=== PATIENT | male | born 1940 | race American Indian/Alaskan Native ===

== ENCOUNTER 2018-09-05 15:56 | Inpatient (IN) | payer OTHER ==
--- NOTE | 2018-09-05 16:10 | PDOC ---
Attending Attestation - Resident Resident Name: Antonio Gomes - HPI HPI: 09/05/18 17:17 Pt presents to the ED after sent from [place] for altered mental status. Patient has a history of parkinson's with associated dementia, but apparently was less responsive than usual. Patient is drowsy, but arousable and is confused but can answer questions. He does not know where he is or why he is here. He denies complaints except for R flank pain. - Physicial Exam PE: 09/05/18 17:20 Agree with resident exam. PAtient is drowsy but arousable to loud voice. HEENT : dry muccous mebranes, no signs of trauma. CV: RRR no m/r/g Pulm: Decreased air entry b/l Abdomen: soft, non tender, non distended. Ext: no edema, tenderness or deformity. Neuro: oriented x 2, moving all extremities, answering questions and following commands. 09/05/18 17:25 - Medical Decision Making 09/05/18 17:24 pt presents to the ED after sent in for altered mental status. Febrile in the ED. Likely sepsis, but intracranial lesion, electrolyte imbalance, less likely ACS remain in the differential. Will check labs and CT head, give gentle hydration, start broad spectrum antibiotics and admit to medicine. 09/05/18 17:26
--- NOTE | 2018-09-05 16:11 | PDOC ---
History of Present Illness - General Stated Complaint: Altered Mental Status Time Seen by Provider: 09/05/18 16:08 History Source: Patient Exam Limitations: No Limitations - History of Present Illness Initial Comments: 09/05/18 16:57 77m with pmg of ESRD on dialysis (sun/sun/sunday) , parkinson's, HTN, dysphagia , breast cancer sent from [facility] for altered mental status and fever per rectum. According to NH patient was "unresponsive" around 11:30 and "lethargic" according to a note written by Respiratory therapist. No more information provided upon calling [place]. . Past History - Past Medical History Allergies/Adverse Reactions: Allergies Allergy/AdvReac Type Severity Reaction Status Date / Time No Known Allergies Allergy Verified 09/05/18 16:44 Home Medications: Ambulatory Orders Amlodipine Besylate [Norvasc -] 10 mg PO DAILY 09/05/18 Carbidopa/Levodopa [Carbidopa-Levo ER 50-200 Tab] 1 each PO QID 09/05/18 Losartan Potassium 100 mg PO DAILY 09/05/18 Meclizine HCl [Antivert -] 12.5 mg PO TID PRN 09/05/18 Menthol/Zinc Oxide [Calmoseptine Ointment] 71 gm TP DAILY 09/05/18 Review of Systems - Review of Systems Able to Perform ROS?: Yes (although altered mental s) Constitutional: Yes: Weakness HEENTM: No: Symptoms Reported Respiratory: No: Symptoms reported Cardiac (ROS): No: Symptoms Reported ABD/GI: Yes: Other (left flank pain) All Other Systems: Reviewed and Negative *Physical Exam - Physical Exam General Appearance: Yes: Thin, Other (Dry skin and mucous membranes) HEENT: positive: EOMI, LIVIA, Normal ENT Inspection Respiratory/Chest: positive: Lungs Clear, Decreased Breath Sounds (left). negative: Chest Tender, Respiratory Distress Cardiovascular: positive: Regular Rhythm, Regular Rate, S1, S2 Gastrointestinal/Abdominal: positive: Normal Bowel Sounds, Flat, Soft. negative : Tender Musculoskeletal: positive: CVA Tenderness (L) Extremity: positive: Normal Capillary Refill, Normal Inspection, Normal Range of Motion Integumentary: positive: Dry, Pale Neurologic: positive: Normal Mood/Affect, Disoriented. negative: Fully Oriented (alert and oriented to self and time but not place. doesnt know where he ), Facial Droop, Numbness, Depressed Affect ED Treatment Course - LABORATORY CBC & Chemistry Diagram: 09/05/18 17:14 09/05/18 17:14 Medical Decision Making - Medical Decision Making 09/05/18 17:19 77yo m with pmh of dementia and esrd sent to ed for evaluation of ams and lethargy. Source of fever and lethargy pneumonia vs UTI vs anemia vs metabolic derangement. Will get Septic workup, start 500cc NS and abx vanc/zosyn. , CT head and ab/pelvis 09/05/18 19:51 CT HEAD: No definite CT evidence of acute intracranial pathology. A small left frontal subcortical white matter infarct is noted which is probably chronic, less likely subacute. Correlate clinically. A small linear hypodense focus is seen within the left paramedian aspect of the basis pontis which is probably artifactual, less likely representing a chronic infarct. Ct abdomen/pelvis: No definite CT findings of acute pathology are identified. Bilateral renal atrophy. Moderate to marked diffuse pancreatic atrophy. Mild/mild to moderate concentric subcutaneous soft tissue stranding suggestive of edema along the abdomen and pelvis. Mild right posterior basilar opacity is seen probably representing atelectasis, less likely a small infiltrate. Correlate clinically. Prostate enlargement. UA pending. Will admit to hospitalist *DC/Admit/Observation/Transfer Diagnosis at time of Disposition: Altered mental status - Discharge Dispostion Decision to Admit order: Yes - Referrals Referrals: Kamila Tucker MD [Primary Care Provider] - - Patient Instructions - Post Discharge Activity
[2018-09-05] MEDS ORDERED: SODIUM CHLORIDE 500 ML IV STA (16:37)
[2018-09-05] MEDS ORDERED: PIPERACILLIN/TAZOB 2.25 GM 2.25 GM in DEXTROSE 5%-WATER - 50 ML IVPB ONE (17:25)
[2018-09-05] MEDS ORDERED: VANCOMYCIN 1 GM in D5W (PRE-DOCKED) 1,000 MG/250 ML IVPB ONE (17:26)
[2018-09-05 17:28] LABS: VENOUS PC02 41.1 mmHg (38-52); VENOUS PH 7.39 (7.32-7.42); VENOUS PO2 52.6 mmHg (28-48)
[2018-09-05 17:34] LABS: BASO % 0.8 % (0-2.0); EOS % 4.7 % (0-4.5); HEMATOCRIT 39.7 % (35.4-49); HEMOGLOBIN 13.7 GM/dL (11.7-16.9); LYMPH % 8.2 % (8-40); MCH 39.2 pg (25.7-33.7); MCHC 34.4 g/dl (32.0-35.9); MEAN CELL VOLUME 113.9 fl (80-96); MEAN PLT VOLUME 10.2 fl (7.5-11.1); MONO % 10.9 % (3.8-10.2); NEUT % 75.4 % (42.8-82.8); PLATELET COUNT 175 K/MM3 (134-434); RBC 3.48 M/mm3 (4.00-5.60); WHITE BLOOD COUNT 10.9 K/mm3 (4.0-10.0)
[2018-09-05 17:54] LABS: ALBUMIN 3.4 g/dl (3.4-5.0); ALK PHOS 204 U/L (45-117); ANION GAP 9 MMOL/L (8-16); BILIRUBIN,TOTAL 0.8 mg/dL (0.2-1); BLOOD UREA NITROGEN 46 mg/dL (7-18); CALCIUM 8.8 mg/dL (8.5-10.1); CHLORIDE 106 mmol/L (98-107); CO2 25 mmol/L (21-32); CREATININE 4.7 mg/dL (0.55-1.3); GLUCOSE,RANDOM 112 mg/dL (74-106); POTASSIUM 4.8 mmol/L (3.5-5.1); SGOT/AST 26 U/L (15-37); SGPT/ALT 22 U/L (13-61); SODIUM 139 mmol/L (136-145); TOT PROT 7.1 g/dl (6.4-8.2)
[2018-09-05 18:02] LABS: INR 1.03 (0.83-1.09); PROTHROMBIN TIME (PATIENT) 12.1 SEC (9.7-13.0)
[2018-09-05 18:05] LABS: ACTIVATED PTT 35.5 SECONDS (25.2-36.5)
[2018-09-05] MEDS ORDERED: ACETAMINOPHEN 1000 MG/100 ML VIAL (NON FORMULARY) IVPB ONE (18:21)
[2018-09-05 18:25] LABS: MACROCYTOSIS 2+
[2018-09-05] MEDS ORDERED: VANCOMYCIN 1 GRAM (PRE-DOCKED) 1,000 MG/250 ML BAG IVPB ONE (18:25)
[2018-09-05] MEDS ORDERED: PIPERACILLIN/TAZOB 2.25 GM 2.25 GM/50 ML BAG IVPB ONE ×2 (18:25→18:26)
[2018-09-05] MEDS ORDERED: ACETAMINOPHEN INJECTION 100 ML IVPB ONE (18:25)
[2018-09-05 22:07] LABS: URINE APPEARANCE CLEAR; URINE BILIRUBIN NEGATIVE (<2.0 mg/dL); URINE COLOR LTYELLOW; URINE GLUCOSE (UA) NEGATIVE (NEGATIVE); URINE KETONE NEGATIVE (NEGATIVE); URINE LEUK ESTERASE NEGATIVE (NEGATIVE); URINE NITRITE NEGATIVE (NEGATIVE); URINE PROTEIN 3+ (NEGATIVE); URINE UROBILINOGEN NEGATIVE mg/dL (0.2-1.0)
--- NOTE | 2018-09-05 22:10 | HP ---
CHIEF COMPLAINT: fever, altered mental status PCP: Louie MELVIN HISTORY OF PRESENT ILLNESS: This is a 77 year old male with a past medical history of ESRD on dialysis MWF, Parkinson's disease, dementia, HTN, dysphagia, Breast cancer who presented to the ED from his snf with fever and altered mental status. Pt only complains of pain to the side of his left knee on exam. Denies cough, chest pain , abdominal pain, N/V/D. ER course was notable for: (1) WBC 10.9, CXR unremarkable, U/A pending (2) given vanc / zosycn in ED (3) Recent Travel: none PAST MEDICAL HISTORY: ESRD, Parkinson's disease, dementia, dysphagia, HTN, Breast cancer PAST SURGICAL HISTORY: Right AVF Social History: Smoking: unk Alcohol: unk Drugs: unk Family History: unk Allergies No Known Allergies Allergy (Verified 09/05/18 16:44) HOME MEDICATIONS: 3 Medication Instructions Recorded Amlodipine Besylate [Norvasc -] 10 mg PO DAILY 09/05/18 Carbidopa/Levodopa [Carbidopa-Levo 1 each PO QID 09/05/18 ER 50-200 Tab] Losartan Potassium 100 mg PO DAILY 09/05/18 Meclizine HCl [Antivert -] 12.5 mg PO TID PRN 09/05/18 Menthol/Zinc Oxide [Calmoseptine 71 gm TP DAILY 09/05/18 Ointment] REVIEW OF SYSTEMS CONSTITUTIONAL: Present: fever Absent: chills, diaphoresis, generalized weakness, malaise, loss of appetite, weight change HEENT: Absent: rhinorrhea, nasal congestion, throat pain, throat swelling, difficulty swallowing, mouth swelling, ear pain, eye pain, visual changes CARDIOVASCULAR: Absent: chest pain, syncope, palpitations, irregular heart rate, lightheadedness , peripheral edema RESPIRATORY: Absent: cough, shortness of breath, dyspnea with exertion, orthopnea, wheezing, stridor, hemoptysis GASTROINTESTINAL: Absent: abdominal pain, abdominal distension, nausea, vomiting, diarrhea, constipation, melena, hematochezia GENITOURINARY: Absent: dysuria, frequency, urgency, hesitancy, hematuria, flank pain, genital pain MUSCULOSKELETAL: Present: left knee pain Absent: myalgia, arthralgia, joint swelling, back pain, neck pain SKIN: Absent: rash, itching, pallor HEMATOLOGIC/IMMUNOLOGIC: Absent: easy bleeding, easy bruising, lymphadenopathy, frequent infections ENDOCRINE: Absent: unexplained weight gain, unexplained weight loss, heat intolerance, cold intolerance NEUROLOGIC: Absent: headache, focal weakness or paresthesias, dizziness, unsteady gait, seizure, mental status changes, bladder or bowel incontinence PSYCHIATRIC: Absent: anxiety, depression, suicidal or homicidal ideation, hallucinations. PHYSICAL EXAMINATION Vital Signs - 24 hr 3 09/05/18 16:00 Temperature 101.0 F H Pulse Rate 85 Respiratory 16 Rate Blood Pressure 167/78 O2 Sat by Pulse 100 Oximetry (%) GENERAL: lethargic, easily arousable, and oriented to person and place, in no acute distress. HEAD: Normal with no signs of trauma. EYES: Pupils equal, round and reactive to light, extraocular movements intact, sclera anicteric, conjunctiva clear. No lid lag. EARS, NOSE, THROAT: Ears normal, nares patent, oropharynx clear without exudates. Dry mucous membranes. NECK: Normal range of motion, supple without lymphadenopathy, JVD, or masses. LUNGS: Breath sounds diminished, poor inspiratory effort. No wheezes, and no crackles. No accessory muscle use. HEART: Regular rate and rhythm, normal S1 and S2 without murmur, rub or gallop. ABDOMEN: Soft, nontender, not distended, normoactive bowel sounds, no guarding, no rebound, no masses. No hepatomegaly or splenomegaly. MUSCULOSKELETAL: Normal range of motion at all joints. No bony deformities or tenderness. No CVA tenderness. UPPER EXTREMITIES: 2+ pulses, warm, well-perfused. No cyanosis. No clubbing. No peripheral edema. LOWER EXTREMITIES: 2+ pulses, warm, well-perfused. No calf tenderness. No peripheral edema. NEUROLOGICAL: Cranial nerves II-XII grossly intact. Normal speech. PSYCHIATRIC: Cooperative. Good eye contact. Appropriate mood and affect. SKIN: Warm, dry, poor turgor, no rashes or lesions noted, normal capillary refill. Laboratory Results - last 24 hr 3 09/05/18 09/05/18 09/05/18 17:03 17:14 17:14 WBC 10.9 H RBC 3.48 L Hgb 13.7 Hct 39.7 MCV 113.9 H MCH 39.2 H MCHC 34.4 RDW 16.0 H Plt Count 175 MPV 10.2 Absolute Neuts (auto) 8.2 H Neutrophils % 75.4 Lymphocytes % 8.2 Monocytes % 10.9 H Eosinophils % 4.7 H Basophils % 0.8 Nucleated RBC % 0 Macrocytosis 2+ PT with INR 12.10 INR 1.03 PTT (Actin FS) 35.5 VBG pH POC VBG pCO2 POC VBG pO2 Mixed VBG HCO3 Sodium Potassium Chloride Carbon Dioxide Anion Gap BUN Creatinine Creat Clearance w eGFR POC Glucometer 102 Random Glucose Lactic Acid Calcium Total Bilirubin AST ALT Alkaline Phosphatase Troponin I Total Protein Albumin 3 09/05/18 09/05/18 09/05/18 17:14 17:14 17:14 WBC RBC Hgb Hct MCV MCH MCHC RDW Plt Count MPV Absolute Neuts (auto) Neutrophils % Lymphocytes % Monocytes % Eosinophils % Basophils % Nucleated RBC % Macrocytosis PT with INR INR PTT (Actin FS) VBG pH 7.39 POC VBG pCO2 41.1 POC VBG pO2 52.6 H Mixed VBG HCO3 24.6 Sodium 139 Potassium 4.8 Chloride 106 Carbon Dioxide 25 Anion Gap 9 BUN 46 H Creatinine 4.7 H Creat Clearance w eGFR 12.21 POC Glucometer Random Glucose 112 H Lactic Acid 0.8 Calcium 8.8 Total Bilirubin 0.8 AST 26 ALT 22 Alkaline Phosphatase 204 H Troponin I 0.04 Total Protein 7.1 Albumin 3.4 Radiology Reports: CXR portable no obvious effusions, infiltrates, final read pending CT head, noncontrast Impression: No definite CT evidence of acute intracranial pathology. A small left frontal subcortical white matter infarct is noted which is probably chronic, less likely subacute. Correlate clinically. A small linear hypodense focus is seen within the left paramedian aspect of the basis pontis which is probably artifactual, less likely representing a chronic infarct. Reported By: Brendan Rivera MD 09/05/[address] abdomen, pelvis non contrast Impression: No definite CT findings of acute pathology are identified. Bilateral renal atrophy. Moderate to marked diffuse pancreatic atrophy. Mild/mild to moderate concentric subcutaneous soft tissue stranding suggestive of edema along the abdomen and pelvis. Mild right posterior basilar opacity is seen probably representing atelectasis, less likely a small infiltrate. Correlate clinically. Prostate enlargement. Reported By: Brendan Rivera MD 09/05/181937 ASSESSMENT/PLAN: 77yM with PMH ESRD, parkinson's disease with dysphagia, HTN, breast cancer who presented to the ED with fever. Fever, r/o bacteremia vs PNA - cont vanc/zosyn - CXR without obvious infiltrate/effusion, CT abd/pel with right basilar opacity, ? atelectasis vs less likely small infiltrate, await final CXR read, consider CT chest if no other source of fever - follow blood cultures, could be bacteremia r/t dialysis - ID consult Parkinson's disease - cont home meds - speech/swallow, r/o silent aspiration, RN reports tolerated water without issue ESRD - HTN - cont home meds or pharmacy formulary equivalent. DVT PPX - heparin 5000u BID FEN - defer further IVF in setting of ESRD and normal lactate, po fluids - BMP in am - renal diet Dispo: Pt currently requires further inpatient management of his emergent condition. Visit type - Emergency Visit Emergency Visit: Yes ED Registration Date: 09/05/18 Care time: The patient presented to the Emergency Department on the above date and was hospitalized for further evaluation of their emergent condition. - New Patient This patient is new to me today: Yes Date on this admission: 09/05/18 - Critical Care Critical Care patient: No
[2018-09-05 22:21] LABS: EPI CELLS RARE /HPF (FEW); URINE MUCUS RARE
[2018-09-06 04:45] VITALS: BMI 20.8
[2018-09-06 06:55] LABS: EOS % 8.4 % (0-4.5); HEMATOCRIT 38.5 % (35.4-49); HEMOGLOBIN 12.8 GM/dL (11.7-16.9); LYMPH % 7.2 % (8-40); MCH 38.3 pg (25.7-33.7); MCHC 33.3 g/dl (32.0-35.9); MEAN CELL VOLUME 115.2 fl (80-96); MEAN PLT VOLUME 10.4 fl (7.5-11.1); MONO % 10.5 % (3.8-10.2); NEUT % 72.9 % (42.8-82.8); PLATELET COUNT 166 K/MM3 (134-434); RBC 3.34 M/mm3 (4.00-5.60); WHITE BLOOD COUNT 9.8 K/mm3 (4.0-10.0)
[2018-09-06 07:27] LABS: ANION GAP 7 MMOL/L (8-16); BLOOD UREA NITROGEN 51 mg/dL (7-18); CALCIUM 8.3 mg/dL (8.5-10.1); CHLORIDE 105 mmol/L (98-107); CO2 25 mmol/L (21-32); CREATININE 4.9 mg/dL (0.55-1.3); GLUCOSE,RANDOM 77 mg/dL (74-106); MAGNESIUM 2.4 mg/dL (1.8-2.4); PHOSPHOROUS 4.6 mg/dL (2.5-4.9); POTASSIUM 4.8 mmol/L (3.5-5.1); SODIUM 137 mmol/L (136-145)
[2018-09-06] MEDS ORDERED: PIPERACILLIN/TAZOB 2.25 GM 2.25 GM in DEXTROSE 5%-WATER - 50 ML IVPB ONE (08:00)
[2018-09-06] MEDS ORDERED: PIPERACILLIN/TAZOBACTAM 2.25 GM VIAL IVPB ONE ×2 (08:44→18:24)
[2018-09-06] MEDS ORDERED: DEXTROSE 5%-WATER - 50 ML IVPB ONE ×2 (08:45→18:24)
[2018-09-06] MEDS ORDERED: PT OWN MED DRAWER 7, Y5N ONE ×3 (10:54→21:43)
[2018-09-06] MEDS: HEPARIN NA (PORCINE) 5,000 UNITS/ML 1ML VIAL SQ SCH ×2 (10:59→21:45)
[2018-09-06] MEDS: amLODIPine BESYLATE 10 MG TABLET (FP) PO SCH (10:59)
[2018-09-06] MEDS: LOSARTAN POTASSIUM 50 MG TABLET (FP) PO SCH (10:59)
--- NOTE | 2018-09-06 11:19 | PN ---
Progress Note (short form) - Note Progress Note: ID consult dictated imp/reccd 77 yo man admitted from [place] with lethargy left hip pain for one week PMH esrd/hd breast cancer parkinsons disease HTN DM found to have fever 101 currently awake and alert currently afebrile he had a head ct and ct scan of his abdomen and pelvis with question of RLL small infiltrate/atelectasis received vanco/zosyn in ed influenza screen negative fever ?secondary to bacteremia from HD- unlikely with AVF- received vanco/zosyn after cultures ?pneumonia- continue zosyn for now, ?aspiration f/u cultures xray left hip elevated mcv-b12,folate tsh clinically improved Problem List - Problems (1) Fever Code(s): R50.9 - FEVER, UNSPECIFIED (2) Pneumonia Code(s): J18.9 - PNEUMONIA, UNSPECIFIED ORGANISM (3) ESRD (end stage renal disease) on dialysis Code(s): N18.6 - END STAGE RENAL DISEASE; Z99.2 - DEPENDENCE ON RENAL DIALYSIS
--- NOTE | 2018-09-06 12:42 | CONS ---
DATE OF CONSULTATION: DATE OF DICTATION: 09/06/2018 REQUESTED BY: Zen Alexander MD HISTORY OF PRESENT ILLNESS: This is a 77-year-old man admitted from the halfway. He has been there for a week. Prior to that he was at [facility]. It is unclear why who presents with lethargy from the halfway. Found to have fever of 101. He was given vancomycin and Zosyn in the emergency room. He had a chest x-ray that was read as unremarkable. A CAT scan of his abdomen and pelvis showed a question of a right lower lobe infiltrate. He had blood cultures drawn and was started on vancomycin and Zosyn. He has had no fever since that time. PAST MEDICAL HISTORY: Notable for endstage renal disease, on dialysis he reports for about a year and a half now. He has a history of Parkinson disease, dysphagia, hypertension and breast cancer. SURGICAL HISTORY: Notable for AVF. He has also had sounds like lumbar back surgery in the past. SOCIAL HISTORY: He denies cigarette, alcohol or substance use. He was living in [place]. 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 He is originally from [place]. FAMILY HISTORY: Unremarkable. ALLERGIES: He has no known drug allergies. MEDICATIONS: Include amlodipine, carbidopa, levodopa, losartan, meclizine. REVIEW OF SYSTEMS: He denies fever. He complains he has had 1 week of left hip pain. Otherwise he feels well. He has had no vomiting. He denies any cough or shortness of breath. PHYSICAL EXAMINATION:Vital Signs: His T-max was 101, currently 97.5, pulse is 71, blood pressure 153/74, respiratory rate is 18, he is 62 kg. HEENT: He is normocephalic. His eyes are anicteric. He has good dentition. Neck: Supple. He has no thrush. He has no nuchal rigidity. Lungs: Have diminished breath sounds at the bases. Heart: Regular rate and rhythm. Abdomen: Soft. He has a well-healed scar on his lower abdomen that he attributes to his prior lumbar back surgery. Extremities: He has an AV fistula in his right arm without any erythema or induration. Extremities are without edema. LABORATORY DATA: White count on admission was 10.9, this morning is 9.8, hemoglobin 12.8, platelets 166. His BUN is 51 and creatinine is 4.9. His LFTs are normal. Urinalysis is negative. Influenza screen is negative. Of note his MCV on his differential is noted to be 115. His blood and urine cultures are pending. Imaging is as previously stated. ASSESSMENT: In summary, this is a 77-year-old man with: 1. Fever possibly secondary to bacteremia from dialysis which is definitely more unlikely given he has an arteriovenous fistula that looks okay. He received vancomycin and Zosyn after cultures. 2. Possible pneumonia. More likely with his history of Parkinson he could have had an episode of aspiration. Would continue Zosyn for now and follow up cultures. Would also obtain an x-ray of his left hip. He has an elevated mean corpuscular volume so would obtain B12, folate and a thyroid stimulating hormone as well. Clinically overall he appears improved as he is alert, he is able to give a full history and he has no fever this morning. Further recommendations to follow. GERMÁN HORTON M.D. [id number]
--- NOTE | 2018-09-06 12:56 | EKG ---
Test Reason : Blood Pressure : / mmHG Vent. Rate : 079 BPM Atrial Rate : 079 BPM P-R Int : 142 ms QRS Dur : 084 ms QT Int : 348 ms P-R-T Axes : 054 -36 040 degrees QTc Int : 399 ms NORMAL SINUS RHYTHM LEFT AXIS DEVIATION SEPTAL INFARCT , AGE UNDETERMINED ABNORMAL ECG NO PREVIOUS ECGS AVAILABLE Confirmed by KE KC MD ([id number]) on 09/06/2018 12:56:28 PM Referred By: Confirmed By:KE KC MD
--- NOTE | 2018-09-06 13:09 | CONSULT ---
Admitting History and Physical - Primary Care Physician PCP: Zen Alexander - Admission History of Present Illness: 77 year old male with a past medical history of ESRD on dialysis MWF, Parkinson 's disease, dementia, HTN, dysphagia, Breast cancer who presented to the ED from his assisted with fever and altered mental status. RLL small infiltrate/atelectasis Selected Entries 09/05/18 09/06/18 09/06/18 16:00 02:23 04:05 Breakfast Temperature 101.0 F H 98.9 F 97.5 F L 09/06/18 09/06/18 07:53 12:50 Breakfast 100% Temperature 97.5 F L Laboratory Tests 09/05/18 09/06/18 17:14 05:45 WBC 10.9 H 9.8 Reg diet/thin liquids ordered. This is my first consult with this pt. Pt was on reg diet/thin liquid at [facility]. Dx of "Oral phase Dysphagia" noted on transfer summary. History Source: Patient, Medical Record Limitations to Obtaining History: Clinical Condition - Advance Directives Advance Directives: Yes: DNR - Smoking History Smoking history: Never smoked Have you smoked in the past 12 months: No - Alcohol/Substance Use Hx Alcohol Use: No History - Admission Reason For Visit: Altered Mental Status - Diagnostics X-ray: Report Reviewed - General Mental Status: Alert and Oriented, Awake and Alert, Able to Follow Commands Attention: Distractible, Mild Impairment Ability to Follow Directions: Good Head/Neck Control: WFL - Hearing Hearing: Normal Speech Evaluation - Communication Primary Language: UPPER SORBI[place] Oral Expression Ability: Yes: Mild Impairment - Speech Production Dysarthria: Yes: Hypokinetic Able to Make Needs Known: Yes: Mildly Impaired Intelligibility: Yes: Mildly Impaired - Speech Characteristics Voice Loudness: Mildly Soft/Quiet Voice Pitch: Yes: Normal Voice Phonatory-based Quality: Yes: Hoarse Speech Clarity: < 75% Nasal Resonance: Normal Articulation: Yes: Precise Rate of Speech: Intact - Language/Auditory Comprehension Follows: Yes: 2 Stage Simple Commands - Language/Verbal Expression Able to Respond to Simple Queries: Yes: WNL Able to Communicate Wants and Needs: Yes: WNL Functional Communication Status: Yes: WNL - Swallow Evaluation/Bedside Assessment Current Nutritional Intake: Regular, Thin Liquids Oral Secretions: Yes: WFL Dentition: Yes: Adequate Facial Symmetry at Rest: Symmetrical Facial Symmetry on Retraction: Symmetrical Sensation: Normal Against Resistance Opening: Normal Against Resistance Closing: Normal Pucker Lips: Normal Smile: Normal Lingual Movement: Normal, Symmetric Lingual Speed of Movement: Normal Lingual Movement Strgth Against Opposition: Normal Lingual Movement Characteristics: Normal Velopharyngeal Movement: Normal Laryngeal Elevation: WFL Laryngeal Movement: Able to Palpate Rate of Intake: WFL Bolus Size: WFL Labial Seal: WFL Chewing: WFL Oral Prep Time: WFL A-P Transit: WFL Pocketing: None Timing of Swallow: Delayed Coughing/Throat Clear: No Change in Voice: No Recommendations - Speech Evaluation, Impression/Plan Impression: Mild Hypokinetic Dysarthria sec Parkinsons Disease. Overtly seems to be tolerating Chicken, and drinking thin water via straw without difficulty. 3 oz water test (-). - Disposition Discharge to: Long Term Facility - Dysphagia Impressions/Plan Dysphagia Impressions: Risk of Aspiration, Ongoing Evaluation *Silent aspiration: cannot be R/O at bedside Dysphagia Treatment Plan: Small Bites, Chin Tuck/Down, Facilitative Feeding, Safe Rate, 1/2 tsp. at a time, Elevate HOB during feed, OOB for meals, OOB for 1 h. after meals, Other (Food set up. Please cut pt's food.) Recommendations: Modified Barium Swallow (If aspiration or oral stage dysphagia is suspected, suggest MBS to visualize Swallowing function.) - Recommendations Diet Consistency: Regular Medication Administration: Whole with water Liquids: Thin Liquids
[2018-09-06] MEDS ORDERED: SODIUM CHLORIDE 250 ML IV PRN (13:50)
--- NOTE | 2018-09-06 13:52 | CONSULT ---
Consult Consult Specialty:: Nephrology Reason for Consultation:: ESRD - History of Present Illness Chief Complaint: sent for altered mental status and fever History of Present Illness: Pt is a 77 year old male with pmhx of ESRD, HTN, Parkinsons, and dysphagia who was sent in from the [place] for fever and altered mental status. He has ESRD and I was called to evaluate him. He is on a MWF schedule. He goes to [facility] for HD. He was able to tell me the location of his HD unit, his quality assurance consultant and his HD schedule. He denies shortness of breath. He is sitting up in bed and appears comfortable. He is able to eat on his own. - History Source History Provided By: Patient, Medical Record - Past Medical History Cardio/Vascular: Yes: HTN Renal/: Yes: Renal Failure, Hemodialysis - Alcohol/Substance Use Hx Alcohol Use: No - Smoking History Smoking history: Never smoked Have you smoked in the past 12 months: No Home Medications - Allergies Allergies/Adverse Reactions: Allergies Allergy/AdvReac Type Severity Reaction Status Date / Time No Known Allergies Allergy Verified 09/05/18 16:44 - Home Medications Home Medications: Ambulatory Orders Amlodipine Besylate [Norvasc -] 10 mg PO DAILY 09/05/18 Carbidopa/Levodopa [Carbidopa-Levo ER 50-200 Tab] 1 each PO QID 09/05/18 Losartan Potassium 100 mg PO DAILY 09/05/18 Meclizine HCl [Antivert -] 12.5 mg PO TID PRN 09/05/18 Menthol/Zinc Oxide [Calmoseptine Ointment] 71 gm TP DAILY 09/05/18 Family Disease History - Family Disease History Family History: Denies Review of Systems - Review of Systems Constitutional: reports: No Symptoms Eyes: reports: No Symptoms HENT: reports: No Symptoms Neck: reports: No Symptoms Cardiovascular: reports: No Symptoms Respiratory: reports: No Symptoms Gastrointestinal: reports: No Symptoms Genitourinary: reports: No Symptoms Musculoskeletal: reports: No Symptoms Integumentary: reports: No Symptoms Neurological: reports: No Symptoms Endocrine: reports: No Symptoms Hematology/Lymphatic: reports: No Symptoms Physical Exam Vital Signs: Vital Signs Temperature 97.5 F L 09/06/18 07:53 Pulse Rate 71 09/06/18 07:53 Respiratory Rate 18 09/06/18 07:53 Blood Pressure 153/74 02/15/19 07:53 O2 Sat by Pulse Oximetry (%) 97 09/06/18 09:00 Constitutional: Yes: Calm Eyes: Yes: Conjunctiva Clear HENT: Yes: Atraumatic Cardiovascular: Yes: S1, S2 Respiratory: Yes: CTA Bilaterally Gastrointestinal: Yes: Soft Renal/: Yes: Incontinence Musculoskeletal: Yes: Muscle Weakness Edema: Yes Edema: LLE: Trace, RLE: Trace Neurological: Yes: Oriented Psychiatric: Yes: Oriented Labs: CBC, BMP 09/06/18 05:45 09/06/18 05:45 Laboratory Tests 09/06/18 09/06/18 05:45 05:45 WBC 9.8 Hgb 12.8 BUN 51 H Creatinine 4.9 H Imaging - Results Cat Scan: Report Reviewed Problem List - Problems (1) Altered mental status Code(s): R41.82 - ALTERED MENTAL STATUS, UNSPECIFIED (2) ESRD (end stage renal disease) on dialysis Code(s): N18.6 - END STAGE RENAL DISEASE; Z99.2 - DEPENDENCE ON RENAL DIALYSIS Assessment/Plan Current Medications Generic Name Dose Route Start Last Admin Trade Name Freq PRN Reason Stop Dose Admin Amlodipine Besylate 10 mg 09/06/18 10:00 09/06/18 10:59 Norvasc - PO 10 mg DAILY JOSE J Administration Carbidopa/Levodopa 1 combo 09/06/18 10:00 09/06/18 11:00 Sinemet *Cr* 50/200 - PO 1 combo QID JOSE J Administration Heparin Sodium (Porcine) 5,000 unit 09/06/18 10:00 09/06/18 10:59 Heparin - SQ 5,000 unit BID JOSE J Administration Piperacillin Sod/Tazobactam 50 mls @ 100 mls/hr 09/06/18 18:00 Sod 2.25 gm/ Dextrose IVPB Q8H-IV JOSE J Protocol Sodium Chloride 250 mls @ 3,000 mls/hr 09/06/18 13:50 Normal Saline - IV 09/07/18 13:50 PRN PRN Hypotension during Dialysis Losartan Potassium 100 mg 09/06/18 10:00 09/06/18 10:59 Cozaar - PO 100 mg DAILY JOSE J Administration Microbiology Impression 1. ESRD 2. HTN 3. change in mental status 4. PNA 5. parkinsons Plan - will arrange for HD today - called HD unit, 3 hrs 2 k bath, 16 gaug needles 350 abg - follow cultures - monitor bp - abx per ID Dr Kilpatrick
[2018-09-06] MEDS: PIPERACILLIN/TAZOB 2.25 GM 2.25 GM in DEXTROSE 5%-WATER - 50 ML IVPB SCH (18:25)
[2018-09-07] MEDS ORDERED: PT OWN MED DRAWER 7, Y5N ONE ×4 (01:42→21:27)
[2018-09-07] MEDS: PIPERACILLIN/TAZOB 2.25 GM 2.25 GM in DEXTROSE 5%-WATER - 50 ML IVPB SCH ×3 (02:10→19:10)
--- NOTE | 2018-09-07 08:28 | PN ---
Progress Note, Physician Chief Complaint: AMS Fever History of Present Illness: Previous notes and events reviewed awake and alert NAD denies complaints of pain, chest pain, SOB complain of constipation - Current Medication List Current Medications: Active Medications Amlodipine Besylate (Norvasc -) 10 mg PO DAILY [facility] Last Admin: 09/06/18 10:59 Dose: 10 mg Carbidopa/Levodopa (Sinemet *Cr* 50/200 -) 1 combo PO QID [facility] Last Admin: 09/06/18 21:45 Dose: 1 combo Heparin Sodium (Porcine) (Heparin -) 5,000 unit SQ BID [facility] Last Admin: 09/06/18 21:45 Dose: 5,000 unit Piperacillin Sod/Tazobactam (Sod 2.25 gm/ Dextrose) 50 mls @ 100 mls/hr IVPB Q8H-IV [facility]; Protocol Last Admin: 09/07/18 02:10 Dose: 100 mls/hr Sodium Chloride (Normal Saline -) 250 mls @ 3,000 mls/hr IV PRN PRN PRN Reason: Hypotension during Dialysis Stop: 09/07/18 13:50 Losartan Potassium (Cozaar -) 100 mg PO DAILY [facility] Last Admin: 09/06/18 10:59 Dose: 100 mg - Objective Vital Signs: Vital Signs Temperature 98.7 F 09/07/18 06:55 Pulse Rate 75 09/07/18 06:55 Respiratory Rate 20 09/07/18 06:55 Blood Pressure 128/72 09/07/18 06:55 O2 Sat by Pulse Oximetry (%) 97 09/06/18 12:00 Constitutional: Yes: No Distress, Calm Eyes: Yes: Conjunctiva Clear HENT: Yes: Normocephalic Cardiovascular: Yes: Regular Rate and Rhythm Respiratory: Yes: Regular, CTA Bilaterally Gastrointestinal: Yes: Normal Bowel Sounds, Soft Musculoskeletal: Yes: Muscle Weakness Extremities: Yes: WNL, Other (L AV fistula (+) thrill) Edema: No Neurological: Yes: Alert, Pre-Existing Deficit Psychiatric: Yes: Alert Labs: CBC, BMP 09/06/18 05:45 09/06/18 05:45 INR, PTT INR 1.03 (0.83-1.09) 09/05/18 17:14 Microbiology 09/05/18 17:17 Blood - Peripheral Venous Blood Culture - Preliminary NO GROWTH OBTAINED AFTER 24 HOURS, INCUBATION TO CONTINUE FOR 4 DAYS. 09/05/18 17:17 Blood - Peripheral Venous Blood Culture - Preliminary NO GROWTH OBTAINED AFTER 24 HOURS, INCUBATION TO CONTINUE FOR 4 DAYS. Problem List - Problems (1) Altered mental status Assessment/Plan: -improved -BC neg, UC pending Code(s): R41.82 - ALTERED MENTAL STATUS, UNSPECIFIED (2) ESRD (end stage renal disease) on dialysis Assessment/Plan: -renal on board -continue with HD MWF -renal diet -1L fluid restriction Code(s): N18.6 - END STAGE RENAL DISEASE; Z99.2 - DEPENDENCE ON RENAL DIALYSIS (3) Fever Assessment/Plan: -ID on board -BC neg, UC pending -initial CXR unremarkable -continue zosyn -current WBC 9.8 and afebrile Code(s): R50.9 - FEVER, UNSPECIFIED (4) Hip pain Assessment/Plan: -pending Hip xray result Code(s): M25.559 - PAIN IN UNSPECIFIED HIP (5) Constipation Assessment/Plan: -miralax daily Code(s): K59.00 - CONSTIPATION, UNSPECIFIED (6) Pneumonia Assessment/Plan: -ID on board -continue zosyn -TRAFFIC OPERATIONS MANAGER on board, aspiration? -Abd/Pelvic CT scan show mild R posterior basilar opacity is seen probably representing atelectasis -O2 via [place] PRN for SOB -pulm consult Code(s): J18.9 - PNEUMONIA, UNSPECIFIED ORGANISM
[2018-09-07] MEDS ORDERED: PIPERACILLIN/TAZOBACTAM 2.25 GM VIAL IVPB ONE ×2 (09:32→19:07)
[2018-09-07] MEDS ORDERED: DEXTROSE 5%-WATER - 50 ML IVPB ONE ×2 (09:33→19:07)
[2018-09-07] MEDS: LOSARTAN POTASSIUM 50 MG TABLET (FP) PO SCH (09:40)
[2018-09-07] MEDS: HEPARIN NA (PORCINE) 5,000 UNITS/ML 1ML VIAL SQ SCH ×2 (09:40→21:28)
[2018-09-07] MEDS: amLODIPine BESYLATE 10 MG TABLET (FP) PO SCH (09:40)
[2018-09-07] MEDS: POLYETHYLENE GLYCOL 3350 119 GM BTL PO SCH (09:51)
--- NOTE | 2018-09-07 12:08 | CON.PULM ---
Consult Consult Specialty:: PULMONARY Referred by:: Dr. Alexander Reason for Consultation:: atelectasis - History of Present Illness Chief Complaint: fever History of Present Illness: 77yo male with h/o HTN, breast ca, Parkinsons, ESRD on HD who was transferred from the skilled nursing for fevers and altered mental status. Started on empiric antibiotics with improvement. Denies shortness of breath or chest pain. No cough or wheezing. CXR was clear, atelectasis seen on lung windows of CT A/P. He denies history of asthma or COPD. He is a never smoker. - History Source History Provided By: Patient, Medical Record Limitations to Obtaining History: No Limitations - Past Medical History Cardio/Vascular: Yes: HTN Renal/: Yes: Renal Failure, Hemodialysis - Alcohol/Substance Use Hx Alcohol Use: No - Smoking History Smoking history: Never smoked Have you smoked in the past 12 months: No Home Medications - Allergies Allergies/Adverse Reactions: Allergies Allergy/AdvReac Type Severity Reaction Status Date / Time No Known Allergies Allergy Verified 09/05/18 16:44 - Home Medications Home Medications: Ambulatory Orders Amlodipine Besylate [Norvasc -] 10 mg PO DAILY 09/05/18 Carbidopa/Levodopa [Carbidopa-Levo ER 50-200 Tab] 1 each PO QID 09/05/18 Losartan Potassium 100 mg PO DAILY 09/05/18 Meclizine HCl [Antivert -] 12.5 mg PO TID PRN 09/05/18 Menthol/Zinc Oxide [Calmoseptine Ointment] 71 gm TP DAILY 09/05/18 Review of Systems - Review of Systems Constitutional: reports: Fever. denies: Weakness Eyes: denies: Recent Change in Vision HENT: denies: Nasal Congestion, Throat Pain Neck: denies: Stiffness, Tenderness Cardiovascular: denies: Chest Pain, Shortness of Breath Respiratory: denies: Cough, Hemoptysis, Wheezing Gastrointestinal: denies: Abdominal Pain, Nausea, Vomiting Genitourinary: denies: Dysuria, Hematuria Neurological: denies: Dizziness, Headache Endocrine: denies: Unexplained Weight Loss Physical Exam Vital Sings: Vital Signs Temperature 98.5 F 09/07/18 11:00 Pulse Rate 78 09/07/18 11:00 Respiratory Rate 18 09/07/18 11:00 Blood Pressure 144/53 L 09/07/18 11:00 O2 Sat by Pulse Oximetry (%) 97 09/07/18 09:00 Constitutional: Yes: Calm Eyes: Yes: Conjunctiva Clear, EOM Intact HENT: Yes: Atraumatic, Normocephalic Neck: Yes: Supple, Trachea Midline Cardiovascular: Yes: Regular Rate and Rhythm Respiratory: Yes: Diminished (decreased breath sounds at the bases) ...Clubbing: No Gastrointestinal: Yes: Normal Bowel Sounds, Soft. No: Tenderness Edema: No Labs: CBC, BMP 09/06/18 05:45 09/06/18 05:45 Imaging - Results Chest X-ray: Report Reviewed, Image Reviewed (no acute infiltrates) Cat Scan: Report Reviewed, Image Reviewed Problem List - Problems (1) Altered mental status Code(s): R41.82 - ALTERED MENTAL STATUS, UNSPECIFIED (2) ESRD (end stage renal disease) on dialysis Code(s): N18.6 - END STAGE RENAL DISEASE; Z99.2 - DEPENDENCE ON RENAL DIALYSIS (3) Fever Code(s): R50.9 - FEVER, UNSPECIFIED Assessment/Plan Fever from unclear source r/o Pneumonia vs Atelectasis ESRD on HD Parkinsons Disease HTN - empiric antibiotics - f/u cultures - less likely pneumonia given clear CXR and CT imaging and lack of respiratory symptoms - HD per renal - aspiration precautions - DVT prophylaxis Thank you for this consult Anthony Ramirez MD
--- NOTE | 2018-09-07 12:30 | PN ---
Progress Note (short form) - Note Progress Note: \alert, no complaints currently afebrile he had a head ct and ct scan of his abdomen and pelvis with question of RLL small infiltrate/atelectasis Vital Signs Period Temp Pulse Resp BP Sys/Bentley Pulse Ox Last 24 Hr 97.7 F-98.7 F 52-95 18-20 128-152/53-78 97 cor-rrr lungs decreased bs at bases abd soft,nt ext no edema CBC, BMP 09/06/18 05:45 09/06/18 05:45 Microbiology 09/05/18 21:10 Urine - Urine Clean Catch Urine Culture - Final NO GROWTH OBTAINED 09/05/18 17:17 Blood - Peripheral Venous Blood Culture - Preliminary NO GROWTH OBTAINED AFTER 24 HOURS, INCUBATION TO CONTINUE FOR 4 DAYS. 09/05/18 17:17 Blood - Peripheral Venous Blood Culture - Preliminary NO GROWTH OBTAINED AFTER 24 HOURS, INCUBATION TO CONTINUE FOR 4 DAYS. a/p fever-resolved ?pneumonia- continue zosyn for now, ?aspiration f/u cultures xray left hip done, reading pending, no hip pain today Problem List - Problems (1) Fever Code(s): R50.9 - FEVER, UNSPECIFIED (2) Pneumonia Code(s): J18.9 - PNEUMONIA, UNSPECIFIED ORGANISM (3) ESRD (end stage renal disease) on dialysis Code(s): N18.6 - END STAGE RENAL DISEASE; Z99.2 - DEPENDENCE ON RENAL DIALYSIS
--- NOTE | 2018-09-07 16:28 | PN ---
Progress Note, Physician History of Present Illness: Pt seen and examined at bedside. He is confused. He denies shortness of breath. - Current Medication List Current Medications: Active Medications Amlodipine Besylate (Norvasc -) 10 mg PO DAILY [facility] Last Admin: 09/07/18 09:40 Dose: 10 mg Carbidopa/Levodopa (Sinemet *Cr* 50/200 -) 1 combo PO QID [facility] Last Admin: 09/07/18 13:41 Dose: 1 combo Heparin Sodium (Porcine) (Heparin -) 5,000 unit SQ BID [facility] Last Admin: 09/07/18 09:40 Dose: 5,000 unit Piperacillin Sod/Tazobactam (Sod 2.25 gm/ Dextrose) 50 mls @ 100 mls/hr IVPB Q8H-IV JOSE J; Protocol Last Admin: 09/07/18 09:40 Dose: 100 mls/hr Losartan Potassium (Cozaar -) 100 mg PO DAILY [facility] Last Admin: 09/07/18 09:40 Dose: 100 mg Polyethylene Glycol (Miralax (For Daily Use) -) 17 gm PO DAILY [facility] Last Admin: 09/07/18 09:51 Dose: 17 gm - Objective Vital Signs: Vital Signs Temperature 97.9 F 09/07/18 15:00 Pulse Rate 77 09/07/18 15:00 Respiratory Rate 18 09/07/18 15:00 Blood Pressure 133/72 09/07/18 15:00 O2 Sat by Pulse Oximetry (%) 97 09/07/18 09:00 Constitutional: Yes: Calm Eyes: Yes: Conjunctiva Clear HENT: Yes: Atraumatic Cardiovascular: Yes: S1, S2 Respiratory: Yes: CTA Bilaterally Gastrointestinal: Yes: Soft Genitourinary: Yes: Incontinence Musculoskeletal: Yes: Muscle Weakness Edema: No Neurological: Yes: Confusion Labs: CBC, BMP 09/06/18 05:45 09/06/18 05:45 INR, PTT INR 1.03 (0.83-1.09) 09/05/18 17:14 Problem List - Problems (1) Altered mental status Code(s): R41.82 - ALTERED MENTAL STATUS, UNSPECIFIED (2) ESRD (end stage renal disease) on dialysis Code(s): N18.6 - END STAGE RENAL DISEASE; Z99.2 - DEPENDENCE ON RENAL DIALYSIS Assessment/Plan Current Medications Generic Name Dose Route Start Last Admin Trade Name Freq PRN Reason Stop Dose Admin Amlodipine Besylate 10 mg 09/06/18 10:00 09/07/18 09:40 Norvasc - PO 10 mg DAILY JOSE J Administration Carbidopa/Levodopa 1 combo 09/06/18 10:00 09/07/18 13:41 Sinemet *Cr* 50/200 - PO 1 combo QID JOSE J Administration Heparin Sodium (Porcine) 5,000 unit 09/06/18 10:00 09/07/18 09:40 Heparin - SQ 5,000 unit BID JOSE J Administration Piperacillin Sod/Tazobactam 50 mls @ 100 mls/hr 09/06/18 18:00 09/07/18 09:40 Sod 2.25 gm/ Dextrose IVPB 100 mls/hr Q8H-IV JOSE J Administration Protocol Losartan Potassium 100 mg 09/06/18 10:00 09/07/18 09:40 Cozaar - PO 100 mg DAILY JOSE J Administration Polyethylene Glycol 17 gm 09/07/18 10:00 09/07/18 09:51 Miralax (For Daily Use) - PO 17 gm DAILY JOSE J Administration Impression 1. ESRD 2. HTN 3. change in mental status 4. PNA 5. parkinsons Plan - pt tolerated HD yesterday - next HD on Sunday - follow cultures - called HD unit, 3 hrs 2 k bath, 16 gaug needles 350 abg - monitor bp - abx per ID Dr Kilpatrick
[2018-09-08] MEDS ORDERED: PIPERACILLIN/TAZOBACTAM 2.25 GM VIAL IVPB ONE ×2 (01:54→08:31)
[2018-09-08] MEDS ORDERED: DEXTROSE 5%-WATER - 50 ML IVPB ONE ×2 (01:55→08:31)
[2018-09-08] MEDS: PIPERACILLIN/TAZOB 2.25 GM 2.25 GM in DEXTROSE 5%-WATER - 50 ML IVPB SCH ×2 (02:57→09:30)
[2018-09-08 07:47] LABS: HEMOGLOBIN 13.4 GM/dL (11.7-16.9); MCH 39.2 pg (25.7-33.7); MCHC 34.4 g/dl (32.0-35.9); MEAN CELL VOLUME 113.8 fl (80-96); MEAN PLT VOLUME 10.9 fl (7.5-11.1); PLATELET COUNT 175 K/MM3 (134-434); RBC 3.42 M/mm3 (4.00-5.60); RDW 16.3 % (11.9-15.9); WHITE BLOOD COUNT 8.6 K/mm3 (4.0-10.0)
--- NOTE | 2018-09-08 08:21 | PN ---
Progress Note, Physician Chief Complaint: AMS Fever History of Present Illness: Previous notes and events reviewed awake and alert, confused NAD denies complaints of pain, chest pain, SOB - Current Medication List Current Medications: Active Medications Amlodipine Besylate (Norvasc -) 10 mg PO DAILY [facility] Last Admin: 09/07/18 09:40 Dose: 10 mg Carbidopa/Levodopa (Sinemet *Cr* 50/200 -) 1 combo PO QID [facility] Last Admin: 09/07/18 21:28 Dose: 1 combo Heparin Sodium (Porcine) (Heparin -) 5,000 unit SQ BID [facility] Last Admin: 09/07/18 21:28 Dose: 5,000 unit Piperacillin Sod/Tazobactam (Sod 2.25 gm/ Dextrose) 50 mls @ 100 mls/hr IVPB Q8H-IV [facility]; Protocol Last Admin: 09/08/18 02:57 Dose: 100 mls/hr Losartan Potassium (Cozaar -) 100 mg PO DAILY [facility] Last Admin: 09/07/18 09:40 Dose: 100 mg Polyethylene Glycol (Miralax (For Daily Use) -) 17 gm PO DAILY [facility] Last Admin: 09/07/18 09:51 Dose: 17 gm - Objective Vital Signs: Vital Signs Temperature 97.8 F 09/08/18 06:48 Pulse Rate 73 09/08/18 06:48 Respiratory Rate 20 09/08/18 06:48 Blood Pressure 141/66 09/08/18 06:48 O2 Sat by Pulse Oximetry (%) 97 09/07/18 09:00 Constitutional: Yes: No Distress, Calm Eyes: Yes: Conjunctiva Clear HENT: Yes: Normocephalic Cardiovascular: Yes: Regular Rate and Rhythm Respiratory: Yes: Regular, Diminished Gastrointestinal: Yes: Normal Bowel Sounds, Soft Genitourinary: Yes: Incontinence Musculoskeletal: Yes: Muscle Weakness Extremities: Yes: WNL, Other (R AV fistula) Edema: No Neurological: Yes: Alert, Pre-Existing Deficit Psychiatric: Yes: Alert Labs: CBC, BMP 09/08/18 06:30 INR, PTT INR 1.03 (0.83-1.09) 09/05/18 17:14 Microbiology 09/05/18 17:17 Blood - Peripheral Venous Blood Culture - Preliminary NO GROWTH OBTAINED AFTER 48 HOURS, INCUBATION TO CONTINUE FOR 3 DAYS. 09/05/18 17:17 Blood - Peripheral Venous Blood Culture - Preliminary NO GROWTH OBTAINED AFTER 48 HOURS, INCUBATION TO CONTINUE FOR 3 DAYS. 09/05/18 21:10 Urine - Urine Clean Catch Urine Culture - Final NO GROWTH OBTAINED <Argentina Dutta - Last Filed: 09/08/18 08:16> - Current Medication List Current Medications: Active Medications Amlodipine Besylate (Norvasc -) 10 mg PO DAILY [facility] Last Admin: 09/08/18 09:31 Dose: 10 mg Amoxicillin/Clavulanate Potassium (Augmentin - 500mg Tablet) 1 tab PO Q24H [facility] Last Admin: 09/08/18 12:54 Dose: 1 tab Carbidopa/Levodopa (Sinemet *Cr* 50/200 -) 1 combo PO QID [facility] Last Admin: 09/08/18 21:05 Dose: 1 combo Heparin Sodium (Porcine) (Heparin -) 5,000 unit SQ BID [facility] Last Admin: 09/08/18 21:05 Dose: 5,000 unit Sodium Chloride (Normal Saline -) 250 mls @ 3,000 mls/hr IV PRN PRN PRN Reason: Hypotension during Dialysis Stop: 09/09/18 15:45 Losartan Potassium (Cozaar -) 100 mg PO DAILY [facility] Last Admin: 09/08/18 09:31 Dose: 100 mg Polyethylene Glycol (Miralax (For Daily Use) -) 17 gm PO DAILY [facility] Last Admin: 09/08/18 09:33 Dose: 17 gm - Objective Vital Signs: Vital Signs Temperature 98.2 F 09/09/18 05:00 Pulse Rate 64 09/09/18 05:00 Respiratory Rate 18 09/09/18 05:00 Blood Pressure 130/68 09/09/18 05:00 O2 Sat by Pulse Oximetry (%) 95 09/08/18 21:20 Labs: CBC, BMP 09/08/18 06:30 09/08/18 06:30 INR, PTT INR 1.03 (0.83-1.09) 09/05/18 17:14 <Zen Alexander - Last Filed: 09/09/18 07:49> Problem List - Problems (1) Altered mental status Assessment/Plan: BC neg, UC neg -neurology consult Code(s): R41.82 - ALTERED MENTAL STATUS, UNSPECIFIED (2) ESRD (end stage renal disease) on dialysis Assessment/Plan: -renal on board -continue with HD MWF -renal diet -1L fluid restriction -will monitor renal function Code(s): N18.6 - END STAGE RENAL DISEASE; Z99.2 - DEPENDENCE ON RENAL DIALYSIS (3) Fever Assessment/Plan: -ID on board -BC neg, UC neg -initial CXR unremarkable -continue zosyn -current WBC 8.6 and afebrile Code(s): R50.9 - FEVER, UNSPECIFIED (4) Hip pain Assessment/Plan: -Hip xray result show no acute skeletal pathology but show abdominal distention , will order abdominal xray Code(s): M25.559 - PAIN IN UNSPECIFIED HIP (5) Constipation Assessment/Plan: -miralax daily Code(s): K59.00 - CONSTIPATION, UNSPECIFIED (6) Pneumonia Assessment/Plan: -ID on board -continue zosyn -BACK TENDER INSULATION BOARD on board, aspiration? -Abd/Pelvic CT scan show mild R posterior basilar opacity is seen probably representing atelectasis -O2 via [place] PRN for SOB -pulm consult was placed, recommendations appreciated Code(s): J18.9 - PNEUMONIA, UNSPECIFIED ORGANISM <Argentina Dutta - Last Filed: 09/08/18 08:16> Assessment/Plan see problem list dvt ppx <Argentina Dutta - Last Filed: 09/08/18 08:16> PATIENT SEEN AND EXAMINED AND I AGREE WITH ABOVE NOTE <Zen Alexander - Last Filed: 09/09/18 07:49>
[2018-09-08 08:27] LABS: ALBUMIN 2.8 g/dl (3.4-5.0); ALK PHOS 196 U/L (45-117); ANION GAP 12 MMOL/L (8-16); BILIRUBIN,TOTAL 0.8 mg/dL (0.2-1); BLOOD UREA NITROGEN 52 mg/dL (7-18); CALCIUM 8.1 mg/dL (8.5-10.1); CHLORIDE 100 mmol/L (98-107); CO2 26 mmol/L (21-32); CREATININE 4.7 mg/dL (0.55-1.3); GLUCOSE,RANDOM 75 mg/dL (74-106); POTASSIUM 4.3 mmol/L (3.5-5.1); SGOT/AST 15 U/L (15-37); SGPT/ALT 13 U/L (13-61); SODIUM 137 mmol/L (136-145); TOT PROT 6.4 g/dl (6.4-8.2)
[2018-09-08] MEDS ORDERED: PT OWN MED DRAWER 7, Y5N ONE (09:17)
[2018-09-08] MEDS: HEPARIN NA (PORCINE) 5,000 UNITS/ML 1ML VIAL SQ SCH ×2 (09:31→21:05)
[2018-09-08] MEDS: amLODIPine BESYLATE 10 MG TABLET (FP) PO SCH (09:31)
[2018-09-08] MEDS: LOSARTAN POTASSIUM 50 MG TABLET (FP) PO SCH (09:31)
[2018-09-08] MEDS: POLYETHYLENE GLYCOL 3350 119 GM BTL PO SCH (09:33)
--- NOTE | 2018-09-08 10:31 | PN ---
Progress Note (short form) - Note Progress Note: c/o constipation day #3 zosyn currently afebrile he had a head ct and ct scan of his abdomen and pelvis with question of RLL small infiltrate/atelectasis Vital Signs Period Temp Pulse Resp BP Sys/Bentley Pulse Ox Last 24 Hr 97.6 F-98.5 F 65-78 18-20 133-144/53-72 cor-rrr lungs scattered rhonchi abd soft,nt ext no edema CBC, BMP 09/08/18 06:30 09/08/18 06:30 Microbiology 09/05/18 17:17 Blood - Peripheral Venous Blood Culture - Preliminary NO GROWTH OBTAINED AFTER 48 HOURS, INCUBATION TO CONTINUE FOR 3 DAYS. 09/05/18 17:17 Blood - Peripheral Venous Blood Culture - Preliminary NO GROWTH OBTAINED AFTER 48 HOURS, INCUBATION TO CONTINUE FOR 3 DAYS. 09/05/18 21:10 Urine - Urine Clean Catch Urine Culture - Final NO GROWTH OBTAINED a/p fever-resolved ?pneumonia- day #3 zosyn can switch to po augmentin 500 mg daily to complete 7 days esrd/hd parkinsons disease dementia history breast cancer please call back if needed Problem List - Problems (1) Fever Code(s): R50.9 - FEVER, UNSPECIFIED (2) Pneumonia Code(s): J18.9 - PNEUMONIA, UNSPECIFIED ORGANISM (3) ESRD (end stage renal disease) on dialysis Code(s): N18.6 - END STAGE RENAL DISEASE; Z99.2 - DEPENDENCE ON RENAL DIALYSIS
--- NOTE | 2018-09-08 11:30 | PN ---
Progress Note (short form) - Note Progress Note: PULMONARY Denies shortness of breath or cough. No fevers recorded. Vital Signs Period Temp Pulse Resp BP Sys/Bentley Pulse Ox Last 24 Hr 97.6 F-98.3 F 65-77 18-20 133-141/65-72 Gen: NAD at rest Heart: RRR Lung: decreased breath sounds at the bases Abd: soft, nontender Ext: no edema CBC, BMP 09/08/18 06:30 09/08/18 06:30 Active Medications Amlodipine Besylate (Norvasc -) 10 mg PO DAILY [facility] Last Admin: 09/08/18 09:31 Dose: 10 mg Amoxicillin/Clavulanate Potassium (Augmentin - 500mg Tablet) 1 tab PO Q24H [facility] Carbidopa/Levodopa (Sinemet *Cr* 50/200 -) 1 combo PO QID [facility] Last Admin: 09/08/18 09:34 Dose: 1 combo Heparin Sodium (Porcine) (Heparin -) 5,000 unit SQ BID [facility] Last Admin: 09/08/18 09:31 Dose: 5,000 unit Losartan Potassium (Cozaar -) 100 mg PO DAILY [facility] Last Admin: 09/08/18 09:31 Dose: 100 mg Polyethylene Glycol (Miralax (For Daily Use) -) 17 gm PO DAILY [facility] Last Admin: 09/08/18 09:33 Dose: 17 gm A/P Fever from unclear source Atelectasis > Pneumonia ESRD on HD Parkinsons Disease HTN - empiric antibiotics - HD per renal - aspiration precautions - DVT prophylaxis Problem List - Problems (1) Altered mental status Code(s): R41.82 - ALTERED MENTAL STATUS, UNSPECIFIED (2) ESRD (end stage renal disease) on dialysis Code(s): N18.6 - END STAGE RENAL DISEASE; Z99.2 - DEPENDENCE ON RENAL DIALYSIS (3) Fever Code(s): R50.9 - FEVER, UNSPECIFIED
--- NOTE | 2018-09-08 12:09 | CONSULT ---
Consult - text type - Consultation Consultation Note: Neurology CHIEF COMPLAINT: fever, altered mental status PCP: Louie MELVIN HISTORY OF PRESENT ILLNESS: Covering for Dr. Bill This is a 77 year old male with a past medical history of ESRD on dialysis MWF, Parkinson's disease, dementia, HTN, dysphagia, Breast cancer who presented to the ED from his [place] [facility] with fever and altered mental status on day of admission. Pt only complained of pain to the side of his left knee on exam. Denied cough, chest pain, abdominal pain, N/V/D. Consulted for confusion, Parkinson's Disease, on Sinemet 50/[address] completed and indicated chronic infarct. Abdomen/pelvis CT completed and indicated soft tissue edema. Patient with advanced PD with extensive bradykinesia, minimal tremor noted. Recent Travel: none PAST MEDICAL HISTORY: ESRD, Parkinson's disease, dementia, dysphagia, HTN, Breast cancer PAST SURGICAL HISTORY: Right AVF Social History: Smoking: unk Alcohol: unk Drugs: unk Allergies No Known Allergies Allergy (Verified 09/05/18 16:44) Active Medications Amlodipine Besylate (Norvasc -) 10 mg PO DAILY [facility] Last Admin: 09/08/18 09:31 Dose: 10 mg Amoxicillin/Clavulanate Potassium (Augmentin - 500mg Tablet) 1 tab PO Q24H [facility] Carbidopa/Levodopa (Sinemet *Cr* 50/200 -) 1 combo PO QID [facility] Last Admin: 09/08/18 09:34 Dose: 1 combo Heparin Sodium (Porcine) (Heparin -) 5,000 unit SQ BID [facility] Last Admin: 09/08/18 09:31 Dose: 5,000 unit Losartan Potassium (Cozaar -) 100 mg PO DAILY [facility] Last Admin: 09/08/18 09:31 Dose: 100 mg Polyethylene Glycol (Miralax (For Daily Use) -) 17 gm PO DAILY [facility] Last Admin: 09/08/18 09:33 Dose: 17 gm REVIEW OF SYSTEMS CONSTITUTIONAL: Present: fever Absent: chills, diaphoresis, generalized weakness, malaise, loss of appetite, weight change HEENT: Absent: rhinorrhea, nasal congestion, throat pain, throat swelling, difficulty swallowing, mouth swelling, ear pain, eye pain, visual changes CARDIOVASCULAR: Absent: chest pain, syncope, palpitations, irregular heart rate, lightheadedness , peripheral edema RESPIRATORY: Absent: cough, shortness of breath, dyspnea with exertion, orthopnea, wheezing, stridor, hemoptysis GASTROINTESTINAL: Absent: abdominal pain, abdominal distension, nausea, vomiting, diarrhea, constipation, melena, hematochezia GENITOURINARY: Absent: dysuria, frequency, urgency, hesitancy, hematuria, flank pain, genital pain MUSCULOSKELETAL: Present: left knee pain Absent: myalgia, arthralgia, joint swelling, back pain, neck pain SKIN: Absent: rash, itching, pallor HEMATOLOGIC/IMMUNOLOGIC: Absent: easy bleeding, easy bruising, lymphadenopathy, frequent infections ENDOCRINE: Absent: unexplained weight gain, unexplained weight loss, heat intolerance, cold intolerance NEUROLOGIC: Absent: headache, focal weakness or paresthesias, dizziness, unsteady gait, seizure, mental status changes, bladder or bowel incontinence PSYCHIATRIC: Absent: anxiety, depression, suicidal or homicidal ideation, hallucinations. PHYSICAL EXAMINATION Vital Signs Temperature 97.8 F 09/08/18 06:48 Pulse Rate 73 09/08/18 06:48 Respiratory Rate 20 09/08/18 06:48 Blood Pressure 141/66 09/08/18 06:48 O2 Sat by Pulse Oximetry (%) 97 09/07/18 09:00 GENERAL: lethargic, easily arousable, and oriented to person and place, in no acute distress. HEAD: Normal with no signs of trauma. EYES: Pupils equal, round and reactive to light, extraocular movements intact, sclera anicteric, conjunctiva clear. No lid lag. EARS, NOSE, THROAT: Ears normal, nares patent, oropharynx clear without exudates. Dry mucous membranes. NECK: Normal range of motion, supple without lymphadenopathy, JVD, or masses. LUNGS: Breath sounds diminished, poor inspiratory effort. No wheezes, and no crackles. No accessory muscle use. HEART: Regular rate and rhythm, normal S1 and S2 without murmur, rub or gallop. ABDOMEN: Soft, nontender, not distended, normoactive bowel sounds, no guarding, no rebound, no masses. No hepatomegaly or splenomegaly. MUSCULOSKELETAL: Normal range of motion at all joints. No bony deformities or tenderness. No CVA tenderness. UPPER EXTREMITIES: 2+ pulses, warm, well-perfused. No cyanosis. No clubbing. No peripheral edema. LOWER EXTREMITIES: 2+ pulses, warm, well-perfused. No calf tenderness. No peripheral edema. NEUROLOGICAL: Cranial nerves II-XII grossly intact. Bradykinesia, minimal tremor noted, masked facies, PSYCHIATRIC: Cooperative. Good eye contact. Appropriate mood and affect. SKIN: Warm, dry, poor turgor, no rashes or lesions noted, normal capillary refill. CBCD WBC 8.6 K/mm3 (4.0-10.0) 09/08/18 06:30 RBC 3.42 M/mm3 (4.00-5.60) L 09/08/18 06:30 Hgb 13.4 GM/dL (11.7-16.9) 09/08/18 06:30 Hct 39.0 % (35.4-49) 09/08/18 06:30 MCV 113.8 fl (80-96) H 09/08/18 06:30 MCHC 34.4 g/dl (32.0-35.9) 09/08/18 06:30 RDW 16.3 % (11.9-15.9) H 09/08/18 06:30 Plt Count 175 K/MM3 (134-434) 09/08/18 06:30 MPV 10.9 fl (7.5-11.1) 09/08/18 06:30 CMP Sodium 137 mmol/L (136-145) 09/08/18 06:30 Potassium 4.3 mmol/L (3.5-5.1) 09/08/18 06:30 Chloride 100 mmol/L (98-107) 09/08/18 06:30 Carbon Dioxide 26 mmol/L (21-32) 09/08/18 06:30 Anion Gap 12 MMOL/L (8-16) 09/08/18 06:30 BUN 52 mg/dL (7-18) H 09/08/18 06:30 Creatinine 4.7 mg/dL (0.55-1.3) H 09/08/18 06:30 Creat Clearance w eGFR 12.21 (>60) 09/08/18 06:30 Random Glucose 75 mg/dL (74-106) 09/08/18 06:30 Calcium 8.1 mg/dL (8.5-10.1) L 09/08/18 06:30 Total Bilirubin 0.8 mg/dL (0.2-1) 09/08/18 06:30 AST 15 U/L (15-37) 09/08/18 06:30 ALT 13 U/L (13-61) 09/08/18 06:30 Alkaline Phosphatase 196 U/L (45-117) H 09/08/18 06:30 Total Protein 6.4 g/dl (6.4-8.2) 09/08/18 06:30 Albumin 2.8 g/dl (3.4-5.0) L 09/08/18 06:30 CARDIAC ENZYMES Troponin I Cancelled 09/05/18 17:20 Radiology Reports: CXR portable - completed CT head - completed CT abdomen/pelvis - completed ASSESSMENT/PLAN: 77 year old male with a past medical history of ESRD on dialysis MWF, Parkinson' s disease, dementia, HTN, dysphagia, Breast cancer who presented to the ED from his [place] [facility] with fever and altered mental status on day of admission. Pt only complained of pain to the side of his left knee on exam. Denied cough, chest pain, abdominal pain, N/V/D. Consulted for confusion, Parkinson's Disease , on Sinemet 50/[address] completed and indicated chronic infarct. Abdomen/pelvis CT completed and indicated soft tissue edema. Patient with advanced PD with extensive bradykinesia, minimal tremor noted. Would continue current regiment, advanced PD at this time. Continue medical optimization, mental status seemed appropriate during my encounter, answering questions appropriately. Maintain adequate hydration. Monitor BP, maintain normotensive range.
[2018-09-08] MEDS: AMOX TR/POT CLAV 500MG/125MG TABLETS (FP) PO SCH (12:54)
[2018-09-08] MEDS ORDERED: SODIUM CHLORIDE 250 ML IV PRN (15:45)
--- NOTE | 2018-09-08 15:45 | PN ---
Progress Note, Physician History of Present Illness: Pt seen and examined at bedside. He is awake but confused. He denies shortness of breath. - Current Medication List Current Medications: Active Medications Amlodipine Besylate (Norvasc -) 10 mg PO DAILY [facility] Last Admin: 09/08/18 09:31 Dose: 10 mg Amoxicillin/Clavulanate Potassium (Augmentin - 500mg Tablet) 1 tab PO Q24H [facility] Last Admin: 09/08/18 12:54 Dose: 1 tab Carbidopa/Levodopa (Sinemet *Cr* 50/200 -) 1 combo PO QID [facility] Last Admin: 09/08/18 14:31 Dose: 1 combo Heparin Sodium (Porcine) (Heparin -) 5,000 unit SQ BID [facility] Last Admin: 09/08/18 09:31 Dose: 5,000 unit Losartan Potassium (Cozaar -) 100 mg PO DAILY [facility] Last Admin: 09/08/18 09:31 Dose: 100 mg Polyethylene Glycol (Miralax (For Daily Use) -) 17 gm PO DAILY [facility] Last Admin: 09/08/18 09:33 Dose: 17 gm - Objective Vital Signs: Vital Signs Temperature 98.2 F 09/08/18 15:33 Pulse Rate 78 09/08/18 15:33 Respiratory Rate 18 09/08/18 15:33 Blood Pressure 131/60 09/08/18 15:33 O2 Sat by Pulse Oximetry (%) 97 09/07/18 09:00 Constitutional: Yes: Calm Eyes: Yes: Conjunctiva Clear HENT: Yes: Atraumatic Cardiovascular: Yes: S1, S2 Respiratory: Yes: CTA Bilaterally, On Nasal O2 Gastrointestinal: Yes: Soft Genitourinary: Yes: Incontinence Musculoskeletal: Yes: Muscle Weakness Edema: No Neurological: Yes: Confusion Labs: CBC, BMP 09/08/18 06:30 09/08/18 06:30 INR, PTT INR 1.03 (0.83-1.09) 09/05/18 17:14 Problem List - Problems (1) Altered mental status Code(s): R41.82 - ALTERED MENTAL STATUS, UNSPECIFIED (2) ESRD (end stage renal disease) on dialysis Code(s): N18.6 - END STAGE RENAL DISEASE; Z99.2 - DEPENDENCE ON RENAL DIALYSIS Assessment/Plan Current Medications Generic Name Dose Route Start Last Admin Trade Name Freq PRN Reason Stop Dose Admin Amlodipine Besylate 10 mg 09/06/18 10:00 09/08/18 09:31 Norvasc - PO 10 mg DAILY [facility] Administration Amoxicillin/Clavulanate Potassium 1 tab 09/08/18 10:45 09/08/18 12:54 Augmentin - 500mg Tablet PO 1 tab Q24H JOSE J Administration Carbidopa/Levodopa 1 combo 09/06/18 10:00 09/08/18 14:31 Sinemet *Cr* 50/200 - PO 1 combo QID JOSE J Administration Heparin Sodium (Porcine) 5,000 unit 09/06/18 10:00 09/08/18 09:31 Heparin - SQ 5,000 unit BID JOSE J Administration Losartan Potassium 100 mg 09/06/18 10:00 09/08/18 09:31 Cozaar - PO 100 mg DAILY [facility] J Administration Polyethylene Glycol 17 gm 09/07/18 10:00 09/08/18 09:33 Miralax (For Daily Use) - PO 17 gm DAILY JO[facility] J Administration Microbiology 09/05/18 21:10 Urine - Urine Clean Catch Urine Culture - Final NO GROWTH OBTAINED 09/05/18 17:17 Blood - Peripheral Venous Blood Culture - Preliminary NO GROWTH OBTAINED AFTER 48 HOURS, INCUBATION TO CONTINUE FOR 3 DAYS. 09/05/18 17:17 Blood - Peripheral Venous Blood Culture - Preliminary NO GROWTH OBTAINED AFTER 48 HOURS, INCUBATION TO CONTINUE FOR 3 DAYS. Impression 1. ESRD 2. HTN 3. change in mental status 4. PNA 5. parkinsons Plan - will arrange for HD tomorrow - pt appears comfortable - cultures negative so far - called HD unit, 3 hrs 2 k bath, 16 gauge needles 350 abg - monitor bp - abx per ID Dr Kilpatrick
[2018-09-09] MEDS ORDERED: PT OWN MED DRAWER 7, Y5N ONE ×3 (06:31→20:39)
--- NOTE | 2018-09-09 07:56 | DS ---
Physical Examination Vital Signs: Vital Signs Temperature 98.2 F 09/09/18 05:00 Pulse Rate 64 09/09/18 05:00 Respiratory Rate 18 09/09/18 05:00 Blood Pressure 130/68 09/09/18 05:00 O2 Sat by Pulse Oximetry (%) 95 09/08/18 21:20 Findings/Remarks: EVENTS REVIEWED COMPLETEDIV JESESYN NOW ON AUGMENT PO FOR 3 DAYS Constitutional: Yes: No Distress Eyes: Yes: WNL HENT: Yes: WNL Neck: Yes: WNL Cardiovascular: Yes: Regular Rate and Rhythm Respiratory: Yes: WNL Gastrointestinal: Yes: WNL Renal/: Yes: Other Musculoskeletal: Yes: Muscle Weakness Edema: No Peripheral Pulses WNL: Yes Integumentary: Yes: WNL Wound/Incision: Yes: Clean/Dry Neurological: Yes: Confusion, Pre-Existing Deficit, Unsteady Gait, Weakness ...Motor Strength: LLE, RLE Psychiatric: Yes: Other Labs: CBC, BMP 09/08/18 06:30 09/08/18 06:30 Discharge Summary Reason For Visit: Altered Mental Status Current Active Problems Altered mental status (Acute) Constipation (Acute) ESRD (end stage renal disease) on dialysis (Acute) Fever (Acute) Hip pain (Acute) Pneumonia (Acute) Procedures: Principal: CT SCAN Hospital Course: TREATED WITH IV ABX FOR FEVER AND H/O NEOPLASTIC DISEASE NOW ON PO ABX CAN F/U OUTPATIENT FOR REPEAT CT SCAN IN 4-6 WEEKS Condition: Fair - Instructions Diet, Activity, Other Instructions: REG/SOFT CT SCAN CHEST/ABD AND PELVIS IN 4-6 WEEKS ONCOLOGY FOLLOW UP REPEAT LABS IN 2-3DAYS Referrals: Kamila Tucker MD [Primary Care Provider] - Disposition: [facility] - Home Medications Comprehensive Discharge Medication List: Ambulatory Orders Amlodipine Besylate [Norvasc -] 10 mg PO DAILY 09/05/18 Carbidopa/Levodopa [Carbidopa-Levo ER 50-200 Tab] 1 each PO QID 09/05/18 Losartan Potassium 100 mg PO DAILY 09/05/18 Meclizine HCl [Antivert -] 12.5 mg PO TID PRN 09/05/18 Menthol/Zinc Oxide [Calmoseptine Ointment] 71 gm TP DAILY 09/05/18
[2018-09-09 09:57] LABS: HEMATOCRIT 35.8 % (35.4-49); HEMOGLOBIN 12.4 GM/dL (11.7-16.9); MCH 39.2 pg (25.7-33.7); MCHC 34.6 g/dl (32.0-35.9); MEAN CELL VOLUME 113.1 fl (80-96); MEAN PLT VOLUME 10.9 fl (7.5-11.1); PLATELET COUNT 178 K/MM3 (134-434); RBC 3.16 M/mm3 (4.00-5.60); WHITE BLOOD COUNT 8.3 K/mm3 (4.0-10.0)
[2018-09-09] MEDS: POLYETHYLENE GLYCOL 3350 119 GM BTL PO SCH (10:19)
[2018-09-09] MEDS: HEPARIN NA (PORCINE) 5,000 UNITS/ML 1ML VIAL SQ SCH ×2 (10:19→21:04)
[2018-09-09] MEDS: amLODIPine BESYLATE 10 MG TABLET (FP) PO SCH ×2 (10:19→14:01)
[2018-09-09] MEDS: LOSARTAN POTASSIUM 50 MG TABLET (FP) PO SCH ×2 (10:19→14:01)
[2018-09-09 10:24] LABS: ALBUMIN 2.7 g/dl (3.4-5.0); ALK PHOS 184 U/L (45-117); ANION GAP 10 MMOL/L (8-16); BILIRUBIN,TOTAL 0.6 mg/dL (0.2-1); BLOOD UREA NITROGEN 60 mg/dL (7-18); CALCIUM 7.8 mg/dL (8.5-10.1); CHLORIDE 104 mmol/L (98-107); CO2 26 mmol/L (21-32); CREATININE 5.6 mg/dL (0.55-1.3); GLUCOSE,RANDOM 98 mg/dL (74-106); POTASSIUM 4.6 mmol/L (3.5-5.1); SGOT/AST 14 U/L (15-37); SGPT/ALT 10 U/L (13-61); SODIUM 140 mmol/L (136-145); TOT PROT 6.1 g/dl (6.4-8.2)
--- NOTE | 2018-09-09 13:20 | PN ---
Progress Note, PATROL MOTHER - Note Progress Note: Selected Entries 09/08/18 09/08/18 09/08/18 02:10 06:48 09:56 Breakfast 75% Lunch Supper Temperature 97.6 F 97.8 F 09/08/18 09/08/18 09/08/18 10:00 15:33 17:28 Breakfast Lunch 100% Supper Temperature 98.8 F 98.2 F 98.3 F 09/08/18 09/08/18 09/09/18 19:30 21:05 01:00 Breakfast Lunch Supper 100% Temperature 97.6 F 97.9 F 09/09/18 09/09/18 09/09/18 05:00 09:00 09:10 Breakfast Lunch Supper Temperature 98.2 F 98.8 F 97.7 F Laboratory Tests 09/09/18 09:20 WBC 8.3 Tolerating reg diet. Benefits being set up, food cut.
[2018-09-09] MEDS: AMOX TR/POT CLAV 500MG/125MG TABLETS (FP) PO SCH (14:00)
--- NOTE | 2018-09-09 16:40 | PN ---
Progress Note, Physician History of Present Illness: Pt seen and examined at bedside. He is awake and alert. He tolerated HD. He denies shortness of breath. - Current Medication List Current Medications: Active Medications Amlodipine Besylate (Norvasc -) 10 mg PO DAILY [facility] Last Admin: 09/09/18 14:01 Dose: 10 mg Amoxicillin/Clavulanate Potassium (Augmentin - 500mg Tablet) 1 tab PO Q24H [facility] Last Admin: 09/09/18 14:00 Dose: 1 tab Carbidopa/Levodopa (Sinemet *Cr* 50/200 -) 1 combo PO QID [facility] Last Admin: 09/09/18 14:00 Dose: 1 combo Heparin Sodium (Porcine) (Heparin -) 5,000 unit SQ BID [facility] Last Admin: 09/09/18 10:19 Dose: Not Given Sodium Chloride (Normal Saline -) 250 mls @ 3,000 mls/hr IV PRN PRN PRN Reason: Hypotension during Dialysis Stop: 09/09/18 15:45 Losartan Potassium (Cozaar -) 100 mg PO DAILY [facility] Last Admin: 09/09/18 14:01 Dose: 100 mg Polyethylene Glycol (Miralax (For Daily Use) -) 17 gm PO DAILY [facility] Last Admin: 09/09/18 10:19 Dose: Not Given - Objective Vital Signs: Vital Signs Temperature 97.9 F 09/09/18 15:06 Pulse Rate 86 09/09/18 15:06 Respiratory Rate 18 09/09/18 15:06 Blood Pressure 138/68 09/09/18 15:06 O2 Sat by Pulse Oximetry (%) 95 09/08/18 21:20 Constitutional: Yes: Calm Eyes: Yes: Conjunctiva Clear HENT: Yes: Atraumatic Neck: Yes: Supple Cardiovascular: Yes: S1, S2 Respiratory: Yes: CTA Bilaterally Gastrointestinal: Yes: Soft Genitourinary: Yes: Incontinence Musculoskeletal: Yes: Muscle Weakness Edema: No Neurological: Yes: Oriented Psychiatric: Yes: Oriented Labs: CBC, BMP 09/09/18 09:20 09/09/18 09:20 INR, PTT INR 1.03 (0.83-1.09) 09/05/18 17:14 Problem List - Problems (1) Altered mental status Code(s): R41.82 - ALTERED MENTAL STATUS, UNSPECIFIED (2) ESRD (end stage renal disease) on dialysis Code(s): N18.6 - END STAGE RENAL DISEASE; Z99.2 - DEPENDENCE ON RENAL DIALYSIS Assessment/Plan Current Medications Generic Name Dose Route Start Last Admin Trade Name Freq PRN Reason Stop Dose Admin Amlodipine Besylate 10 mg 09/06/18 10:00 09/09/18 14:01 Norvasc - PO 10 mg DAILY JOSE J Administration Amoxicillin/Clavulanate Potassium 1 tab 09/08/18 10:45 09/09/18 14:00 Augmentin - 500mg Tablet PO 1 tab Q24H JOSE J Administration Carbidopa/Levodopa 1 combo 09/06/18 10:00 09/09/18 14:00 Sinemet *Cr* 50/200 - PO 1 combo QID JOSE J Administration Heparin Sodium (Porcine) 5,000 unit 09/06/18 10:00 09/09/18 10:19 Heparin - SQ Not Given BID JOSE J Sodium Chloride 250 mls @ 3,000 mls/hr 09/08/18 15:45 Normal Saline - IV 09/09/18 15:45 PRN PRN Hypotension during Dialysis Losartan Potassium 100 mg 09/06/18 10:00 09/09/18 14:01 Cozaar - PO 100 mg DAILY JO[facility] J Administration Polyethylene Glycol 17 gm 09/07/18 10:00 09/09/18 10:19 Miralax (For Daily Use) - PO Not Given DAILY [facility] Impression 1. ESRD 2. HTN 3. change in mental status 4. PNA 5. parkinsons Plan - HD today - pt has HD set up as outpt - pt appears comfortable - cultures negative to date - called HD unit, 3 hrs 2 k bath, 16 gauge needles 350 abg - abx per ID Dr Kilpatrick
--- NOTE | 2018-09-10 09:15 | PN ---
Progress Note (short form) - Note Progress Note: Neurology HISTORY OF PRESENT ILLNESS: Covering for Dr. Bill This is a 77 year old male with a past medical history of ESRD on dialysis MWF, Parkinson's disease, dementia, HTN, dysphagia, Breast cancer who presented [facility] the ED from his [facility] with fever and altered mental status on day of admission. Pt only complained of pain to the side of his left knee on exam. Denied cough, chest pain, abdominal pain, N/V/D. Consulted for confusion, Parkinson's Disease, on Sinemet 50/[address] completed and indicated chronic infarct. Abdomen/pelvis CT completed and indicated soft tissue edema. Patient with advanced PD with extensive bradykinesia, minimal tremor noted. Being planned for discharge and remains stable. Spoke with nurse, confirmed no new neurologic events. Allergies No Known Allergies Allergy (Verified 09/05/18 16:44) Active Medications Amlodipine Besylate (Norvasc -) 10 mg PO DAILY [facility] Last Admin: 09/09/18 14:01 Dose: 10 mg Amoxicillin/Clavulanate Potassium (Augmentin - 500mg Tablet) 1 tab PO Q24H [facility] Last Admin: 09/09/18 14:00 Dose: 1 tab Carbidopa/Levodopa (Sinemet *Cr* 50/200 -) 1 combo PO QID [facility] Last Admin: 09/09/18 21:04 Dose: 1 combo Heparin Sodium (Porcine) (Heparin -) 5,000 unit SQ BID [facility] Last Admin: 09/09/18 21:04 Dose: 5,000 unit Sodium Chloride (Normal Saline -) 250 mls @ 3,000 mls/hr IV PRN PRN PRN Reason: Hypotension during Dialysis Stop: 09/09/18 15:45 Losartan Potassium (Cozaar -) 100 mg PO DAILY [facility] Last Admin: 09/09/18 14:01 Dose: 100 mg Polyethylene Glycol (Miralax (For Daily Use) -) 17 gm PO DAILY [facility] Last Admin: 09/09/18 10:19 Dose: Not Given PHYSICAL EXAMINATION Vital Signs Period Temp Pulse Resp BP Sys/Bentley Pulse Ox Last 24 Hr 97.9 F-98.2 F 62-86 18-20 98-144/51-94 GENERAL: lethargic, easily arousable, and oriented to person and place, in no acute distress. HEAD: Normal with no signs of trauma. EYES: Pupils equal, round and reactive to light, extraocular movements intact, sclera anicteric, conjunctiva clear. No lid lag. EARS, NOSE, THROAT: Ears normal, nares patent, oropharynx clear without exudates. Dry mucous membranes. NECK: Normal range of motion, supple without lymphadenopathy, JVD, or masses. LUNGS: Breath sounds diminished, poor inspiratory effort. No wheezes, and no crackles. No accessory muscle use. HEART: Regular rate and rhythm, normal S1 and S2 without murmur, rub or gallop. ABDOMEN: Soft, nontender, not distended, normoactive bowel sounds, no guarding, no rebound, no masses. No hepatomegaly or splenomegaly. MUSCULOSKELETAL: Normal range of motion at all joints. No bony deformities or tenderness. No CVA tenderness. UPPER EXTREMITIES: 2+ pulses, warm, well-perfused. No cyanosis. No clubbing. No peripheral edema. LOWER EXTREMITIES: 2+ pulses, warm, well-perfused. No calf tenderness. No peripheral edema. NEUROLOGICAL: Cranial nerves II-XII grossly intact. Bradykinesia, minimal tremor noted, masked facies, PSYCHIATRIC: Cooperative. Good eye contact. Appropriate mood and affect. SKIN: Warm, dry, poor turgor, no rashes or lesions noted, normal capillary refill. CBCD WBC 8.3 K/mm3 (4.0-10.0) 09/09/18 09:20 RBC 3.16 M/mm3 (4.00-5.60) L 09/09/18 09:20 Hgb 12.4 GM/dL (11.7-16.9) 09/09/18 09:20 Hct 35.8 % (35.4-49) 09/09/18 09:20 MCV 113.1 fl (80-96) H 09/09/18 09:20 MCHC 34.6 g/dl (32.0-35.9) 09/09/18 09:20 RDW 16.0 % (11.9-15.9) H 09/09/18 09:20 Plt Count 178 K/MM3 (134-434) 09/09/18 09:20 MPV 10.9 fl (7.5-11.1) 09/09/18 09:20 CMP Sodium 140 mmol/L (136-145) 02/18/19 09:20 Potassium 4.6 mmol/L (3.5-5.1) 09/09/18 09:20 Chloride 104 mmol/L (98-107) 09/09/18 09:20 Carbon Dioxide 26 mmol/L (21-32) 09/09/18 09:20 Anion Gap 10 MMOL/L (8-16) 09/09/18 09:20 BUN 60 mg/dL (7-18) H 09/09/18 09:20 Creatinine 5.6 mg/dL (0.55-1.3) H 09/09/18 09:20 Creat Clearance w eGFR 9.98 (>60) 09/09/18 09:20 Random Glucose 98 mg/dL (74-106) 09/09/18 09:20 Calcium 7.8 mg/dL (8.5-10.1) L 09/09/18 09:20 Total Bilirubin 0.6 mg/dL (0.2-1) 09/09/18 09:20 AST 14 U/L (15-37) L 09/09/18 09:20 ALT 10 U/L (13-61) L 09/09/18 09:20 Alkaline Phosphatase 184 U/L (45-117) H 09/09/18 09:20 Total Protein 6.1 g/dl (6.4-8.2) L 09/09/18 09:20 Albumin 2.7 g/dl (3.4-5.0) L 09/09/18 09:20 CARDIAC ENZYMES Troponin I Cancelled 09/05/18 17:20 Radiology Reports: CXR portable - completed CT head - completed CT abdomen/pelvis - completed ASSESSMENT/PLAN: 77 year old male with a past medical history of ESRD on dialysis MWF, Parkinson' s disease, dementia, HTN, dysphagia, Breast cancer who presented [facility] the ED from his [facility] with fever and altered mental status on day of admission. Pt only complained of pain to the side of his left knee on exam. Denied cough, chest pain, abdominal pain, N/V/D. Consulted for confusion, Parkinson's Disease , on Sinemet 50/[address] completed and indicated chronic infarct. Abdomen/pelvis CT completed and indicated soft tissue edema. Patient with advanced PD with extensive bradykinesia, minimal tremor noted. Would continue current regiment, advanced PD at this time. Continue medical optimization, mental status seemed appropriate during my encounter, answering questions appropriately. Being planned for discharge and remains stable. Spoke with nurse , confirmed no new neurologic events. Maintain adequate hydration. Monitor BP, maintain normotensive range.
[2018-09-10] MEDS: LOSARTAN POTASSIUM 50 MG TABLET (FP) PO SCH (10:21)
[2018-09-10] MEDS: amLODIPine BESYLATE 10 MG TABLET (FP) PO SCH (10:22)
[2018-09-10] MEDS: HEPARIN NA (PORCINE) 5,000 UNITS/ML 1ML VIAL SQ SCH ×2 (10:22→21:12)
[2018-09-10] MEDS: POLYETHYLENE GLYCOL 3350 119 GM BTL PO SCH (10:23)
[2018-09-10] MEDS: AMOX TR/POT CLAV 500MG/125MG TABLETS (FP) PO SCH (10:40)
--- NOTE | 2018-09-10 12:31 | PN ---
Progress Note, Physician History of Present Illness: PULMONARY ALERT,NO DISTRESS,-SOB,AFEBRILE,ON AUGMENTIN - Current Medication List Current Medications: Active Medications Amlodipine Besylate (Norvasc -) 10 mg PO DAILY [facility] Last Admin: 09/10/18 10:22 Dose: 10 mg Amoxicillin/Clavulanate Potassium (Augmentin - 500mg Tablet) 1 tab PO Q24H [facility] Last Admin: 09/10/18 10:40 Dose: 1 tab Carbidopa/Levodopa (Sinemet *Cr* 50/200 -) 1 combo PO QID [facility] Last Admin: 09/10/18 10:40 Dose: 1 combo Heparin Sodium (Porcine) (Heparin -) 5,000 unit SQ BID [facility] Last Admin: 09/10/18 10:22 Dose: 5,000 unit Sodium Chloride (Normal Saline -) 250 mls @ 3,000 mls/hr IV PRN PRN PRN Reason: Hypotension during Dialysis Stop: 09/09/18 15:45 Losartan Potassium (Cozaar -) 100 mg PO DAILY [facility] Last Admin: 09/10/18 10:21 Dose: 100 mg Polyethylene Glycol (Miralax (For Daily Use) -) 17 gm PO DAILY [facility] Last Admin: 09/10/18 10:23 Dose: 17 gm - Objective Vital Signs: Vital Signs Temperature 98.2 F 09/10/18 06:00 Pulse Rate 74 09/10/18 06:00 Respiratory Rate 18 09/10/18 06:00 Blood Pressure 139/64 09/10/18 06:00 O2 Sat by Pulse Oximetry (%) 95 09/08/18 21:20 Constitutional: Yes: Well Nourished, Calm Eyes: Yes: WNL HENT: Yes: WNL Neck: Yes: WNL Cardiovascular: Yes: Regular Rate and Rhythm, S1, S2 Respiratory: Yes: CTA Bilaterally Gastrointestinal: Yes: Normal Bowel Sounds, Soft Extremities: Yes: WNL Edema: No Labs: CBC, BMP Assessment/Plan A/P Fever resolved Atelectasis > Pneumonia ESRD on HD Parkinsons Disease HTN - po abx - HD per renal - aspiration precautions - DVT prophylaxis Problem List - Problems (1) Altered mental status Code(s): R41.82 - ALTERED MENTAL STATUS, UNSPECIFIED (2) ESRD (end stage renal disease) on dialysis Code(s): N18.6 - END STAGE RENAL DISEASE; Z99.2 - DEPENDENCE ON RENAL DIALYSIS (3) Fever Code(s): R50.9 - FEVER, UNSPECIFIED DR MORRIS
[2018-09-10] MEDS ORDERED: SODIUM CHLORIDE 250 ML IV PRN (16:07)
--- NOTE | 2018-09-10 16:07 | PN ---
Progress Note, Physician History of Present Illness: Pt seen and examined at bedside. He is awake and appears comfortable. He denies shortness of breath. - Current Medication List Current Medications: Active Medications Amlodipine Besylate (Norvasc -) 10 mg PO DAILY [facility] Last Admin: 09/10/18 10:22 Dose: 10 mg Amoxicillin/Clavulanate Potassium (Augmentin - 500mg Tablet) 1 tab PO Q24H [facility] Last Admin: 09/10/18 10:40 Dose: 1 tab Carbidopa/Levodopa (Sinemet *Cr* 50/200 -) 1 combo PO QID [facility] Last Admin: 09/10/18 14:16 Dose: 1 combo Heparin Sodium (Porcine) (Heparin -) 5,000 unit SQ BID [facility] Last Admin: 09/10/18 10:22 Dose: 5,000 unit Sodium Chloride (Normal Saline -) 250 mls @ 3,000 mls/hr IV PRN PRN PRN Reason: Hypotension during Dialysis Stop: 09/09/18 15:45 Losartan Potassium (Cozaar -) 100 mg PO DAILY [facility] Last Admin: 09/10/18 10:21 Dose: 100 mg Polyethylene Glycol (Miralax (For Daily Use) -) 17 gm PO DAILY [facility] Last Admin: 09/10/18 10:23 Dose: 17 gm - Objective Vital Signs: Vital Signs Temperature 98.2 F 09/10/18 06:00 Pulse Rate 74 09/10/18 06:00 Respiratory Rate 18 09/10/18 06:00 Blood Pressure 139/64 09/10/18 06:00 O2 Sat by Pulse Oximetry (%) 95 09/08/18 21:20 Constitutional: Yes: Calm Eyes: Yes: Conjunctiva Clear HENT: Yes: Atraumatic Neck: Yes: Supple Cardiovascular: Yes: S1, S2 Respiratory: Yes: CTA Bilaterally Gastrointestinal: Yes: Soft Genitourinary: Yes: Incontinence Musculoskeletal: Yes: Muscle Weakness Edema: No Neurological: Yes: Oriented Psychiatric: Yes: Oriented Labs: CBC, BMP 09/09/18 09:20 09/09/18 09:20 INR, PTT INR 1.03 (0.83-1.09) 09/05/18 17:14 Problem List - Problems (1) Altered mental status Code(s): R41.82 - ALTERED MENTAL STATUS, UNSPECIFIED (2) ESRD (end stage renal disease) on dialysis Code(s): N18.6 - END STAGE RENAL DISEASE; Z99.2 - DEPENDENCE ON RENAL DIALYSIS Assessment/Plan Current Medications Generic Name Dose Route Start Last Admin Trade Name Freq PRN Reason Stop Dose Admin Amlodipine Besylate 10 mg 09/06/18 10:00 09/10/18 10:22 Norvasc - PO 10 mg DAILY JOSE J Administration Amoxicillin/Clavulanate Potassium 1 tab 09/08/18 10:45 09/10/18 10:40 Augmentin - 500mg Tablet PO 1 tab Q24H JOSE J Administration Carbidopa/Levodopa 1 combo 09/06/18 10:00 09/10/18 14:16 Sinemet *Cr* 50/200 - PO 1 combo QID JOSE J Administration Heparin Sodium (Porcine) 5,000 unit 09/06/18 10:00 09/10/18 10:22 Heparin - SQ 5,000 unit BID JOSE J Administration Sodium Chloride 250 mls @ 3,000 mls/hr 09/08/18 15:45 Normal Saline - IV 09/09/18 15:45 PRN PRN Hypotension during Dialysis Losartan Potassium 100 mg 09/06/18 10:00 09/10/18 10:21 Cozaar - PO 100 mg DAILY JOSE J Administration Polyethylene Glycol 17 gm 09/07/18 10:00 09/10/18 10:23 Miralax (For Daily Use) - PO 17 gm DAILY JOSE J Administration Impression 1. ESRD 2. HTN 3. change in mental status 4. PNA 5. parkinsons Plan - HD tomorrow - pt pending placements - pt appears comfortable - called HD unit, 3 hrs 2 k bath, 16 gauge needles 350 abg - abx per ID Dr Kilpatrick
[2018-09-11] MEDS ORDERED: PT OWN MED DRAWER 7, Y5N ONE ×3 (06:26→20:02)
--- NOTE | 2018-09-11 08:37 | DS ---
Physical Examination Vital Signs: Vital Signs Temperature 98.4 F 09/11/18 06:00 Pulse Rate 69 09/11/18 06:00 Respiratory Rate 18 09/11/18 06:00 Blood Pressure 140/63 09/11/18 06:00 O2 Sat by Pulse Oximetry (%) 95 09/10/18 20:55 Cardiovascular: Yes: S1, S2 Respiratory: Yes: Regular, CTA Bilaterally Gastrointestinal: Yes: Normal Bowel Sounds, Soft Labs: CBC, BMP 09/09/18 09:20 09/09/18 09:20 Discharge Summary Reason For Visit: Altered Mental Status Current Active Problems Altered mental status (Acute) Constipation (Acute) ESRD (end stage renal disease) on dialysis (Acute) Fever (Acute) Hip pain (Acute) Pneumonia (Acute) Hospital Course: Problems (1) Altered mental status Assessment/Plan: BC neg, UC neg -neurology consult Code(s): R41.82 - ALTERED MENTAL STATUS, UNSPECIFIED (2) ESRD (end stage renal disease) on dialysis Assessment/Plan: -renal on board -continue with HD MWF -renal diet -1L fluid restriction -will monitor renal function Code(s): N18.6 - END STAGE RENAL DISEASE; Z99.2 - DEPENDENCE ON RENAL DIALYSIS (3) Fever Assessment/Plan: -ID on board -BC neg, UC neg -initial CXR unremarkable -continue zosyn -current WBC 8.6 and afebrile Code(s): R50.9 - FEVER, UNSPECIFIED (4) Hip pain Assessment/Plan: -Hip xray result show no acute skeletal pathology but show abdominal distention , will order abdominal xray Code(s): M25.559 - PAIN IN UNSPECIFIED HIP (5) Constipation Assessment/Plan: -miralax daily Code(s): K59.00 - CONSTIPATION, UNSPECIFIED (6) Pneumonia Assessment/Plan: -ID on board -continue zosyn -[employer] on board, aspiration? -Abd/Pelvic CT scan show mild R posterior basilar opacity is seen probably representing atelectasis -O2 via NC PRN for SOB -pulm consult was placed, recommendations appreciated Code(s): J18.9 - PNEUMONIA, UNSPECIFIED ORGANISM <Argentina Dutta - Last Filed: 09/08/18 08:16> Condition: Fair - Instructions Diet, Activity, Other Instructions: REG/SOFT CT SCAN CHEST/ABD AND PELVIS IN 4-6 WEEKS ONCOLOGY FOLLOW UP REPEAT LABS IN 2-3DAYS Referrals: Kamila Tucker MD [Primary Care Provider] - Disposition: [facility] - Home Medications Comprehensive Discharge Medication List: Ambulatory Orders Amlodipine Besylate [Norvasc -] 10 mg PO DAILY 09/05/18 Carbidopa/Levodopa [Carbidopa-Levo ER 50-200 Tab] 1 each PO QID 09/05/18 Losartan Potassium 100 mg PO DAILY 09/05/18 Meclizine HCl [Antivert -] 12.5 mg PO TID PRN 09/05/18 Menthol/Zinc Oxide [Calmoseptine Ointment] 71 gm TP DAILY 09/05/18 Amox-Tr/K Cl [Augmentin 500-125mg Tablet -] 1 tab PO Q24H #3 tablet 09/09/18 Polyethylene Glycol 3350 [Miralax 119 gm Btl -] 17 gm PO DAILY bottle 09/09/18
--- NOTE | 2018-09-11 09:26 | PN ---
Progress Note (short form) - Note Progress Note: Neurology HISTORY OF PRESENT ILLNESS: This is a 77 year old male with a past medical history of ESRD on dialysis MWF, Parkinson's disease, dementia, HTN, dysphagia, Breast cancer who presented to the ED from his detention with fever and altered mental status on day of admission. Pt only complained of pain to the side of his left knee on exam. Denied cough, chest pain, abdominal pain, N/V/D. Consulted for confusion, Parkinson's Disease, on Sinemet 50/[address] completed and indicated chronic infarct. Abdomen/pelvis CT completed and indicated soft tissue edema. Patient with advanced PD with extensive bradykinesia, minimal tremor noted. Being planned for discharge and remains stable. No new neurologic events. Allergies No Known Allergies Allergy (Verified 09/05/18 16:44) Active Medications Amlodipine Besylate (Norvasc -) 10 mg PO DAILY [facility] Last Admin: 09/10/18 10:22 Dose: 10 mg Amoxicillin/Clavulanate Potassium (Augmentin - 500mg Tablet) 1 tab PO Q24H [facility] Last Admin: 09/10/18 10:40 Dose: 1 tab Carbidopa/Levodopa (Sinemet *Cr* 50/200 -) 1 combo PO QID [facility] Last Admin: 09/10/18 21:12 Dose: 1 combo Heparin Sodium (Porcine) (Heparin -) 5,000 unit SQ BID [facility] Last Admin: 09/10/18 21:12 Dose: 5,000 unit Sodium Chloride (Normal Saline -) 250 mls @ 3,000 mls/hr IV PRN PRN PRN Reason: Hypotension during Dialysis Stop: 09/09/18 15:45 Sodium Chloride (Normal Saline -) 250 mls @ 3,000 mls/hr IV PRN PRN PRN Reason: Hypotension during Dialysis Stop: 09/11/18 16:07 Losartan Potassium (Cozaar -) 100 mg PO DAILY [facility] Last Admin: 09/10/18 10:21 Dose: 100 mg Polyethylene Glycol (Miralax (For Daily Use) -) 17 gm PO DAILY [facility] Last Admin: 09/10/18 10:23 Dose: 17 gm PHYSICAL EXAMINATION Vital Signs Period Temp Pulse Resp BP Sys/Bentley Pulse Ox Last 24 Hr 97.8 F-98.4 F 63-75 16-18 128-142/50-63 95 GENERAL: lethargic, easily arousable, and oriented to person and place, in no acute distress. HEAD: Normal with no signs of trauma. EYES: Pupils equal, round and reactive to light, extraocular movements intact, sclera anicteric, conjunctiva clear. No lid lag. EARS, NOSE, THROAT: Ears normal, nares patent, oropharynx clear without exudates. Dry mucous membranes. NECK: Normal range of motion, supple without lymphadenopathy, JVD, or masses. LUNGS: Breath sounds diminished, poor inspiratory effort. No wheezes, and no crackles. No accessory muscle use. HEART: Regular rate and rhythm, normal S1 and S2 without murmur, rub or gallop. ABDOMEN: Soft, nontender, not distended, normoactive bowel sounds, no guarding, no rebound, no masses. No hepatomegaly or splenomegaly. MUSCULOSKELETAL: Normal range of motion at all joints. No bony deformities or tenderness. No CVA tenderness. UPPER EXTREMITIES: 2+ pulses, warm, well-perfused. No cyanosis. No clubbing. No peripheral edema. LOWER EXTREMITIES: 2+ pulses, warm, well-perfused. No calf tenderness. No peripheral edema. NEUROLOGICAL: Cranial nerves II-XII grossly intact. Bradykinesia, minimal tremor noted, masked facies, PSYCHIATRIC: Cooperative. Good eye contact. Appropriate mood and affect. SKIN: Warm, dry, poor turgor, no rashes or lesions noted, normal capillary refill. CBCD WBC 8.3 K/mm3 (4.0-10.0) 09/09/18 09:20 RBC 3.16 M/mm3 (4.00-5.60) L 09/09/18 09:20 Hgb 12.4 GM/dL (11.7-16.9) 09/09/18 09:20 Hct 35.8 % (35.4-49) 09/09/18 09:20 MCV 113.1 fl (80-96) H 09/09/18 09:20 MCHC 34.6 g/dl (32.0-35.9) 09/09/18 09:20 RDW 16.0 % (11.9-15.9) H 09/09/18 09:20 Plt Count 178 K/MM3 (134-434) 09/09/18 09:20 MPV 10.9 fl (7.5-11.1) 09/09/18 09:20 CMP Sodium 140 mmol/L (136-145) 09/09/18 09:20 Potassium 4.6 mmol/L (3.5-5.1) 09/09/18 09:20 Chloride 104 mmol/L (98-107) 09/09/18 09:20 Carbon Dioxide 26 mmol/L (21-32) 09/09/18 09:20 Anion Gap 10 MMOL/L (8-16) 09/09/18 09:20 BUN 60 mg/dL (7-18) H 09/09/18 09:20 Creatinine 5.6 mg/dL (0.55-1.3) H 09/09/18 09:20 Creat Clearance w eGFR 9.98 (>60) 09/09/18 09:20 Random Glucose 98 mg/dL (74-106) 09/09/18 09:20 Calcium 7.8 mg/dL (8.5-10.1) L 09/09/18 09:20 Total Bilirubin 0.6 mg/dL (0.2-1) 09/09/18 09:20 AST 14 U/L (15-37) L 09/09/18 09:20 ALT 10 U/L (13-61) L 09/09/18 09:20 Alkaline Phosphatase 184 U/L (45-117) H 09/09/18 09:20 Total Protein 6.1 g/dl (6.4-8.2) L 09/09/18 09:20 Albumin 2.7 g/dl (3.4-5.0) L 09/09/18 09:20 CARDIAC ENZYMES Troponin I Cancelled 09/05/18 17:20 Radiology Reports: CXR portable - completed CT head - completed CT abdomen/pelvis - completed ASSESSMENT/PLAN: 77 year old male with a past medical history of ESRD on dialysis MWF, Parkinson' s disease, dementia, HTN, dysphagia, Breast cancer who presented to the ED from his detention with fever and altered mental status on day of admission. Pt only complained of pain to the side of his left knee on exam. Denied cough, chest pain, abdominal pain, N/V/D. Consulted for confusion, Parkinson's Disease , on Sinemet 50/[address] completed and indicated chronic infarct. Abdomen/pelvis CT completed and indicated soft tissue edema. Patient with advanced PD with extensive bradykinesia, minimal tremor noted. Would continue current regiment, advanced PD at this time. Continue medical optimization, mental status seemed appropriate during my encounter, answering questions appropriately. Being planned for discharge and remains stable. Maintain adequate hydration. Monitor BP, maintain normotensive range. Neurlogicaly stable for d/c.
[2018-09-11 10:08] LABS: HEMATOCRIT 36.8 % (35.4-49); HEMOGLOBIN 12.8 GM/dL (11.7-16.9); MCH 39.3 pg (25.7-33.7); MCHC 34.9 g/dl (32.0-35.9); MEAN CELL VOLUME 112.6 fl (80-96); PLATELET COUNT 165 K/MM3 (134-434); RBC 3.27 M/mm3 (4.00-5.60); RDW 16.3 % (11.9-15.9); WHITE BLOOD COUNT 8.7 K/mm3 (4.0-10.0)
[2018-09-11 10:41] LABS: ANION GAP 10 MMOL/L (8-16); BLOOD UREA NITROGEN 50 mg/dL (7-18); CALCIUM 8.8 mg/dL (8.5-10.1); CHLORIDE 101 mmol/L (98-107); CO2 26 mmol/L (21-32); CREATININE 4.9 mg/dL (0.55-1.3); GLUCOSE,RANDOM 144 mg/dL (74-106); POTASSIUM 4.1 mmol/L (3.5-5.1); SODIUM 138 mmol/L (136-145)
--- NOTE | 2018-09-11 12:09 | PN ---
Progress Note (short form) - Note Progress Note: Resting in NAD. No acute events overnight. Intake & Output 09/08/18 09/09/18 09/10/18 09/11/18 23:59 23:59 23:59 23:59 Intake Total 850 320 890 620 Balance 850 320 890 620 Weight 132 lb 11.2 oz 133 lb 8 oz Last Vital Signs Temp Pulse Resp BP Pulse Ox 97.4 F L 65 18 102/46 L 95 09/11/18 09:25 09/11/18 10:00 09/11/18 10:00 09/11/18 10:00 09/10/18 20:55 Active Medications Amlodipine Besylate (Norvasc -) 10 mg PO DAILY [facility] Last Admin: 09/10/18 10:22 Dose: 10 mg Amoxicillin/Clavulanate Potassium (Augmentin - 500mg Tablet) 1 tab PO Q24H [facility] Last Admin: 09/10/18 10:40 Dose: 1 tab Carbidopa/Levodopa (Sinemet *Cr* 50/200 -) 1 combo PO QID [facility] Last Admin: 09/10/18 21:12 Dose: 1 combo Heparin Sodium (Porcine) (Heparin -) 5,000 unit SQ BID [facility] Last Admin: 09/10/18 21:12 Dose: 5,000 unit Sodium Chloride (Normal Saline -) 250 mls @ 3,000 mls/hr IV PRN PRN PRN Reason: Hypotension during Dialysis Stop: 09/09/18 15:45 Sodium Chloride (Normal Saline -) 250 mls @ 3,000 mls/hr IV PRN PRN PRN Reason: Hypotension during Dialysis Stop: 09/11/18 16:07 Losartan Potassium (Cozaar -) 100 mg PO DAILY [facility] Last Admin: 09/10/18 10:21 Dose: 100 mg Polyethylene Glycol (Miralax (For Daily Use) -) 17 gm PO DAILY [facility] Last Admin: 09/10/18 10:23 Dose: 17 gm Constitutional: Yes: NAD, Thin Eyes: Yes: WNL HENT: Yes: WNL Neck: Yes: WNL Cardiovascular: Yes: Regular Rate and Rhythm, S1, S2 Respiratory: Yes: few scattered rhonchi Gastrointestinal: Yes: Normal Bowel Sounds, Soft Extremities: Yes: WNL Edema: No Labs: Laboratory Results - last 24 hr 09/06/18 09/11/1809/11/19 14:45 09:35 09:35 WBC 8.7 RBC 3.27 L Hgb 12.8 Hct 36.8 MCV 112.6 H MCH 39.3 H MCHC 34.9 RDW 16.3 H Plt Count 165 MPV 11.0 Sodium 138 Potassium 4.1 Chloride 101 Carbon Dioxide 26 Anion Gap 10 BUN 50 H Creatinine 4.9 H Creat Clearance w eGFR 11.64 Random Glucose 144 H Calcium 8.8 Hepatitis Be Antibody Negative Problem List - Problems (1) Altered mental status Code(s): R41.82 - ALTERED MENTAL STATUS, UNSPECIFIED (2) ESRD (end stage renal disease) on dialysis Code(s): N18.6 - END STAGE RENAL DISEASE; Z99.2 - DEPENDENCE ON RENAL DIALYSIS (3) Fever Code(s): R50.9 - FEVER, UNSPECIFIED Assessment/Plan Fever resolved Atelectasis > Pneumonia ESRD on HD Parkinsons Disease HTN - PO ABX - HD per renal - Aspiration precautions - DVT prophylaxis - D/C planning Dr Nye
--- NOTE | 2018-09-11 12:12 | PN ---
Progress Note, Physician History of Present Illness: Pt seen and examined at bedside. He is tolerating HD. He denies shortness of breath. - Current Medication List Current Medications: Active Medications Amlodipine Besylate (Norvasc -) 10 mg PO DAILY [facility] Last Admin: 09/10/18 10:22 Dose: 10 mg Amoxicillin/Clavulanate Potassium (Augmentin - 500mg Tablet) 1 tab PO Q24H [facility] Last Admin: 09/10/18 10:40 Dose: 1 tab Carbidopa/Levodopa (Sinemet *Cr* 50/200 -) 1 combo PO QID [facility] Last Admin: 09/10/18 21:12 Dose: 1 combo Heparin Sodium (Porcine) (Heparin -) 5,000 unit SQ BID [facility] Last Admin: 09/10/18 21:12 Dose: 5,000 unit Sodium Chloride (Normal Saline -) 250 mls @ 3,000 mls/hr IV PRN PRN PRN Reason: Hypotension during Dialysis Stop: 09/09/18 15:45 Sodium Chloride (Normal Saline -) 250 mls @ 3,000 mls/hr IV PRN PRN PRN Reason: Hypotension during Dialysis Stop: 09/11/18 16:07 Losartan Potassium (Cozaar -) 100 mg PO DAILY [facility] Last Admin: 09/10/18 10:21 Dose: 100 mg Polyethylene Glycol (Miralax (For Daily Use) -) 17 gm PO DAILY [facility] Last Admin: 09/10/18 10:23 Dose: 17 gm - Objective Vital Signs: Vital Signs Temperature 97.4 F L 09/11/18 09:25 Pulse Rate 68 09/11/18 11:30 Respiratory Rate 18 09/11/18 11:30 Blood Pressure 110/49 L 09/11/18 11:30 O2 Sat by Pulse Oximetry (%) 95 09/10/18 20:55 Constitutional: Yes: Calm Eyes: Yes: Conjunctiva Clear HENT: Yes: Atraumatic Neck: Yes: Supple Cardiovascular: Yes: S1, S2 Respiratory: Yes: CTA Bilaterally Gastrointestinal: Yes: Normal Bowel Sounds, Soft Genitourinary: Yes: Incontinence Musculoskeletal: Yes: WNL Edema: No Neurological: Yes: Oriented Psychiatric: Yes: Oriented Labs: CBC, BMP 09/11/18 09:35 09/11/18 09:35 INR, PTT INR 1.03 (0.83-1.09) 09/05/18 17:14 Problem List - Problems (1) Altered mental status Code(s): R41.82 - ALTERED MENTAL STATUS, UNSPECIFIED (2) ESRD (end stage renal disease) on dialysis Code(s): N18.6 - END STAGE RENAL DISEASE; Z99.2 - DEPENDENCE ON RENAL DIALYSIS Assessment/Plan Current Medications Generic Name Dose Route Start Last Admin Trade Name Freq PRN Reason Stop Dose Admin Amlodipine Besylate 10 mg 09/06/18 10:00 09/10/18 10:22 Norvasc - PO 10 mg DAILY JOSE J Administration Amoxicillin/Clavulanate Potassium 1 tab 09/08/18 10:45 09/10/18 10:40 Augmentin - 500mg Tablet PO 1 tab Q24H JOSE J Administration Carbidopa/Levodopa 1 combo 09/06/18 10:00 09/10/18 21:12 Sinemet *Cr* 50/200 - PO 1 combo QID JOSE J Administration Heparin Sodium (Porcine) 5,000 unit 09/06/18 10:00 09/10/18 21:12 Heparin - SQ 5,000 unit BID JOSE J Administration Sodium Chloride 250 mls @ 3,000 mls/hr 09/08/18 15:45 Normal Saline - IV 09/09/18 15:45 PRN PRN Hypotension during Dialysis Sodium Chloride 250 mls @ 3,000 mls/hr 09/10/18 16:07 Normal Saline - IV 09/11/18 16:07 PRN PRN Hypotension during Dialysis Losartan Potassium 100 mg 09/06/18 10:00 09/10/18 10:21 Cozaar - PO 100 mg DAILY JOSE J Administration Polyethylene Glycol 17 gm 09/07/18 10:00 09/10/18 10:23 Miralax (For Daily Use) - PO 17 gm DAILY JOSE J Administration Impression 1. ESRD 2. HTN 3. change in mental status 4. PNA 5. parkinsons Plan - HD today - pt is pending placement - monitor bp - called HD unit, 3 hrs 2 k bath, 16 gauge needles 350 abg - abx per ID Dr Kilpatrick
[2018-09-11] MEDS: HEPARIN NA (PORCINE) 5,000 UNITS/ML 1ML VIAL SQ SCH ×2 (13:27→21:25)
[2018-09-11] MEDS: AMOX TR/POT CLAV 500MG/125MG TABLETS (FP) PO SCH (13:28)
[2018-09-11] MEDS: amLODIPine BESYLATE 10 MG TABLET (FP) PO SCH (13:29)
[2018-09-11] MEDS: LOSARTAN POTASSIUM 50 MG TABLET (FP) PO SCH (13:29)
[2018-09-11] MEDS: POLYETHYLENE GLYCOL 3350 119 GM BTL PO SCH (13:29)
--- NOTE | 2018-09-12 09:05 | PN ---
Progress Note (short form) - Note Progress Note: Neurology HISTORY OF PRESENT ILLNESS: This is a 77 year old male with a past medical history of ESRD on dialysis MWF, Parkinson's disease, dementia, HTN, dysphagia, Breast cancer who presented to the ED from his [place] [facility] with fever and altered mental status on day of admission. Pt only complained of pain to the side of his left knee on exam. Denied cough, chest pain, abdominal pain, N/V/D. Consulted for confusion, Parkinson's Disease, on Sinemet 50/[address] completed and indicated chronic infarct. Abdomen/pelvis CT completed and indicated soft tissue edema. Patient with advanced PD with extensive bradykinesia, minimal tremor noted. Being planned for discharge and remains stable. PD remains stable though advanced. No new neurologic complaints. Allergies No Known Allergies Allergy (Verified 09/05/18 16:44) Active Medications Amlodipine Besylate (Norvasc -) 10 mg PO DAILY [facility] Last Admin: 09/11/18 13:29 Dose: 10 mg Amoxicillin/Clavulanate Potassium (Augmentin - 500mg Tablet) 1 tab PO Q24H [facility] Last Admin: 09/11/18 13:28 Dose: 1 tab Carbidopa/Levodopa (Sinemet *Cr* 50/200 -) 1 combo PO QID [facility] Last Admin: 09/11/18 21:25 Dose: 1 combo Heparin Sodium (Porcine) (Heparin -) 5,000 unit SQ BID [facility] Last Admin: 09/11/18 21:25 Dose: 5,000 unit Sodium Chloride (Normal Saline -) 250 mls @ 3,000 mls/hr IV PRN PRN PRN Reason: Hypotension during Dialysis Stop: 09/09/18 15:45 Sodium Chloride (Normal Saline -) 250 mls @ 3,000 mls/hr IV PRN PRN PRN Reason: Hypotension during Dialysis Stop: 09/11/18 16:07 Losartan Potassium (Cozaar -) 100 mg PO DAILY [facility] Last Admin: 09/11/18 13:29 Dose: 100 mg Polyethylene Glycol (Miralax (For Daily Use) -) 17 gm PO DAILY [facility] Last Admin: 09/11/18 13:29 Dose: 17 gm PHYSICAL EXAMINATION Vital Signs Period Temp Pulse Resp BP Sys/[place] Pulse Ox Last 24 Hr 97.4 F-98.2 F 62-102 18-20 102-151/44-64 99 GENERAL: lethargic, easily arousable, and oriented to person and place, in no acute distress. HEAD: Normal with no signs of trauma. EYES: Pupils equal, round and reactive to light, extraocular movements intact, sclera anicteric, conjunctiva clear. No lid lag. EARS, NOSE, THROAT: Ears normal, nares patent, oropharynx clear without exudates. Dry mucous membranes. NECK: Normal range of motion, supple without lymphadenopathy, JVD, or masses. LUNGS: Breath sounds diminished, poor inspiratory effort. No wheezes, and no crackles. No accessory muscle use. HEART: Regular rate and rhythm, normal S1 and S2 without murmur, rub or gallop. ABDOMEN: Soft, nontender, not distended, normoactive bowel sounds, no guarding, no rebound, no masses. No hepatomegaly or splenomegaly. MUSCULOSKELETAL: Normal range of motion at all joints. No bony deformities or tenderness. No CVA tenderness. UPPER EXTREMITIES: 2+ pulses, warm, well-perfused. No cyanosis. No clubbing. No peripheral edema. LOWER EXTREMITIES: 2+ pulses, warm, well-perfused. No calf tenderness. No peripheral edema. NEUROLOGICAL: Cranial nerves II-XII grossly intact. Bradykinesia, minimal tremor noted, masked facies, PSYCHIATRIC: Cooperative. Good eye contact. Appropriate mood and affect. SKIN: Warm, dry, poor turgor, no rashes or lesions noted, normal capillary refill. CBCD WBC 8.7 K/mm3 (4.0-10.0) 09/11/18 09:35 RBC 3.27 M/mm3 (4.00-5.60) L 09/11/18 09:35 Hgb 12.8 GM/dL (11.7-16.9) 09/11/18 09:35 Hct 36.8 % (35.4-49) 09/11/18 09:35 MCV 112.6 fl (80-96) H 09/11/18 09:35 MCHC 34.9 g/dl (32.0-35.9) 09/11/18 09:35 RDW 16.3 % (11.9-15.9) H 09/11/18 09:35 Plt Count 165 K/MM3 (134-434) 09/11/18 09:35 MPV 11.0 fl (7.5-11.1) 09/11/18 09:35 CMP Sodium 138 mmol/L (136-145) 09/11/18 09:35 Potassium 4.1 mmol/L (3.5-5.1) 09/11/18 09:35 Chloride 101 mmol/L (98-107) 09/11/18 09:35 Carbon Dioxide 26 mmol/L (21-32) 09/11/18 09:35 Anion Gap 10 MMOL/L (8-16) 09/11/18 09:35 BUN 50 mg/dL (7-18) H 09/11/18 09:35 Creatinine 4.9 mg/dL (0.55-1.3) H 09/11/18 09:35 Creat Clearance w eGFR 11.64 (>60) 09/11/18 09:35 Random Glucose 144 mg/dL (74-106) H 09/11/18 09:35 Calcium 8.8 mg/dL (8.5-10.1) 09/11/18 09:35 Total Bilirubin 0.6 mg/dL (0.2-1) 09/09/18 09:20 AST 14 U/L (15-37) L 09/09/18 09:20 ALT 10 U/L (13-61) L 09/09/18 09:20 Alkaline Phosphatase 184 U/L (45-117) H 09/09/18 09:20 Total Protein 6.1 g/dl (6.4-8.2) L 09/09/18 09:20 Albumin 2.7 g/dl (3.4-5.0) L 09/09/18 09:20 CARDIAC ENZYMES Troponin I Cancelled 09/05/18 17:20 Radiology Reports: CXR portable - completed CT head - completed CT abdomen/pelvis - completed ASSESSMENT/PLAN: 77 year old male with a past medical history of ESRD on dialysis MWF, Parkinson' s disease, dementia, HTN, dysphagia, Breast cancer who presented to the ED from his [place] [facility] with fever and altered mental status on day of admission. Pt only complained of pain to the side of his left knee on exam. Denied cough, chest pain, abdominal pain, N/V/D. Consulted for confusion, Parkinson's Disease , on Sinemet 50/[address] completed and indicated chronic infarct. Abdomen/pelvis CT completed and indicated soft tissue edema. Patient with advanced PD with extensive bradykinesia, minimal tremor noted. Would continue current regiment, advanced PD at this time. Continue medical optimization, mental status seemed appropriate during my encounter, answering questions appropriately. Being planned for discharge and remains stable. Maintain adequate hydration. Monitor BP, maintain normotensive range. Neurlogicaly stable for d/c.
[2018-09-12] MEDS ORDERED: PT OWN MED DRAWER 7, Y5N ONE ×2 (09:06→17:58)
--- NOTE | 2018-09-12 09:41 | PN ---
Progress Note, Physician Chief Complaint: AMS Fever History of Present Illness: Previous notes and events reviewed awake and alert, confused NAD denies complaints of pain, chest pain, SOB patient to be discharged today to [facility] - Current Medication List Current Medications: Active Medications Amlodipine Besylate (Norvasc -) 10 mg PO DAILY [facility] Last Admin: 09/11/18 13:29 Dose: 10 mg Amoxicillin/Clavulanate Potassium (Augmentin - 500mg Tablet) 1 tab PO Q24H [facility] Last Admin: 09/11/18 13:28 Dose: 1 tab Carbidopa/Levodopa (Sinemet *Cr* 50/200 -) 1 combo PO QID [facility] Last Admin: 09/11/18 21:25 Dose: 1 combo Heparin Sodium (Porcine) (Heparin -) 5,000 unit SQ BID [facility] Last Admin: 09/11/18 21:25 Dose: 5,000 unit Sodium Chloride (Normal Saline -) 250 mls @ 3,000 mls/hr IV PRN PRN PRN Reason: Hypotension during Dialysis Stop: 09/09/18 15:45 Sodium Chloride (Normal Saline -) 250 mls @ 3,000 mls/hr IV PRN PRN PRN Reason: Hypotension during Dialysis Stop: 09/11/18 16:07 Losartan Potassium (Cozaar -) 100 mg PO DAILY [facility] Last Admin: 09/11/18 13:29 Dose: 100 mg Polyethylene Glycol (Miralax (For Daily Use) -) 17 gm PO DAILY [facility] Last Admin: 09/11/18 13:29 Dose: 17 gm - Objective Vital Signs: Vital Signs Temperature 98.2 F 09/12/18 06:00 Pulse Rate 71 09/12/18 06:00 Respiratory Rate 18 09/12/18 06:00 Blood Pressure 141/61 09/12/18 06:00 O2 Sat by Pulse Oximetry (%) 99 09/11/18 21:00 Constitutional: Yes: No Distress, Calm Eyes: Yes: Conjunctiva Clear HENT: Yes: Normocephalic Neck: Yes: Supple Cardiovascular: Yes: Regular Rate and Rhythm Respiratory: Yes: Regular, CTA Bilaterally Gastrointestinal: Yes: Normal Bowel Sounds, Soft, Other (non-tender, non- distended) Genitourinary: Yes: Incontinence Musculoskeletal: Yes: Muscle Weakness Extremities: Yes: WNL Edema: No Neurological: Yes: Alert, Pre-Existing Deficit Psychiatric: Yes: Alert Labs: CBC, BMP 09/11/18 09:35 09/11/18 09:35 INR, PTT INR 1.03 (0.83-1.09) 09/05/18 17:14 Problem List - Problems (1) Altered mental status Assessment/Plan: BC neg, UC neg -neurology on board -patient to be discharged to SNF today Code(s): R41.82 - ALTERED MENTAL STATUS, UNSPECIFIED (2) ESRD (end stage renal disease) on dialysis Assessment/Plan: -renal on board -continue with HD MWF -renal diet -1L fluid restriction -will monitor renal function Code(s): N18.6 - END STAGE RENAL DISEASE; Z99.2 - DEPENDENCE ON RENAL DIALYSIS (3) Fever Assessment/Plan: -ID on board -BC neg, UC neg -initial CXR unremarkable -current WBC 8.7 and afebrile Code(s): R50.9 - FEVER, UNSPECIFIED (4) Constipation Assessment/Plan: -miralax daily Code(s): K59.00 - CONSTIPATION, UNSPECIFIED (5) Pneumonia Assessment/Plan: -ID on board -continue zosyn -[employer] on board, aspiration? -Abd/Pelvic CT scan show mild R posterior basilar opacity is seen probably representing atelectasis -O2 via NC PRN for SOB -pulm consult was placed, recommendations appreciated Code(s): J18.9 - PNEUMONIA, UNSPECIFIED ORGANISM
[2018-09-12] MEDS: LOSARTAN POTASSIUM 50 MG TABLET (FP) PO SCH (09:46)
[2018-09-12] MEDS: amLODIPine BESYLATE 10 MG TABLET (FP) PO SCH (09:47)
[2018-09-12] MEDS: HEPARIN NA (PORCINE) 5,000 UNITS/ML 1ML VIAL SQ SCH (09:47)
[2018-09-12] MEDS: POLYETHYLENE GLYCOL 3350 119 GM BTL PO SCH (09:48)
[2018-09-12] MEDS: AMOX TR/POT CLAV 500MG/125MG TABLETS (FP) PO SCH (09:50)
--- NOTE | 2018-09-12 11:20 | PN ---
Progress Note (short form) - Note Progress Note: Resting in NAD. No acute events overnight. Intake & Output 09/09/18 09/10/18 09/11/18 09/12/18 23:59 23:59 23:59 23:59 Intake Total 320 890 770 Output Total 200 Balance 320 890 570 Weight 132 lb 11.2 oz 133 lb 8 oz 133 lb 3.2 oz Last Vital Signs Temp Pulse Resp BP Pulse Ox 98.2 F 78 20 141/85 99 09/12/18 10:00 09/12/18 10:00 09/12/18 10:00 09/12/18 10:00 09/11/18 21:00 Active Medications Amlodipine Besylate (Norvasc -) 10 mg PO DAILY [facility] Last Admin: 09/12/18 09:47 Dose: 10 mg Amoxicillin/Clavulanate Potassium (Augmentin - 500mg Tablet) 1 tab PO Q24H [facility] Last Admin: 09/12/18 09:50 Dose: 1 tab Carbidopa/Levodopa (Sinemet *Cr* 50/200 -) 1 combo PO QID [facility] Last Admin: 09/12/18 09:47 Dose: 1 combo Heparin Sodium (Porcine) (Heparin -) 5,000 unit SQ BID [facility] Last Admin: 09/12/18 09:47 Dose: 5,000 unit Sodium Chloride (Normal Saline -) 250 mls @ 3,000 mls/hr IV PRN PRN PRN Reason: Hypotension during Dialysis Stop: 09/09/18 15:45 Sodium Chloride (Normal Saline -) 250 mls @ 3,000 mls/hr IV PRN PRN PRN Reason: Hypotension during Dialysis Stop: 09/11/18 16:07 Losartan Potassium (Cozaar -) 100 mg PO DAILY [facility] Last Admin: 09/12/18 09:46 Dose: 100 mg Polyethylene Glycol (Miralax (For Daily Use) -) 17 gm PO DAILY [facility] Last Admin: 09/12/18 09:48 Dose: 17 gm Constitutional: Yes: NAD, Thin Eyes: Yes: WNL HENT: Yes: WNL Neck: Yes: WNL Cardiovascular: Yes: Regular Rate and Rhythm, S1, S2 Respiratory: Yes: few scattered rhonchi Gastrointestinal: Yes: Normal Bowel Sounds, Soft Extremities: Yes: WNL Edema: No Labs: Problem List - Problems (1) Altered mental status Code(s): R41.82 - ALTERED MENTAL STATUS, UNSPECIFIED (2) ESRD (end stage renal disease) on dialysis Code(s): N18.6 - END STAGE RENAL DISEASE; Z99.2 - DEPENDENCE ON RENAL DIALYSIS (3) Fever Code(s): R50.9 - FEVER, UNSPECIFIED Assessment/Plan Fever resolved Atelectasis > Pneumonia ESRD on HD Parkinsons Disease HTN - PO ABX - HD per renal - Aspiration precautions - DVT prophylaxis - D/C planning Dr Nye
--- NOTE | 2018-09-12 15:03 | PN ---
Progress Note, [employer] - Note Progress Note: Selected Entries 09/08/18 09/08/18 09/08/18 02:10 06:48 09:56 Breakfast 75% Lunch Supper Temperature 97.6 F 97.8 F 09/08/18 09/08/18 09/08/18 10:00 15:33 17:28 Breakfast Lunch 100% Supper Temperature 98.8 F 98.2 F 98.3 F 09/08/18 09/08/18 09/09/18 19:30 21:05 01:00 Breakfast Lunch Supper 100% Temperature 97.6 F 97.9 F 09/09/18 09/09/18 09/09/18 05:00 09:00 09:10 Breakfast Lunch Supper Temperature 98.2 F 98.8 F 97.7 F Laboratory Tests Selected Entries 09/11/18 09/11/18 09/11/18 00:00 06:00 09:00 Breakfast Supper Temperature 97.8 F 98.4 F 97.9 F 09/11/18 09/11/18 09/11/18 09:25 10:30 13:30 Breakfast 75% Supper Temperature 97.4 F L 97.7 F 09/11/18 09/11/18 09/11/18 16:30 18:30 20:26 Breakfast Supper 75% Temperature 97.7 F 97.7 F 09/12/18 09/12/18 09/12/18 06:00 10:00 12:08 Breakfast 75% Supper Temperature 98.2 F 98.2 F Laboratory Tests 09/11/18 09:35 WBC 8.7 09/09/18 09:20 WBC 8.3 Tolerating reg diet. Benefits being set up, food cut. Without overt signs of aspiration. Silent aspiration can not be r/o at bedside. If suspected, MBS needed to r/o aspiration.
[2018-09-12 15:12] VITALS: BP 129/57; PULSE 65; TEMP 97.9
[2018-09-12] MEDS ORDERED: SODIUM CHLORIDE 250 ML IV PRN (15:57)
--- NOTE | 2018-09-12 15:57 | PN ---
Progress Note, Physician History of Present Illness: Pt seen and examined at bedside. He is awake and alert. He denies shortness of breath. - Current Medication List Current Medications: Active Medications Amlodipine Besylate (Norvasc -) 10 mg PO DAILY [facility] Last Admin: 09/12/18 09:47 Dose: 10 mg Amoxicillin/Clavulanate Potassium (Augmentin - 500mg Tablet) 1 tab PO Q24H [facility] Last Admin: 09/12/18 09:50 Dose: 1 tab Carbidopa/Levodopa (Sinemet *Cr* 50/200 -) 1 combo PO QID [facility] Last Admin: 09/12/18 13:08 Dose: 1 combo Heparin Sodium (Porcine) (Heparin -) 5,000 unit SQ BID [facility] Last Admin: 09/12/18 09:47 Dose: 5,000 unit Losartan Potassium (Cozaar -) 100 mg PO DAILY [facility] Last Admin: 09/12/18 09:46 Dose: 100 mg Polyethylene Glycol (Miralax (For Daily Use) -) 17 gm PO DAILY [facility] Last Admin: 09/12/18 09:48 Dose: 17 gm - Objective Vital Signs: Vital Signs Temperature 97.9 F 09/12/18 15:10 Pulse Rate 65 09/12/18 15:10 Respiratory Rate 18 09/12/18 15:10 Blood Pressure 129/57 L 09/12/18 15:10 O2 Sat by Pulse Oximetry (%) 98 09/12/18 09:00 Constitutional: Yes: Calm Eyes: Yes: Conjunctiva Clear HENT: Yes: Atraumatic Neck: Yes: Supple Cardiovascular: Yes: S1, S2 Respiratory: Yes: CTA Bilaterally Gastrointestinal: Yes: Soft Genitourinary: Yes: Incontinence Musculoskeletal: Yes: Muscle Weakness Edema: No Neurological: Yes: Oriented Psychiatric: Yes: Oriented Labs: CBC, BMP 09/11/18 09:35 09/11/18 09:35 INR, PTT INR 1.03 (0.83-1.09) 09/05/18 17:14 Problem List - Problems (1) Altered mental status Code(s): R41.82 - ALTERED MENTAL STATUS, UNSPECIFIED (2) ESRD (end stage renal disease) on dialysis Code(s): N18.6 - END STAGE RENAL DISEASE; Z99.2 - DEPENDENCE ON RENAL DIALYSIS Assessment/Plan Current Medications Generic Name Dose Route Start Last Admin Trade Name Freq PRN Reason Stop Dose Admin Amlodipine Besylate 10 mg 09/06/18 10:00 09/12/18 09:47 Norvasc - PO 10 mg DAILY JOSE J Administration Amoxicillin/Clavulanate Potassium 1 tab 09/08/18 10:45 09/12/18 09:50 Augmentin - 500mg Tablet PO 1 tab Q24H JOSE J Administration Carbidopa/Levodopa 1 combo 09/06/18 10:00 09/12/18 13:08 Sinemet *Cr* 50/200 - PO 1 combo QID JOSE J Administration Heparin Sodium (Porcine) 5,000 unit 09/06/18 10:00 09/12/18 09:47 Heparin - SQ 5,000 unit BID JOSE J Administration Losartan Potassium 100 mg 09/06/18 10:00 09/12/18 09:46 Cozaar - PO 100 mg DAILY JOSE J Administration Polyethylene Glycol 17 gm 09/07/18 10:00 09/12/18 09:48 Miralax (For Daily Use) - PO 17 gm DAILY JOSE J Administration Impression 1. ESRD 2. HTN 3. change in mental status 4. PNA 5. parkinsons Plan - HD tomorrow - follow hep status - pt is pending placement - monitor bp - called HD unit, 3 hrs 2 k bath, 16 gauge needles 350 abg - abx per ID Dr Kilpatrick
[2018-09-14 06:06] LABS: HBsAG SCREEN Negative (Negative); HEP B CORE AB, TOT Negative (Negative); HEPATITIS B CORE ANTIBODY,IGM Negative (Negative)
== END 2018-09-12 19:15 | DRG 193 ==
LOC: JER 15:56 → JERBED 20:46 → J8W 09-06 03:40
PROVIDERS: ADMIT Internal Medicine; ATTEND Family Medicine
PROC: 5A1D70Z Performance of Urinary Filtration, Intermittent, Less than 6 Hours Per Day (ICD-10-PCS; principal; 2018-09-06)
PROC: 5A1D70Z Performance of Urinary Filtration, Intermittent, Less than 6 Hours Per Day (ICD-10-PCS; 2018-09-09)
PROC: 5A1D70Z Performance of Urinary Filtration, Intermittent, Less than 6 Hours Per Day (ICD-10-PCS; 2018-09-11)
DX: J18.9 Pneumonia, unspecified organism (principal); N18.6 End stage renal disease; J98.11 Atelectasis; I12.0 Hypertensive chronic kidney disease with stage 5 chronic kidney disease or end stage renal disease; G20 Parkinson's disease; Z99.2 Dependence on renal dialysis; Z85.3 Personal history of malignant neoplasm of breast; R13.10 Dysphagia, unspecified; R50.9 Fever, unspecified; K59.00 Constipation, unspecified; F03.90 Unspecified dementia, unspecified severity, without behavioral disturbance, psychotic disturbance, mood disturbance, and anxiety
CPT/HCPCS: 36415; 70450-TC; 71045-TC-FY; 73502-TC-LT-FY; 74019-TC-FY; 74176-TC; 80048; 80053; 81003; 81015; 82607; 82746; 82803; 82962; 83605; 83735; 84100; 84443; 84484; 85025; 85027; 85610; 85730; 86704; 86705; 86706; 86707; 86803; 87040; 87086; 87340; 87350; 87804; 93005; 93010; 97116-GP; 97162-GP; 99282-25; 99283-25; J0131; J1644

== ENCOUNTER 2018-10-01 12:29 | Inpatient (IN) | payer OTHER ==
--- NOTE | 2018-10-01 12:38 | PDOC ---
History of Present Illness - General Chief Complaint: Dialysis Shunt Problem Stated Complaint: FEVER Time Seen by Provider: 10/01/18 12:36 History Source: Patient - History of Present Illness Initial Comments: 10/01/18 13:03 History obtained from patient, NH paperwork and patient's security professional, Dr. Kilpatrick. The patient is a 77 year old male with a PMH of ESRD (on HD MWF - missed HD yesterday 2/2 to AV fistula malfunction), HTN, Dysphagia, Breast CA and Parkinson's Disease who was BIBEMS from [facility] for hyperkalemia and malfunctioning AV fistula. K+ was noted to be 6.8 today, patient was given Kayexelate (30 gm) and patient was transferred to our facility. Patient is DNR/DNI Family: Hetal Ramirez (Daughter) NKDA Surgical: AV Fistula PMD: Dr. Geo Schneider Vascular: Dr. Mejia As per EMR, patient was last evaluated in our ED in 08/2018 for fever and AMS. CT showed atelectasis vs R posterior infiltrate. S/p Zosyn. Past History - Past Medical History Allergies/Adverse Reactions: Allergies Allergy/AdvReac Type Severity Reaction Status Date / Time No Known Allergies Allergy Verified 09/05/18 16:44 Home Medications: Ambulatory Orders Amlodipine Besylate [Norvasc -] 10 mg PO ASDIR 09/05/18 Losartan Potassium 100 mg PO DAILY 09/05/18 Polyethylene Glycol 3350 [Miralax 119 gm Btl -] 17 gm PO DAILY bottle 09/09/18 B Complex W-C No.20/Folic Acid [Nephrocaps Softgel] 1 mg PO DAILY 10/01/18 Carbidopa/Levodopa/Entacapone [Tndzmljki-Pbrpejtq-Kyix 200 mg] 1 each PO QID 07/10 Heparin - 5,000 unit SQ BID 10/01/18 Cancer: Yes (breast male) COPD: No Dementia: Yes GI Disorders: Yes (dysphagia) Disorders: Yes (esrd on dyalisis) Psychiatric Problems: (parkinson's disease) - Suicide/Smoking/Psychosocial Hx Smoking History: Unknown if ever smoked Have you smoked in the past 12 months: No Hx Alcohol Use: No Drug/Substance Use Hx: No Review of Systems - Review of Systems Constitutional: Yes: Fever. No: Chills HEENTM: No: Recent change in vision Respiratory: No: Cough, Shortness of Breath Cardiac (ROS): No: Chest Pain, Lightheadedness, Palpitations, Syncope ABD/GI: Yes: Nausea. No: Constipated, Diarrhea, Vomiting *Physical Exam - Vital Signs Last Vital Signs Temp Pulse Resp BP Pulse Ox 101.6 F H 82 16 139/57 L 100 10/01/18 12:34 10/01/18 12:34 10/01/18 12:34 10/01/18 12:34 10/01/18 12:34 - Physical Exam Comments: 10/01/18 15:43 Awake, alert, drowsy but arousable, diaphoretic RUE - AV fistula palpated w/o audible bruit, no signs of cellulitis/overlying infection CV:S1/S2, no M/R/G Abdomen: soft, non-tender, (+) bowel sounds Extremity: 2+ DP pulses B/L Moderate Sedation - Procedure Monitoring Vital Signs: Procedure Monitoring Vital Signs Temperature 101.6 F H 10/01/18 12:34 Pulse Rate 82 10/01/18 12:34 Respiratory Rate 16 10/01/18 12:34 Blood Pressure 139/57 L 10/01/18 12:34 O2 Sat by Pulse Oximetry (%) 100 10/01/18 12:34 Heart Score/ECG Review - ECG Impressions Comment:: 10/01/18 13:12 NSR HR 80, no EDIE/STD/TWI, non-ischemic ED Treatment Course - LABORATORY CBC & Chemistry Diagram: 10/01/18 13:07 10/01/18 13:07 Medical Decision Making - Medical Decision Making 10/01/18 13:10 77 year old male with outside K+ 6.8. Febrile 101 @ presentation, other VS unremarkable. Patient awake, drowsy but arousable. RUE AV fistula w/o bruit. EKG to r/o hyperkalemic changes as well as fever w/u including including blood cultures, CXR, basic labs. Call placed to patient's vascular surgeon, Dr. Mejia pending EKG shows no tented T waves/flat P waves/MD prolongation/QRS widening concerning for hyperkalemia 10/01/18 13:20 Case d/w Dr. Mejia (vascular) - states patient was seen in office on patient had brachial cephalic, subclavian junction dilated; states revision can be done as outpatient in office. Roberto 10/01/18 14:37 Troponin 0.09 - possibly 2/2 to ischemic demand Leukocytosis 14 Will start empiric Abx coverage w/ Vancomycin/Zosyn Hospitalist paged for admission 10/01/18 14:39 As patient remains drowsy, ? lethargic, as per previously treating MD patient less alert than baseline, will obtain Head CT to r/o bleed (propensity to bleed 2/2 to dialysis) vs. r/o brain mets from malignancy Patient admitted to inpatient hospitalist service. ID @ bedside. Head CT negative Clinical Impression: Sepsis - possibly 2/2 to PNA vs. Bacteremia *DC/Admit/Observation/Transfer Diagnosis at time of Disposition: Fever - Discharge Dispostion Condition at time of disposition: Fair Decision to Admit order: Yes - Referrals - Patient Instructions - Post Discharge Activity
[2018-10-01] MEDS ORDERED: ACETAMINOPHEN 1000 MG/100 ML VIAL (NON FORMULARY) IVPB ONE ×2 (12:40→23:01)
[2018-10-01] MEDS ORDERED: ACETAMINOPHEN INJECTION 100 ML IVPB ONE (12:47)
[2018-10-01 13:28] LABS: BASO % 0.3 % (0-2.0); EOS % 0.8 % (0-4.5); HEMATOCRIT 28.5 % (35.4-49); HEMOGLOBIN 9.7 GM/dL (11.7-16.9); MCH 35.9 pg (25.7-33.7); MCHC 34.1 g/dl (32.0-35.9); MEAN CELL VOLUME 105.3 fl (80-96); MEAN PLT VOLUME 11.9 fl (7.5-11.1); NEUT % 82.9 % (42.8-82.8); PLATELET COUNT 62 K/MM3 (134-434); RDW 16.8 % (11.9-15.9); WHITE BLOOD COUNT 14.1 K/mm3 (4.0-10.0)
[2018-10-01 13:59] LABS: ALBUMIN 2.4 g/dl (3.4-5.0); ALK PHOS 180 U/L (45-117); ANION GAP 12 MMOL/L (8-16); BILIRUBIN,TOTAL 0.7 mg/dL (0.2-1); BLOOD UREA NITROGEN 96 mg/dL (7-18); CALCIUM 8.1 mg/dL (8.5-10.1); CHLORIDE 94 mmol/L (98-107); CO2 24 mmol/L (21-32); CREATININE 6.6 mg/dL (0.55-1.3); GLUCOSE,RANDOM 232 mg/dL (74-106); MAGNESIUM 2.3 mg/dL (1.8-2.4); POTASSIUM 4.1 mmol/L (3.5-5.1); SGOT/AST 22 U/L (15-37); SGPT/ALT 8 U/L (13-61); SODIUM 129 mmol/L (136-145); TOT PROT 5.8 g/dl (6.4-8.2)
[2018-10-01 14:18] LABS: ANISOCYTOSIS 1+; MACROCYTOSIS 1+; OVALOCYTE 1+; PLATELET ESTIMATE DECREASED; TARGET CELLS 1+
--- NOTE | 2018-10-01 14:30 | CONSULT ---
Consult Consult Specialty:: Nephrology Reason for Consultation:: ESRD - History of Present Illness Chief Complaint: sent in for hyperkalemia History of Present Illness: Pti s a 77 year old male with pmhx of ESRD on HD. I initially sent him to the hospital as he was found to have a potassium of greater than 6. It turns out the specimen was likely hemolyzed as it sat in the bin for 2 days before being picked up. His repeat potassium in the ER was normal. HE however was found to have fever and elevated WBC. His mental status is also worse today than yesterday. We were not able to dialyze him last night as his graft was cotted. - History Source History Provided By: Medical Record - Past Medical History Cardio/Vascular: Yes: HTN Renal/: Yes: Renal Failure, Hemodialysis - Alcohol/Substance Use Hx Alcohol Use: No - Smoking History Smoking history: Unknown if ever smoked Have you smoked in the past 12 months: No Home Medications - Allergies Allergies/Adverse Reactions: Allergies Allergy/AdvReac Type Severity Reaction Status Date / Time No Known Allergies Allergy Verified 09/05/18 16:44 - Home Medications Home Medications: Ambulatory Orders Amlodipine Besylate [Norvasc -] 10 mg PO ASDIR 09/05/18 Losartan Potassium 100 mg PO DAILY 09/05/18 Polyethylene Glycol 3350 [Miralax 119 gm Btl -] 17 gm PO DAILY bottle 09/09/18 B Complex W-C No.20/Folic Acid [Nephrocaps Softgel] 1 mg PO DAILY 10/01/18 Carbidopa/Levodopa/Entacapone [Raccnmqmi-Frjnpngq-Omoe 200 mg] 1 each PO QID 07/10 Heparin - 5,000 unit SQ BID 10/01/18 Family Disease History - Family Disease History Family History: Denies Review of Systems Unable to obtain ROS, reason: pt lethargic Physical Exam Vital Signs: Vital Signs Temperature 101.6 F H 10/01/18 12:34 Pulse Rate 82 10/01/18 12:34 Respiratory Rate 16 10/01/18 12:34 Blood Pressure 139/57 L 10/01/18 12:34 O2 Sat by Pulse Oximetry (%) 100 10/01/18 12:34 Constitutional: Yes: No Distress, Calm Eyes: Yes: Conjunctiva Clear HENT: Yes: Atraumatic Neck: Yes: Supple Cardiovascular: Yes: S1, S2 Respiratory: Yes: CTA Bilaterally Gastrointestinal: Yes: Soft Renal/: Yes: Incontinence Musculoskeletal: Yes: Muscle Weakness Edema: No Neurological: Yes: Lethargy Labs: CBC, BMP 10/01/18 13:07 10/01/18 13:07 Laboratory Tests 09/12/18 10/01/18 10/01/18 14:38 13:07 13:07 WBC 14.1 H Hgb 9.7 L Plt Count 62 L D Sodium 129 L Potassium 4.1 BUN 96 H Creatinine 6.6 H Random Glucose 232 H Troponin I Hep B Core Total Ab Pending 10/01/18 13:40 WBC Hgb Plt Count Sodium Potassium BUN Creatinine Random Glucose Troponin I 0.09 H Hep B Core Total Ab Assessment/Plan Current Medications Generic Name Dose Route Start Last Admin Trade Name Freq PRN Reason Stop Dose Admin Heparin Sodium (Porcine) 5,000 unit 10/01/18 22:00 Heparin - SQ TID JOSE J Piperacillin Sod/Tazobactam 50 mls @ 100 mls/hr 10/01/18 18:00 Sod 2.25 gm/ Dextrose IVPB Q8H-IV JOSE J Protocol Impression 1. ESRD 2. HTN 3. change in mental status 4. PNA 5. parkinsons 6. sepsis 7. clotted graft 8. fever 9. metastatic breast cancer Plan - will seen sepsis workup - repeat potassium is stable - send blood cultures - discussed with ER - called vascular surgery for access - will hold off HD today until pt is more stable - will likely need a shiley tomorrow - repeat labs in am
--- NOTE | 2018-10-01 14:36 | PDOC ---
Attending Attestation - HPI HPI: 10/01/18 14:39 The patient is a 77-year-old male with a past medical history significant for ESRD (on HD MWF), HTN, Breast CA, Parkinsons disease, and dysphagia presents to the emergency department via EMS from [facility] for malfunctioning AV fistula and elevated potassium levels. The patients potassium was noted to be 6.8 today and was given 30 of kayexelate. Secondary to the AV fistula malfunctioning, the patient didnt receive dialysis yesterday. Allergies: NKDA PMD: Dr. Geo Schneider. Vascular: Dr. Mejia. - Physicial Exam PE: 10/01/18 16:06 Vitals: Triage Vital signs reviewed General Appearance: no acute distress. +the patient appears lethargic and tired. , Neck: Supple;No Nuchal rigidity Chest Wall: Nontender Cardiac: Regular rate and rhythm, no murmurs, no rubs, no gallops, Lungs: Clear to auscultation bilateral, good air movement bilaterally, Abdomen: Soft, nondistended,nontender to palpation Extremities: Full range of motion to all extremities, moving all extremties, no cyanosis, clubbing, or edema Skin: Warm and dry, no rashes or lesions, no petechiae. - Medical Decision Making 10/01/18 14:39 Documentation prepared by Sammie Jensen, acting as medical records auditor for Jatin Gan MD. <Sammie Jensen - Last Filed: 10/01/18 16:06> - Resident Resident Name: Bárbara Zhou - ED Attending Attestation I have performed the following: I have examined & evaluated the patient, The case was reviewed & discussed with the resident, I agree w/resident's findings & plan, Exceptions are as noted - Medical Decision Making Fever and sepsis of unknown etiology sepsis workup initiated may be secondary to clotted fistula CAT scan negative for acute pathology vancomycin and Zosyn ordered infectious diseases been consult did no acute hyperkalemic EKG changes Nephrology has been consult in We'll admit to medicine for further management. <Jatin Gan - Last Filed: 10/01/18 17:39>
[2018-10-01] MEDS ORDERED: PIPERACILLIN/TAZOB 4.5 GM 4.5 GM in DEXTROSE 5%-WATER 100 ML IVPB ONE (14:53)
[2018-10-01] MEDS ORDERED: VANCOMYCIN 1,000 MG in DEXTROSE 5%-WATER - 250 ML IVPB ONE (14:53)
[2018-10-01] MEDS ORDERED: PIPERACILLIN/TAZOB 4.5 GM 4.5 GM/100 ML BAG IVPB ONE (15:20)
[2018-10-01] MEDS ORDERED: VANCOMYCIN 1 GRAM (PRE-DOCKED) 1,000 MG/250 ML BAG IVPB ONE (15:20)
--- NOTE | 2018-10-01 16:20 | CON.ID ---
Consult Consult Specialty:: infectious diseases Referred by:: Reason for Consultation:: sepsis,fever,leukocytosis,ams - History of Present Illness Chief Complaint: ams History of Present Illness: unable to obtain hisotry from the patient as he has altered mental status 77-year-old male with a past medical history significant for ESRD (on HD MWF), HTN, Breast CA, Parkinsons disease, and dysphagia presents to the emergency department via EMS from [facility] for malfunctioning AV fistula and elevated potassium levels. The patients potassium was noted to be 6.8 today and was given 30 of kayexelate. Secondary to the AV fistula malfunctioning, the patient didnt receive dialysis yesterday. according to his nephrology attending patient was doing well yesterday and this change in mental status was very sudden. patient then went on to spike fever and his wbc has increased currently patient has altered mental status and non responsive and non verbal patient has been worked up - History Source History Provided By: Medical Record Limitations to Obtaining History: Clinical Condition - Past Medical History Cardio/Vascular: Yes: HTN Renal/: Yes: Renal Failure, Hemodialysis - Alcohol/Substance Use Hx Alcohol Use: No - Smoking History Smoking history: Unknown if ever smoked Have you smoked in the past 12 months: No Home Medications - Allergies Allergies/Adverse Reactions: Allergies Allergy/AdvReac Type Severity Reaction Status Date / Time No Known Allergies Allergy Verified 09/05/18 16:44 - Home Medications Home Medications: Ambulatory Orders Amlodipine Besylate [Norvasc -] 10 mg PO ASDIR 09/05/18 Losartan Potassium 100 mg PO DAILY 09/05/18 Polyethylene Glycol 3350 [Miralax 119 gm Btl -] 17 gm PO DAILY bottle 09/09/18 B Complex W-C No.20/Folic Acid [Nephrocaps Softgel] 1 mg PO DAILY 10/01/18 Carbidopa/Levodopa/Entacapone [Qmvcpjqjn-Nvmbjrfa-Ehoy 200 mg] 1 each PO QID 07/10 Heparin - 5,000 unit SQ BID 10/01/18 Review of Systems Unable to obtain ROS, reason: unable to obtain Physical Exam Vital Signs: Vital Signs Temperature 101.6 F H 10/01/18 12:34 Pulse Rate 82 10/01/18 12:34 Respiratory Rate 16 10/01/18 12:34 Blood Pressure 139/57 L 10/01/18 12:34 O2 Sat by Pulse Oximetry (%) 100 10/01/18 12:34 Constitutional: Yes: Other Eyes: Yes: Conjunctiva Clear HENT: Yes: Atraumatic, Normocephalic Cardiovascular: Yes: Regular Rate and Rhythm Respiratory: Yes: Regular, Poor Air Entry (bases) Gastrointestinal: Yes: Normal Bowel Sounds, Soft Musculoskeletal: Yes: WNL Extremities: Yes: Other (rt arm non functioning av fistula) Integumentary: Yes: Other (no thrill in the fistula,skin looks good,no cellulitis noted) Neurological: Yes: Other (altered mental status,non verbal,) Psychiatric: Yes: Other Labs: CBC, BMP 10/01/18 13:07 10/01/18 13:07 Imaging - Results Chest X-ray: Image Reviewed Assessment/Plan patient with multiple medical problems coming in with sudden onset of altered mental status and known history of multiple medical problems,non verbal and now in sepsis with fever,leukocytosis ams sepsis leukocytosis fever blocked av graft metabolic encephalopathy patient has received vanco and zosyn plan will continue zosyn on the patient declotting of the graft will need to be dialysed await for the blood cx reports nutrition rest as per the team
--- NOTE | 2018-10-01 17:11 | HP ---
CHIEF COMPLAINT: av malformation PCP: Dr.OSsama Tucker HISTORY OF PRESENT ILLNESS: This is a 9 year old male with a histor of ESRD on HD (MWF), breast ca?, who was sent over due to a non functioning AV fistula and hyperkalemia. Upon arrival patient was febrile and lethargic, not following commands or questioning. Labs evident for leukocytosis, and anemia and thrombocytopenia. ER course was notable for: blood cultures, empiric antibiotics IV vanco/zosyn Recent Travel: unknown PAST MEDICAL HISTORY: ERSD, HTN, breast Ca? PAST SURGICAL HISTORY: rt av fistula Social History:unknown Family History: Allergies No Known Allergies Allergy (Verified 09/05/18 16:44) HOME MEDICATIONS: Home Medications Medication Instructions Recorded Amlodipine Besylate [Norvasc -] 10 mg PO ASDIR 09/05/18 Losartan Potassium 100 mg PO DAILY 09/05/18 Polyethylene Glycol 3350 [Miralax 17 gm PO DAILY bottle 09/09/18 119 gm Btl -] B Complex W-C No.20/Folic Acid 1 mg PO DAILY 10/01/18 [Nephrocaps Softgel] Carbidopa/Levodopa/Entacapone 1 each PO QID 10/01/18 [Txwkxonfb-Fyyljpoc-Zdgq 200 mg] Heparin - 5,000 unit SQ BID 10/01/18 REVIEW OF SYSTEMS; unable to obtain PHYSICAL EXAMINATION Vital Signs - 24 hr 10/01/18 12:34 Temperature 101.6 F H Pulse Rate 82 Respiratory 16 Rate Blood Pressure 139/57 L O2 Sat by Pulse 100 Oximetry (%) GENERAL: lethargic; eye opening; whispered name; not responding to question or commands. HEAD: Normal with no signs of trauma. EYES: Pupils equal, round and reactive to light, NECK: Normal range of motion, supple without lymphadenopathy, JVD, or masses; no rigidity LUNGS: decreased breath sounds; Breast/axilla: no masses/lumps; HEART: Regular rate and rhythm, normal S1 and S2 without murmur, rub or gallop. ABDOMEN: Soft, nontender, not distended, normoactive bowel sounds, no guarding, no rebound, no masses. No hepatomegaly or splenomegaly. UPPER EXTREMITIES: 2+ pulses, warm, well-perfused. No cyanosis. No clubbing. No peripheral edema. rigtht arm av fistula; mild erythema; no thrill; LOWER EXTREMITIES: 2+ pulses, warm, well-perfused. No calf tenderness. No peripheral edema. NEUROLOGICAL: lethargic SKIN: scattered healed raised; scabs of bilateral LE Laboratory Results - last 24 hr 10/01/18 10/01/18 10/01/18 13:07 13:07 13:40 WBC 14.1 H RBC 2.70 L Hgb 9.7 L Hct 28.5 L D MCV 105.3 H D MCH 35.9 H MCHC 34.1 RDW 16.8 H Plt Count 62 L D MPV 11.9 H Absolute Neuts (auto) 11.7 H Neutrophils % 82.9 H Neutrophils % (Manual) 85.7 H Band Neutrophils % 0.0 Lymphocytes % 6.0 L Lymphocytes % (Manual) 6.1 L Monocytes % 10.0 Monocytes % (Manual) 8 Eosinophils % 0.8 D Eosinophils % (Manual) 0.0 Basophils % 0.3 Basophils % (Manual) 0.0 Myelocytes % (Man) 0 Promyelocytes % (Man) 0 Blast Cells % (Manual) 0 Nucleated RBC % 0 Metamyelocytes 0 Hypochromia 0 Platelet Estimate Decreased Platelet Comment No clumping noted Polychromasia 0 Poikilocytosis 0 Anisocytosis 1+ Microcytosis 0 Macrocytosis 1+ Target Cells 1+ Ovalocytes 1+ Sodium 129 L Potassium 4.1 Chloride 94 L Carbon Dioxide 24 Anion Gap 12 BUN 96 H Creatinine 6.6 H Creat Clearance w eGFR 8.25 Random Glucose 232 H Calcium 8.1 L Magnesium 2.3 Total Bilirubin 0.7 AST 22 ALT 8 L Alkaline Phosphatase 180 H Creatine Kinase 54 Troponin I 0.09 H Total Protein 5.8 L Albumin 2.4 L ASSESSMENT/PLAN: This is a 77 year old male with a history of breast CA? 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 Lethargic on arrival. #AMS; sepsis; source currently unknown -empiric antibiotics IV vanco/zosyn; renal dose -blood cultures; urine if can get urine sample -influenza swab -CXR, head CT -abg -previous hospitalization with atelectasis/infiltrate; treated with zosyn -if no improvement will order chest/abd ct -ID following #AV fistula malformation -no audible thrill -consult vascular; aware of pt #ESRD on HD -HD tomorrow -renal following #macrocytic anemia: -r/o GI bleed; vs vit def; iron def; chronic anemia -stool for occult blood; iron studies, tsh, vit b12, folate, pending studies consider MDS work up -monitor cbc; transfuse threshold <7 #thrombocytopenia: -plts 62 -was on heparin at [facility] -r/o HIT; previous plts 165 -abdominal US #elevated alk phos: -will order ggt; r/o liver v bone; -may need further w/u regarding breast ca history ; now with anemia #hyponatremia: -asses volume status; -currently just monitor na; electrolytes #HTN hx: hold antihypertensives due to sepsis #breast CA hx? -will need to follow up with records regarding treatment #Fluids; ESRD: restrict; currently normotensive; monitor BP #Diet: npo currently ; due to lethargy DVT ppl: scds; low platelets GI ppl; n/a Disposition: inpatient med/srg Visit type - Emergency Visit Emergency Visit: Yes Care time: The patient presented to the Emergency Department on the above date and was hospitalized for further evaluation of their emergent condition. - New Patient This patient is new to me today: Yes Date on this admission: 10/01/18 - Critical Care Critical Care patient: No
--- NOTE | 2018-10-01 17:29 | PN ---
Teaching Attending Note Name of Resident: Eduarda Ellison ATTENDING PHYSICIAN STATEMENT I saw and evaluated the patient. I reviewed the resident's note and discussed the case with the resident. I agree with the resident's findings and plan as documented. CC: unable to obtain HPI: Mr Ramirez is a 77 year old male who was sent over from HD for malfunctioning fistula. Patient is obtunded on exam and unable to obtain any history. Per Dr Kilpatrick patient has normal mental status. PMHx: ESRD on HD, ? breast cancer, HTN PSHx: R fistula placement Allergies: NKDA Meds: Home Medications Medication Instructions Recorded Amlodipine Besylate [Norvasc -] 10 mg PO ASDIR 09/05/18 Losartan Potassium 100 mg PO DAILY 09/05/18 Polyethylene Glycol 3350 [Miralax 17 gm PO DAILY bottle 09/09/18 119 gm Btl -] B Complex W-C No.20/Folic Acid 1 mg PO DAILY 10/01/18 [Nephrocaps Softgel] Carbidopa/Levodopa/Entacapone 1 each PO QID 10/01/18 [Hrazyoofi-Qomwavxs-Ocll 200 mg] Heparin - 5,000 unit SQ BID 10/01/18 SHx: unable to obtain FHx: unable to obtain ROS: unable to obtain secondary to AMS OBJECTIVE: Last Vital Signs Temp Pulse Resp BP Pulse Ox 36.6 C 65 16 125/54 L 97 10/01/18 18:19 10/01/18 18:19 10/01/18 18:19 10/01/18 18:19 10/01/18 18:19 Gen: obtunded but protecting airway HEENT: perrl, no scleral icterus or injection Neck: no jvd noted Pulm: ctab anteriorly w/o w/r/r CV: rrr w/o m/r/g Abd: +bs, s/nt/nd Ext: slight erythema at fistula site Skin: no ulcerations noted, unable to evaluate back CBC, BMP 10/01/18 13:07 10/01/18 13:07 ASSESSMENT AND PLAN: Problem List - Problems (1) Acute metabolic encephalopathy Assessment/Plan: -secondary to sepsis -admit to hospital -broad spectrum antibiotics -no IVF secondary to ESRD -head CT negative -check ABG for acidemia and hypercarbia -suspect uremia contributing -check ammonia level in am Code(s): G93.41 - METABOLIC ENCEPHALOPATHY (2) Sepsis Assessment/Plan: -unclear source -possible fistula -did not see ulceration or cellulitis -clear lung exam, chest xray reviewed and no overt infiltrate per my evaluation but awaiting official read -abdominal exam benign -will check lactic acid -case d/w ID -empiric vancomycin and zosyn Code(s): A41.9 - SEPSIS, UNSPECIFIED ORGANISM (3) ESRD (end stage renal disease) on dialysis Assessment/Plan: -case d/w nephrology -no HD today secondary to sepsis -re-evaluate tomorrow for HD Code(s): N18.6 - END STAGE RENAL DISEASE; Z99.2 - DEPENDENCE ON RENAL DIALYSIS (4) Thrombocytopenia Assessment/Plan: -check HIT antibody -possibly secondary to sepsis -monitor -if continues to decrease, consult hematology Code(s): D69.6 - THROMBOCYTOPENIA, UNSPECIFIED (5) Hyponatremia Assessment/Plan: -monitor -HD per nephrology Code(s): E87.1 - HYPO-OSMOLALITY AND HYPONATREMIA (6) HTN (hypertension) Assessment/Plan: -hold antihypertensives at this time -normotensive currently Code(s): I10 - ESSENTIAL (PRIMARY) HYPERTENSION Qualifiers: Hypertension type: essential hypertension Qualified Code(s): I10 - Essential (primary) hypertension (7) Parkinson disease Assessment/Plan: -holding carbidopa/levodopa/entacapone while altered and npo Code(s): G20 - PARKINSON'S DISEASE (8) Dialysis AV fistula malfunction Assessment/Plan: -to be evaluated by vascular surgery for repair Code(s): T82.590A - [facility] COMPL OF SURGICALLY CREATED ARTERIOVENOUS FISTULA, INIT Qualifiers: Encounter type: initial encounter Qualified Code(s): T82.590A - Other mechanical complication of surgically created arteriovenous fistula, initial encounter
[2018-10-01] MEDS ORDERED: DEXTROSE 5%-WATER - 50 ML IVPB ONE (21:13)
[2018-10-01] MEDS ORDERED: PIPERACILLIN/TAZOBACTAM 2.25 GM VIAL IVPB ONE (21:13)
[2018-10-01] MEDS ORDERED: HEPARIN NA (PORCINE) 5,000 UNITS/ML 1ML VIAL SQ SCH (22:00)
[2018-10-01] MEDS: PIPERACILLIN/TAZOB 2.25 GM 2.25 GM in DEXTROSE 5%-WATER - 50 ML IVPB SCH (22:27)
[2018-10-02] MEDS ORDERED: PIPERACILLIN/TAZOBACTAM 2.25 GM VIAL IVPB ONE ×3 (02:53→17:35)
[2018-10-02] MEDS ORDERED: DEXTROSE 5%-WATER - 50 ML IVPB ONE ×3 (02:53→17:35)
[2018-10-02] MEDS: PIPERACILLIN/TAZOB 2.25 GM 2.25 GM in DEXTROSE 5%-WATER - 50 ML IVPB SCH ×3 (02:56→17:36)
[2018-10-02 08:16] LABS: BASO % 0.3 % (0-2.0); EOS % 0.9 % (0-4.5); HEMOGLOBIN 10.4 GM/dL (11.7-16.9); LYMPH % 7.1 % (8-40); MCH 36.3 pg (25.7-33.7); MCHC 34.7 g/dl (32.0-35.9); MEAN CELL VOLUME 104.6 fl (80-96); MEAN PLT VOLUME 11.8 fl (7.5-11.1); MONO % 8.3 % (3.8-10.2); NEUT % 83.4 % (42.8-82.8); PLATELET COUNT 72 K/MM3 (134-434); RBC 2.87 M/mm3 (4.00-5.60); RDW 16.6 % (11.9-15.9); WHITE BLOOD COUNT 12.2 K/mm3 (4.0-10.0)
[2018-10-02 08:27] LABS: INR 1.04 (0.83-1.09); PROTHROMBIN TIME (PATIENT) 12.3 SEC (9.7-13.0)
[2018-10-02 08:54] LABS: ALBUMIN 2.3 g/dl (3.4-5.0); ALK PHOS 152 U/L (45-117); ANION GAP 11 MMOL/L (8-16); BILIRUBIN,TOTAL 0.9 mg/dL (0.2-1); BLOOD UREA NITROGEN 103 mg/dL (7-18); CALCIUM 8.2 mg/dL (8.5-10.1); CHLORIDE 94 mmol/L (98-107); CO2 25 mmol/L (21-32); CREATININE 6.7 mg/dL (0.55-1.3); GLUCOSE,RANDOM 113 mg/dL (74-106); MAGNESIUM 2.3 mg/dL (1.8-2.4); PHOSPHOROUS 4.6 mg/dL (2.5-4.9); POTASSIUM 3.8 mmol/L (3.5-5.1); SGOT/AST 19 U/L (15-37); SGPT/ALT 8 U/L (13-61); SODIUM 130 mmol/L (136-145); TOT PROT 5.7 g/dl (6.4-8.2)
--- NOTE | 2018-10-02 10:30 | PN ---
Progress Note, Physician History of Present Illness: patient more awake and alert c/o weakness remaining afebrile blood cx positive - Current Medication List Current Medications: Active Medications Piperacillin Sod/Tazobactam (Sod 2.25 gm/ Dextrose) 50 mls @ 100 mls/hr IVPB Q8H-IV JOSE J; Protocol Last Admin: 10/02/18 09:36 Dose: 100 mls/hr - Objective Vital Signs: Vital Signs Temperature 97.6 F 10/02/18 06:18 Pulse Rate 70 10/02/18 06:18 Respiratory Rate 20 10/02/18 06:18 Blood Pressure 133/71 10/02/18 06:18 O2 Sat by Pulse Oximetry (%) 97 10/01/18 19:58 Constitutional: Yes: No Distress, Calm Neck: Yes: Supple Cardiovascular: Yes: Regular Rate and Rhythm Respiratory: Yes: Regular, CTA Bilaterally, Other Gastrointestinal: Yes: Normal Bowel Sounds, Soft Musculoskeletal: Yes: WNL Extremities: Yes: Other (rt hand non functioning fistula) Neurological: Yes: Alert Psychiatric: Yes: Alert Labs: CBC, BMP 10/02/18 07:45 10/02/18 07:00 INR, PTT INR 1.04 (0.83-1.09) 10/02/18 07:45 Assessment/Plan patient coming win with sepsis now has blood cx positive with gm positive the source could very well be from the graft site ESRD HTN change in mental status PNA parkinsons sepsis clotted graft fever metastatic breast cancer gm positive bacteremia leukocytosis plan get a tte continue abx await for identification of bacteria will repeat blood cx check vanco trough if vanco trough low give a vanco dose declotting of the graft to be done send the clot for cx monitor fevers wbc
[2018-10-02 10:34] LABS: ANISOCYTOSIS 1+; MACROCYTOSIS 1+; OVALOCYTE 1+; PLATELET ESTIMATE DECREASED; TARGET CELLS 1+
--- NOTE | 2018-10-02 11:09 | EKG ---
Test Reason : Blood Pressure : / mmHG Vent. Rate : 080 BPM Atrial Rate : 080 BPM P-R Int : 142 ms QRS Dur : 088 ms QT Int : 386 ms P-R-T Axes : 056 -27 015 degrees QTc Int : 445 ms NORMAL SINUS RHYTHM NORMAL ECG WHEN COMPARED WITH ECG OF 05-SEP-2018 16:32, CRITERIA FOR SEPTAL INFARCT ARE NO LONGER PRESENT NONSPECIFIC T WAVE ABNORMALITY NO LONGER EVIDENT IN LATERAL LEADS Confirmed by KE KC MD ([id number]) on 10/02/2018 11:09:34 AM Referred By: Confirmed By:KE KC MD
--- NOTE | 2018-10-02 11:57 | PN ---
Progress Note (short form) - Note Progress Note: RUE duplex ordered to eval clot and to r/o mara-graft fluid collection. Will await results. Vascular Surgery following. Plan on Shiley cath placement 10/03/18 Cont medical management at this time
--- NOTE | 2018-10-02 12:58 | PN ---
Progress Note, Physician History of Present Illness: Pt seen and examined at bedside. His mental status is markedly improved today. He denies shortness of breath. - Current Medication List Current Medications: Active Medications Piperacillin Sod/Tazobactam (Sod 2.25 gm/ Dextrose) 50 mls @ 100 mls/hr IVPB Q8H-IV JOSE J; Protocol Last Admin: 10/02/18 09:36 Dose: 100 mls/hr Vancomycin HCl 750 mg/ (Dextrose) 250 mls @ 250 mls/hr IVPB ONCE ONE; Protocol Stop: 10/02/18 13:59 - Objective Vital Signs: Vital Signs Temperature 98.0 F 10/02/18 10:00 Pulse Rate 77 10/02/18 10:00 Respiratory Rate 20 10/02/18 10:00 Blood Pressure 157/69 10/02/18 10:00 O2 Sat by Pulse Oximetry (%) 94 L 10/02/18 09:00 Constitutional: Yes: Calm Eyes: Yes: Conjunctiva Clear HENT: Yes: Atraumatic Cardiovascular: Yes: S1, S2 Respiratory: Yes: CTA Bilaterally Gastrointestinal: Yes: Soft Genitourinary: Yes: Incontinence Musculoskeletal: Yes: Muscle Weakness Edema: No Neurological: Yes: Oriented Psychiatric: Yes: Oriented Labs: CBC, BMP 10/02/18 07:45 10/02/18 07:00 INR, PTT INR 1.04 (0.83-1.09) 10/02/18 07:45 Assessment/Plan Current Medications Generic Name Dose Route Start Last Admin Trade Name Freq PRN Reason Stop Dose Admin Piperacillin Sod/Tazobactam 50 mls @ 100 mls/hr 10/01/18 18:00 10/02/18 09:36 Sod 2.25 gm/ Dextrose IVPB 100 mls/hr Q8H-IV JOSE J Administration Protocol Vancomycin HCl 750 mg/ 250 mls @ 250 mls/hr 10/02/18 13:00 Dextrose IVPB 10/02/18 13:59 ONCE ONE Protocol Microbiology 10/01/18 13:07 Blood - Peripheral Venous Blood Culture - Preliminary Staphylococcus Latex Coag Pos 10/01/18 13:06 Blood - Peripheral Venous Blood Culture - Preliminary Presumptive Mssa (Pbp2a Neg) Impression 1. ESRD 2. HTN 3. change in mental status 4. PNA 5. parkinsons 6. sepsis 7. clotted graft 8. fever 9. metastatic breast cancer 10. bacteremia Plan - vascular evaluation for clotted graft - pt has positive blood cultures, unclear source - discussed with ID, they would prefer to keep pt catheter free for another 24 hours. Pts lytes are stable and his volume status is stable. Will hold off HD today. Pt will need a shiley tomorrow for dialysis. - called and spoke to vascular, they will evaluate pt - repeat blood cultures - repeat labs in am
[2018-10-02] MEDS ORDERED: VANCOMYCIN 750 MG in DEXTROSE 5%-WATER - 250 ML IVPB ONE (13:00)
[2018-10-02] MEDS ORDERED: ACETAMINOPHEN 1000 MG/100 ML VIAL (NON FORMULARY) IVPB ONE (15:24)
--- NOTE | 2018-10-02 15:24 | PN ---
Physical Exam: SUBJECTIVE: Patient seen and examined' more aler; awake; although still lethargic; c/o bilateral hip pain OBJECTIVE: Vital Signs Period Temp Pulse Resp BP Sys/Bentley Pulse Ox Last 24 Hr 97.6 F-98.3 F 65-77 16-20 125-157/54-71 94-97 GENERAL: The patient is awake, alert, and fully oriented, in no acute distress. HEAD: Normal with no signs of trauma. EYES: PERRL, extraocular movements intact, sclera anicteric, conjunctiva clear. No ptosis. ENT: Ears normal, nares patent, oropharynx clear without exudates, moist mucous membranes. NECK: Trachea midline, full range of motion, supple. LUNGS: Breath sounds equal, clear to auscultation bilaterally, no wheezes, no crackles, no accessory muscle use. HEART: Regular rate and rhythm, S1, S2 without murmur, rub or gallop. ABDOMEN: Soft, nontender, nondistended, normoactive bowel sounds, no guarding, no rebound, no hepatosplenomegaly, no masses. EXTREMITIES: 2+ pulses, warm, well-perfused, no edema. NEUROLOGICAL: Cranial nerves II through XII grossly intact. Normal speech, gait not observed. PSYCH: Normal mood, normal affect. SKIN: Warm, dry, normal turgor, no rashes or lesions noted Laboratory Results - last 24 hr 10/01/18 10/01/18 10/02/18 17:34 20:00 07:00 WBC RBC Hgb Hct MCV MCH MCHC RDW Plt Count MPV Absolute Neuts (auto) Neutrophils % Neutrophils % (Manual) Band Neutrophils % Lymphocytes % Lymphocytes % (Manual) Monocytes % Monocytes % (Manual) Eosinophils % Eosinophils % (Manual) Basophils % Basophils % (Manual) Myelocytes % (Man) Promyelocytes % (Man) Blast Cells % (Manual) Nucleated RBC % Metamyelocytes Hypochromia Platelet Estimate Polychromasia Poikilocytosis Anisocytosis Microcytosis Macrocytosis Target Cells Ovalocytes Retic Count PT with INR INR Sodium 130 L Potassium 3.8 Chloride 94 L Carbon Dioxide 25 Anion Gap 11 BUN 103 H Creatinine 6.7 H Creat Clearance w eGFR 8.11 Random Glucose 113 H Lactic Acid 1.6 Calcium 8.2 L Phosphorus 4.6 Magnesium 2.3 Ferritin Total Bilirubin 0.9 GGT AST 19 ALT 8 L Alkaline Phosphatase 152 H Ammonia LD Total Total Protein 5.7 L Albumin 2.3 L Vitamin B12 Serum Folate TSH Free T4 1.31 H Random Vancomycin Influenza A (Rapid) Negative Influenza B (Rapid) Negative Group A Strep Rapid Blood Type Antibody Screen 10/02/18 10/02/18 10/02/18 07:45 07:45 07:45 WBC 12.2 H RBC 2.87 L Hgb 10.4 L Hct 30.0 L MCV 104.6 H MCH 36.3 H MCHC 34.7 RDW 16.6 H Plt Count 72 L MPV 11.8 H Absolute Neuts (auto) 10.2 H Neutrophils % 83.4 H Neutrophils % (Manual) 85.0 H Band Neutrophils % 2.0 Lymphocytes % 7.1 L Lymphocytes % (Manual) 7.0 L Monocytes % 8.3 Monocytes % (Manual) 6 Eosinophils % 0.9 Eosinophils % (Manual) 0.0 Basophils % 0.3 Basophils % (Manual) 0.0 Myelocytes % (Man) 0 Promyelocytes % (Man) 0 Blast Cells % (Manual) 0 Nucleated RBC % 0 Metamyelocytes 0 Hypochromia 0 Platelet Estimate Decreased Polychromasia 0 Poikilocytosis 0 Anisocytosis 1+ Microcytosis 0 Macrocytosis 1+ Target Cells 1+ Ovalocytes 1+ Retic Count 0.50 PT with INR 12.30 INR 1.04 Sodium Potassium Chloride Carbon Dioxide Anion Gap BUN Creatinine Creat Clearance w eGFR Random Glucose Lactic Acid Calcium Phosphorus Magnesium Ferritin Total Bilirubin GGT AST ALT Alkaline Phosphatase Ammonia LD Total Total Protein Albumin Vitamin B12 Serum Folate TSH Free T4 Random Vancomycin Influenza A (Rapid) Influenza B (Rapid) Group A Strep Rapid Blood Type Antibody Screen 10/02/18 10/02/18 10/02/18 07:45 07:45 09:56 WBC RBC Hgb Hct MCV MCH MCHC RDW Plt Count MPV Absolute Neuts (auto) Neutrophils % Neutrophils % (Manual) Band Neutrophils % Lymphocytes % Lymphocytes % (Manual) Monocytes % Monocytes % (Manual) Eosinophils % Eosinophils % (Manual) Basophils % Basophils % (Manual) Myelocytes % (Man) Promyelocytes % (Man) Blast Cells % (Manual) Nucleated RBC % Metamyelocytes Hypochromia Platelet Estimate Polychromasia Poikilocytosis Anisocytosis Microcytosis Macrocytosis Target Cells Ovalocytes Retic Count PT with INR INR Sodium Potassium Chloride Carbon Dioxide Anion Gap BUN Creatinine Creat Clearance w eGFR Random Glucose Lactic Acid Calcium Phosphorus Magnesium Ferritin 3127.0 H Total Bilirubin GGT 258 H AST ALT Alkaline Phosphatase Ammonia < 11 L LD Total 236 Total Protein Albumin Vitamin B12 618 Serum Folate 20 H TSH 0.31 L D Free T4 Random Vancomycin Influenza A (Rapid) Influenza B (Rapid) Group A Strep Rapid Blood Type A POSITIVE Antibody Screen Negative 10/02/18 10/02/18 10/02/18 10:00 10:40 12:35 WBC RBC Hgb Hct MCV MCH MCHC RDW Plt Count MPV Absolute Neuts (auto) Neutrophils % Neutrophils % (Manual) Band Neutrophils % Lymphocytes % Lymphocytes % (Manual) Monocytes % Monocytes % (Manual) Eosinophils % Eosinophils % (Manual) Basophils % Basophils % (Manual) Myelocytes % (Man) Promyelocytes % (Man) Blast Cells % (Manual) Nucleated RBC % Metamyelocytes Hypochromia Platelet Estimate Polychromasia Poikilocytosis Anisocytosis Microcytosis Macrocytosis Target Cells Ovalocytes Retic Count PT with INR INR Sodium Potassium Chloride Carbon Dioxide Anion Gap BUN Creatinine Creat Clearance w eGFR Random Glucose Lactic Acid Calcium Phosphorus Magnesium Ferritin Total Bilirubin GGT AST ALT Alkaline Phosphatase Ammonia LD Total Total Protein Albumin Vitamin B12 Serum Folate TSH Free T4 Random Vancomycin 13.2 L Influenza A (Rapid) Influenza B (Rapid) Group A Strep Rapid Negative Blood Type A POSITIVE Antibody Screen Active Medications Generic Name Dose Route Start Last Admin Trade Name Freq PRN Reason Stop Dose Admin Piperacillin Sod/Tazobactam 50 mls @ 100 mls/hr 10/01/18 18:00 10/02/18 09:36 Sod 2.25 gm/ Dextrose IVPB 100 mls/hr Q8H-IV JOSE J Administration Protocol ASSESSMENT/PLAN: This is a 77 year old male with a history of breast CA? 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 Lethargic on arrival. #AMS; sepsis bacteremia -staph; antibiotics IV vanco -previous hospitalization with atelectasis/infiltrate; treated with zosyn -chest/abd ct -ID following #AV fistula malformation -duplex ordered to check for perigraft fluid. -temporary line by PA tomorrow. -no audible thrill - vascular; #ESRD on HD -HD tomorrow -renal following #macrocytic anemia: -r/o GI bleed; vs vit def; iron def; chronic anemia -stool for occult blood; iron studies, tsh, vit b12, folate, pending studies consider MDS work up -monitor cbc; transfuse threshold <7 #thrombocytopenia: -plts 62 -was on heparin at [facility] -r/o HIT; previous plts 165 #elevated alk phos: -will order ggt; r/o liver v bone; -may need further w/u regarding breast ca history ; now with anemia #hyponatremia: -asses volume status; -currently just monitor na; electrolytes #HTN hx: hold antihypertensives due to sepsis #breast CA hx? -will need to follow up with records regarding treatment #Fluids; ESRD: restrict; currently normotensive; monitor BP #Diet: npo currently ; due to lethargy DVT ppl: scds; low platelets GI ppl; n/a Disposition: inpatient med/srg Visit type - Emergency Visit Emergency Visit: Yes ED Registration Date: 10/01/18 Care time: The patient presented to the Emergency Department on the above date and was hospitalized for further evaluation of their emergent condition. - New Patient This patient is new to me today: No - Critical Care Critical Care patient: No
--- NOTE | 2018-10-02 16:05 | PN ---
Teaching Attending Note Name of Resident: Eduarda Ellison ATTENDING PHYSICIAN STATEMENT I saw and evaluated the patient. I reviewed the resident's note and discussed the case with the resident. I agree with the resident's findings and plan as documented with exceptions below. SUBJECTIVE: Patient seen and examined. lethargic but responds to questions and follows commands. reports pain pointing to right thigh but unable to localize. OBJECTIVE: Vital Signs Period Temp Pulse Resp BP Sys/Bentley Pulse Ox Last 24 Hr 97.6 F-98.3 F 65-77 16-20 125-157/54-78 94-97 Intake & Output 09/29/18 09/30/18 10/01/18 10/02/18 23:59 23:59 23:59 23:59 Intake Total 800 Output Total 2 1 Balance -2 799 Weight 137 lb 9.6 oz General: sitting in bed, lethargic but responds to questions chest: poor effort, no rales or wheezing appreciated Abdomen:soft, NT, positive bowel sounds, no voluntary or involuntary guarding or rigidity Extremities: no edema, right thigh with no erythema/flucutation/tenderness or discharge noted Neuro: lethargic but responds to name, able to state is in the hospital, facial symmetry, generalized weakness with limited evaluation due to lack of full co- operation, no gross focal deficit noted on exam Home Medications Medication Instructions Recorded Amlodipine Besylate [Norvasc -] 10 mg PO ASDIR 09/05/18 Losartan Potassium 100 mg PO DAILY 09/05/18 Polyethylene Glycol 3350 [Miralax 17 gm PO DAILY bottle 09/09/18 119 gm Btl -] B Complex W-C No.20/Folic Acid 1 mg PO DAILY 10/01/18 [Nephrocaps Softgel] Carbidopa/Levodopa/Entacapone 1 each PO QID 10/01/18 [Ehkcuoktr-Tkonibvz-Zebt 200 mg] Heparin - 5,000 unit SQ BID 10/01/18 Active Medications Acetaminophen (Ofirmev Injection -) 1,000 mg IVPB Q6H PRN PRN Reason: PAIN LEVEL 4 - 6 Piperacillin Sod/Tazobactam (Sod 2.25 gm/ Dextrose) 50 mls @ 100 mls/hr IVPB Q8H-IV JOSE J; Protocol Last Admin: 10/02/18 09:36 Dose: 100 mls/hr Laboratory Results - last 24 hr 10/01/18 10/01/18 10/02/18 17:34 20:00 07:00 WBC RBC Hgb Hct MCV MCH MCHC RDW Plt Count MPV Absolute Neuts (auto) Neutrophils % Neutrophils % (Manual) Band Neutrophils % Lymphocytes % Lymphocytes % (Manual) Monocytes % Monocytes % (Manual) Eosinophils % Eosinophils % (Manual) Basophils % Basophils % (Manual) Myelocytes % (Man) Promyelocytes % (Man) Blast Cells % (Manual) Nucleated RBC % Metamyelocytes Hypochromia Platelet Estimate Polychromasia Poikilocytosis Anisocytosis Microcytosis Macrocytosis Target Cells Ovalocytes Retic Count PT with INR INR Sodium 130 L Potassium 3.8 Chloride 94 L Carbon Dioxide 25 Anion Gap 11 BUN 103 H Creatinine 6.7 H Creat Clearance w eGFR 8.11 Random Glucose 113 H Lactic Acid 1.6 Calcium 8.2 L Phosphorus 4.6 Magnesium 2.3 Ferritin Total Bilirubin 0.9 GGT AST 19 ALT 8 L Alkaline Phosphatase 152 H Ammonia LD Total Total Protein 5.7 L Albumin 2.3 L Vitamin B12 Serum Folate TSH Free T4 1.31 H Random Vancomycin Influenza A (Rapid) Negative Influenza B (Rapid) Negative Group A Strep Rapid Blood Type Antibody Screen 10/02/18 10/02/18 10/02/18 07:45 07:45 07:45 WBC 12.2 H RBC 2.87 L Hgb 10.4 L Hct 30.0 L MCV 104.6 H MCH 36.3 H MCHC 34.7 RDW 16.6 H Plt Count 72 L MPV 11.8 H Absolute Neuts (auto) 10.2 H Neutrophils % 83.4 H Neutrophils % (Manual) 85.0 H Band Neutrophils % 2.0 Lymphocytes % 7.1 L Lymphocytes % (Manual) 7.0 L Monocytes % 8.3 Monocytes % (Manual) 6 Eosinophils % 0.9 Eosinophils % (Manual) 0.0 Basophils % 0.3 Basophils % (Manual) 0.0 Myelocytes % (Man) 0 Promyelocytes % (Man) 0 Blast Cells % (Manual) 0 Nucleated RBC % 0 Metamyelocytes 0 Hypochromia 0 Platelet Estimate Decreased Polychromasia 0 Poikilocytosis 0 Anisocytosis 1+ Microcytosis 0 Macrocytosis 1+ Target Cells 1+ Ovalocytes 1+ Retic Count 0.50 PT with INR 12.30 INR 1.04 Sodium Potassium Chloride Carbon Dioxide Anion Gap BUN Creatinine Creat Clearance w eGFR Random Glucose Lactic Acid Calcium Phosphorus Magnesium Ferritin Total Bilirubin GGT AST ALT Alkaline Phosphatase Ammonia LD Total Total Protein Albumin Vitamin B12 Serum Folate TSH Free T4 Random Vancomycin Influenza A (Rapid) Influenza B (Rapid) Group A Strep Rapid Blood Type Antibody Screen 10/02/18 10/02/18 10/02/18 07:45 07:45 09:56 WBC RBC Hgb Hct MCV MCH MCHC RDW Plt Count MPV Absolute Neuts (auto) Neutrophils % Neutrophils % (Manual) Band Neutrophils % Lymphocytes % Lymphocytes % (Manual) Monocytes % Monocytes % (Manual) Eosinophils % Eosinophils % (Manual) Basophils % Basophils % (Manual) Myelocytes % (Man) Promyelocytes % (Man) Blast Cells % (Manual) Nucleated RBC % Metamyelocytes Hypochromia Platelet Estimate Polychromasia Poikilocytosis Anisocytosis Microcytosis Macrocytosis Target Cells Ovalocytes Retic Count PT with INR INR Sodium Potassium Chloride Carbon Dioxide Anion Gap BUN Creatinine Creat Clearance w eGFR Random Glucose Lactic Acid Calcium Phosphorus Magnesium Ferritin 3127.0 H Total Bilirubin GGT 258 H AST ALT Alkaline Phosphatase Ammonia < 11 L LD Total 236 Total Protein Albumin Vitamin B12 618 Serum Folate 20 H TSH 0.31 L D Free T4 Random Vancomycin Influenza A (Rapid) Influenza B (Rapid) Group A Strep Rapid Blood Type A POSITIVE Antibody Screen Negative 10/02/18 10/02/18 10/02/18 10:00 10:40 12:35 WBC RBC Hgb Hct MCV MCH MCHC RDW Plt Count MPV Absolute Neuts (auto) Neutrophils % Neutrophils % (Manual) Band Neutrophils % Lymphocytes % Lymphocytes % (Manual) Monocytes % Monocytes % (Manual) Eosinophils % Eosinophils % (Manual) Basophils % Basophils % (Manual) Myelocytes % (Man) Promyelocytes % (Man) Blast Cells % (Manual) Nucleated RBC % Metamyelocytes Hypochromia Platelet Estimate Polychromasia Poikilocytosis Anisocytosis Microcytosis Macrocytosis Target Cells Ovalocytes Retic Count PT with INR INR Sodium Potassium Chloride Carbon Dioxide Anion Gap BUN Creatinine Creat Clearance w eGFR Random Glucose Lactic Acid Calcium Phosphorus Magnesium Ferritin Total Bilirubin GGT AST ALT Alkaline Phosphatase Ammonia LD Total Total Protein Albumin Vitamin B12 Serum Folate TSH Free T4 Random Vancomycin 13.2 L Influenza A (Rapid) Influenza B (Rapid) Group A Strep Rapid Negative Blood Type A POSITIVE Antibody Screen Microbiology 10/01/18 13:07 Blood - Peripheral Venous Blood Culture - Preliminary Staphylococcus Latex Coag Pos 10/01/18 13:06 Blood - Peripheral Venous Blood Culture - Preliminary Presumptive Mssa (Pbp2a Neg) ASSESSMENT AND PLAN: 77 yom with PMHx of ESRD on HD, parkinson's disease, dysphagia admitted with non functioning AV fistula, hyperkalemia. -ESRD with non functioning AV fistula -Hyperkalemia, from above -AMS, suspect toxic metabolic encephalopathy from above/infection -GPC bacteremia, r/o graft infection -HTN -Parkinson's disease -Dysphagia Plan: Blood cx noted, ID input noted, additional vancomycin 750 mg IV x 1 now as discussed with Dr. Torres. Plan for Shiley and HD tomorrow. Arterial duplex to assess graft. CT chest/A/P to screen for infection 2D echo. failed bedside swallow eval, NPO with aspiration precautions, speech/swallow eval. BGM q6h for now. Attempt sinemet with apple sauce with full aspiration precautions for now. DVTPPX SCDs given severe thrombocytopenia Dispo pending clinical improvement. Plan co-ordinated with nursing/Nephrology and ID.
--- NOTE | 2018-10-02 16:34 | PN ---
Progress Note (short form) - Note Progress Note: 77 yo man stage IV breast ca, multiple medical problems. hospitalized for clotted AVG RUE, found to have MSSA in blood cultures. graft looks clean, no erythema or fluctuance. doubt graft is source of infection. duplex ordered to check for perigraft fluid. temporary line by PA tomorrow. will discuss with primary tableau report developer re: declot vs permacath for long-term access, given multiple medical problems and hypotensive episodes permacath may be more appropriate
[2018-10-02] MEDS: CARBIDOPA/LEVODOPA 25/100 TABLET (FP) PO SCH ×2 (17:36→21:39)
[2018-10-02] MEDS: ACETAMINOPHEN 1000 MG/100 ML VIAL (NON FORMULARY) IVPB PRN (20:25)
[2018-10-03] MEDS ORDERED: DEXTROSE 5%-WATER - 50 ML IVPB ONE ×2 (02:42→10:59)
[2018-10-03] MEDS ORDERED: PIPERACILLIN/TAZOBACTAM 2.25 GM VIAL IVPB ONE ×2 (02:42→10:59)
[2018-10-03] MEDS: PIPERACILLIN/TAZOB 2.25 GM 2.25 GM in DEXTROSE 5%-WATER - 50 ML IVPB SCH ×2 (02:53→11:54)
[2018-10-03 04:13] LABS: SERUM IRON SATURATION 48 % (15-55); TOTAL IRON BINDING CAPACITY 120 ug/dL (250-450); UIBC 63 ug/dL (111-343)
[2018-10-03 07:23] LABS: BASO % 0.9 % (0-2.0); EOS % 0.2 % (0-4.5); HEMATOCRIT 30.9 % (35.4-49); HEMOGLOBIN 10.5 GM/dL (11.7-16.9); LYMPH % 10.3 % (8-40); MCH 35.7 pg (25.7-33.7); MCHC 33.9 g/dl (32.0-35.9); MEAN CELL VOLUME 105.3 fl (80-96); MEAN PLT VOLUME 12.2 fl (7.5-11.1); MONO % 8.7 % (3.8-10.2); NEUT % 79.9 % (42.8-82.8); PLATELET COUNT 100 K/MM3 (134-434); RBC 2.94 M/mm3 (4.00-5.60); RDW 16.8 % (11.9-15.9); WHITE BLOOD COUNT 13.7 K/mm3 (4.0-10.0)
[2018-10-03 08:05] LABS: ALK PHOS 126 U/L (45-117); ANION GAP 13 MMOL/L (8-16); BILIRUBIN,TOTAL 0.9 mg/dL (0.2-1); CALCIUM 7.9 mg/dL (8.5-10.1); CHLORIDE 94 mmol/L (98-107); CO2 26 mmol/L (21-32); CREATININE 7.2 mg/dL (0.55-1.3); GLUCOSE,RANDOM 101 mg/dL (74-106); MAGNESIUM 2.4 mg/dL (1.8-2.4); PHOSPHOROUS 6.7 mg/dL (2.5-4.9); POTASSIUM 3.5 mmol/L (3.5-5.1); SGOT/AST 22 U/L (15-37); SODIUM 132 mmol/L (136-145); TOT PROT 5.6 g/dl (6.4-8.2)
[2018-10-03 08:37] LABS: SGPT/ALT < 6 U/L (13-61)
[2018-10-03 08:42] LABS: BLOOD UREA NITROGEN 122 mg/dL (7-18)
[2018-10-03] MEDS ORDERED: SODIUM CHLORIDE 250 ML IV PRN (09:31)
[2018-10-03 11:04] LABS: ANISOCYTOSIS 1+; MACROCYTOSIS 1+; OVALOCYTE 1+; PLATELET ESTIMATE DECREASED; TARGET CELLS 1+
[2018-10-03] MEDS: CARBIDOPA/LEVODOPA 25/100 TABLET (FP) PO SCH ×4 (11:55→21:36)
[2018-10-03] MEDS: ACETAMINOPHEN 1000 MG/100 ML VIAL (NON FORMULARY) IVPB PRN (12:04)
--- NOTE | 2018-10-03 12:38 | CONSULT ---
Admitting History and Physical - Primary Care Physician PCP: Delmy Collins - Admission History of Present Illness: This is a 77 year old male with a history of breast CA? 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 Lethargic on arrival. NPO due to lethargy. Down for several tests, now HD. Lethargic. NPO. to follow - Past Medical History Cardiovascular: Yes: HTN Renal/: Yes: Renal Failure, Hemodialysis - Advance Directives Advance Directives: Yes: DNR - Smoking History Smoking history: Unknown if ever smoked Have you smoked in the past 12 months: No - Alcohol/Substance Use Hx Alcohol Use: No History - Admission Reason For Visit: FEVER - Hearing Hearing: Normal Hearing Aide: No With Patient: No Speech Evaluation - Communication Primary Language: SWEDISH - Speech Characteristics Articulation: Yes: Precise - Swallow Evaluation/Bedside Assessment A-P Transit: WFL
--- NOTE | 2018-10-03 13:10 | PN ---
Progress Note, Physician History of Present Illness: Pt seen and examined at bedside. He is awake but appears fatigued. - Current Medication List Current Medications: Active Medications Acetaminophen (Ofirmev Injection -) 1,000 mg IVPB Q6H PRN PRN Reason: PAIN LEVEL 4 - 6 Last Admin: 10/03/18 12:04 Dose: 1,000 mg Carbidopa/Levodopa (Sinemet 25/100 -) 2 each PO QID JOSE J Last Admin: 10/03/18 11:55 Dose: 2 each Piperacillin Sod/Tazobactam (Sod 2.25 gm/ Dextrose) 50 mls @ 100 mls/hr IVPB Q8H-IV JOSE J; Protocol Last Admin: 10/03/18 11:54 Dose: 100 mls/hr Sodium Chloride (Normal Saline -) 250 mls @ 3,000 mls/hr IV PRN PRN PRN Reason: Hypotension during Dialysis Stop: 10/04/18 09:31 - Objective Vital Signs: Vital Signs Temperature 97.9 F 10/03/18 12:12 Pulse Rate 64 10/03/18 12:12 Respiratory Rate 20 10/03/18 12:12 Blood Pressure 136/60 10/03/18 12:12 O2 Sat by Pulse Oximetry (%) 94 L 10/03/18 08:19 Constitutional: Yes: Calm Eyes: Yes: Conjunctiva Clear HENT: Yes: Atraumatic Cardiovascular: Yes: S1, S2 Respiratory: Yes: On Nasal O2 Gastrointestinal: Yes: Soft Genitourinary: Yes: Incontinence Musculoskeletal: Yes: Muscle Weakness Edema: LLE: Trace, RLE: Trace Neurological: Yes: Oriented Labs: CBC, BMP 10/03/18 06:30 10/03/18 06:30 INR, PTT INR 1.04 (0.83-1.09) 10/02/18 07:45 Assessment/Plan Current Medications Generic Name Dose Route Start Last Admin Trade Name Freq PRN Reason Stop Dose Admin Acetaminophen 1,000 mg 10/02/18 15:24 10/03/18 12:04 Ofirmev Injection - IVPB 1,000 mg Q6H PRN Administration PAIN LEVEL 4 - 6 Carbidopa/Levodopa 2 each 10/02/18 18:00 10/03/18 11:55 Sinemet 25/100 - PO 2 each QID JOSE J Administration Piperacillin Sod/Tazobactam 50 mls @ 100 mls/hr 10/01/18 18:00 10/03/18 11:54 Sod 2.25 gm/ Dextrose IVPB 100 mls/hr Q8H-IV JOSE J Administration Protocol Sodium Chloride 250 mls @ 3,000 mls/hr 10/03/18 09:31 Normal Saline - IV 10/04/18 09:31 PRN PRN Hypotension during Dialysis Microbiology 10/02/18 14:55 Blood - Peripheral Venous Blood Culture - Preliminary Pending Organism 10/02/18 14:45 Blood - Peripheral Venous Blood Culture - Preliminary Pending Organism 10/01/18 13:07 Blood - Peripheral Venous Blood Culture - Preliminary Staphylococcus Latex Coag Pos 10/01/18 13:06 Blood - Peripheral Venous Blood Culture - Preliminary Presumptive Mssa (Pbp2a Neg) Impression 1. ESRD 2. HTN 3. change in mental status 4. PNA 5. parkinsons 6. sepsis 7. clotted graft 8. fever 9. metastatic breast cancer 10. bacteremia Plan - pt getting shiley cath today - HD today - abx per ID - vascular follow up - cultures positive, ID follow up - pt is clinically doing poorly
--- NOTE | 2018-10-03 13:14 | PROC ---
Central Line Insertion Indication: Other (Renal failure) Risks and Benefits Explained: Yes Consent on Chart: Yes Central Line: Dialysis Cath, Dual Lumen Anesthesia: 1% Lidocaine Sterile Technique: Yes Ultrasound Guided Assistance: Yes Position: Right Femoral Post Insertion: Yes: Other (Femoral placement, no need to confirm) Sterile Dressing Applied: Yes
--- NOTE | 2018-10-03 13:27 | ECHO ---
Name: EMRE BENAVIDES Exam:Adult Echocardiogram Study Date: 10/03/2018 11:19 AM Age: 77 yrs Reason For Study: MSSA BACTEREMIA Height: 68 in Weight: 137 lb BSA: 1.7 m2 MMode/2D Measurements & Calculations IVSd: 0.82 cm Ao root diam: 2.7 cm LVIDd: 4.9 cm LA dimension: 3.5 cm LVIDs: 3.6 cm LVPWd: 0.77 cm EDV(Teich): 113.4 ml LVOT diam: 2.5 cm ESV(Teich): 55.3 ml TAPSE: 2.3 cm Doppler Measurements & Calculations MV E max anuel: 45.9 cm/sec Ao V2 max: 146.4 cm/sec MV A max anuel: 93.3 cm/sec Ao max P.6 mmHg MV E/A: 0.49 Ao V2 mean: 107.0 cm/sec MV dec time: 0.31 sec Ao mean P.2 mmHg Ao V2 VTI: 32.8 cm ANICETO(I,D): 1.9 cm2 ANICETO(V,D): 2.3 cm2 LV V1 max P.7 mmHg SV(LVOT): 62.2 ml LV V1 mean P.91 mmHg LV V1 max: 65.4 cm/sec LV V1 mean: 45.3 cm/sec LV V1 VTI: 12.3 cm TR max anuel: 234.6 cm/sec Med Peak E' Anuel: 6.3 cm/sec TR max P.1 mmHg Med E/e': 7.2 Lat Peak E' Anuel: 6.8 cm/sec Lat E/e': 6.7 Procedure A complete two-dimensional transthoracic echocardiogram was performed (2D, M-mode, Doppler and color flow Doppler). Left Ventricle The left ventricular size, thickness and function are normal. The left ventricular ejection fraction is normal. Ejection Fraction = 60-65%. The left ventricular wall motion is normal. Right Ventricle The right ventricle is normal in size and function. Atria Normal left and right atrial size and function. Mitral Valve There is no mitral regurgitation noted. Tricuspid Valve There is trace tricuspid regurgitation. Right ventricular systolic pressure is normal. Aortic Valve There is mild aortic valve thickening. The aortic valve is trileaflet. No hemodynamically significant valvular aortic stenosis. No aortic regurgitation is present. Pulmonic Valve There is no pulmonic valvular regurgitation. Great Vessels The aortic root is normal size. Pericardium/Pleura There is no pericardial effusion. Interpretation Summary The left ventricular size, thickness and function are normal The right ventricle is normal in size and function. There is trace tricuspid regurgitation. MD Jatin Villela 10/03/2018 01:26 PM
[2018-10-03] MEDS: ALBUMIN HUMAN 25% 12.5 GM/50 ML VIAL IVPB SCH ×4 (15:00→16:51)
[2018-10-03] MEDS ORDERED: DEXTROSE 5%-0.45% SALINE 1,000 ML IV SCH (15:00)
--- NOTE | 2018-10-03 15:26 | PN ---
Progress Note, Physician History of Present Illness: continues to do poorly lethargic plan for dialysis still bacteremic - Current Medication List Current Medications: Active Medications Acetaminophen (Ofirmev Injection -) 1,000 mg IVPB Q6H PRN PRN Reason: PAIN LEVEL 4 - 6 Last Admin: 10/03/18 12:04 Dose: 1,000 mg Carbidopa/Levodopa (Sinemet 25/100 -) 2 each PO QID JOSE J Last Admin: 10/03/18 14:21 Dose: Not Given Sodium Chloride (Normal Saline -) 250 mls @ 3,000 mls/hr IV PRN PRN PRN Reason: Hypotension during Dialysis Stop: 10/04/18 09:31 Dextrose/Sodium Chloride (D5-1/2ns -) 1,000 mls @ 30 mls/hr IV ASDIR JOSE J Stop: 10/04/18 14:59 Nafcillin Sodium 2 gm/ (Dextrose) 100 mls @ 100 mls/hr IVPB Q4H-IV JOSE J; Protocol - Objective Vital Signs: Vital Signs Temperature 97.7 F 10/03/18 14:20 Pulse Rate 55 L 10/03/18 14:50 Respiratory Rate 18 10/03/18 14:50 Blood Pressure 127/66 10/03/18 14:50 O2 Sat by Pulse Oximetry (%) 94 L 10/03/18 08:19 Constitutional: Yes: Other Cardiovascular: Yes: Regular Rate and Rhythm Respiratory: Yes: On Nasal O2, Poor Air Entry (bases) Gastrointestinal: Yes: Normal Bowel Sounds, Soft Musculoskeletal: Yes: WNL Extremities: Yes: Other Wound/Incision: Yes: Other Neurological: Yes: Lethargy Psychiatric: Yes: Other Labs: CBC, BMP 10/03/18 06:30 10/03/18 06:30 INR, PTT INR 1.04 (0.83-1.09) 10/02/18 07:45 Assessment/Plan ESRD HTN change in mental status PNA parkinsons sepsis clotted graft fever metastatic breast cancer gm positive bacteremia leukocytosis plan get a tte continue abx await for identification of bacteria will repeat blood cx check vanco trough if vanco trough low give a vanco dose monitor fevers wbc continues to do poorly
[2018-10-03] MEDS: NAFCILLIN - 2 GM in DEXTROSE 5%-WATER - 100 ML IVPB SCH ×3 (18:14→21:35)
--- NOTE | 2018-10-03 18:33 | PN ---
Physical Exam: SUBJECTIVE: Patient seen and examined; still lethargic; AAOx3; OBJECTIVE: Vital Signs Period Temp Pulse Resp BP Sys/Bentley Pulse Ox Last 24 Hr 97.7 F-98.7 F 55-104 18-20 114-167/59-88 94-94 GENERAL: The patient is awake, alert, and fully oriented, lethargic HEAD: Normal with no signs of trauma. Mucous membranes; dry LUNGS: decreased breath sounds HEART: Regular rate and rhythm, S1, S2 without murmur, rub or gallop. ABDOMEN: Soft, nontender, nondistended, normoactive bowel sounds, no guarding, no rebound, no hepatosplenomegaly, no masses. EXTREMITIES: 2+ pulses, warm, well-perfused, no edema. pain with palpation of hips NEUROLOGICAL: Cranial nerves II through XII grossly intact. Normal speech, gait not observed. Laboratory Results - last 24 hr 10/02/18 10/02/18 10/02/18 07:45 07:45 09:35 WBC RBC Hgb Hct MCV MCH MCHC RDW Plt Count MPV Absolute Neuts (auto) Neutrophils % Neutrophils % (Manual) Band Neutrophils % Lymphocytes % Lymphocytes % (Manual) Monocytes % Monocytes % (Manual) Eosinophils % Eosinophils % (Manual) Basophils % Basophils % (Manual) Myelocytes % (Man) Promyelocytes % (Man) Blast Cells % (Manual) Nucleated RBC % Metamyelocytes Hypochromia Platelet Estimate Platelet Comment Polychromasia Poikilocytosis Anisocytosis Microcytosis Macrocytosis Target Cells Ovalocytes Haptoglobin 180 Sodium Potassium Chloride Carbon Dioxide Anion Gap BUN Creatinine Creat Clearance w eGFR POC Glucometer Random Glucose Calcium Phosphorus Magnesium Iron 57 TIBC 120 L Iron Saturation 48 Total Bilirubin AST ALT Alkaline Phosphatase Troponin I Total Protein Albumin Total T3 54.00 L 10/02/18 10/03/18 10/03/18 21:47 05:57 06:30 WBC RBC Hgb Hct MCV MCH MCHC RDW Plt Count MPV Absolute Neuts (auto) Neutrophils % Neutrophils % (Manual) Band Neutrophils % Lymphocytes % Lymphocytes % (Manual) Monocytes % Monocytes % (Manual) Eosinophils % Eosinophils % (Manual) Basophils % Basophils % (Manual) Myelocytes % (Man) Promyelocytes % (Man) Blast Cells % (Manual) Nucleated RBC % Metamyelocytes Hypochromia Platelet Estimate Platelet Comment Polychromasia Poikilocytosis Anisocytosis Microcytosis Macrocytosis Target Cells Ovalocytes Haptoglobin Sodium 132 L Potassium 3.5 Chloride 94 L Carbon Dioxide 26 Anion Gap 13 BUN 122 H* Creatinine 7.2 H Creat Clearance w eGFR 7.47 POC Glucometer 114 115 Random Glucose 101 Calcium 7.9 L Phosphorus 6.7 H Magnesium 2.4 Iron TIBC Iron Saturation Total Bilirubin 0.9 AST 22 ALT < 6 L Alkaline Phosphatase 126 H Troponin I 0.02 Total Protein 5.6 L Albumin 2.0 L Total T3 10/03/18 10/03/18 10/03/18 06:30 06:30 18:18 WBC 13.7 H RBC 2.94 L Hgb 10.5 L Hct 30.9 L MCV 105.3 H MCH 35.7 H MCHC 33.9 RDW 16.8 H Plt Count 100 L D MPV 12.2 H Absolute Neuts (auto) 10.9 H Neutrophils % 79.9 Neutrophils % (Manual) 81.0 Band Neutrophils % 0.0 Lymphocytes % 10.3 D Lymphocytes % (Manual) 11.0 D Monocytes % 8.7 Monocytes % (Manual) 7 Eosinophils % 0.2 Eosinophils % (Manual) 1.0 D Basophils % 0.9 Basophils % (Manual) 0.0 Myelocytes % (Man) 0 Promyelocytes % (Man) 0 Blast Cells % (Manual) 0 Nucleated RBC % 0 Metamyelocytes 0 Hypochromia 0 Platelet Estimate Decreased Platelet Comment Present Polychromasia 0 Poikilocytosis 0 Anisocytosis 1+ Microcytosis 0 Macrocytosis 1+ Target Cells 1+ Ovalocytes 1+ Haptoglobin Sodium Potassium Chloride Carbon Dioxide Anion Gap BUN Creatinine Creat Clearance w eGFR POC Glucometer 134 Random Glucose Calcium Phosphorus Magnesium Iron TIBC Iron Saturation Total Bilirubin AST ALT Alkaline Phosphatase Troponin I Cancelled Total Protein Albumin Total T3 Active Medications Generic Name Dose Route Start Last Admin Trade Name Freq PRN Reason Stop Dose Admin Acetaminophen 1,000 mg 10/02/18 15:24 10/03/18 12:04 Ofirmev Injection - IVPB 1,000 mg Q6H PRN Administration PAIN LEVEL 4 - 6 Carbidopa/Levodopa 2 each 10/02/18 18:00 10/03/18 18:14 Sinemet 25/100 - PO 2 each QID JOSE J Administration Sodium Chloride 250 mls @ 3,000 mls/hr 10/03/18 09:31 Normal Saline - IV 10/04/18 09:31 PRN PRN Hypotension during Dialysis Dextrose/Sodium Chloride 1,000 mls @ 30 mls/hr 10/03/18 15:00 10/03/18 18:14 D5-1/2ns - IV 10/04/18 14:59 30 mls/hr ASDIR JOSE J Administration Nafcillin Sodium 2 gm/ 100 mls @ 100 mls/hr 10/03/18 15:30 10/03/18 18:19 Dextrose IVPB Not Given Q4H-IV JOSE J Protocol CT chest/abd/pelvis: LUNGS: Cavitary lesion is identified within the left upper lobe measuring 11 x 10 mm best seen on image 18. Groundglass opacity is present within the right upper lobe measuring 2.1 x 3.1 cm best seen on image 25. Another groundglass opacity is identified with nodularity measuring 11 x 15 mm within the right upper lobe best seen on image 52. A subpleural nodule is present laterally within the right lower lobe measuring 8.3 mm best seen on image 57. A tubular- like nodule is noted within the lingula measuring 9.7 x 4.3 mm which could represent mucous plugging. A subpleural nodule is identified within the left base measuring 12 x 14 mm best seen on image 51. Groundglass opacities identified subpleural within the left upper lobe measuring 16 x 11 mm best seen on image 40. No endobronchial lesions are seen. Atelectasis/infiltration present at both bases. Multiple lung nodules, metastatic disease not excluded. Atelectasis/ infiltration at both bases with trace effusions. Renal cyst and nephrolithiasis as discussed above. There is no evidence of hydronephrosis. The kidneys appear atrophic unchanged. Enlarged prostate gland. Thickening of the gastric wall, underlying gastritis not excluded. Correlate clinically and with endoscopy as clinically warranted. No bowel obstruction seen. LIVER: Indeterminate low-density lesion noted within the lateral segment of the right middle lobe measuring 7 mm. Findings not appreciated on the August study. 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 Lethargic on arrival. #AMS; sepsis bacteremia -staph; antibiotics IV vanco -previous hospitalization with atelectasis/infiltrate; treated with zosyn -chest/abd ct: evident for cavitary lesion as noted above and multiple ndules; pna? cannot r/o met -ID following #AV fistula malformation -duplex ordered to check for perigraft fluid. -no audible thrill - vascular; #Hx of breast ca; -liver and lungs lesions suspicious for mets; will need tissue diagnosis #ESRD on HD -HD today -renal following #macrocytic anemia: -r/o GI bleed; vs vit def; iron def; chronic anemia -stool for occult blood; -iron studies stores are low;replace; ferritin high; (most likely acute phase reactant ) -vit b 12 and folate normal -FISH; cytogenetics, flow cytometry; -monitor cbc; transfuse threshold <7 #bone pain; possible mets; vs r/o multiple myeloma; albumin to globulin ration < 1; with bone pain and ESRD; SPEP; immunofixation #thrombocytopenia: -plts 62 -was on heparin at [facility] -r/o HIT; previous plts 165 -heme studies as above hx of breast CA: -need tissue diagnosis of lung/liver nodule' -heme consult NPO; due to aspiration precaution; f/u speech ad swallow eval; Will gently hydrate with 30ml/hr x1 bag due to ESRD hx until can be evaluated by speech/swallow DVT ppl;scd GIppl; protonix Disposition: med surg Visit type - Emergency Visit Emergency Visit: Yes ED Registration Date: 10/01/18 Care time: The patient presented to the Emergency Department on the above date and was hospitalized for further evaluation of their emergent condition. - New Patient This patient is new to me today: No - Critical Care Critical Care patient: No - Discharge Referral Referred to [facility] Med [facility] No
--- NOTE | 2018-10-03 18:59 | PN ---
Teaching Attending Note Name of Resident: Eduarda Ellison ATTENDING PHYSICIAN STATEMENT I saw and evaluated the patient. I reviewed the resident's note and discussed the case with the resident. I agree with the resident's findings and plan as documented with exceptions below. SUBJECTIVE: Patient seen in HD, eyes closed, but responds to questions briefly, no pain or complaints. OBJECTIVE: Vital Signs Period Temp Pulse Resp BP Sys/Bentley Pulse Ox Last 24 Hr 97.7 F-98.7 F 55-104 18-20 114-167/59-88 94-94 Intake & Output 09/30/18 10/01/18 10/02/18 10/03/18 23:59 23:59 23:59 23:59 Intake Total 800 150 Output Total 2 1 Balance -2 799 150 Weight 137 lb 9.6 oz 137 lb General: lying in bed, lethargic, brief responses Chest: poor effort, unable to appreciate rales or wheezing Abdomen:soft, NT, ND, positive bowel sounds Extremities: no edema Home Medications Medication Instructions Recorded Amlodipine Besylate [Norvasc -] 10 mg PO ASDIR 09/05/18 Losartan Potassium 100 mg PO DAILY 09/05/18 Polyethylene Glycol 3350 [Miralax 17 gm PO DAILY bottle 09/09/18 119 gm Btl -] B Complex W-C No.20/Folic Acid 1 mg PO DAILY 10/01/18 [Nephrocaps Softgel] Carbidopa/Levodopa/Entacapone 1 each PO QID 10/01/18 [Khkvvmvwz-Ozdqhjkk-Sppi 200 mg] Heparin - 5,000 unit SQ BID 10/01/18 Active Medications Acetaminophen (Ofirmev Injection -) 1,000 mg IVPB Q6H PRN PRN Reason: PAIN LEVEL 4 - 6 Last Admin: 10/03/18 12:04 Dose: 1,000 mg Carbidopa/Levodopa (Sinemet 25/100 -) 2 each PO QID JOSE J Last Admin: 10/03/18 18:14 Dose: 2 each Sodium Chloride (Normal Saline -) 250 mls @ 3,000 mls/hr IV PRN PRN PRN Reason: Hypotension during Dialysis Stop: 10/04/18 09:31 Dextrose/Sodium Chloride (D5-1/2ns -) 1,000 mls @ 30 mls/hr IV ASDIR JOSE J Stop: 10/04/18 14:59 Last Admin: 10/03/18 18:14 Dose: 30 mls/hr Nafcillin Sodium 2 gm/ (Dextrose) 100 mls @ 100 mls/hr IVPB Q4H-IV JOSE J; Protocol Last Admin: 10/03/18 18:19 Dose: Not Given Pantoprazole Sodium (Protonix Iv) 40 mg IVPUSH DAILY JOSE J Laboratory Results - last 24 hr 10/02/18 10/02/18 10/02/18 07:45 07:45 09:35 WBC RBC Hgb Hct MCV MCH MCHC RDW Plt Count MPV Absolute Neuts (auto) Neutrophils % Neutrophils % (Manual) Band Neutrophils % Lymphocytes % Lymphocytes % (Manual) Monocytes % Monocytes % (Manual) Eosinophils % Eosinophils % (Manual) Basophils % Basophils % (Manual) Myelocytes % (Man) Promyelocytes % (Man) Blast Cells % (Manual) Nucleated RBC % Metamyelocytes Hypochromia Platelet Estimate Platelet Comment Polychromasia Poikilocytosis Anisocytosis Microcytosis Macrocytosis Target Cells Ovalocytes Haptoglobin 180 Sodium Potassium Chloride Carbon Dioxide Anion Gap BUN Creatinine Creat Clearance w eGFR POC Glucometer Random Glucose Calcium Phosphorus Magnesium Iron 57 TIBC 120 L Iron Saturation 48 Total Bilirubin AST ALT Alkaline Phosphatase Troponin I Total Protein Albumin Total T3 54.00 L 10/02/18 10/03/18 10/03/18 21:47 05:57 06:30 WBC RBC Hgb Hct MCV MCH MCHC RDW Plt Count MPV Absolute Neuts (auto) Neutrophils % Neutrophils % (Manual) Band Neutrophils % Lymphocytes % Lymphocytes % (Manual) Monocytes % Monocytes % (Manual) Eosinophils % Eosinophils % (Manual) Basophils % Basophils % (Manual) Myelocytes % (Man) Promyelocytes % (Man) Blast Cells % (Manual) Nucleated RBC % Metamyelocytes Hypochromia Platelet Estimate Platelet Comment Polychromasia Poikilocytosis Anisocytosis Microcytosis Macrocytosis Target Cells Ovalocytes Haptoglobin Sodium 132 L Potassium 3.5 Chloride 94 L Carbon Dioxide 26 Anion Gap 13 BUN 122 H* Creatinine 7.2 H Creat Clearance w eGFR 7.47 POC Glucometer 114 115 Random Glucose 101 Calcium 7.9 L Phosphorus 6.7 H Magnesium 2.4 Iron TIBC Iron Saturation Total Bilirubin 0.9 AST 22 ALT < 6 L Alkaline Phosphatase 126 H Troponin I 0.02 Total Protein 5.6 L Albumin 2.0 L Total T3 03/14/19 03/14/19 03/14/19 06:30 06:30 18:18 WBC 13.7 H RBC 2.94 L Hgb 10.5 L Hct 30.9 L MCV 105.3 H MCH 35.7 H MCHC 33.9 RDW 16.8 H Plt Count 100 L D MPV 12.2 H Absolute Neuts (auto) 10.9 H Neutrophils % 79.9 Neutrophils % (Manual) 81.0 Band Neutrophils % 0.0 Lymphocytes % 10.3 D Lymphocytes % (Manual) 11.0 D Monocytes % 8.7 Monocytes % (Manual) 7 Eosinophils % 0.2 Eosinophils % (Manual) 1.0 D Basophils % 0.9 Basophils % (Manual) 0.0 Myelocytes % (Man) 0 Promyelocytes % (Man) 0 Blast Cells % (Manual) 0 Nucleated RBC % 0 Metamyelocytes 0 Hypochromia 0 Platelet Estimate Decreased Platelet Comment Present Polychromasia 0 Poikilocytosis 0 Anisocytosis 1+ Microcytosis 0 Macrocytosis 1+ Target Cells 1+ Ovalocytes 1+ Haptoglobin Sodium Potassium Chloride Carbon Dioxide Anion Gap BUN Creatinine Creat Clearance w eGFR POC Glucometer 134 Random Glucose Calcium Phosphorus Magnesium Iron TIBC Iron Saturation Total Bilirubin AST ALT Alkaline Phosphatase Troponin I Cancelled Total Protein Albumin Total T3 Microbiology 10/01/18 13:06 Blood - Peripheral Venous Blood Culture - Preliminary Presumptive Mssa (Pbp2a Neg) 10/02/18 14:55 Blood - Peripheral Venous Blood Culture - Preliminary Pending Organism 10/02/18 12:04 Throat Throat Culture - Final NO BETA HEMOLYTIC STREPTOCOCCI ISOLATED 10/02/18 14:45 Blood - Peripheral Venous Blood Culture - Preliminary Pending Organism 10/01/18 13:07 Blood - Peripheral Venous Blood Culture - Preliminary Staphylococcus Latex Coag Pos CT chest/A/P results reviewed ASSESSMENT AND PLAN: 77 yom with PMHx of ESRD on HD, parkinson's disease, dysphagia admitted with non functioning AV fistula, hyperkalemia. -ESRD with non functioning AV fistula -Hyperkalemia, from above -AMS, suspect toxic metabolic encephalopathy from above/infection -GPC bacteremia, r/o graft infection -HTN -Parkinson's disease -Dysphagia Plan: ID input noted, abx changed to nafcilllin CT Chest/A/p, 2D echo results reviewed. Concerns for lung mets, heme/onc consult. Follow up arterial duplex. S/p shiley and HD today. Gentle hydration as discussed with renal. Await speech/swallow eval. BGM q6h for now. Tolerating sinemet with apple sauce with full aspiration precautions for now. DVTPPX SCDs given severe thrombocytopenia Dispo pending clinical improvement. Plan co-ordinated with nursing/Nephrology and ID.
[2018-10-03] MEDS: amLODIPine BESYLATE 10 MG TABLET (FP) PO SCH (20:00)
[2018-10-03] MEDS: LOSARTAN POTASSIUM 50 MG TABLET (FP) PO SCH (20:00)
--- NOTE | 2018-10-03 23:31 | CONSULT ---
Consult - text type - Consultation Consultation Note: Patient seen and examiend Patient is a 77 year old male with pmhx of ESRD on HD was sent in for hyperkalemia which turned out to be pseudohyperkalemia.HE however was found to have fever and elevated WBC. His mental status was also worse. - History Source History Provided By: Medical Record - Past Medical History Cardio/Vascular: Yes: HTN Renal/: Yes: Renal Failure, Hemodialysis - Smoking History Smoking history: Unknown if ever smoked - Allergies Allergies/Adverse Reactions: Allergies Allergy/AdvReac Type Severity Reaction Status Date / Time No Known Allergies Allergy Verified 09/05/18 16:44 - Home Medications Home Medications: Ambulatory Orders Amlodipine Besylate [Norvasc -] 10 mg PO ASDIR 09/05/18 Losartan Potassium 100 mg PO DAILY 09/05/18 Polyethylene Glycol 3350 [Miralax 119 gm Btl -] 17 gm PO DAILY bottle 09/09/18 B Complex W-C No.20/Folic Acid [Nephrocaps Softgel] 1 mg PO DAILY 10/01/18 Carbidopa/Levodopa/Entacapone [Czcqpiqfg-Sdsjwenp-Uupb 200 mg] 1 each PO QID 07/10 Heparin - 5,000 unit SQ BID 10/01/18 Family Disease History Last Vital Signs Temp Pulse Resp BP Pulse Ox 97.4 F L 76 18 126/66 96 10/05/18 08:05 10/05/18 11:30 10/05/18 11:30 10/05/18 11:30 10/04/18 20:47 - Family Disease History Family History: Denies Physical Exam Vital Signs: AFVVSS Confused, inimally verbal Cor: RSR, No murmurs, No gallops Lungs: decreased at bases Abd: Soft, Normal bowel sounds, No organomegaly Ext:No significant edema A/P This is a 77 year old male with a history of breast CA s/p lumpectomy and radiation years ago, ESRD on HD, parkinsons disease who presented due to hyperkalemia which turned out to be pseudohyperkalemia, 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 gastritis, prostate enlargeent-- suspicious for mets; will need tissue diagnosis Also AG ratio < 1. W/u ongoing for metastatic cancer
[2018-10-04] MEDS: NAFCILLIN - 2 GM in DEXTROSE 5%-WATER - 100 ML IVPB SCH ×6 (04:34→21:14)
[2018-10-04 07:51] LABS: BASO % 0.4 % (0-2.0); EOS % 0.3 % (0-4.5); HEMATOCRIT 28.7 % (35.4-49); HEMOGLOBIN 9.9 GM/dL (11.7-16.9); LYMPH % 6.8 % (8-40); MCH 36.5 pg (25.7-33.7); MCHC 34.7 g/dl (32.0-35.9); MEAN CELL VOLUME 105.3 fl (80-96); MEAN PLT VOLUME 11.7 fl (7.5-11.1); MONO % 7.7 % (3.8-10.2); NEUT % 84.8 % (42.8-82.8); PLATELET COUNT 139 K/MM3 (134-434); RBC 2.72 M/mm3 (4.00-5.60); RDW 16.4 % (11.9-15.9); WHITE BLOOD COUNT 14.3 K/mm3 (4.0-10.0)
[2018-10-04 08:26] LABS: ALBUMIN 2.4 g/dl (3.4-5.0); ALK PHOS 122 U/L (45-117); ANION GAP 9 MMOL/L (8-16); BILIRUBIN,TOTAL 1.4 mg/dL (0.2-1); BLOOD UREA NITROGEN 58 mg/dL (7-18); CALCIUM 8.1 mg/dL (8.5-10.1); CHLORIDE 98 mmol/L (98-107); CO2 28 mmol/L (21-32); GLUCOSE,RANDOM 157 mg/dL (74-106); MAGNESIUM 2.1 mg/dL (1.8-2.4); PHOSPHOROUS 3.3 mg/dL (2.5-4.9); POTASSIUM 3.5 mmol/L (3.5-5.1); SGOT/AST 22 U/L (15-37); SGPT/ALT < 6 U/L (13-61); SODIUM 135 mmol/L (136-145); TOT PROT 5.6 g/dl (6.4-8.2)
[2018-10-04] MEDS: PANTOPRAZOLE SODIUM 40 MG VIAL IVPUSH SCH (09:24)
[2018-10-04] MEDS: ACETAMINOPHEN 1000 MG/100 ML VIAL (NON FORMULARY) IVPB PRN (09:25)
[2018-10-04 09:28] LABS: ANISOCYTOSIS 1+; MACROCYTOSIS 0; PLATELET ESTIMATE DECREASED; TARGET CELLS 1+
[2018-10-04] MEDS: CARBIDOPA/LEVODOPA 25/100 TABLET (FP) PO SCH ×4 (09:32→21:15)
[2018-10-04] MEDS: LOSARTAN POTASSIUM 50 MG TABLET (FP) PO SCH (09:32)
[2018-10-04] MEDS: amLODIPine BESYLATE 10 MG TABLET (FP) PO SCH (09:32)
--- NOTE | 2018-10-04 10:28 | PN ---
Progress Note, TIMBER TRIMMER - Note Progress Note: Seen by me in August admission at which time pt was "tolerating reg diet. Benefits being set up, food cut. Without overt signs of aspiration. Silent aspiration can not be r/o at bedside. If suspected, MBS needed to r/o aspiration." Bacteremia/sepsis. w/u in progress Seen bedside. Slow to respond. Masked Facies, low volume speech sec to Parkinsons, although pt reports increased Hypophonia a week ago.Order in OR for Neuro consult -worsening of Parkinsons. Suspect likely sec to PNA,infection.[facility] Bedside assessment- Tongue coated with yellow and pill granules from this morning. Oral holding, delayed swallow, needing verbal reminders to swallow. Initially overtly tolerated thin water, but with delayed forceful cough. Suspect silent aspiration, triggered once aspirate enters lower trachea/lungs possibly. REC: Dys puree/nectar thick liquid 1/2 tsp at a time. alternate with sip of nectar. Avoid continuous drinking. Meds crushed,if possible, give in applesauce follow with nectar. Mouth care before and after meals. MBS Sunday, if stronger, medically stable
--- NOTE | 2018-10-04 13:52 | PN ---
Teaching Attending Note Name of Resident: Eduarda Ellison ATTENDING PHYSICIAN STATEMENT I saw and evaluated the patient. I reviewed the resident's note and discussed the case with the resident. I agree with the resident's findings and plan as documented with exceptions below. SUBJECTIVE: Patient seen and examined. minimal responds, lethargic, limited ROS. reports ' pain' but unable to localize. OBJECTIVE: Vital Signs Period Temp Pulse Resp BP Sys/Bentley Pulse Ox Last 24 Hr 97.7 F-99.0 F 55-82 17-20 114-167/59-88 94-94 Intake & Output 10/01/18 10/02/18 10/03/18 10/04/18 23:59 23:59 23:59 23:59 Intake Total 800 250 800 Output Total 2 1 0 Balance -2 799 250 800 Weight 137 lb 9.6 oz 137 lb General: lying in bed, lethargic, minimal but appropriate responses CVS;S1S2 regular Chest: decreased effort, no rales or wheezing Abdomen:Soft, no focal tenderness, ND, no voluntary or involuntary guarding or rigidity, positive bowel sounds Musculoskeletal: reports "pain" when turned, no point spinal tenderness elicited , moving legs in bed but unable to elevate, limited exam Home Medications Medication Instructions Recorded Amlodipine Besylate [Norvasc -] 10 mg PO ASDIR 09/05/18 Losartan Potassium 100 mg PO DAILY 09/05/18 Polyethylene Glycol 3350 [Miralax 17 gm PO DAILY bottle 09/09/18 119 gm Btl -] B Complex W-C No.20/Folic Acid 1 mg PO DAILY 10/01/18 [Nephrocaps Softgel] Carbidopa/Levodopa/Entacapone 1 each PO QID 10/01/18 [Gcbvtunam-Hihaktxg-Yfmk 200 mg] Heparin - 5,000 unit SQ BID 10/01/18 Active Medications Acetaminophen (Ofirmev Injection -) 1,000 mg IVPB Q6H PRN PRN Reason: PAIN LEVEL 4 - 6 Last Admin: 10/04/18 09:25 Dose: 1,000 mg Amlodipine Besylate (Norvasc -) 10 mg PO DAILY JOSE J Last Admin: 10/04/18 09:32 Dose: 10 mg Carbidopa/Levodopa (Sinemet 25/100 -) 2 each PO QID JOSE J Last Admin: 10/04/18 13:34 Dose: 2 each Dextrose/Sodium Chloride (D5-1/2ns -) 1,000 mls @ 30 mls/hr IV ASDIR JOSE J Stop: 10/04/18 14:59 Last Admin: 10/03/18 18:14 Dose: 30 mls/hr Nafcillin Sodium 2 gm/ (Dextrose) 100 mls @ 100 mls/hr IVPB Q4H-IV JOSE J; Protocol Last Admin: 10/04/18 13:35 Dose: 100 mls/hr Losartan Potassium (Cozaar -) 100 mg PO DAILY JOSE J Last Admin: 10/04/18 09:32 Dose: 100 mg Pantoprazole Sodium (Protonix Iv) 40 mg IVPUSH DAILY JOSE J Last Admin: 10/04/18 09:24 Dose: 40 mg Laboratory Results - last 24 hr 10/03/18 10/04/18 10/04/18 18:18 06:30 06:30 WBC 14.3 H RBC 2.72 L Hgb 9.9 L Hct 28.7 L MCV 105.3 H MCH 36.5 H MCHC 34.7 RDW 16.4 H Plt Count 139 D MPV 11.7 H Absolute Neuts (auto) 12.2 H Neutrophils % 84.8 H Neutrophils % (Manual) 81.4 Band Neutrophils % 2.1 Lymphocytes % 6.8 L D Lymphocytes % (Manual) 9.3 Monocytes % 7.7 Monocytes % (Manual) 6 Eosinophils % 0.3 Eosinophils % (Manual) 0.0 D Basophils % 0.4 Basophils % (Manual) 1.0 D Myelocytes % (Man) 0 Promyelocytes % (Man) 0 Blast Cells % (Manual) 0 Nucleated RBC % 0 Metamyelocytes 0 Hypochromia 0 Platelet Estimate Decreased Platelet Comment Present Polychromasia 1+ Poikilocytosis 2+ Basophilic Stippling 1+ Anisocytosis 1+ Microcytosis 1+ Macrocytosis 0 Spherocytes 2+ Target Cells 1+ Marissa Cells 1+ Sodium 135 L Potassium 3.5 Chloride 98 Carbon Dioxide 28 Anion Gap 9 BUN 58 H Creatinine 4.0 H Creat Clearance w eGFR 14.71 POC Glucometer 134 Random Glucose 157 H Calcium 8.1 L Phosphorus 3.3 Magnesium 2.1 Total Bilirubin 1.4 H AST 22 ALT < 6 L Alkaline Phosphatase 122 H Total Protein 5.6 L Albumin 2.4 L 10/04/18 10/04/18 06:46 11:49 WBC RBC Hgb Hct MCV MCH MCHC RDW Plt Count MPV Absolute Neuts (auto) Neutrophils % Neutrophils % (Manual) Band Neutrophils % Lymphocytes % Lymphocytes % (Manual) Monocytes % Monocytes % (Manual) Eosinophils % Eosinophils % (Manual) Basophils % Basophils % (Manual) Myelocytes % (Man) Promyelocytes % (Man) Blast Cells % (Manual) Nucleated RBC % Metamyelocytes Hypochromia Platelet Estimate Platelet Comment Polychromasia Poikilocytosis Basophilic Stippling Anisocytosis Microcytosis Macrocytosis Spherocytes Target Cells Marissa Cells Sodium Potassium Chloride Carbon Dioxide Anion Gap BUN Creatinine Creat Clearance w eGFR POC Glucometer 140 151 Random Glucose Calcium Phosphorus Magnesium Total Bilirubin AST ALT Alkaline Phosphatase Total Protein Albumin Microbiology 10/01/18 13:06 Blood - Peripheral Venous Blood Culture - Final Staphylococcus Aureus 10/02/18 14:55 Blood - Peripheral Venous Blood Culture - Preliminary Presumptive Mssa (Pbp2a Neg) 10/02/18 14:45 Blood - Peripheral Venous Blood Culture - Preliminary Presumptive Mssa (Pbp2a Neg) 10/02/18 12:04 Throat Throat Culture - Final NO BETA HEMOLYTIC STREPTOCOCCI ISOLATED 10/01/18 13:07 Blood - Peripheral Venous Blood Culture - Preliminary Staphylococcus Latex Coag Pos ASSESSMENT AND PLAN: 77 yom with PMHx of ESRD on HD, parkinson's disease, dysphagia admitted with non functioning AV fistula, hyperkalemia. -MSSA bacteremia, ?Source, AV graft, r/o spinal disease -ESRD with non functioning AV fistula -Hyperkalemia, from above -AMS, suspect toxic metabolic encephalopathy from above/infection -Breast ca s/p lumpectomy/radiation -Suspected lung/liver metastatic disease -HTN -Parkinson's disease -Dysphagia Plan: ID input noted, abx changed to nafcilllin Persistent bacteremia. Vague back symptoms, difficult to assess. MRI spine if patient able to tolerate. Arterial duplex noted, thrombosed AV graft. Discuss with vasular surgery. repeat blood cx sent berry today discussed with Dr. Amin (covering for Dr. Kilpatrick), Will follow up today's blood cx to address further plan for Shiley and HD. CT Chest/A/p, 2D echo results reviewed. Concerns for lung mets, heme/onc input noted. Speech/swallow input noted. Pureed nectar thick with dysphagia precautios. SInemet/anti=HTN with apple sauce as tolerated Overall guarded prognosis given persistent bacteremia, poor mental status, comorbidities and now with concerns for metastatic disease. Palliative care consult. DVTPPX SCDs given severe thrombocytopenia Dispo pending clinical improvement. Plan discussed with patient, renal, daughter Boom, all questions answered.
--- NOTE | 2018-10-04 14:16 | PN ---
Progress Note, Physician History of Present Illness: mental status slightly better than yesterday weak whispering still lethargiic - Current Medication List Current Medications: Active Medications Acetaminophen (Ofirmev Injection -) 1,000 mg IVPB Q6H PRN PRN Reason: PAIN LEVEL 4 - 6 Last Admin: 10/04/18 09:25 Dose: 1,000 mg Amlodipine Besylate (Norvasc -) 10 mg PO DAILY JOSE J Last Admin: 10/04/18 09:32 Dose: 10 mg Carbidopa/Levodopa (Sinemet 25/100 -) 2 each PO QID JOSE J Last Admin: 10/04/18 13:34 Dose: 2 each Dextrose/Sodium Chloride (D5-1/2ns -) 1,000 mls @ 30 mls/hr IV ASDIR JOSE J Stop: 10/04/18 14:59 Last Admin: 10/03/18 18:14 Dose: 30 mls/hr Nafcillin Sodium 2 gm/ (Dextrose) 100 mls @ 100 mls/hr IVPB Q4H-IV JOSE J; Protocol Last Admin: 10/04/18 13:35 Dose: 100 mls/hr Losartan Potassium (Cozaar -) 100 mg PO DAILY [facility] Last Admin: 10/04/18 09:32 Dose: 100 mg Pantoprazole Sodium (Protonix Iv) 40 mg IVPUSH DAILY [facility] Last Admin: 10/04/18 09:24 Dose: 40 mg - Objective Vital Signs: Vital Signs Temperature 98.8 F 10/04/18 14:08 Pulse Rate 79 10/04/18 14:08 Respiratory Rate 20 10/04/18 14:08 Blood Pressure 141/65 10/04/18 14:08 O2 Sat by Pulse Oximetry (%) 94 L 10/04/18 09:00 Constitutional: Yes: Other Cardiovascular: Yes: Regular Rate and Rhythm Respiratory: Yes: Regular, Poor Air Entry (bases) Gastrointestinal: Yes: Normal Bowel Sounds, Soft Musculoskeletal: Yes: Other Extremities: Yes: WNL Neurological: Yes: Lethargy Labs: CBC, BMP 10/04/18 06:30 10/04/18 06:30 INR, PTT INR 1.04 (0.83-1.09) 10/02/18 07:45 Assessment/Plan ESRD HTN change in mental status PNA parkinsons sepsis clotted graft fever metastatic breast cancer gm positive bacteremia leukocytosis plan continue abx continue cx every day untill he is negative continue monitoring vanc levels patient prognosis is not good monitor fevers nutrition rest as per the team
--- NOTE | 2018-10-04 18:34 | PN ---
Physical Exam: SUBJECTIVE: Patient seen and examined; awake; whispers what he wants ; vey wewak ; in pain ; hips OBJECTIVE: Vital Signs Period Temp Pulse Resp BP Sys/Bentley Pulse Ox Last 24 Hr 98.1 F-99.0 F 70-79 17-20 134-152/62-74 94-94 GENERAL: The patient is awake, lethargic dry mucous membranes LUNGS:decreased breath sounds HEART: Regular rate and rhythm, S1, S2 without murmur, rub or gallop. ABDOMEN: Soft, nontender, nondistended, normoactive bowel sounds, no guarding, no rebound, no hepatosplenomegaly, no masses. EXTREMITIES: 2+ pulses, warm, well-perfused, no edema. unable to lift legs b/l NEUROLOGICAL:awake ; responds to commands; weak; lethargic Laboratory Results - last 24 hr 10/04/18 10/04/18 10/04/18 06:30 06:30 06:46 WBC 14.3 H RBC 2.72 L Hgb 9.9 L Hct 28.7 L MCV 105.3 H MCH 36.5 H MCHC 34.7 RDW 16.4 H Plt Count 139 D MPV 11.7 H Absolute Neuts (auto) 12.2 H Neutrophils % 84.8 H Neutrophils % (Manual) 81.4 Band Neutrophils % 2.1 Lymphocytes % 6.8 L D Lymphocytes % (Manual) 9.3 Monocytes % 7.7 Monocytes % (Manual) 6 Eosinophils % 0.3 Eosinophils % (Manual) 0.0 D Basophils % 0.4 Basophils % (Manual) 1.0 D Myelocytes % (Man) 0 Promyelocytes % (Man) 0 Blast Cells % (Manual) 0 Nucleated RBC % 0 Metamyelocytes 0 Hypochromia 0 Platelet Estimate Decreased Platelet Comment Present Polychromasia 1+ Poikilocytosis 2+ Basophilic Stippling 1+ Anisocytosis 1+ Microcytosis 1+ Macrocytosis 0 Spherocytes 2+ Target Cells 1+ [place] Cells 1+ Sodium 135 L Potassium 3.5 Chloride 98 Carbon Dioxide 28 Anion Gap 9 BUN 58 H Creatinine 4.0 H Creat Clearance w eGFR 14.71 POC Glucometer 140 Random Glucose 157 H Calcium 8.1 L Phosphorus 3.3 Magnesium 2.1 Total Bilirubin 1.4 H AST 22 ALT < 6 L Alkaline Phosphatase 122 H Total Protein 5.6 L Albumin 2.4 L 10/04/18 10/04/18 11:49 16:48 WBC RBC Hgb Hct MCV MCH MCHC RDW Plt Count MPV Absolute Neuts (auto) Neutrophils % Neutrophils % (Manual) Band Neutrophils % Lymphocytes % Lymphocytes % (Manual) Monocytes % Monocytes % (Manual) Eosinophils % Eosinophils % (Manual) Basophils % Basophils % (Manual) Myelocytes % (Man) Promyelocytes % (Man) Blast Cells % (Manual) Nucleated RBC % Metamyelocytes Hypochromia Platelet Estimate Platelet Comment Polychromasia Poikilocytosis Basophilic Stippling Anisocytosis Microcytosis Macrocytosis Spherocytes Target Cells Marissa Cells Sodium Potassium Chloride Carbon Dioxide Anion Gap BUN Creatinine Creat Clearance w eGFR POC Glucometer 151 195 Random Glucose Calcium Phosphorus Magnesium Total Bilirubin AST ALT Alkaline Phosphatase Total Protein Albumin Active Medications Generic Name Dose Route Start Last Admin Trade Name Freq PRN Reason Stop Dose Admin Acetaminophen 650 mg 10/04/18 15:42 Tylenol - PO Q4H PRN PAIN SCALE 4-6 Amlodipine Besylate 10 mg 10/03/18 19:15 10/04/18 09:32 Norvasc - PO 10 mg DAILY JOSE J Administration Carbidopa/Levodopa 2 each 10/02/18 18:00 10/04/18 17:23 Sinemet 25/100 - PO 2 each QID JOSE J Administration Nafcillin Sodium 2 gm/ 100 mls @ 100 mls/hr 10/03/18 15:30 10/04/18 17:23 Dextrose IVPB 100 mls/hr Q4H-IV JOSE J Administration Protocol Losartan Potassium 100 mg 10/03/18 19:15 10/04/18 09:32 Cozaar - PO 100 mg DAILY JOSE J Administration Pantoprazole Sodium 40 mg 10/04/18 10:00 10/04/18 09:24 Protonix Iv IVPUSH 40 mg DAILY JOSE J Administration CT chest/abd/pelvis: LUNGS: Cavitary lesion is identified within the left upper lobe measuring 11 x 10 mm best seen on image 18. Groundglass opacity is present within the right upper lobe measuring 2.1 x 3.1 cm best seen on image 25. Another groundglass opacity is identified with nodularity measuring 11 x 15 mm within the right upper lobe best seen on image 52. A subpleural nodule is present laterally within the right lower lobe measuring 8.3 mm best seen on image 57. A tubular- like nodule is noted within the lingula measuring 9.7 x 4.3 mm which could represent mucous plugging. A subpleural nodule is identified within the left base measuring 12 x 14 mm best seen on image 51. Groundglass opacities identified subpleural within the left upper lobe measuring 16 x 11 mm best seen on image 40. No endobronchial lesions are seen. Atelectasis/infiltration present at both bases. Multiple lung nodules, metastatic disease not excluded. Atelectasis/ infiltration at both bases with trace effusions. Renal cyst and nephrolithiasis as discussed above. There is no evidence of hydronephrosis. The kidneys appear atrophic unchanged. Enlarged prostate gland. Thickening of the gastric wall, underlying gastritis not excluded. Correlate clinically and with endoscopy as clinically warranted. No bowel obstruction seen. LIVER: Indeterminate low-density lesion noted within the lateral segment of the right middle lobe measuring 7 mm. Findings not appreciated on the August study. 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 Lethargic on arrival. #AMS; sepsis bacteremia -staph; antibiotics IV vanco -repeat blood cultures ++ -previous hospitalization with atelectasis/infiltrate; treated with zosyn -chest/abd ct: evident for cavitary lesion as noted above and multiple nodules; pna? cannot r/o met -ID following #AV fistula malformation -duplex thrombus of AV fistula; complete obstruction -no audible thrill - vascular following #Hx of breast ca; -liver and lungs lesions suspicious for mets; will need tissue diagnosis #ESRD on HD -HD -permacath placement after bacteremia clears -renal following #macrocytic anemia: -r/o GI bleed; vs vit def; iron def; chronic anemia -stool for occult blood; -iron studies stores are low;replace; ferritin high; (most likely acute phase reactant ) -vit b 12 and folate normal -FISH; cytogenetics, flow cytometry; pending -monitor cbc; transfuse threshold <7 #bone pain; possible mets; vs r/o multiple myeloma; albumin to globulin ration < 1; with bone pain and ESRD; SPEP; immunofixation; kappa /jayashree free chains #thrombocytopenia: resolving -plts 62 -was on heparin at snf -r/o HIT; previous plts 165 -heme studies as above hx of breast CA: -need tissue diagnosis of lung/liver nodule' -heme consult #dysphagia diet; #gently hydrate with 30ml/hr x1 bag due to ESRD DVT ppl;heparin GIppl; protonix Disposition: med surg Visit type - Emergency Visit Emergency Visit: Yes ED Registration Date: 10/01/18 Care time: The patient presented to the Emergency Department on the above date and was hospitalized for further evaluation of their emergent condition. - New Patient This patient is new to me today: Yes Date on this admission: 10/04/18 - Critical Care Critical Care patient: No
[2018-10-04] MEDS ORDERED: PT OWN MED DRAWER 7, Y5N ONE (20:40)
[2018-10-04] MEDS ORDERED: SODIUM CHLORIDE 250 ML IV PRN (20:45)
--- NOTE | 2018-10-04 20:45 | PN ---
Progress Note (short form) - Note Progress Note: Current Medications Acetaminophen (Tylenol -) 650 mg PO Q4H PRN PRN Reason: PAIN SCALE 4-6 Amlodipine Besylate (Norvasc -) 10 mg PO DAILY [facility] Last Admin: 10/04/18 09:32 Dose: 10 mg Carbidopa/Levodopa (Sinemet 25/100 -) 2 each PO QID JOSE J Last Admin: 10/04/18 17:23 Dose: 2 each Heparin Sodium (Porcine) (Heparin -) 5,000 unit SQ TID [facility] Nafcillin Sodium 2 gm/ (Dextrose) 100 mls @ 100 mls/hr IVPB Q4H-IV JOSE J; Protocol Last Admin: 10/04/18 17:23 Dose: 100 mls/hr Losartan Potassium (Cozaar -) 100 mg PO DAILY [facility] Last Admin: 10/04/18 09:32 Dose: 100 mg Pantoprazole Sodium (Protonix Iv) 40 mg IVPUSH DAILY [facility] Last Admin: 10/04/18 09:24 Dose: 40 mg Last Vital Signs Temp Pulse Resp BP Pulse Ox 98.7 F 72 20 140/70 94 L 10/04/18 18:00 10/04/18 18:00 10/04/18 18:00 10/04/18 18:00 10/04/18 09:00 CBC, BMP 10/04/18 06:30 10/04/18 06:30 esrd bacteremia plan hd in am follow blood c/s
[2018-10-04] MEDS: HEPARIN NA (PORCINE) 5,000 UNITS/ML 1ML VIAL SQ SCH (21:15)
[2018-10-05] MEDS: NAFCILLIN - 2 GM in DEXTROSE 5%-WATER - 100 ML IVPB SCH ×6 (01:10→21:00)
[2018-10-05] MEDS: HEPARIN NA (PORCINE) 5,000 UNITS/ML 1ML VIAL SQ SCH ×3 (06:17→21:01)
[2018-10-05 08:25] LABS: BASO % 0.3 % (0-2.0); EOS % 0.6 % (0-4.5); HEMATOCRIT 28.2 % (35.4-49); HEMOGLOBIN 9.6 GM/dL (11.7-16.9); LYMPH % 6.8 % (8-40); MCH 35.4 pg (25.7-33.7); MCHC 33.9 g/dl (32.0-35.9); MEAN CELL VOLUME 104.4 fl (80-96); MEAN PLT VOLUME 10.4 fl (7.5-11.1); NEUT % 85.3 % (42.8-82.8); PLATELET COUNT 162 K/MM3 (134-434); RDW 16.9 % (11.9-15.9)
[2018-10-05 08:34] LABS: INR 1.22 (0.83-1.09); PROTHROMBIN TIME (PATIENT) 14.4 SEC (9.7-13.0)
[2018-10-05 08:36] LABS: ACTIVATED PTT 45.2 SECONDS (25.2-36.5); ALK PHOS 156 U/L (45-117); ANION GAP 11 MMOL/L (8-16); BILIRUBIN,TOTAL 5.3 mg/dL (0.2-1); BLOOD UREA NITROGEN 83 mg/dL (7-18); CALCIUM 7.2 mg/dL (8.5-10.1); CHLORIDE 96 mmol/L (98-107); CO2 27 mmol/L (21-32); CREATININE 5.8 mg/dL (0.55-1.3); GLUCOSE,RANDOM 150 mg/dL (74-106); PHOSPHOROUS 5.2 mg/dL (2.5-4.9); POTASSIUM 3.8 mmol/L (3.5-5.1); SGOT/AST 28 U/L (15-37); SGPT/ALT < 6 U/L (13-61); SODIUM 135 mmol/L (136-145); TOT PROT 5.3 g/dl (6.4-8.2)
[2018-10-05] MEDS: PANTOPRAZOLE SODIUM 40 MG VIAL IVPUSH SCH (12:21)
[2018-10-05] MEDS: CARBIDOPA/LEVODOPA 25/100 TABLET (FP) PO SCH ×4 (12:21→21:00)
[2018-10-05] MEDS: amLODIPine BESYLATE 10 MG TABLET (FP) PO SCH (12:22)
[2018-10-05] MEDS: LOSARTAN POTASSIUM 50 MG TABLET (FP) PO SCH (12:22)
--- NOTE | 2018-10-05 15:17 | PN ---
Physical Exam: SUBJECTIVE: Patient seen and examined, opens eyes, reports pain, unable to localize. ROS limited. OBJECTIVE: Vital Signs Period Temp Pulse Resp BP Sys/Bentley Pulse Ox Last 24 Hr 97.4 F-99.1 F 64-86 18-20 100-143/54-83 96-96 Intake & Output 10/02/18 10/03/18 10/04/18 10/05/18 23:59 23:59 23:59 23:59 Intake Total 800 250 800 400 Output Total 1 0 Balance 799 250 800 400 Weight 137 lb General: lying in bed, lethargic, minimal but appropriate responses CVS;S1S2 regular Chest: decreased effort, no rales or wheezing Abdomen:Soft, no focal tenderness, ND, no voluntary or involuntary guarding or rigidity, positive bowel sounds Musculoskeletal: reports "pain" when turned, no point spinal tenderness elicited , moving legs in bed but unable to elevate, limited exam HEAD: Normal with no signs of trauma. NECK: soft, supple, no JVD visualized EXTREMITIES: AV fistula noted, no active swelling/erythema or discharge, LE warm , no edema NEUROLOGICAL: lethargic, opens eyes, minimal responses, facial symmetry, moves LE in bed, able to lift hands, exam markedly limited given lack of co-operation , Gait not observed. PSYCH: lethargic SKIN: Warm, dry, normal turgor, no rashes or lesions noted Laboratory Results - last 24 hr 10/01/18 10/04/18 10/04/18 20:00 06:30 16:48 WBC RBC Hgb Hct MCV MCH MCHC RDW Plt Count MPV Absolute Neuts (auto) Neutrophils % Lymphocytes % Monocytes % Eosinophils % Basophils % Nucleated RBC % PT with INR INR PTT (Actin FS) Sodium Potassium Chloride Carbon Dioxide Anion Gap BUN Creatinine Creat Clearance w eGFR POC Glucometer 195 Random Glucose Calcium Phosphorus Magnesium Total Bilirubin AST ALT Alkaline Phosphatase Total Protein Albumin Tumor Marker AFP 1.7 Heparin-Ind Plt Ab Scrn 0.067 10/05/18 10/05/18 10/05/18 06:10 07:10 07:10 WBC 16.0 H RBC 2.70 L Hgb 9.6 L Hct 28.2 L MCV 104.4 H MCH 35.4 H MCHC 33.9 RDW 16.9 H Plt Count 162 MPV 10.4 D Absolute Neuts (auto) 13.6 H Neutrophils % 85.3 H Lymphocytes % 6.8 L Monocytes % 7.0 Eosinophils % 0.6 D Basophils % 0.3 Nucleated RBC % 0 PT with INR 14.40 H INR 1.22 H PTT (Actin FS) 45.2 H Sodium Potassium Chloride Carbon Dioxide Anion Gap BUN Creatinine Creat Clearance w eGFR POC Glucometer 125 Random Glucose Calcium Phosphorus Magnesium Total Bilirubin AST ALT Alkaline Phosphatase Total Protein Albumin Tumor Marker AFP Heparin-Ind Plt Ab Scrn 10/05/18 07:10 WBC RBC Hgb Hct MCV MCH MCHC RDW Plt Count MPV Absolute Neuts (auto) Neutrophils % Lymphocytes % Monocytes % Eosinophils % Basophils % Nucleated RBC % PT with INR INR PTT (Actin FS) Sodium 135 L Potassium 3.8 Chloride 96 L Carbon Dioxide 27 Anion Gap 11 BUN 83 H Creatinine 5.8 H Creat Clearance w eGFR 9.58 POC Glucometer Random Glucose 150 H Calcium 7.2 L Phosphorus 5.2 H Magnesium 2.0 Total Bilirubin 5.3 H AST 28 ALT < 6 L Alkaline Phosphatase 156 H Total Protein 5.3 L Albumin 2.0 L Tumor Marker AFP Heparin-Ind Plt Ab Scrn Active Medications Generic Name Dose Route Start Last Admin Trade Name Freq PRN Reason Stop Dose Admin Acetaminophen 650 mg 10/04/18 15:42 Tylenol - PO Q4H PRN PAIN SCALE 4-6 Amlodipine Besylate 10 mg 10/03/18 19:15 10/05/18 12:22 Norvasc - PO 10 mg DAILY JOSE J Administration Carbidopa/Levodopa 2 each 10/02/18 18:00 10/05/18 14:42 Sinemet 25/100 - PO Not Given QID JOSE J Heparin Sodium (Porcine) 5,000 unit 10/04/18 22:00 10/05/18 14:58 Heparin - SQ 5,000 unit TID JOSE J Administration Nafcillin Sodium 2 gm/ 100 mls @ 100 mls/hr 10/03/18 15:30 10/05/18 14:42 Dextrose IVPB Not Given Q4H-IV [facility] Protocol Sodium Chloride 250 mls @ 3,000 mls/hr 10/04/18 20:45 Normal Saline - IV 10/05/18 20:46 PRN PRN Hypotension during Dialysis Losartan Potassium 100 mg 10/03/18 19:15 10/05/18 12:22 Cozaar - PO 100 mg DAILY OJSE J Administration Pantoprazole Sodium 40 mg 10/04/18 10:00 10/05/18 12:21 Protonix Iv IVPUSH 40 mg DAILY JOSE J Administration ASSESSMENT/PLAN: 77 yom with PMHx of ESRD on HD, parkinson's disease, dysphagia admitted with non functioning AV fistula, hyperkalemia. -MSSA bacteremia, ?Source, AV graft, r/o spinal disease -ESRD with non functioning AV fistula -Hyperkalemia, from above -AMS, suspect toxic metabolic encephalopathy from above/infection -Breast ca s/p lumpectomy/radiation -Suspected lung/liver metastatic disease -HTN -Parkinson's disease -Dysphagia Plan: repeat blood cx from 10/04/2018 Discussed with MRI, plan for spine imaging as tolerated. cardiology input for possible JACOB. ID input noted, abx changed to [email or web address] Arterial duplex noted, thrombosed AV graft. Discuss with vasular surgery, no plan for intervention. . discussed with Dr. Amin, plan for Shiley removal after HD. Will follow up. CT Chest/A/p, 2D echo results reviewed. Concerns for lung mets, heme/onc input noted. Speech/swallow input noted. Pureed nectar thick with dysphagia precautions. Sinemet/anti=HTN with apple sauce as tolerated Overall guarded prognosis given persistent bacteremia, poor mental status, comorbidities and now with concerns for metastatic disease. Palliative care consult. DVTPPX SCDs given severe thrombocytopenia Dispo pending clinical improvement. Plan discussed with nursing. Visit type - Emergency Visit Emergency Visit: Yes ED Registration Date: 10/01/18 Care time: The patient presented to the Emergency Department on the above date and was hospitalized for further evaluation of their emergent condition. - New Patient This patient is new to me today: No - Critical Care Critical Care patient: No - Discharge Referral Referred to [facility] Med P.C.: No
--- NOTE | 2018-10-05 16:35 | PN ---
Progress Note (short form) - Note Progress Note: esrd bacteremia catheter infection Current Medications Acetaminophen (Tylenol -) 650 mg PO Q4H PRN PRN Reason: PAIN SCALE 4-6 Amlodipine Besylate (Norvasc -) 10 mg PO DAILY [facility] Last Admin: 10/05/18 12:22 Dose: 10 mg Carbidopa/Levodopa (Sinemet 25/100 -) 2 each PO QID [facility] Last Admin: 10/05/18 14:42 Dose: Not Given Heparin Sodium (Porcine) (Heparin -) 5,000 unit SQ TID [facility] Last Admin: 10/05/18 14:58 Dose: 5,000 unit Nafcillin Sodium 2 gm/ (Dextrose) 100 mls @ 100 mls/hr IVPB Q4H-IV JOSE J; Protocol Last Admin: 10/05/18 14:42 Dose: Not Given Sodium Chloride (Normal Saline -) 250 mls @ 3,000 mls/hr IV PRN PRN PRN Reason: Hypotension during Dialysis Stop: 10/05/18 20:46 Losartan Potassium (Cozaar -) 100 mg PO DAILY [facility] Last Admin: 10/05/18 12:22 Dose: 100 mg Pantoprazole Sodium (Protonix Iv) 40 mg IVPUSH DAILY [facility] Last Admin: 10/05/18 12:21 Dose: 40 mg Last Vital Signs Temp Pulse Resp BP Pulse Ox 98.6 F 86 18 143/83 96 10/05/18 14:49 10/05/18 14:49 10/05/18 13:00 10/05/18 14:49 10/05/18 13:00 sleepy not verbal sleeps through exam Lungs clear Heart reg Abd soft Ext no edema RUE access no dreness, mild gen edema CBC, BMP 10/04/18 06:30 10/04/18 06:30 esrd bacteremia source unclear stable on dialysis plan remove shiley post hd follow blood c/s
[2018-10-05] MEDS ORDERED: PT OWN MED DRAWER 7, Y5N ONE ×2 (16:37→20:52)
--- NOTE | 2018-10-05 17:09 | PN ---
Progress Note, Physician History of Present Illness: Pt seen and examined, events noted, labs/imaging results noted. Pt is s/p HD today and currently lethargic, was more alert this am. Fever resolved but wbc trending up. No acute distress noted. - Current Medication List Current Medications: Active Medications Acetaminophen (Tylenol -) 650 mg PO Q4H PRN PRN Reason: PAIN SCALE 4-6 Amlodipine Besylate (Norvasc -) 10 mg PO DAILY [facility] Last Admin: 10/05/18 12:22 Dose: 10 mg Carbidopa/Levodopa (Sinemet 25/100 -) 2 each PO QID [facility] Last Admin: 10/05/18 14:42 Dose: Not Given Heparin Sodium (Porcine) (Heparin -) 5,000 unit SQ TID [facility] Last Admin: 10/05/18 14:58 Dose: 5,000 unit Nafcillin Sodium 2 gm/ (Dextrose) 100 mls @ 100 mls/hr IVPB Q4H-IV [facility]; Protocol Last Admin: 10/05/18 14:42 Dose: Not Given Sodium Chloride (Normal Saline -) 250 mls @ 3,000 mls/hr IV PRN PRN PRN Reason: Hypotension during Dialysis Stop: 10/05/18 20:46 Losartan Potassium (Cozaar -) 100 mg PO DAILY [facility] Last Admin: 10/05/18 12:22 Dose: 100 mg Pantoprazole Sodium (Protonix Iv) 40 mg IVPUSH DAILY [facility] Last Admin: 10/05/18 12:21 Dose: 40 mg - Objective Vital Signs: Vital Signs Temperature 98.6 F 10/05/18 14:49 Pulse Rate 86 10/05/18 14:49 Respiratory Rate 18 10/05/18 13:00 Blood Pressure 143/83 10/05/18 14:49 O2 Sat by Pulse Oximetry (%) 96 10/05/18 13:00 Constitutional: Yes: No Distress Cardiovascular: Yes: Regular Rate and Rhythm Respiratory: Yes: Other (poor inspiratory effort) Gastrointestinal: Yes: Normal Bowel Sounds, Soft Extremities: Yes: Other (AVF - no erythema/drainage) Integumentary: Yes: WNL Neurological: Yes: Lethargy Labs: CBC, BMP 10/05/18 07:10 10/05/18 07:10 INR, PTT INR 1.22 (0.83-1.09) H 10/05/18 07:10 Microbiology 10/02/18 14:55 Blood - Peripheral Venous Blood Culture - Final Staphylococcus Aureus 10/02/18 14:45 Blood - Peripheral Venous Blood Culture - Final Staphylococcus Aureus 10/04/18 08:00 Blood - Peripheral Venous Blood Culture - Preliminary Pending Organism 10/04/18 07:38 Blood - Peripheral Venous Blood Culture - Preliminary Pending Organism 10/01/18 13:06 Blood - Peripheral Venous Blood Culture - Final Staphylococcus Aureus 10/02/18 12:04 Throat Throat Culture - Final NO BETA HEMOLYTIC STREPTOCOCCI ISOLATED 10/01/18 13:07 Blood - Peripheral Venous Blood Culture - Preliminary Staphylococcus Latex Coag Pos - ....Imaging Cat Scan: Report Reviewed Problem List - Problems (1) Acute metabolic encephalopathy Code(s): G93.41 - METABOLIC ENCEPHALOPATHY (2) Dialysis AV fistula malfunction Code(s): T82.590A - [facility] COMPL OF SURGICALLY CREATED ARTERIOVENOUS FISTULA, INIT Qualifiers: Encounter type: initial encounter Qualified Code(s): T82.590A - Other mechanical complication of surgically created arteriovenous fistula, initial encounter (3) Fever Code(s): R50.9 - FEVER, UNSPECIFIED (4) HTN (hypertension) Code(s): I10 - ESSENTIAL (PRIMARY) HYPERTENSION Qualifiers: Hypertension type: essential hypertension Qualified Code(s): I10 - Essential (primary) hypertension (5) Parkinson disease Code(s): G20 - PARKINSON'S DISEASE (6) Sepsis Code(s): A41.9 - SEPSIS, UNSPECIFIED ORGANISM (7) ESRD (end stage renal disease) on dialysis Code(s): N18.6 - END STAGE RENAL DISEASE; Z99.2 - DEPENDENCE ON RENAL DIALYSIS Assessment/Plan MSSA Bacteremia Sepsis Leukocytosis - increase wbc trend Clotted AVG - Possible source of infection Breast CA s/p lumpectomy/RT Lung Cavitation r/o mets Parkinsons -- continue Nafcillin for now -- Blood cultures daily, repeat cbc -- suggest remove Shiley post HD -- recommended JACOB -- continue monitor wbc trend Pt remains lethargic, afebrile, monitor closely
[2018-10-05] MEDS: ACETAMINOPHEN 325 MG TABLET (FP) PO PRN (21:00)
[2018-10-06] MEDS: NAFCILLIN - 2 GM in DEXTROSE 5%-WATER - 100 ML IVPB SCH ×6 (01:40→21:46)
[2018-10-06] MEDS: HEPARIN NA (PORCINE) 5,000 UNITS/ML 1ML VIAL SQ SCH ×3 (05:48→21:41)
[2018-10-06 08:19] LABS: BASO % 0.3 % (0-2.0); EOS % 1.2 % (0-4.5); HEMATOCRIT 28.5 % (35.4-49); HEMOGLOBIN 9.9 GM/dL (11.7-16.9); MCH 36.6 pg (25.7-33.7); MCHC 34.8 g/dl (32.0-35.9); MEAN CELL VOLUME 105.4 fl (80-96); MEAN PLT VOLUME 10.4 fl (7.5-11.1); MONO % 5.7 % (3.8-10.2); NEUT % 86.8 % (42.8-82.8); PLATELET COUNT 191 K/MM3 (134-434); RDW 16.5 % (11.9-15.9)
[2018-10-06 08:50] LABS: ALBUMIN 1.9 g/dl (3.4-5.0); ALK PHOS 137 U/L (45-117); ANION GAP 8 MMOL/L (8-16); BLOOD UREA NITROGEN 50 mg/dL (7-18); CALCIUM 7.1 mg/dL (8.5-10.1); CHLORIDE 100 mmol/L (98-107); CO2 31 mmol/L (21-32); CREATININE 4.4 mg/dL (0.55-1.3); GLUCOSE,RANDOM 119 mg/dL (74-106); MAGNESIUM 1.9 mg/dL (1.8-2.4); PHOSPHOROUS 5.8 mg/dL (2.5-4.9); SGOT/AST 27 U/L (15-37); SGPT/ALT < 6 U/L (13-61); SODIUM 139 mmol/L (136-145); TOT PROT 5.5 g/dl (6.4-8.2)
--- NOTE | 2018-10-06 09:19 | CON.CARD ---
Consult Consult Specialty:: Cardiology Referred by:: Hospitalist Reason for Consultation:: Asked for possible JACOB - History of Present Illness Chief Complaint: Lethargy and fever History of Present Illness: Patient is a 77 year old male with underlying history of ESRD on HD (MWF) via AV fistula, HTN, breast CA and parkinson's disease who presented with malfunctioning AV fistula. Patient was found to have a fever and an elevated WBC thus further evaluation was requested including possible JACOB. Transthoracic echocardiography on 10/03/18 was unremarkable with normal LV systolic function. CT chest revealed multiple pulmonary nodules. He is arousable but somewhat lethargic. Denies chest pain and SOB though. - History Source History Provided By: Medical Record Limitations to Obtaining History: Clinical Condition - Past Medical History Cardio/Vascular: Yes: HTN Renal/: Yes: Renal Failure, Hemodialysis - Alcohol/Substance Use Hx Alcohol Use: No - Smoking History Smoking history: Unknown if ever smoked Have you smoked in the past 12 months: No Home Medications - Allergies Allergies/Adverse Reactions: Allergies Allergy/AdvReac Type Severity Reaction Status Date / Time No Known Allergies Allergy Verified 09/05/18 16:44 - Home Medications Home Medications: Ambulatory Orders Amlodipine Besylate [Norvasc -] 10 mg PO ASDIR 09/05/18 Losartan Potassium 100 mg PO DAILY 09/05/18 Polyethylene Glycol 3350 [Miralax 119 gm Btl -] 17 gm PO DAILY bottle 09/09/18 B Complex W-C No.20/Folic Acid [Nephrocaps Softgel] 1 mg PO DAILY 10/01/18 Carbidopa/Levodopa/Entacapone [Gqmumwqcl-Tkehnbcc-Dmqz 200 mg] 1 each PO QID 07/10 Heparin - 5,000 unit SQ BID 10/01/18 Family Disease History - Family Disease History Family History: Unable to Obtain Review of Systems - Review of Systems Constitutional: reports: Fever Cardiovascular: denies: Chest Pain, Palpitations, Shortness of Breath Respiratory: denies: Cough, SOB, SOB on Exertion Gastrointestinal: denies: Abdominal Pain, Diarrhea, Nausea, Rectal Bleeding, Vomiting Neurological: denies: Dizziness, Headache, Seizure, Syncope Vital Signs: Vital Signs Temperature 98.5 F 10/06/18 06:16 Pulse Rate 68 10/06/18 06:16 Respiratory Rate 20 10/06/18 06:16 Blood Pressure 107/69 10/06/18 06:16 O2 Sat by Pulse Oximetry (%) 98 10/05/18 21:00 Neck: Yes: Supple Respiratory: Yes: CTA Bilaterally Gastrointestinal: Yes: Normal Bowel Sounds, Soft. No: Tenderness Cardiovascular: Yes: Regular Rate and Rhythm JVD: No PMI: Non-Displaced Heart Sounds: Yes: S1, S2 Edema: No - Other Data Labs, Other Data: CBC, BMP 10/06/18 07:30 10/06/18 07:30 INR, PTT INR 1.22 (0.83-1.09) H 10/05/18 07:10 Imaging - Results Chest X-ray: Report Reviewed Cat Scan: Report Reviewed (Chest CT with lung nodules) EKG: Report Reviewed Problem List - Problems (1) Acute metabolic encephalopathy Code(s): G93.41 - METABOLIC ENCEPHALOPATHY (2) Dialysis AV fistula malfunction Code(s): T82.590A - [facility] CREATED ARTERIOVENOUS FISTULA, INIT Qualifiers: Encounter type: initial encounter Qualified Code(s): T82.590A - Other mechanical complication of surgically created arteriovenous fistula, initial encounter (3) Fever Code(s): R50.9 - FEVER, UNSPECIFIED (4) HTN (hypertension) Code(s): I10 - ESSENTIAL (PRIMARY) HYPERTENSION Qualifiers: Hypertension type: essential hypertension Qualified Code(s): I10 - Essential (primary) hypertension (5) Parkinson disease Code(s): G20 - PARKINSON'S DISEASE (6) Sepsis Code(s): A41.9 - SEPSIS, UNSPECIFIED ORGANISM (7) ESRD (end stage renal disease) on dialysis Code(s): N18.6 - END STAGE RENAL DISEASE; Z99.2 - DEPENDENCE ON RENAL DIALYSIS Assessment/Plan 1. Fever, source to be defined 2. HTN 3. ESRD on HD 4. Parkinson's disease PLAN: 1. Medical record is being reviewed 2. Transthoracic echocardiography is done 3. Further evaluation including MRI of spine is planned 4. Will pursue JACOB if no other source is found and if ID sevice recommends it. Thank you for the consultation Further plans are to follow Carmelo Aparicio MD
[2018-10-06] MEDS: CARBIDOPA/LEVODOPA 25/100 TABLET (FP) PO SCH ×4 (11:19→21:46)
[2018-10-06] MEDS: LOSARTAN POTASSIUM 50 MG TABLET (FP) PO SCH (11:19)
[2018-10-06] MEDS: amLODIPine BESYLATE 10 MG TABLET (FP) PO SCH (11:20)
[2018-10-06] MEDS: PANTOPRAZOLE SODIUM 40 MG VIAL IVPUSH SCH (11:20)
--- NOTE | 2018-10-06 11:36 | PN ---
Physical Exam: SUBJECTIVE: Patient seen and examined, more awake and conversant. reports pain in 'back'. but unable to state further. oriented to self. OBJECTIVE: Vital Signs Period Temp Pulse Resp BP Sys/Bentley Pulse Ox Last 24 Hr 98.3 F-100.7 F 68-86 18-22 107-143/63-83 96-98 General: lying in bed, eyes closed, but more conversant and interactive today CVS;S1S2 regular Chest: decreased effort, no rales or wheezing Abdomen:Soft, no focal tenderness, ND, no voluntary or involuntary guarding or rigidity, positive bowel sounds Musculoskeletal: reports "pain" when turned, no point spinal tenderness elicited , moving legs in bed but unable to elevate, limited exam HEAD: Normal with no signs of trauma. NECK: soft, supple, no JVD visualized EXTREMITIES: AV fistula noted, no active swelling/erythema or discharge, LE warm , no edema NEUROLOGICAL:eyes closed but more conversant and interactive, facial symmetry, moves LE in bed, able to lift hands, exam markedly limited given lack of co- operation, Gait not observed. PSYCH: lethargic SKIN: Warm, dry, normal turgor, no rashes or lesions noted Laboratory Results - last 24 hr 10/04/18 10/05/18 10/06/18 06:30 20:57 05:46 WBC RBC Hgb Hct MCV MCH MCHC RDW Plt Count MPV Absolute Neuts (auto) Neutrophils % Lymphocytes % Monocytes % Eosinophils % Basophils % Nucleated RBC % Sodium Potassium Chloride Carbon Dioxide Anion Gap BUN Creatinine Creat Clearance w eGFR POC Glucometer 145 114 Random Glucose Calcium Phosphorus Magnesium Total Bilirubin AST ALT Alkaline Phosphatase Total Protein Albumin Serum PHYLLIS Interpret IEP IgG 853 IEP IgA 358 IEP IgM 73 10/06/18 10/06/18 07:30 07:30 WBC 18.0 H RBC 2.70 L Hgb 9.9 L Hct 28.5 L MCV 105.4 H MCH 36.6 H MCHC 34.8 RDW 16.5 H Plt Count 191 MPV 10.4 Absolute Neuts (auto) 15.6 H Neutrophils % 86.8 H Lymphocytes % 6.0 L Monocytes % 5.7 Eosinophils % 1.2 D Basophils % 0.3 Nucleated RBC % 0 Sodium 139 Potassium 4.0 Chloride 100 Carbon Dioxide 31 Anion Gap 8 BUN 50 H Creatinine 4.4 H Creat Clearance w eGFR 13.18 POC Glucometer Random Glucose 119 H Calcium 7.1 L Phosphorus 5.8 H Magnesium 1.9 Total Bilirubin 5.0 H AST 27 ALT < 6 L Alkaline Phosphatase 137 H Total Protein 5.5 L Albumin 1.9 L Serum PHYLLIS Interpret IEP IgG IEP IgA IEP IgM Active Medications Generic Name Dose Route Start Last Admin Trade Name Freq PRN Reason Stop Dose Admin Acetaminophen 650 mg 10/04/18 15:42 10/05/18 21:00 Tylenol - PO 650 mg Q4H PRN Administration PAIN SCALE 4-6 Carbidopa/Levodopa 2 each 10/02/18 18:00 10/06/18 11:19 Sinemet 25/100 - PO 2 each QID JOSE J Administration Heparin Sodium (Porcine) 5,000 unit 10/04/18 22:00 10/06/18 05:48 Heparin - SQ 5,000 unit TID JOSE J Administration Nafcillin Sodium 2 gm/ 100 mls @ 100 mls/hr 10/03/18 15:30 10/06/18 11:16 Dextrose IVPB 100 mls/hr Q4H-IV JOSE J Administration Protocol Losartan Potassium 100 mg 10/03/18 19:15 10/06/18 11:19 Cozaar - PO 100 mg DAILY JOSE J Administration Pantoprazole Sodium 40 mg 10/04/18 10:00 10/06/18 11:20 Protonix Iv IVPUSH 40 mg DAILY JOSE J Administration Microbiology 10/05/18 17:20 Blood - Peripheral Venous Blood Culture - Preliminary Pending Organism 10/05/18 17:15 Blood - Peripheral Venous Blood Culture - Preliminary Pending Organism 10/04/18 08:00 Blood - Peripheral Venous Blood Culture - Preliminary Staphylococcus Latex Coag Pos 10/04/18 07:38 Blood - Peripheral Venous Blood Culture - Preliminary Staphylococcus Latex Coag Pos 10/02/18 14:55 Blood - Peripheral Venous Blood Culture - Final Staphylococcus Aureus 10/02/18 14:45 Blood - Peripheral Venous Blood Culture - Final Staphylococcus Aureus 10/01/18 13:06 Blood - Peripheral Venous Blood Culture - Final Staphylococcus Aureus 10/02/18 12:04 Throat Throat Culture - Final NO BETA HEMOLYTIC STREPTOCOCCI ISOLATED 10/01/18 13:07 Blood - Peripheral Venous Blood Culture - Preliminary Staphylococcus Latex Coag Pos ASSESSMENT/PLAN: 77 yom with PMHx of ESRD on HD, parkinson's disease, dysphagia admitted with non functioning AV fistula, hyperkalemia. -MSSA bacteremia, ?Source, AV graft, r/o spinal disease -ESRD with non functioning AV fistula -Hyperkalemia, from above -AMS, suspect toxic metabolic encephalopathy from above/infection -Thrombocytopenia, suspect from sepsis, resolved -Breast ca s/p lumpectomy/radiation -Suspected lung/liver metastatic disease -HTN -Parkinson's disease -Dysphagia Plan: Discussed with MRI, patient refused to go into the machine. Currently agreable. Will reattempt MRI, start with LS spine. Premedicate if needed Rising WBC, persistently bacteremic. Cardiology consulted for JACOB. ID input noted, abx changed to nafcilllin Arterial duplex noted, thrombosed AV graft. Discuss with vasular surgery, no plan for intervention, will continue to monitor . Norberto removed 10/05. HD per renal. CT Chest/A/p, 2D echo results reviewed. Concerns for lung mets, heme/onc input noted. Will need tissue biopsy once active infection concerns resolved. Speech/swallow input noted. Pureed nectar thick with dysphagia precautions. Sinemet/anti-HTN with apple sauce as tolerated Overall guarded prognosis given persistent bacteremia, poor mental status, comorbidities and now with concerns for metastatic disease. Palliative care consult. DVTPPX start heparin subq as thrombocytopenia resolved. Dispo pending clinical improvement. Plan discussed with patient, nursing, chief technical officer. Visit type - Emergency Visit Emergency Visit: Yes ED Registration Date: 10/01/18 Care time: The patient presented to the Emergency Department on the above date and was hospitalized for further evaluation of their emergent condition. - New Patient This patient is new to me today: No - Critical Care Critical Care patient: No - Discharge Referral Referred to [facility] No
--- NOTE | 2018-10-06 12:54 | PN ---
Progress Note, Physician History of Present Illness: Pt appears more alert today although remains extremely weak. Tmax 100.7F with rising wbc count. Denies chest pain/resp distress/abd pain. - Current Medication List Current Medications: Active Medications Acetaminophen (Tylenol -) 650 mg PO Q4H PRN PRN Reason: PAIN SCALE 4-6 Last Admin: 10/05/18 21:00 Dose: 650 mg Carbidopa/Levodopa (Sinemet 25/100 -) 2 each PO QID JOSE J Last Admin: 10/06/18 11:19 Dose: 2 each Heparin Sodium (Porcine) (Heparin -) 5,000 unit SQ TID JOSE J Last Admin: 10/06/18 05:48 Dose: 5,000 unit Nafcillin Sodium 2 gm/ (Dextrose) 100 mls @ 100 mls/hr IVPB Q4H-IV JOSE J; Protocol Last Admin: 10/06/18 11:16 Dose: 100 mls/hr Ertapenem 0.5 gm/ Sodium (Chloride) 50 mls @ 100 mls/hr IVPB DAILY [facility] Losartan Potassium (Cozaar -) 100 mg PO DAILY [facility] Last Admin: 10/06/18 11:19 Dose: 100 mg Pantoprazole Sodium (Protonix Iv) 40 mg IVPUSH DAILY [facility] Last Admin: 10/06/18 11:20 Dose: 40 mg - Objective Vital Signs: Vital Signs Temperature 97.1 F L 10/06/18 10:00 Pulse Rate 80 10/06/18 10:00 Respiratory Rate 20 10/06/18 06:16 Blood Pressure 103/46 L 10/06/18 10:00 O2 Sat by Pulse Oximetry (%) 98 10/05/18 21:00 Constitutional: Yes: No Distress, Other (weak) Cardiovascular: Yes: Regular Rate and Rhythm Respiratory: Yes: Other (poor inspiratory effort) Gastrointestinal: Yes: Normal Bowel Sounds, Soft Breast(s): Yes: Mass Musculoskeletal: Yes: Back Pain Extremities: Yes: Other (RUE AV access without drainage) Integumentary: Yes: WNL Labs: CBC, BMP 10/06/18 07:30 10/06/18 07:30 INR, PTT INR 1.22 (0.83-1.09) H 10/05/18 07:10 Microbiology 10/05/18 17:20 Blood - Peripheral Venous Blood Culture - Preliminary Pending Organism 10/05/18 17:15 Blood - Peripheral Venous Blood Culture - Preliminary Pending Organism 10/04/18 08:00 Blood - Peripheral Venous Blood Culture - Preliminary Staphylococcus Latex Coag Pos 10/04/18 07:38 Blood - Peripheral Venous Blood Culture - Preliminary Staphylococcus Latex Coag Pos 10/02/18 14:55 Blood - Peripheral Venous Blood Culture - Final Staphylococcus Aureus 10/02/18 14:45 Blood - Peripheral Venous Blood Culture - Final Staphylococcus Aureus 10/01/18 13:06 Blood - Peripheral Venous Blood Culture - Final Staphylococcus Aureus 10/02/18 12:04 Throat Throat Culture - Final NO BETA HEMOLYTIC STREPTOCOCCI ISOLATED 10/01/18 13:07 Blood - Peripheral Venous Blood Culture - Preliminary Staphylococcus Latex Coag Pos - ....Imaging Cat Scan: Report Reviewed Problem List - Problems (1) Acute metabolic encephalopathy Code(s): G93.41 - METABOLIC ENCEPHALOPATHY (2) Dialysis AV fistula malfunction Code(s): T82.590A - MECH COMPL OF SURGICALLY CREATED ARTERIOVENOUS FISTULA, INIT Qualifiers: Encounter type: initial encounter Qualified Code(s): T82.590A - Other mechanical complication of surgically created arteriovenous fistula, initial encounter (3) Fever Code(s): R50.9 - FEVER, UNSPECIFIED (4) HTN (hypertension) Code(s): I10 - ESSENTIAL (PRIMARY) HYPERTENSION Qualifiers: Hypertension type: essential hypertension Qualified Code(s): I10 - Essential (primary) hypertension (5) Parkinson disease Code(s): G20 - PARKINSON'S DISEASE (6) Sepsis Code(s): A41.9 - SEPSIS, UNSPECIFIED ORGANISM (7) ESRD (end stage renal disease) on dialysis Code(s): N18.6 - END STAGE RENAL DISEASE; Z99.2 - DEPENDENCE ON RENAL DIALYSIS Assessment/Plan Persistent MSSA Bacteremia Sepsis Lung Cavitation r/o mets/possible mucous plugging/PNA Leukocytosis - increase wbc trend Clotted AVG - Possible source of infection Breast CA s/p lumpectomy/RT Parkinsons -- Blood cultures still + -- continue Nafcillin for now, will add Ertapenem -- Blood cultures daily, repeat cbc to monitor trend -- recommended JACOB -- plan for MRI spine Pt remains lethargic, afebrile, monitor closely
[2018-10-06] MEDS ORDERED: PT OWN MED DRAWER 7, Y5N ONE ×3 (13:43→21:45)
[2018-10-06 15:22] LABS: ANISOCYTOSIS 2+; MACROCYTOSIS 1+; PLATELET ESTIMATE NORMAL; TARGET CELLS 1+
[2018-10-06] MEDS: ERTAPENEM SODIUM 0.5 GM in SODIUM CHLORIDE 50 ML IVPB SCH (16:01)
--- NOTE | 2018-10-06 18:52 | PN ---
Progress Note (short form) - Note Progress Note: esrd bacteremia catheter infection Current Medications Acetaminophen (Tylenol -) 650 mg PO Q4H PRN PRN Reason: PAIN SCALE 4-6 Last Admin: 10/05/18 21:00 Dose: 650 mg Carbidopa/Levodopa (Sinemet 25/100 -) 2 each PO QID [facility] Last Admin: 10/06/18 17:23 Dose: 2 each Heparin Sodium (Porcine) (Heparin -) 5,000 unit SQ TID [facility] Last Admin: 10/06/18 13:51 Dose: 5,000 unit Nafcillin Sodium 2 gm/ (Dextrose) 100 mls @ 100 mls/hr IVPB Q4H-IV JOSE J; Protocol Last Admin: 10/06/18 17:23 Dose: 100 mls/hr Ertapenem 0.5 gm/ Sodium (Chloride) 50 mls @ 100 mls/hr IVPB DAILY [facility] Last Admin: 10/06/18 16:01 Dose: 100 mls/hr Losartan Potassium (Cozaar -) 100 mg PO DAILY [facility] Last Admin: 10/06/18 11:19 Dose: 100 mg Pantoprazole Sodium (Protonix Iv) 40 mg IVPUSH DAILY [facility] Last Admin: 10/06/18 11:20 Dose: 40 mg Last Vital Signs Temp Pulse Resp BP Pulse Ox 98.9 F 80 20 109/50 L 98 10/06/18 14:38 10/06/18 14:38 10/06/18 06:16 10/06/18 14:38 10/05/18 21:00 sleepy not verbal sleeps through exam Lungs clear Heart reg Abd soft Ext no edema RUE access no dreness, mild gen edema CBC, BMP 10/06/18 07:30 10/06/18 07:30 esrd bacteremia source unclear lethargic stable on dialysis plan - no access for hemodialysis waiting for negative blood cultures may need a temporarily shiley for his next HD follow blood c/s
[2018-10-07] MEDS ORDERED: PT OWN MED DRAWER 7, Y5N ONE ×5 (01:59→17:32)
[2018-10-07] MEDS: NAFCILLIN - 2 GM in DEXTROSE 5%-WATER - 100 ML IVPB SCH ×6 (02:01→23:00)
[2018-10-07] MEDS: ACETAMINOPHEN 325 MG TABLET (FP) PO PRN (02:32)
[2018-10-07] MEDS: HEPARIN NA (PORCINE) 5,000 UNITS/ML 1ML VIAL SQ SCH ×2 (05:16→14:46)
[2018-10-07 07:45] LABS: BASO % 0.3 % (0-2.0); EOS % 0.5 % (0-4.5); HEMATOCRIT 26.3 % (35.4-49); HEMOGLOBIN 9.1 GM/dL (11.7-16.9); LYMPH % 5.2 % (8-40); MCH 36.1 pg (25.7-33.7); MCHC 34.6 g/dl (32.0-35.9); MEAN CELL VOLUME 104.3 fl (80-96); MEAN PLT VOLUME 9.8 fl (7.5-11.1); MONO % 3.8 % (3.8-10.2); NEUT % 90.2 % (42.8-82.8); PLATELET COUNT 186 K/MM3 (134-434); RBC 2.52 M/mm3 (4.00-5.60); RDW 16.6 % (11.9-15.9); WHITE BLOOD COUNT 19.7 K/mm3 (4.0-10.0)
[2018-10-07 08:24] LABS: ALBUMIN 1.6 g/dl (3.4-5.0); ALK PHOS 122 U/L (45-117); ANION GAP 11 MMOL/L (8-16); BILIRUBIN,TOTAL 6.1 mg/dL (0.2-1); BLOOD UREA NITROGEN 63 mg/dL (7-18); CALCIUM 7.4 mg/dL (8.5-10.1); CHLORIDE 98 mmol/L (98-107); CO2 27 mmol/L (21-32); CREATININE 5.9 mg/dL (0.55-1.3); GLUCOSE,RANDOM 164 mg/dL (74-106); MAGNESIUM 2.3 mg/dL (1.8-2.4); PHOSPHOROUS 6.5 mg/dL (2.5-4.9); POTASSIUM 4.2 mmol/L (3.5-5.1); SGOT/AST 31 U/L (15-37); SGPT/ALT < 6 U/L (13-61); SODIUM 136 mmol/L (136-145); TOT PROT 5.4 g/dl (6.4-8.2)
[2018-10-07] MEDS: LOSARTAN POTASSIUM 50 MG TABLET (FP) PO SCH (09:37)
[2018-10-07] MEDS: PANTOPRAZOLE SODIUM 40 MG VIAL IVPUSH SCH (09:40)
--- NOTE | 2018-10-07 10:03 | PN ---
Teaching Attending Note Name of Resident: Eduarda Ellison ATTENDING PHYSICIAN STATEMENT I saw and evaluated the patient. I reviewed the resident's note and discussed the case with the resident. I agree with the resident's findings and plan as documented with exceptions below. SUBJECTIVE: Patient seen and examined. Lethargic, arouses to sternal rub, then with minimal conversations. Reports pain but unable to localize. OBJECTIVE: Vital Signs Period Temp Pulse Resp BP Sys/Bentley Pulse Ox Last 24 Hr 98.6 F-100.5 F 65-80 18-20 100-118/48-70 98 Intake & Output 10/04/18 10/05/18 10/06/18 10/07/18 23:59 23:59 23:59 23:59 Intake Total 006 089 9419 300 Output Total 0 Balance 837 114 6148 300 General: lethargic, but arousable, minimal conversations CVS:S1S2 regular Chest: poor effort, no rales or wheezing Abdomen:Soft, NT, ND, positive bowel sounds Musculoskeletal: moving legs in bed, unable to elevated, no point spinal tenderness but limited exam due to lack of co-operation Extremities: no edema noted Neck: soft, supple, no JVD ASSESSMENT AND PLAN: 77 yom with PMHx of ESRD on HD, parkinson's disease, dysphagia admitted with non functioning AV fistula, hyperkalemia. -MSSA bacteremia, ?Source, AV graft, r/o spinal disease -ESRD with non functioning AV fistula -Hyperkalemia, from above -AMS, suspect toxic metabolic encephalopathy from above/infection -Thrombocytopenia, suspect from sepsis, resolved -Breast ca s/p lumpectomy/radiation -Suspected lung/liver metastatic disease -HTN -Parkinson's disease -Dysphagia Plan: persistently bacteremic, Rising WBC. Discussed with MRI again, patient going now Await cardiology input for possible JACOB Arterial duplex with thrombosed AV graft. Readdress blood cx and further management with vascular. ID input noted, nafcillin day 5, Ertapenem day 2. Shiley removed 10/05. Will need repeat Shiley as unlikely to have permacath with persistent positive blood cx. HD per renal. CT Chest/A/p, 2D echo results reviewed. Concerns for lung mets, heme/onc input noted. Will need tissue biopsy once active infection concerns resolved. Speech/swallow input noted. Pureed nectar thick with dysphagia precautions. Sinemet/anti-HTN with apple sauce as tolerated Overall guarded prognosis given persistent bacteremia, poor mental status, comorbidities and now with concerns for metastatic disease. Palliative care consult. DVTPPX start heparin subq as thrombocytopenia resolved. Dispo pending clinical improvement. Plan discussed with nursing, hvac service tech.
[2018-10-07] MEDS: CARBIDOPA/LEVODOPA 25/100 TABLET (FP) PO SCH ×4 (11:57→23:23)
[2018-10-07] MEDS: ERTAPENEM SODIUM 0.5 GM in SODIUM CHLORIDE 50 ML IVPB SCH (12:10)
--- NOTE | 2018-10-07 12:18 | PN ---
Progress Note, HELPER DRIVER - Note Progress Note: MBS ordered but not arousable per staff. Skin tone is more yellow than last session. r/o jaundice. Selected Entries 10/07/18 10/07/18 10/07/18 00:15 02:00 06:00 Temperature 98.6 F 100.5 F H 99.0 F Blood Pressure 100/70 110/60 118/51 L 10/07/18 09:00 Temperature 98.9 F Blood Pressure 104/48 L Laboratory Tests 10/03/18 10/04/18 10/04/18 06:30 06:30 06:30 WBC 13.7 H 14.3 H Total Bilirubin 1.4 H 10/05/18 10/05/18 10/06/18 07:10 07:10 07:30 WBC 16.0 H 18.0 H Total Bilirubin 5.3 H 10/06/18 10/07/18 10/07/18 07:30 07:00 07:00 WBC 19.7 H Total Bilirubin 5.0 H 6.1 H .Defer w/u. NPO. Missed left for PMD
--- NOTE | 2018-10-07 14:20 | PN ---
Progress Note, Physician History of Present Illness: patient still lethargic wbc increasing spiked a low grade fever continues to have blood cx positive - Current Medication List Current Medications: Active Medications Acetaminophen (Tylenol -) 650 mg PO Q4H PRN PRN Reason: PAIN SCALE 4-6 Last Admin: 10/07/18 02:32 Dose: 650 mg Carbidopa/Levodopa (Sinemet 25/100 -) 2 each PO QID [facility] Last Admin: 10/07/18 11:57 Dose: Not Given Heparin Sodium (Porcine) (Heparin -) 5,000 unit SQ TID [facility] Last Admin: 10/07/18 05:16 Dose: 5,000 unit Nafcillin Sodium 2 gm/ (Dextrose) 100 mls @ 100 mls/hr IVPB Q4H-IV [facility]; Protocol Last Admin: 10/07/18 09:37 Dose: 100 mls/hr Ertapenem 0.5 gm/ Sodium (Chloride) 50 mls @ 100 mls/hr IVPB DAILY [facility] Last Admin: 10/07/18 12:10 Dose: 100 mls/hr Losartan Potassium (Cozaar -) 100 mg PO DAILY [facility] Last Admin: 10/07/18 09:37 Dose: Not Given Pantoprazole Sodium (Protonix Iv) 40 mg IVPUSH DAILY [facility] Last Admin: 10/07/18 09:40 Dose: 40 mg - Objective Vital Signs: Vital Signs Temperature 98.9 F 10/07/18 09:00 Pulse Rate 65 10/07/18 09:00 Respiratory Rate 18 10/07/18 09:00 Blood Pressure 104/48 L 10/07/18 09:00 O2 Sat by Pulse Oximetry (%) 97 10/07/18 09:00 Constitutional: Yes: Other Cardiovascular: Yes: S1, S2 Respiratory: Yes: Regular, CTA Bilaterally Gastrointestinal: Yes: Normal Bowel Sounds, Soft Musculoskeletal: Yes: WNL Extremities: Yes: Other Neurological: Yes: Lethargy, Other Psychiatric: Yes: Other Labs: CBC, BMP 10/07/18 07:00 10/07/18 07:00 INR, PTT INR 1.22 (0.83-1.09) H 10/05/18 07:10 Assessment/Plan patient coming win with sepsis now has blood cx positive with gm positive the source could very well be from the graft site ESRD HTN change in mental status PNA parkinsons sepsis clotted graft fever metastatic breast cancer gm positive bacteremia leukocytosis plan would suggest the following 1 get a JACOB 2 continue current abx 3 get the graft removed--strong supicion that graft is the source more than cavitary lesion of the lung 4.repeat blood cx daily untill the blood cx are negative 5.nutrition 6.get mri of the brain 7 rest as per the team
--- NOTE | 2018-10-07 15:21 | PN ---
Progress Note (short form) - Note Progress Note: NEUROSURGERY CONSULT DICTATED Chart reviewed Pt examined MRI C/T/LS reviewed 77-year-old male with h/o ESRD (on HD MWF), HTN, Breast CA, Parkinsons disease , and dysphagia presents to the emergency department 1 week ago from [facility] for malfunctioning AV fistula and elevated potassium levels. The patients potassium was noted to be 6.8. Found to have persistent MSSA bactemia up to BC from 3-17. PE: Tmax 100.5, 105/48, 97% sat HEENT- NC/AT; Neck- supple; Cor- RR; Lungs- CTA; Abd- benign; Ext- no sign of DVT, R UE AVF Drowsy, eyes closed; occasionally answers simple questions CN- grossly non-focal; Motor- B UE 2-3; L LE 0/5; R LE 0 except R EHL 1; Sensation- difficult o assess despite heavy pinching and vibratory sensation stimulation; DTR- 2+ B UE, absent B LE WBC 19.7, Hgb 9.[address] (10-01): moderate cerebral atrophy with possible B subdural hygroma; periventricular small vessel dz Abd CT (10-03)- anterior L4-5 retention plate, interbody allograft ring/healed; posterior B laminar-facet? screws; facet arthrosis Chest CT (10-03)- multiple B pulmonary nodules, nephrolilthiasis; B atelectasis LS spine MRI- metallic artifact L4-5; L3-4 DDD; marked L3-4 facet hypertrophy and L L3-4 facet synovial edema; ? L sided posterior epidural fluid collection with thecal sac impingement and displacement anteriorly and to the R; R L2-3 foramenal disc HNP; d/w Dr Rivera, who concurs with the presence of epidural collection at L3-4 T spine- no cord compression C spine- preserved lordosis Persistent MSSA bacteremia Prior L4-5 fusion 15 years earlier Probable L3-4 epidural abscess with LE deficits Recommend emergency L3-4 laminectomies for debridement and possible laminar facet screw removal and drain placement (which may not help, but is the best chance the patient has of possibly recovering any neurological function) to decompress the thecal sac and debride the infected tissues Risks- bleeding, infection, CSF leak, persistent neurological deficits/paralysis , stroke, VT/PE/DVT, coma, Pros and cons of treatment approaches, risks, benefits discussed with daughter Boom Ramirez [phone] Ngo (intermediate card tender PMD) a message at [phone] to attempt to speak to her per daughter request, after she spoke to the family, but did not make a decision what to do All questions answered Family to make decision and contact the floor Care d/w Dr. Collins and nursing staff
--- NOTE | 2018-10-07 17:21 | PN ---
Physical Exam: SUBJECTIVE: Patient seen and examined; MRI noted ; taken to OR to remove hardware OBJECTIVE: Vital Signs Period Temp Pulse Resp BP Sys/Bentley Pulse Ox Last 24 Hr 98.6 F-100.5 F 65-80 18-20 100-118/48-70 97-98 GENERAL: The patient is lethargic; LUNGS: decreased breath sounds HEART: Regular rate and rhythm, S1, S2 without murmur, rub or gallop. ABDOMEN: Soft, nontender, nondistended, normoactive bowel sounds, no guarding, no rebound, no hepatosplenomegaly, no masses. EXTREMITIES: 2+ pulses, warm, well-perfused, no edema. NEUROLOGICAL: lethargic; able to whisper; unable to move b/l lower extremities Laboratory Results - last 24 hr 10/06/18 10/07/18 10/07/18 21:56 05:21 07:00 WBC 19.7 H RBC 2.52 L Hgb 9.1 L Hct 26.3 L MCV 104.3 H MCH 36.1 H MCHC 34.6 RDW 16.6 H Plt Count 186 MPV 9.8 Absolute Neuts (auto) 17.7 H Neutrophils % 90.2 H Lymphocytes % 5.2 L Monocytes % 3.8 Eosinophils % 0.5 Basophils % 0.3 Nucleated RBC % 0 Sodium Potassium Chloride Carbon Dioxide Anion Gap BUN Creatinine Creat Clearance w eGFR POC Glucometer 242 153 Random Glucose Calcium Phosphorus Magnesium Total Bilirubin Direct Bilirubin AST ALT Alkaline Phosphatase Total Protein Albumin 10/07/18 07:00 WBC RBC Hgb Hct MCV MCH MCHC RDW Plt Count MPV Absolute Neuts (auto) Neutrophils % Lymphocytes % Monocytes % Eosinophils % Basophils % Nucleated RBC % Sodium 136 Potassium 4.2 Chloride 98 Carbon Dioxide 27 Anion Gap 11 BUN 63 H Creatinine 5.9 H Creat Clearance w eGFR 9.39 POC Glucometer Random Glucose 164 H Calcium 7.4 L Phosphorus 6.5 H Magnesium 2.3 Total Bilirubin 6.1 H Direct Bilirubin 3.0 H AST 31 ALT < 6 L Alkaline Phosphatase 122 H Total Protein 5.4 L Albumin 1.6 L Active Medications Generic Name Dose Route Start Last Admin Trade Name Freq PRN Reason Stop Dose Admin Acetaminophen 650 mg 10/04/18 15:42 10/07/18 02:32 Tylenol - PO 650 mg Q4H PRN Administration PAIN SCALE 4-6 Carbidopa/Levodopa 2 each 10/02/18 18:00 10/07/18 14:45 Sinemet 25/100 - PO Not Given QID JOSE J Heparin Sodium (Porcine) 5,000 unit 10/04/18 22:00 10/07/18 14:46 Heparin - SQ 5,000 unit TID JOSE J Administration Nafcillin Sodium 2 gm/ 100 mls @ 100 mls/hr 10/03/18 15:30 10/07/18 14:46 Dextrose IVPB 100 mls/hr Q4H-IV JOSE J Administration Protocol Ertapenem 0.5 gm/ Sodium 50 mls @ 100 mls/hr 10/06/18 13:00 10/07/18 12:10 Chloride IVPB 100 mls/hr DAILY JOSE J Administration Losartan Potassium 100 mg 10/03/18 19:15 10/07/18 09:37 Cozaar - PO Not Given DAILY JOSE J Pantoprazole Sodium 40 mg 10/04/18 10:00 10/07/18 09:40 Protonix Iv IVPUSH 40 mg DAILY JOSE J Administration ASSESSMENT/PLAN: This is a 77 year old male with a history of breast CA s/p lumpectomy and radiation years ago, ESRD on HD who presented due 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 Persistently bacteremic. #bacteremia persistent; etiology unknown; -staph; antibiotics IV naf/ertapenam -repeat blood cultures ++ -chest/abd ct: evident for cavitary lesion ; with infiltrate as noted above and multiple nodules; pna? cannot r/o met -MRI results noted, discussed with Dr. Osuna, patient with metallic hardware in the spine; to be taken to OR today; -ID following #AV fistula malformation -duplex thrombus of AV fistula; complete obstruction -no audible thrill -vascular following #Hx of breast ca; -liver and lungs lesions suspicious for mets; will need tissue diagnosis #ESRD on HD -HD -permacath placement after bacteremia clears -renal following #macrocytic anemia: vs vit def; iron def; chronic anemia -stool for occult blood; -iron studies stores are low;replace; ferritin high; (most likely acute phase reactant ) -vit b 12 and folate normal -FISH; cytogenetics, flow cytometry; pending -monitor cbc; transfuse threshold <7 #bone pain; possible mets; vs r/o multiple myeloma; albumin to globulin ration < 1; with bone pain and ESRD; SPEP; immunofixation; kappa /jayashree free chains #thrombocytopenia: resolving -was on heparin at [facility] -r/o HIT; previous plts 165 -heme studies as above hx of breast CA: -need tissue diagnosis of lung/liver nodule' -heme consult #dysphagia diet; #gently hydrate with 30ml/hr x1 bag due to ESRD DVT ppl;heparin GIppl; protonix Dispostion : post op to OR Visit type - Emergency Visit Emergency Visit: Yes ED Registration Date: 10/01/18 Care time: The patient presented to the Emergency Department on the above date and was hospitalized for further evaluation of their emergent condition. - New Patient This patient is new to me today: No - Critical Care Critical Care patient: No
[2018-10-07] MEDS ORDERED: LIDOCAINE HCL/PF 2% SDV 5ML VIAL ONE (18:09)
[2018-10-07] MEDS ORDERED: SODIUM CHLORIDE 0.9% P/F 10 ML VIAL IJ ONE (18:09)
[2018-10-07] MEDS ORDERED: VECURONIUM BROMIDE 10 MG VIAL ONE (18:09)
[2018-10-07] MEDS ORDERED: ETOMIDATE 20 MG/10 ML AMPUL IVPUSH ONE (18:09)
[2018-10-07] MEDS ORDERED: THROMBIN (BOVINE) 5,000 UNIT VIAL TP ONE ×2 (18:19→19:18)
[2018-10-07] MEDS ORDERED: THROMBIN (BOVINE) 20,000 UNIT VIAL TP ONE (18:20)
[2018-10-07] MEDS ORDERED: DEXAMETHASONE SOD PHOSPHATE 4 MG/1 ML VIAL ONE (19:00)
[2018-10-07] MEDS ORDERED: BACITRACIN 50,000 UNITS VIAL TP ONE (19:24)
--- NOTE | 2018-10-07 19:56 | OP ---
Operative Note - Note: Operative Date: 10/07/18 Pre-Operative Diagnosis: Epidural abscess; possible infected implant; prior L4- 5 fusion Operation: Partial L L3 and L4 laminetomies, drainage/debridement of epidural abscess, removal of prior L4-5 instrumentation B; microdissection; dain 1cc; R L3-4 posterolateral bone fusion Findings: Epidural purulent material and fibrosis with mass effect Surgeon: [place] Electrical Tester: Maegn Waters Anesthesiologist/SUPERVISOR SANDING: Mehrdad Caputo Anesthesia: General Estimated Blood Loss (mls): 25 Drains & Tubes with Location: L L3-4 epidural/paraspinal flat KRISSY Operative Report Dictated: Yes
[2018-10-07] MEDS ORDERED: ONDANSETRON 4 MG/2 ML VIAL IVPUSH PRN (19:57)
[2018-10-07] MEDS ORDERED: BISACODYL 10 MG SUPP.RECT RC PRN (19:57)
[2018-10-07] MEDS ORDERED: MIDAZOLAM HCL 2 MG/2 ML SINGLE DOSE VIAL ONE (20:04)
--- NOTE | 2018-10-07 20:17 | SURG ---
Surgery Coater Associate Note Coater Associate: Magen Waters PA-C Date of Service: 10/07/18 Diagnosis: Epidural abscess; possible infected implant; prior L4-5 fusion Procedure: Partial L3 and L4 laminetomies, drainage/debridement of epidural abscess, removal of prior L4-5 instrumentation B; microdissection; dain 1cc; R L3-4 posterolateral bone fusion I was present for the entirety of the operative procedure. For further detail, please refer to operative report. Visit type - Case Type Case Type: ED Admission - Emergency Emergency Visit: Yes ED Registration Date: 10/01/18 Care time: The patient presented to the Emergency Department on the above date and was hospitalized for further evaluation of their emergent condition. - New patient This patient is new to me today: No
[2018-10-07] MEDS ORDERED: PROMETHAZINE HCL 25 MG/1 ML VIAL IVPUSH PRN (20:23)
[2018-10-07] MEDS ORDERED: LORazepam 2 MG/ML SDV VIAL IVPUSH ONE (20:25)
--- NOTE | 2018-10-07 20:31 | PN ---
Progress Note (short form) - Note Progress Note: NEUROSURGERY S/p drainage of epidural abscess Intubated PE: 95/50, 70, 100% sat Still sedated HEENT- NC/AT; Neck- supple; Cor- RR; Lungs- CTA, decreased at bases; Abd- benign ; Ext- no sign of DVT, R UE AVF L3-4 epidural abscess with LE deficits, gram stain/cultures sent Cont iv abx Findings d/w daughter by phone and nursing staff Wean vent overnight for possible extubation in AM DNR
[2018-10-07] MEDS ORDERED: MORPHINE SULFATE 2 MG/ML VIAL IVPUSH PRN (20:33)
[2018-10-07] MEDS ORDERED: LORazepam 2 MG/ML SDV VIAL ONE (20:50)
[2018-10-07 21:23] LABS: HEMATOCRIT 29.2 % (35.4-49); HEMOGLOBIN 10.2 GM/dL (11.7-16.9); MCH 35.9 pg (25.7-33.7); MCHC 34.8 g/dl (32.0-35.9); MEAN PLT VOLUME 9.7 fl (7.5-11.1); PLATELET COUNT 210 K/MM3 (134-434); RBC 2.84 M/mm3 (4.00-5.60); RDW 16.5 % (11.9-15.9); WHITE BLOOD COUNT 19.7 K/mm3 (4.0-10.0)
[2018-10-07] MEDS ORDERED: morphine SULFATE 4 MG/ML VIAL ONE (21:27)
[2018-10-07] MEDS ORDERED: morphine SULFATE 4 MG/ML VIAL IVPUSH ONE (21:29)
[2018-10-07 21:44] LABS: ANION GAP 12 MMOL/L (8-16); BLOOD UREA NITROGEN 69 mg/dL (7-18); CALCIUM 7.1 mg/dL (8.5-10.1); CHLORIDE 100 mmol/L (98-107); CO2 25 mmol/L (21-32); CREATININE 6.6 mg/dL (0.55-1.3); GLUCOSE,RANDOM 138 mg/dL (74-106); POTASSIUM 4.7 mmol/L (3.5-5.1); SODIUM 137 mmol/L (136-145)
--- NOTE | 2018-10-07 22:19 | PN ---
Progress Note (short form) - Note Progress Note: s/p drainage of epidural abscess esrd bacteremia catheter infection? - removed Current Medications Acetaminophen (Tylenol -) 650 mg PO Q4H PRN PRN Reason: PAIN SCALE 4-6 Last Admin: 10/07/18 02:32 Dose: 650 mg Bisacodyl (Dulcolax Suppository -) 10 mg RC DAILY PRN PRN Reason: CONSTIPATION Carbidopa/Levodopa (Sinemet 25/100 -) 2 each PO QID [facility] Last Admin: 10/07/18 17:33 Dose: Not Given Docusate Sodium (Colace -) 100 mg PO TID [facility] Fentanyl (Sublimaze Injection -) 50 mcg IVPUSH Q5M PRN PRN Reason: PAIN-PACU ORDER X 4 DOSES ONLY Stop: 10/08/18 04:00 Nafcillin Sodium 2 gm/ (Dextrose) 100 mls @ 100 mls/hr IVPB Q4H-IV JOSE J; Protocol Last Admin: 10/07/18 17:51 Dose: Not Given Ertapenem 0.5 gm/ Sodium (Chloride) 50 mls @ 100 mls/hr IVPB DAILY [facility] Last Admin: 10/07/18 12:10 Dose: 100 mls/hr Sodium Chloride (Normal Saline -) 1,000 mls @ 42 mls/hr IV ASDIR [facility] Losartan Potassium (Cozaar -) 100 mg PO DAILY [facility] Last Admin: 10/07/18 09:37 Dose: Not Given Morphine Sulfate (Morphine Sulfate) 2 mg IVPUSH Q3H PRN PRN Reason: PAIN LEVEL 6-10 Ondansetron HCl (Zofran Injection) 4 mg IVPUSH Q6H PRN PRN Reason: NAUSEA AND/OR VOMITING Pantoprazole Sodium (Protonix Iv) 40 mg IVPUSH DAILY [facility] Last Admin: 10/07/18 09:40 Dose: 40 mg Promethazine HCl (Phenergan Injection -) 12.5 mg IVPUSH Q6H PRN PRN Reason: NAUSEA-FOR RESCUE AFTER 15 MIN Last Vital Signs Temp Pulse Resp BP Pulse Ox 98.7 F 81 24 H 127/63 100 10/07/18 20:25 10/07/18 21:45 10/07/18 21:45 10/07/18 21:45 10/07/18 21:45 sleepy not verbal sleeps through exam Lungs clear Heart reg Abd soft Ext no edema RUE access no dreness, mild gen edema CBC, BMP 10/07/18 21:15 10/07/18 21:15 CBC, BMP 10/06/18 07:30 10/06/18 07:30 IMP esrd bacteremia source - epidural abscess lethargic stable on dialysis plan - no access for hemodialysis waiting for negative blood cultures may need a temporarily shiley for his next HD tomorrow
--- NOTE | 2018-10-07 22:32 | CONSULT ---
Consultation: REQUESTING PROVIDER: CONSULT REQUEST: We have been asked to medically evaluate this patient for ( post op care) HISTORY OF PRESENT ILLNESS: History obtained from the chart. Patient is currently Sedated and Intubated post op. Patient is a 77 year old male was sent from [facility] for non functioning AV fistula and elevated potassium levels. During the course of hospitalization, he had MSSA bacteremia ( unknown source ? AVFistula, ? spine). Duplex of the upper ext showed thrombosed fistula. MRI of spine was done which showed epidural abscess. Patient was taken for emergent debridement of the abscess. Brought in to the ICU sedated and intubated post op. PAST MEDICAL HISTORY: ESRD on dialysis MWF, Parkinson's disease, dementia, HTN, dysphagia, Breast cancer ALLERGIES: NKDA PAST SURGICAL HISTORY: Unknown SOCIAL HISTORY Smoking: Unknown Alcohol: Unknown Drugs: Unknown REVIEW OF SYSTEMS: Unable to obtain. PHYSICAL EXAMINATION Vital Signs - 24 hr 10/07/18 10/07/18 10/07/18 00:15 02:00 06:00 Temperature 98.6 F 100.5 F H 99.0 F Pulse Rate 80 80 74 Respiratory 20 20 20 Rate Blood Pressure 100/70 110/60 118/51 L O2 Sat by Pulse Oximetry (%) 10/07/18 10/07/18 10/07/18 09:00 17:00 20:25 Temperature 98.9 F 99.0 F 98.7 F Pulse Rate 65 68 65 Respiratory 18 20 12 Rate Blood Pressure 104/48 L 104/46 L 91/44 L O2 Sat by Pulse 97 100 Oximetry (%) 10/07/18 10/07/18 10/07/18 20:30 20:45 21:00 Temperature Pulse Rate 68 70 77 Respiratory 22 H 21 H 23 H Rate Blood Pressure 109/67 151/56 L 163/62 O2 Sat by Pulse 100 100 100 Oximetry (%) 10/07/18 10/07/18 10/07/18 21:15 21:23 21:30 Temperature Pulse Rate 81 82 Respiratory 22 H 22 H 23 H Rate Blood Pressure 147/64 138/77 O2 Sat by Pulse 100 100 Oximetry (%) 10/07/18 10/07/18 21:45 22:00 Temperature 98.8 F Pulse Rate 81 80 Respiratory 24 H 22 H Rate Blood Pressure 127/63 117/57 L O2 Sat by Pulse 100 Oximetry (%) GENERAL: Sedated and Intubated NECK: No JVD LUNGS: Bibasilar crackles, no wheeze. HEART: Regular rate and rhythm, normal S1 and S2 without murmur. ABDOMEN: Soft, nontender, no organomegaly. UPPER EXTREMITIES: RUF fistual non functioning. LOWER EXTREMITIES: No peripheral edema. NEUROLOGICAL: Sedated. Intubated. SKIN: B/L buttocks- Stage II Laboratory Results - last 24 hr 10/07/18 10/07/18 10/07/18 05:21 07:00 07:00 WBC 19.7 H RBC 2.52 L Hgb 9.1 L Hct 26.3 L MCV 104.3 H MCH 36.1 H MCHC 34.6 RDW 16.6 H Plt Count 186 MPV 9.8 Absolute Neuts (auto) 17.7 H Neutrophils % 90.2 H Lymphocytes % 5.2 L Monocytes % 3.8 Eosinophils % 0.5 Basophils % 0.3 Nucleated RBC % 0 Sodium 136 Potassium 4.2 Chloride 98 Carbon Dioxide 27 Anion Gap 11 BUN 63 H Creatinine 5.9 H Creat Clearance w eGFR 9.39 POC Glucometer 153 Random Glucose 164 H Calcium 7.4 L Phosphorus 6.5 H Magnesium 2.3 Total Bilirubin 6.1 H Direct Bilirubin 3.0 H AST 31 ALT < 6 L Alkaline Phosphatase 122 H Total Protein 5.4 L Albumin 1.6 L Blood Type Antibody Screen 10/07/18 10/07/18 10/07/18 18:30 21:15 21:15 WBC 19.7 H RBC 2.84 L Hgb 10.2 L Hct 29.2 L MCV 103.0 H MCH 35.9 H MCHC 34.8 RDW 16.5 H Plt Count 210 MPV 9.7 Absolute Neuts (auto) Neutrophils % Lymphocytes % Monocytes % Eosinophils % Basophils % Nucleated RBC % Sodium 137 Potassium 4.7 Chloride 100 Carbon Dioxide 25 Anion Gap 12 BUN 69 H Creatinine 6.6 H Creat Clearance w eGFR 8.25 POC Glucometer Random Glucose 138 H Calcium 7.1 L Phosphorus Magnesium Total Bilirubin Direct Bilirubin AST ALT Alkaline Phosphatase Total Protein Albumin Blood Type A POSITIVE Antibody Screen Negative Active Medications Generic Name Dose Route Start Last Admin Trade Name Freq PRN Reason Stop Dose Admin Acetaminophen 650 mg 10/04/18 15:42 10/07/18 02:32 Tylenol - PO 650 mg Q4H PRN Administration PAIN SCALE 4-6 Bisacodyl 10 mg 10/07/18 19:57 Dulcolax Suppository - RC DAILY PRN CONSTIPATION Carbidopa/Levodopa 2 each 10/02/18 18:00 10/07/18 17:33 Sinemet 25/100 - PO Not Given QID [facility] Docusate Sodium 100 mg 10/07/18 22:00 Colace - PO TID [facility] Fentanyl 50 mcg 10/07/18 20:23 Sublimaze Injection - IVPUSH 10/08/18 04:00 Q5M PRN PAIN-PACU ORDER X 4 DOSES ONLY Nafcillin Sodium 2 gm/ 100 mls @ 100 mls/hr 10/03/18 15:30 10/07/18 17:51 Dextrose IVPB Not Given Q4H-IV [facility] Protocol Ertapenem 0.5 gm/ Sodium 50 mls @ 100 mls/hr 10/06/18 13:00 10/07/18 12:10 Chloride IVPB 100 mls/hr DAILY [facility] Administration Sodium Chloride 1,000 mls @ 42 mls/hr 10/07/18 20:30 Normal Saline - IV ASDIR [facility] Losartan Potassium 100 mg 10/03/18 19:15 10/07/18 09:37 Cozaar - PO Not Given DAILY [facility] Morphine Sulfate 2 mg 10/07/18 20:33 Morphine Sulfate IVPUSH Q3H PRN PAIN LEVEL 6-10 Ondansetron HCl 4 mg 10/07/18 19:57 Zofran Injection IVPUSH Q6H PRN NAUSEA AND/OR VOMITING Pantoprazole Sodium 40 mg 10/04/18 10:00 10/07/18 09:40 Protonix Iv IVPUSH 40 mg DAILY [facility] Administration Promethazine HCl 12.5 mg 10/07/18 20:23 Phenergan Injection - IVPUSH Q6H PRN NAUSEA-FOR RESCUE AFTER 15 MIN IMAGING: MRI cervical spine: No evidence of disc herniation, central spinal canal stenosis. Signal intensity of the spinal cord. T2 vertebral body. Approximately 4mm, T1 signal void lesion, increased increased signal intensity on the T2, STIR images is seen. Approximately 5.9 mm lesion of similar signal intensity is seen in the T9 vertebral body. In view of masslike opacity in the right upper lobe, the findings are concerning pathological lesions. MRI lumbar spine: L2-L3. Right foraminal disc extrusion with 15 mm cephalad extension of the disc material in the right lateral lateral recess of L2 vertebral body. 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 The thecal sac is compressed. Stenosis of the right neural foramen with almost complete effacement of the right perirenal fat. Clinically correlate with radiculopathy in distribution of the right L2 nerve. Facet joint arthropathy with thickening omentum flavum. L3-L4. Moderate facet joint arthropathy. Left facet joint effusion. Left posterior para facetal soft tissue edema/possibly fluid collections. Findings concerning for acute left facet joint synovitis with paraspinal inflammatory changes. Central spinal canal stenosis. Thickened ligamentum flavum left greater than the right. No compression of L3 nerves traversing through the neural foramina. Prominent left lateral marginal osteophytes. Increased signal intensity is seen in the right posterior para facetal soft tissues. L4-L5. Limited evaluation of the intraspinal contents, or neural foramina due to the magnetic susceptibility artifact from metallic hardware. Chest CT: Multiple lung nodules, metastatic disease not excluded. Atelectasis/ infiltration at both bases with trace effusions. Renal cyst and nephrolithiasis as discussed above. There is no evidence of hydronephrosis. The kidneys appear atrophic unchanged. Enlarged prostate gland. Thickening of the gastric wall, underlying gastritis not excluded. Correlate clinically and with endoscopy as clinically warranted. No bowel obstruction seen. Abdomen/Pelvis CT: Bilateral renal atrophy. Moderate to marked diffuse pancreatic atrophy. Mild/mild to moderate concentric subcutaneous soft tissue stranding suggestive of edema along the abdomen and pelvis. Mild right posterior basilar opacity is seen probably representing atelectasis, less likely a small infiltrate. Prostate enlargement. ASSESSMENT/PLAN: Patient is a 77 year old male with PMHx of ESRD on HD, parkinson's disease, dysphagia admitted with non functioning AV fistula, hyperkalemia was found to have MSSA bacteremia with thrombosed AV fistula and an epidural abscess, went for emergent epidural abscess drainage and brought in to the ICU for post op care. # MSSA bacteremia likely secondary to Epidural abscess s/p debridement----POD 0 s/p Partial L L3 and L4 laminetomies, drainage/debridement of epidural abscess, removal of prior L4-5 instrumentation B; microdissection; dain 1cc; R L3-4 posterolateral bone fusion EBL 25 cc Sedated and Intubated A/C settings @ 14/400/100/0 Started on IV Fentanyl @ 50 mcgs On IV Nafcillin and Ertapenam IV NS @ 42 cc/hr IV Morphine 2mg Q3H PRN IV Zofran PRN # ESRD with RUE thrombosed AV Fistula High risk for seeing the graft so not a candidate for clot removal/ declotting. GFR 8. Last HD on Sunday ? Shiley removed 10/05. # Macrocytic anemia H/H 10.2/29.2 MCV 103- stable # History of breast Cancer CT shows CHARLES cavitary lung lesion Heme/onc consulted. Once stable, recommended for a tissue biopsy # Parkinson's Disease Continue Carbidopa/levodopa. # FEN IV NS @ 42 ml.hr Electrolytes to be repeated in AM NPO # Prophylaxis For DVT: SCDs, no chemical prophylaxis For GI: On IV Protonix 40mg daily # Code Status : DNR/DNI pre surgery. Full code for surgery. Need to talk to the family regarding the code status. Michelle Nunez, PGY-3. Dispo: We will continue to follow the patient. Thank you for this consultative opportunity. Visit type - Emergency Visit Emergency Visit: Yes ED Registration Date: 10/01/18 Care time: The patient presented to the Emergency Department on the above date and was hospitalized for further evaluation of their emergent condition. - New Patient This patient is new to me today: Yes Date on this admission: 10/07/18 - Critical Care Critical Care patient: Yes Total Critical Care Time (in minutes): 35 Critical Care Statement: The care of this patient involved high complexity decision making to prevent further life threatening deterioration of the patient 's condition and/or to evaluate & treat vital organ system(s) failure or risk of failure.
[2018-10-07] MEDS ORDERED: fentaNYL CITRATE 250 MCG/5 ML VIAL ONE (22:57)
[2018-10-07] MEDS: FENTANYL INJECTION 500 MCG in DEXTROSE 5%-WATER - 90 ML IVPB SCH (23:12)
[2018-10-07] MEDS: DOCUSATE SODIUM 100 MG CAPSULE (FP) PO SCH (23:23)
[2018-10-07] MEDS: SODIUM CHLORIDE 1,000 ML IV SCH (23:23)
--- NOTE | 2018-10-08 01:07 | CONS ---
DATE OF CONSULTATION: 10/07/2018 CHIEF COMPLAINT: Abnormal lumbar spine MRI. HISTORY OF PRESENT ILLNESS: The patient is a 77-year-old right-handed male with history of end-stage renal disease on hemodialysis 3 times a week, on Sunday, Sunday and Sunday, breast CA with possible metastasis, hypertension, Parkinson's disease, and dysphagia, who presented to the emergency department one week ago from [facility] for malfunctioning right upper extremity AV fistula and elevated potassium level. The patient's potassium went up to be 6.99 initially and had received Kayexalate. He was also found to be febrile and subsequent blood cultures demonstrated MSSA. The blood culture has been positive from October 01 until October 06. He has been febrile. This morning, he was found to be obtunded and his mental status continued to deteriorate. His white blood cell count is also continuing to risk despite IV antibiotic treatment. He was initially on nafcillin and ertapenem was subsequently added because of persistent bacteremia. Of note, the patient has undergone lumbar fusion at the L4-L5 level from both the anterior and posterior approaches about 15 years ago, according to the daughter. He has no other recent infection. He is AV fistula was found recently to not be functioning well. PAST MEDICAL HISTORY: Significant for hypertension, end-stage renal disease on hemodialysis, Parkinson's disease, breast CA with possible metastasis and dysphagia. CURRENT MEDICATIONS: Include Tylenol, Cozaar, ertapenem, nafcillin, subcutaneous heparin, carbidopa/levodopa, and Protonix. ALLERGIES: No known drug allergies. FAMILY HISTORY: Noncontributory. SOCIAL HISTORY: He does not smoke or drink, reportedly. He is retired. He lives at home with his family. REVIEW OF SYSTEMS: Otherwise negative for other major constitutional, head and neck, cardiovascular, pulmonary, gastrointestinal, genitourinary, endocrinologic, neurologic, or psychologic problems except for the above. PHYSICAL EXAMINATION: Vital Signs: Temperature max is 100.5, now is 98.9, blood pressure 104/40 with pulse rate of 65, O2 saturations 97% on room air. HEENT: Head is normocephalic, atraumatic, anicteric. Neck: Supple with no nuchal rigidity. Core: Demonstrated regular rhythm. Lungs: Decreased breath sounds at the bases. Abdomen: Benign. Extremities: No obvious signs of DVT. There is the presence of a right upper extremity AV fistula, which is completely scarred. Neurologic: The patient is drowsy and barely follows any commands. He opens his eyes and responds verbally periodically. Cranial nerves examination is grossly intact. Motor examination in upper extremities is 2-3/5. Lower extremity motor strength is 0/5 except for the right big toe, which shows occasional flickering movements of 1/5 strength. Sensory examination is difficult to assess in the lower extremity and it is difficult to ascertain a sensory level given his level of cooperation and mental status. Deep tendon reflexes are 1-2+ in the upper extremities and absent in the lower extremities. Bilateral toes are upgoing. He has an anterior abdominal paramedial scar as well as posterior lumbar scar. CT scan of the head done on October 01 and demonstrated moderate cerebral atrophy. There is bilateral hygroma associated with the cerebral atrophy. There is no acute bleed or fracture. There is a small left frontal subcortical white matter infarct without mass affect. MRI of the cervical spine demonstrated preserved cervical lordosis. There is no Chiari malformation. There is no spinal cord impingement. There is no disk herniation. MRI of the thoracic spine demonstrated T9 vertebral body lesion suspicious for possible metastasis. MRI of the lumbar spine demonstrated L4-L5 prior anterior and posterior fusion. The fusion appears to have healed at L4-L5. There is marked L3-L4 degenerative disk disease with marked facet hypertrophy at L3-L4. There is also facet synovial fluid collection. A left-sided posterior epidural fluid collection is noted overlying the L3-L4 disk space with thecal sac compression and displacement anteriorly and to the right. This was visualized on both T2 and T1 weighted images. A right L2-L3 foraminal disk protrusion is noted. There is a right L2-L3 foraminal stenosis as a result. Laboratory examination showed initial white blood cell count of 14.1, currently is 19.7. Hemoglobin is 9.1 and hematocrit is 26.3. Platelet count is 186,000. Serum sodium is 136 and potassium is 4.2. BUN is 63 and creatinine is 5.9. Glucose is 164. All LFTs show bilirubin of 6.1 and direct bilirubin of 3.0. Alkaline phosphatase is 1.2. Albumin is 1.6. Blood cultures are positive for MSSA from October 01 to October 06. IMPRESSION: 1. Persistent methicillin-sensitive Staphylococcus aureus bacteremia. 2. History of L4-L5 lumbar fusion. 3. Probable L3-L4 epidural abscess with left L3-L4 facet synovium edema. 4. End-stage renal disease on hemodialysis. 5. Parkinson's disease. 6. Breast cancer with possible metastasis to the lungs. RECOMMENDATIONS: The patient presents with mental status changes and progressive lower extremity weakness. He also has MSSA bacteremia. Presently, his neurological status is compromised and his mental status is also depressed. CT scan of the head initially did not demonstrate significant intracranial pathology other than subdural hygroma and moderate to marked cerebral atrophy. MRI of the lumbar spine does demonstrate prior fusion at L4-L5. The presence of anterior and posterior implants is noted on abdominal CT scan, which I reviewed also, which was done earlier last week. The presence of the prior fusion implants of the surgery, underling renal failure, as well as need for hemodialysis all presents increased risk for developing bacteremia and subsequent seating with spinal infections. I reviewed the MRI findings with the covering radiologist, Dr. Rivera, at this time and he concurs that there is an epidural fluid collection at the L3-L4 level. Given his significant neurological deficit and MRI findings from today, the patient is a candidate for emergency L3-L4 laminectomy and drainage of epidural fluid collection/abscess debridement. Drain placement will also be contemplated. The planned removal of the laminar process screws at L3-L4 and L4-L5 also contemplated, if feasible. The patient unfortunately has a very poor underlying medical condition including Parkinson's disease and end-stage renal disease as well as possible breast CA metastasis. However, in hope of improving his lower extremity neurological function and to help clear the bacteremia, surgical debridement intervention have been recommended to the family. I spoke to the daughter by telephone today. I have informed her that the risks are extremely high for this operation given his medical condition and his current neurological condition. The risks of surgery include but are not limited to bleeding, infection, dural tear with CSF leak, neurological injury, persistent neurological deficit, stroke, OK, PE, DVT, coma, and were all discussed. The pros and cons of treatment approaches were also discussed. Given his neurological deficit, antibiotic alone is unlikely to be efficacious in clearing his infection and to have any chance of helping him recover his neurological deficit in the lower extremity. All questions were answered. If the patient opts to undergo surgery, it will likely be performed this evening, OR logistics permitting. I also discussed the patient's care with the patient's nursing staff as well as the medical attending. NATALIO CHARLES M.D. NILSON/[id number]
[2018-10-08] MEDS: NAFCILLIN - 2 GM in DEXTROSE 5%-WATER - 100 ML IVPB SCH ×6 (02:36→21:25)
[2018-10-08] MEDS ORDERED: ACETAMINOPHEN 1000 MG/100 ML VIAL (NON FORMULARY) IVPB ONE (03:47)
[2018-10-08 06:17] LABS: BASO % 0.3 % (0-2.0); HEMATOCRIT 22.7 % (35.4-49); HEMOGLOBIN 7.8 GM/dL (11.7-16.9); LYMPH % 6.1 % (8-40); MCH 35.5 pg (25.7-33.7); MCHC 34.3 g/dl (32.0-35.9); MEAN CELL VOLUME 103.3 fl (80-96); MEAN PLT VOLUME 9.9 fl (7.5-11.1); MONO % 4.6 % (3.8-10.2); PLATELET COUNT 171 K/MM3 (134-434); RDW 16.9 % (11.9-15.9); WHITE BLOOD COUNT 18.4 K/mm3 (4.0-10.0)
[2018-10-08 06:23] LABS: ARTERIAL BLD GAS O2 SATURATION 99.2 % (95-98); ARTERIAL BLOOD GAS BASE EXCESS 0.3 meq/l (-2-2); ARTERIAL BLOOD GAS PCO2 35.7 mmHg (35-45); ARTERIAL BLOOD GAS PO2 350 mmHg (80-105); ARTERIAL BLOOD GAS pH 7.44 (7.35-7.45)
[2018-10-08 06:24] LABS: ALLENS TEST POSITIVE
[2018-10-08 06:40] LABS: ALBUMIN 1.4 g/dl (3.4-5.0); ALK PHOS 93 U/L (45-117); ANION GAP 12 MMOL/L (8-16); BILIRUBIN,TOTAL 6.8 mg/dL (0.2-1); BLOOD UREA NITROGEN 74 mg/dL (7-18); CHLORIDE 99 mmol/L (98-107); CO2 25 mmol/L (21-32); CREATININE 6.9 mg/dL (0.55-1.3); GLUCOSE,RANDOM 111 mg/dL (74-106); MAGNESIUM 2.2 mg/dL (1.8-2.4); PHOSPHOROUS 8.4 mg/dL (2.5-4.9); POTASSIUM 4.6 mmol/L (3.5-5.1); SGOT/AST 25 U/L (15-37); SGPT/ALT < 6 U/L (13-61); SODIUM 136 mmol/L (136-145); TOT PROT 4.8 g/dl (6.4-8.2)
[2018-10-08 06:48] LABS: INR 1.31 (0.83-1.09); PROTHROMBIN TIME (PATIENT) 15.5 SEC (9.7-13.0)
[2018-10-08 06:54] LABS: CALCIUM 6.5 mg/dL (8.5-10.1)
--- NOTE | 2018-10-08 06:58 | OP ---
DATE OF OPERATION: 10/07/2018 PREOPERATIVE DIAGNOSIS: 1. Prior L4-L5 fusion. 2. L3-L4 epidural abscess with possible implant infection. 3. End-stage renal disease on hemodialysis. 4. Parkinson's disease. 5. Breast cancer with metastasis. POSTOPERATIVE DIAGNOSIS: 1. Prior L4-L5 fusion. 2. L3-L4 epidural abscess with possible implant infection. 3. End-stage renal disease on hemodialysis. 4. Parkinson's disease. 5. Breast cancer with metastasis. ATTENDING SURGEON: Mt Osuna MD PROCEDURE: 1. Partial left L3 and L4 laminectomies for debridement and drainage of epidural abscess (57467, [id number]). 2. Microsurgical dissection with operating microscope and microsurgical techniques (95142). 3. Removal of posterior lumbar laminar facet screw fixation bilaterally at L4- L5 (71265). 4. Utilization of allograft, right L3-L4 ([id number]). 5. Posterolateral fusion L3-L4 with bone graft ([id number]). FINDINGS: Purulent material in epidural space L3-L4 with epidural fibrosis and fatty stranding. INDICATIONS: The patient is a 77-year-old male who presented with fever and bacteremia. He has a history of breast CA with metastasis, as well as Parkinson 's disease. He has end-stage renal disease on dialysis. He was found to have thrombosed upper extremity AV fistula. He was found to have epidural abscess on MRI, and the family has consented for emergency laminectomy for drainage debridement/debridement subdural hematoma of the epidural abscess, and now indicated for procedure. The family understands the indications for the procedure, procedure in detail, risks and benefits, and alternatives for treatment of his condition, and wished to proceed. No guarantees were given for a favorable outcome. He is DNI and DNR reportedly, and the family rescinded these orders for the procedure to proceed. No guarantees were given for a favorable outcome. Risks of surgery were to include, but are not limited to, bleeding, infection, dural tear with CSF leak, neurological injury, increased thromboembolic risks, NM, coma, , non-improvement, and other risks of general anesthesia. PROCEDURE IN DETAIL: After the patient was taken to the operating room, he was placed in supine position. After general anesthesia was induced and appropriate monitoring lines were placed, he was turned into a prone position on a Oskar frame. All pressure points were checked and padded. Presacral ulcer was noted, skin sores were noted in the lower sacral region, and they were cleaned with alcohol and Tegaderm was applied. The prior lumbar incision was used with approximately 1- inch cephalad extension after localization was obtained with the spinal needle in place. After patient was sterilely prepped and draped, subperiosteal dissection was carried out bilaterally from tip of L3 to L4. Two self-retaining retractors were inserted. At this point, a small amount of purulent material was noted near the facet joint on the left side, L3-L4. The entry point of the laminar fashioned facet screws were noted bilaterally. A partial left-sided L3 and L4 laminectomy was carried out with high speed pneumatic drill, angled curette, and Kerrison rongeur. Microsurgical dissection was carried out with operative microscope and microsurgical techniques. The microscope provided illumination. The underlying ligamentum flavum was dissected free, and a large amount of purulent material came out. Dense epidural fibrosis was also noted. Careful microsurgical dissection was carried out so as not to injure the dura. The purulent material was sent for Gram stain culture. All the central portion of the spinal canal was decompressed with angled curette and Kerrison rongeur crossing the midline. At this point, after thorough aspiration, an epidural space was cleared with angled curettes and Kerrison rongeurs. The dura was covered with Cottonoids, and 3 L of pulse jet irrigation was carried out. This was done bilaterally. After this was done, the attempt was used to remove both laminar fashioned facet screws, and this was done successfully with 3.5-mm hex screwdrivers. A 55-mm screw was noted on the left, and a 50-mm screw was noted on the right. The wounds were irrigated with antibiotic and irrigation. Right-sided lamina was lightly decorticated with high-speed pneumatic drill and packed with 1 mL of Greene. A No. 10 flat KRISSY drain was left on the left side in epidural;/paraspinal space which came out through a separate stab incision on the left side. The drain was secured with 2-0 Prolene suture. After hemostasis was obtained, dorsal lumbar fascia was closed with 0 Vicryl sutures. The subcutaneous fascia was closed with 3-0 Vicryl suture, and skin was closed with 4-0 Vicryl running subcuticular sutures. Steri-Strips and sterile occlusive dressing were applied. The patient tolerated the procedure well and was turned back to the supine position. He remained intubated. All needle and lap counts were correct. The patient received 1 dose of 2 g of Nafcillin prior to the incision. Gram stain cultures were sent of the epidural abscess. OR time-out procedure was followed. The family was updated by telephone of the intraoperative findings as well as the patients postoperative condition. Massimo IVAN/[id number] MTDD
[2018-10-08] MEDS: DOCUSATE SODIUM 100 MG CAPSULE (FP) PO SCH ×3 (07:09→21:21)
--- NOTE | 2018-10-08 08:03 | PN ---
Progress Note (short form) - Note Progress Note: NEUROSURGERY POD #1 S/p drainage of epidural abscess Intubated PE: 85/50, 70, 100% sat Drain 25 cc Still sedated HEENT- NC/AT; Neck- supple; Cor- RR; Lungs- CTA, decreased at bases; Abd- benign ; Ext- no sign of DVT, R UE AVF CN- grossly nonfocal; Motor- starting to move B LE somewhat 1-2 WBC 18.4, Hgb 7.8 L3-4 epidural abscess with LE deficits, gram stain/cultures sent Cont iv abx ID f/u Findings d/w daughter last night Wean vent HD today Transfuse 2 U PRBC DNR D/C drain in am 10/09 if output < 50
--- NOTE | 2018-10-08 08:16 | PN ---
Physical Exam: SUBJECTIVE: Patient is a 77 year old male was sent from [facility] for non functioning AV fistula and elevated potassium levels. During the course of hospitalization, he had MSSA bacteremia ( unknown source ? AVFistula, ? spine). Duplex of the upper ext showed thrombosed fistula. MRI of spine was done which showed epidural abscess. Patient was taken for emergent debridement of the abscess. Brought in to the ICU sedated and intubated post op. Pt was seen and examined. Pt was intubated and sedated, unable to provide history. OBJECTIVE: Vital Signs Period Temp Pulse Resp BP Sys/Bentley Pulse Ox Last 24 Hr 98.7 F-101.0 F 59-82 12-24 81-163/41-77 97-100 GENERAL: The patient is intubated and sedated. HEAD: Normal with no signs of trauma. EYES: PERRL, no scleral icterus. ENT: Ears normal, nares patent, oropharynx clear without exudates, moist mucous membranes. NECK: Trachea midline, supple. LUNGS: Breath sounds equal, clear to auscultation bilaterally, no wheezes, no crackles, no accessory muscle use. HEART: Regular rate and rhythm, S1, S2 without murmur, rub or gallop. ABDOMEN: Soft, nontender, nondistended, normoactive bowel sounds, no guarding, no rebound, no hepatosplenomegaly, no masses. EXTREMITIES: 2+ pulses, warm, well-perfused, no edema. NEUROLOGICAL: intubated and sedated. PSYCH: intubated and sedated. SKIN: Warm, dry, normal turgor, no rashes or lesions noted Laboratory Results - last 24 hr 10/07/18 10/07/18 10/07/18 07:00 18:30 21:15 WBC 19.7 H RBC 2.84 L Hgb 10.2 L Hct 29.2 L MCV 103.0 H MCH 35.9 H MCHC 34.8 RDW 16.5 H Plt Count 210 MPV 9.7 Absolute Neuts (auto) Neutrophils % Lymphocytes % Monocytes % Eosinophils % Basophils % Nucleated RBC % PT with INR INR Puncture Site ABG pH ABG pCO2 at Pt Temp ABG pO2 at Pt Temp ABG HCO3 ABG O2 Sat (Measured) ABG O2 Content ABG Base Excess Chuck Test Oxygen Flow Rate Vent Mode Vent Rate Mechanical Rate PEEP Pressure Support Vent Sodium 136 Potassium 4.2 Chloride 98 Carbon Dioxide 27 Anion Gap 11 BUN 63 H Creatinine 5.9 H Creat Clearance w eGFR 9.39 POC Glucometer Random Glucose 164 H Calcium 7.4 L Phosphorus 6.5 H Magnesium 2.3 Total Bilirubin 6.1 H Direct Bilirubin 3.0 H AST 31 ALT < 6 L Alkaline Phosphatase 122 H Total Protein 5.4 L Albumin 1.6 L Blood Type A POSITIVE Antibody Screen Negative Crossmatch See Detail 10/07/18 10/08/18 10/08/18 21:15 05:30 05:30 WBC 18.4 H RBC 2.20 L Hgb 7.8 L Hct 22.7 L D MCV 103.3 H MCH 35.5 H MCHC 34.3 RDW 16.9 H Plt Count 171 MPV 9.9 Absolute Neuts (auto) 16.2 H Neutrophils % 88.0 H Lymphocytes % 6.1 L Monocytes % 4.6 Eosinophils % 1.0 D Basophils % 0.3 Nucleated RBC % 0 PT with INR INR Puncture Site ABG pH ABG pCO2 at Pt Temp ABG pO2 at Pt Temp ABG HCO3 ABG O2 Sat (Measured) ABG O2 Content ABG Base Excess Chuck Test Oxygen Flow Rate Vent Mode Vent Rate Mechanical Rate PEEP Pressure Support Vent Sodium 137 136 Potassium 4.7 4.6 Chloride 100 99 Carbon Dioxide 25 25 Anion Gap 12 12 BUN 69 H 74 H Creatinine 6.6 H 6.9 H Creat Clearance w eGFR 8.25 7.84 POC Glucometer Random Glucose 138 H 111 H Calcium 7.1 L 6.5 L* Phosphorus 8.4 H Magnesium 2.2 Total Bilirubin 6.8 H Direct Bilirubin AST 25 ALT < 6 L Alkaline Phosphatase 93 Total Protein 4.8 L Albumin 1.4 L Blood Type Antibody Screen Crossmatch 10/08/18 10/08/18 10/08/18 05:30 05:30 05:55 WBC RBC Hgb Hct MCV MCH MCHC RDW Plt Count MPV Absolute Neuts (auto) Neutrophils % Lymphocytes % Monocytes % Eosinophils % Basophils % Nucleated RBC % PT with INR 15.50 H INR 1.31 H Puncture Site Arterial line ABG pH 7.44 ABG pCO2 at Pt Temp 35.7 ABG pO2 at Pt Temp 350 H ABG HCO3 23.8 ABG O2 Sat (Measured) 99.2 H ABG O2 Content 11.4 L ABG Base Excess 0.3 Chuck Test Positive Oxygen Flow Rate 100% Vent Mode A/c Vent Rate 14 Mechanical Rate Yes PEEP 0.0 Pressure Support Vent 400 Sodium Potassium Chloride Carbon Dioxide Anion Gap BUN Creatinine Creat Clearance w eGFR POC Glucometer Random Glucose Calcium Phosphorus Magnesium Total Bilirubin Direct Bilirubin 3.3 H AST ALT Alkaline Phosphatase Total Protein Albumin Blood Type Antibody Screen Crossmatch 10/08/18 06:33 WBC RBC Hgb Hct MCV MCH MCHC RDW Plt Count MPV Absolute Neuts (auto) Neutrophils % Lymphocytes % Monocytes % Eosinophils % Basophils % Nucleated RBC % PT with INR INR Puncture Site ABG pH ABG pCO2 at Pt Temp ABG pO2 at Pt Temp ABG HCO3 ABG O2 Sat (Measured) ABG O2 Content ABG Base Excess Chuck Test Oxygen Flow Rate Vent Mode Vent Rate Mechanical Rate PEEP Pressure Support Vent Sodium Potassium Chloride Carbon Dioxide Anion Gap BUN Creatinine Creat Clearance w eGFR POC Glucometer 92 Random Glucose Calcium Phosphorus Magnesium Total Bilirubin Direct Bilirubin AST ALT Alkaline Phosphatase Total Protein Albumin Blood Type Antibody Screen Crossmatch Active Medications Generic Name Dose Route Start Last Admin Trade Name Freq PRN Reason Stop Dose Admin Bisacodyl 10 mg 10/07/18 19:57 Dulcolax Suppository - RC DAILY PRN CONSTIPATION Carbidopa/Levodopa 2 each 10/02/18 18:00 10/07/18 23:23 Sinemet 25/100 - PO Not Given QID JOSE J Docusate Sodium 100 mg 10/07/18 22:00 10/08/18 07:09 Colace - PO Not Given TID JOSE J Nafcillin Sodium 2 gm/ 100 mls @ 100 mls/hr 10/03/18 15:30 10/08/18 07:09 Dextrose IVPB Not Given Q4H-IV JOSE J Protocol Ertapenem 0.5 gm/ Sodium 50 mls @ 100 mls/hr 10/06/18 13:00 10/07/18 12:10 Chloride IVPB 100 mls/hr DAILY JOSE J Administration Sodium Chloride 1,000 mls @ 42 mls/hr 10/07/18 20:30 10/07/18 23:23 Normal Saline - IV Not Given ASDIR JOSE J Fentanyl 500 mcg/ Dextrose 100 mls @ 10 mls/hr 10/07/18 22:45 10/07/18 23:12 IVPB 25 mcg/hr TITR JOSE J 5 mls/hr Administration Protocol 50 MCG/HR Losartan Potassium 100 mg 10/03/18 19:15 10/07/18 09:37 Cozaar - PO Not Given DAILY JOSE J Morphine Sulfate 2 mg 10/07/18 20:33 Morphine Sulfate IVPUSH Q3H PRN PAIN LEVEL 6-10 Ondansetron HCl 4 mg 10/07/18 19:57 Zofran Injection IVPUSH Q6H PRN NAUSEA AND/OR VOMITING Pantoprazole Sodium 40 mg 10/04/18 10:00 10/07/18 09:40 Protonix Iv IVPUSH 40 mg DAILY JOSE J Administration Promethazine HCl 12.5 mg 10/07/18 20:23 Phenergan Injection - IVPUSH Q6H PRN NAUSEA-FOR RESCUE AFTER 15 MIN IMAGING: MRI cervical spine: No evidence of disc herniation, central spinal canal stenosis. Signal intensity of the spinal cord. T2 vertebral body. Approximately 4mm, T1 signal void lesion, increased increased signal intensity on the T2, STIR images is seen. Approximately 5.9 mm lesion of similar signal intensity is seen in the T9 vertebral body. In view of masslike opacity in the right upper lobe, the findings are concerning pathological lesions. MRI lumbar spine: L2-L3. Right foraminal disc extrusion with 15 mm cephalad extension of the disc material in the right lateral lateral recess of L2 vertebral body. 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 The thecal sac is compressed. Stenosis of the right neural foramen with almost complete effacement of the right perirenal fat. Clinically correlate with radiculopathy in distribution of the right L2 nerve. Facet joint arthropathy with thickening omentum flavum. L3-L4. Moderate facet joint arthropathy. Left facet joint effusion. Left posterior para facetal soft tissue edema/possibly fluid collections. Findings concerning for acute left facet joint synovitis with paraspinal inflammatory changes. Central spinal canal stenosis. Thickened ligamentum flavum left greater than the right. No compression of L3 nerves traversing through the neural foramina. Prominent left lateral marginal osteophytes. Increased signal intensity is seen in the right posterior para facetal soft tissues. L4-L5. Limited evaluation of the intraspinal contents, or neural foramina due to the magnetic susceptibility artifact from metallic hardware. Chest CT: Multiple lung nodules, metastatic disease not excluded. Atelectasis/ infiltration at both bases with trace effusions. Renal cyst and nephrolithiasis as discussed above. There is no evidence of hydronephrosis. The kidneys appear atrophic unchanged. Enlarged prostate gland. Thickening of the gastric wall, underlying gastritis not excluded. Correlate clinically and with endoscopy as clinically warranted. No bowel obstruction seen. Abdomen/Pelvis CT: Bilateral renal atrophy. Moderate to marked diffuse pancreatic atrophy. Mild/mild to moderate concentric subcutaneous soft tissue stranding suggestive of edema along the abdomen and pelvis. Mild right posterior basilar opacity is seen probably representing atelectasis, less likely a small infiltrate. Prostate enlargement. ASSESSMENT/PLAN: Patient is a 77 year old male with PMHx of ESRD on HD, parkinson's disease, dysphagia admitted with non functioning AV fistula, hyperkalemia was found to have MSSA bacteremia with thrombosed AV fistula and an epidural abscess, went for emergent epidural abscess drainage and brought in to the ICU for post op care. NEURO #HX OF PARKINSONS DISEASE Continue Carbidopa/levodopa. # MSSA BACTEREMIA LIKELY SECONDARY TO EPIDURAL ABSCESS S/P DEBRIDEMENT----POD 1 s/p Partial L L3 and L4 laminetomies, drainage/debridement of epidural abscess, removal of prior L4-5 instrumentation B; microdissection; dain 1cc; R L3-4 posterolateral bone fusion EBL 25 cc DC drain 10/09/18 if output is <50 per neurosurgery Intubated A/C settings @ 14/400/100/5 DC: IV Fentanyl @ 50 mcgs Can get versed pushes if agitated IV Nafcillin and Ertapenam IV NS @ 42 cc/hr IV Morphine 2mg Q3H PRN IV Zofran PRN PULMONARY CXR 10/08/18: new atelectasis or infiltrate at left base. Intubated CARDIAC #HYPOTENSION -MAP 55 this AM -500 cc bolus ordered -MAP improved to 68 -Will continue to monitor Defer JACOB for now per cardio RENAL # ESRD WITH RUE THROMBOSED AV FISTULA High risk for seeing the graft so not a candidate for clot removal/ declotting. GFR 8. HD M/W/F - Intermittent hypotension, no HD today per nephro, will need femoral line tomorrow for HD if BP improves Norberto removed 10/05. Duplex RUE 10/07/18: since prior study 10/03/18, a thrombosed AV dialysis fistula has been recanalized flow is noted throughout the feeding artery, fistula and draining vein. 3.2 cm mass adjacent to the fistula. this could represent a hematoma or possibly a thrombosed pseudoaneurysm. this mass was noted on the prior study, but appears to be increased in size. HEM/ONC # MACROCYTIC ANEMIA H/H 10.2/29.2 MCV 103 >> 7.8/22.7 MCV 103 2U PRBC 10/08/18 # HX OF BREAST CA CT shows CHARLES cavitary lung lesion Heme/onc consulted. Once stable, recommended for a tissue biopsy ID #EPIDURAL ABSCESS Nafcillin day 6 Ertapenem day 3 ID on board #BACTEREMIA BC positive for MSSA Repeat BC ordered today 10/08/18 FEN IV NS @ 42 ml/hr Hypocalcemia IV push Calcium ordered to decrease chance of fluid overload Electrolytes otherwise wnl NPO PROPHYLAXIS For DVT: SCDs, no chemical prophylaxis For GI: On IV Protonix 40mg daily #CODE STATUS: DNR/DNI pre surgery. Full code for surgery. Need to talk to the family regarding the code status. DISPO: ICU Visit type - Emergency Visit Emergency Visit: Yes ED Registration Date: 10/01/18 Care time: The patient presented to the Emergency Department on the above date and was hospitalized for further evaluation of their emergent condition. - New Patient This patient is new to me today: Yes Date on this admission: 10/08/18 - Critical Care Critical Care patient: Yes Total Critical Care Time (in minutes): 35 Critical Care Statement: The care of this patient involved high complexity decision making to prevent further life threatening deterioration of the patient 's condition and/or to evaluate & treat vital organ system(s) failure or risk of failure. - Discharge Referral Referred to [facility] Med P.C.: No
[2018-10-08] MEDS ORDERED: CALCIUM GLUCONATE 10% - 1,000 MG/10 ML VIAL IVPB ONE (08:45)
[2018-10-08] MEDS ORDERED: PT OWN MED DRAWER 7, Y5N ONE ×4 (09:08→21:23)
[2018-10-08] MEDS: CARBIDOPA/LEVODOPA 25/100 TABLET (FP) PO SCH ×4 (10:00→21:25)
[2018-10-08] MEDS: PANTOPRAZOLE SODIUM 40 MG VIAL IVPUSH SCH (10:00)
[2018-10-08] MEDS: LOSARTAN POTASSIUM 50 MG TABLET (FP) PO SCH (10:47)
[2018-10-08] MEDS: ERTAPENEM SODIUM 0.5 GM in SODIUM CHLORIDE 50 ML IVPB SCH (10:48)
--- NOTE | 2018-10-08 11:36 | PN ---
Progress Note, Physician Chief Complaint: Events noted Remains in ICU post drainage of epidural abcess Remains intubated on mechanical vent History of Present Illness: Patient was seen and examined in ICU. Mechanical ventilation and sedated. Chart was reviewed - Current Medication List Current Medications: Active Medications Bisacodyl (Dulcolax Suppository -) 10 mg RC DAILY PRN PRN Reason: CONSTIPATION Carbidopa/Levodopa (Sinemet 25/100 -) 2 each PO QID [facility] Last Admin: 10/07/18 23:23 Dose: Not Given Docusate Sodium (Colace -) 100 mg PO TID [facility] Last Admin: 10/08/18 07:09 Dose: Not Given Nafcillin Sodium 2 gm/ (Dextrose) 100 mls @ 100 mls/hr IVPB Q4H-IV [facility]; Protocol Last Admin: 10/08/18 07:09 Dose: Not Given Ertapenem 0.5 gm/ Sodium (Chloride) 50 mls @ 100 mls/hr IVPB DAILY [facility] Last Admin: 10/08/18 10:48 Dose: 100 mls/hr Sodium Chloride (Normal Saline -) 1,000 mls @ 42 mls/hr IV ASDIR [facility] Last Admin: 10/07/18 23:23 Dose: Not Given Fentanyl 500 mcg/ Dextrose 100 mls @ 10 mls/hr IVPB TITR [facility]; Protocol Last Admin: 10/07/18 23:12 Dose: 25 mcg/hr, 5 mls/hr Losartan Potassium (Cozaar -) 100 mg PO DAILY [facility] Last Admin: 10/08/18 10:47 Dose: Not Given Morphine Sulfate (Morphine Sulfate) 2 mg IVPUSH Q3H PRN PRN Reason: PAIN LEVEL 6-10 Ondansetron HCl (Zofran Injection) 4 mg IVPUSH Q6H PRN PRN Reason: NAUSEA AND/OR VOMITING Pantoprazole Sodium (Protonix Iv) 40 mg IVPUSH DAILY [facility] Last Admin: 10/08/18 10:00 Dose: 40 mg Promethazine HCl (Phenergan Injection -) 12.5 mg IVPUSH Q6H PRN PRN Reason: NAUSEA-FOR RESCUE AFTER 15 MIN - Objective Vital Signs: Vital Signs Temperature 98.1 F 10/08/18 09:12 Pulse Rate 65 10/08/18 09:12 Respiratory Rate 16 10/08/18 09:12 Blood Pressure 108/49 L 10/08/18 09:12 O2 Sat by Pulse Oximetry (%) 100 10/07/18 21:45 Cardiovascular: Yes: Regular Rate and Rhythm, S1, S2 Respiratory: Yes: Diminished, Mechanically Ventilated Gastrointestinal: Yes: Normal Bowel Sounds, Soft. No: Tenderness Edema: No Labs: CBC, BMP 10/08/18 05:30 10/08/18 05:30 INR, PTT INR 1.31 (0.83-1.09) H 10/08/18 05:30 Problem List - Problems (1) Acute metabolic encephalopathy Code(s): G93.41 - METABOLIC ENCEPHALOPATHY (2) Dialysis AV fistula malfunction Code(s): T82.590A - [facility] COMPL OF SURGICALLY CREATED ARTERIOVENOUS FISTULA, INIT Qualifiers: Encounter type: initial encounter Qualified Code(s): T82.590A - Other mechanical complication of surgically created arteriovenous fistula, initial encounter (3) Fever Code(s): R50.9 - FEVER, UNSPECIFIED (4) HTN (hypertension) Code(s): I10 - ESSENTIAL (PRIMARY) HYPERTENSION Qualifiers: Hypertension type: essential hypertension Qualified Code(s): I10 - Essential (primary) hypertension (5) Parkinson disease Code(s): G20 - PARKINSON'S DISEASE (6) Sepsis Code(s): A41.9 - SEPSIS, UNSPECIFIED ORGANISM (7) ESRD (end stage renal disease) on dialysis Code(s): N18.6 - END STAGE RENAL DISEASE; Z99.2 - DEPENDENCE ON RENAL DIALYSIS Assessment/Plan 1. Post drainage of epidural abscess and maintenance of mechanical ventilation post op 2. HTN 3. ESRD on HD 4. Parkinson's disease PLAN: 1. Present management per critical care team. Wean vent as tolerated 2. Neurosurgery input noted 3. Defer JACOB for now Further plans are to follow Carmelo Aparicio MD
--- NOTE | 2018-10-08 12:00 | PN ---
Teaching Attending Note Name of Resident: Angeles Zuñiga ATTENDING PHYSICIAN STATEMENT I saw and evaluated the patient. I reviewed the resident's note and discussed the case with the resident. I agree with the resident's findings and plan as documented. SUBJECTIVE: Pt seen and examined in the ICU. s/p epidural abscess drainage. Remains intubated, sedated. OBJECTIVE: Vital Signs Period Temp Pulse Resp BP Sys/Bentley Pulse Ox Last 24 Hr 97.5 F-101.0 F 57-82 12-24 81-163/41-77 100-100 Intake & Output 10/05/18 10/06/18 10/07/18 10/08/18 23:59 23:59 23:59 23:59 Intake Total 800 1125 1202 805 Output Total 40 25 Balance 800 1125 1162 780 Gen: intubated, sedated Heart: RRR Lung: decreased breath sounds at the bases Abd: soft, nontender Ext: no edema CBC, BMP 10/08/18 05:30 10/08/18 05:30 Active Medications Bisacodyl (Dulcolax Suppository -) 10 mg RC DAILY PRN PRN Reason: CONSTIPATION Carbidopa/Levodopa (Sinemet 25/100 -) 2 each PO QID [facility] Last Admin: 10/07/18 23:23 Dose: Not Given Docusate Sodium (Colace -) 100 mg PO TID JOSE J Last Admin: 10/08/18 07:09 Dose: Not Given Nafcillin Sodium 2 gm/ (Dextrose) 100 mls @ 100 mls/hr IVPB Q4H-IV JOSE J; Protocol Last Admin: 10/08/18 12:02 Dose: 100 mls/hr Ertapenem 0.5 gm/ Sodium (Chloride) 50 mls @ 100 mls/hr IVPB DAILY JOSE J Last Admin: 10/08/18 10:48 Dose: 100 mls/hr Sodium Chloride (Normal Saline -) 1,000 mls @ 42 mls/hr IV ASDIR JOSE J Last Admin: 10/07/18 23:23 Dose: Not Given Fentanyl 500 mcg/ Dextrose 100 mls @ 10 mls/hr IVPB TITR JOSE J; Protocol Last Admin: 10/07/18 23:12 Dose: 25 mcg/hr, 5 mls/hr Losartan Potassium (Cozaar -) 100 mg PO DAILY JOSE J Last Admin: 10/08/18 10:47 Dose: Not Given Morphine Sulfate (Morphine Sulfate) 2 mg IVPUSH Q3H PRN PRN Reason: PAIN LEVEL 6-10 Ondansetron HCl (Zofran Injection) 4 mg IVPUSH Q6H PRN PRN Reason: NAUSEA AND/OR VOMITING Pantoprazole Sodium (Protonix Iv) 40 mg IVPUSH DAILY JOSE J Last Admin: 10/08/18 10:00 Dose: 40 mg Promethazine HCl (Phenergan Injection -) 12.5 mg IVPUSH Q6H PRN PRN Reason: NAUSEA-FOR RESCUE AFTER 15 MIN ASSESSMENT AND PLAN: Persistent MSSA Bacteremia Epidural Abscess s/p Drainage Sepsis Acute Respiratory Failure ESRD on HD Parkinsons Disease h/o Breast Ca with suspected recurrence Anemia HTN - continue antibiotics - f/u OR cultures - monitor H/H - transfuse as needed - HD per renal - hold all sedation to assess mental status - spontaneous breathing trials as tolerated when mental status improved - DVT prophylaxis - ICU monitoring critical care time spent in reviewing chart, evaluating patient and formulating plan 35 min
--- NOTE | 2018-10-08 12:53 | PN ---
Progress Note (short form) - Note Progress Note: Anesthesia postop note 77 y/o m s/p GA for exploration of lumbar spine, removal of hardware POD#1 in icu, still intubated, sedated. No anesthesia complications, care as per surgery/icu team.
--- NOTE | 2018-10-08 14:13 | PN ---
Progress Note (short form) - Note Progress Note: Patient seen and examined Sedation stopped at 6:00 and currently 8+ hours later remains unresponsive Receiving packed cells Last Vital Signs Temp Pulse Resp BP Pulse Ox 98.1 F 71 16 110/60 100 10/08/18 09:12 10/08/18 12:04 10/08/18 12:17 10/08/18 12:04 10/07/18 21:45 Intubated Breasts: right breast - no masses ; left breast local recurrence at nipple Cor: RSR, No murmurs, No gallops Lungs: diminished breath sounds Abd: Soft, Normal bowel sounds, No organomegaly Ext:upper extremity edema Skin- no rashes CBC, BMP 10/08/18 05:30 10/08/18 05:30 Current Medications Generic Name Dose Route Start Last Admin Trade Name Freq PRN Reason Stop Dose Admin Bisacodyl 10 mg 10/07/18 19:57 Dulcolax Suppository - RC DAILY PRN CONSTIPATION Carbidopa/Levodopa 2 each 10/02/18 18:00 10/07/18 23:23 Sinemet 25/100 - PO Not Given QID JOSE J Docusate Sodium 100 mg 10/07/18 22:00 10/08/18 07:09 Colace - PO Not Given TID JOSE J Nafcillin Sodium 2 gm/ 100 mls @ 100 mls/hr 10/03/18 15:30 10/08/18 12:02 Dextrose IVPB 100 mls/hr Q4H-IV JOSE J Administration Protocol Ertapenem 0.5 gm/ Sodium 50 mls @ 100 mls/hr 10/06/18 13:00 10/08/18 10:48 Chloride IVPB 100 mls/hr DAILY JOSE J Administration Sodium Chloride 1,000 mls @ 42 mls/hr 10/07/18 20:30 10/07/18 23:23 Normal Saline - IV Not Given ASDIR JOSE J Fentanyl 500 mcg/ Dextrose 100 mls @ 10 mls/hr 10/07/18 22:45 10/07/18 23:12 IVPB 25 mcg/hr TITR JOSE J 5 mls/hr Administration Protocol 50 MCG/HR Losartan Potassium 100 mg 10/03/18 19:15 10/08/18 10:47 Cozaar - PO Not Given DAILY JOSE J Morphine Sulfate 2 mg 10/07/18 20:33 Morphine Sulfate IVPUSH Q3H PRN PAIN LEVEL 6-10 Ondansetron HCl 4 mg 10/07/18 19:57 Zofran Injection IVPUSH Q6H PRN NAUSEA AND/OR VOMITING Pantoprazole Sodium 40 mg 10/04/18 10:00 10/08/18 10:00 Protonix Iv IVPUSH 40 mg DAILY JOSE J Administration Promethazine HCl 12.5 mg 10/07/18 20:23 Phenergan Injection - IVPUSH Q6H PRN NAUSEA-FOR RESCUE AFTER 15 MIN Impression: MSSA bacteremia S/P drainage epidural abscess Respiratory Failure ESRD/HD Breast cancer with local recurrence and possible lung and liver mets Anemia Transfusion of packed cells prn Monitor CBC Pending status in future assess ?breast cancer metastases Antibiotics per ID HD per renal
--- NOTE | 2018-10-08 14:36 | PN ---
Progress Note, Physician History of Present Illness: Pt seen and examined at bedside. He remains in the ICU and is intubated. - Current Medication List Current Medications: Active Medications Bisacodyl (Dulcolax Suppository -) 10 mg RC DAILY PRN PRN Reason: CONSTIPATION Carbidopa/Levodopa (Sinemet 25/100 -) 2 each PO QID [facility] Last Admin: 10/07/18 23:23 Dose: Not Given Docusate Sodium (Colace -) 100 mg PO TID [facility] Last Admin: 10/08/18 07:09 Dose: Not Given Nafcillin Sodium 2 gm/ (Dextrose) 100 mls @ 100 mls/hr IVPB Q4H-IV [facility]; Protocol Last Admin: 10/08/18 12:02 Dose: 100 mls/hr Ertapenem 0.5 gm/ Sodium (Chloride) 50 mls @ 100 mls/hr IVPB DAILY [facility] Last Admin: 10/08/18 10:48 Dose: 100 mls/hr Sodium Chloride (Normal Saline -) 1,000 mls @ 42 mls/hr IV ASDIR [facility] Last Admin: 10/07/18 23:23 Dose: Not Given Fentanyl 500 mcg/ Dextrose 100 mls @ 10 mls/hr IVPB TITR [facility]; Protocol Last Admin: 10/07/18 23:12 Dose: 25 mcg/hr, 5 mls/hr Losartan Potassium (Cozaar -) 100 mg PO DAILY [facility] Last Admin: 10/08/18 10:47 Dose: Not Given Morphine Sulfate (Morphine Sulfate) 2 mg IVPUSH Q3H PRN PRN Reason: PAIN LEVEL 6-10 Ondansetron HCl (Zofran Injection) 4 mg IVPUSH Q6H PRN PRN Reason: NAUSEA AND/OR VOMITING Pantoprazole Sodium (Protonix Iv) 40 mg IVPUSH DAILY [facility] Last Admin: 10/08/18 10:00 Dose: 40 mg Promethazine HCl (Phenergan Injection -) 12.5 mg IVPUSH Q6H PRN PRN Reason: NAUSEA-FOR RESCUE AFTER 15 MIN - Objective Vital Signs: Vital Signs Temperature 98.1 F 10/08/18 09:12 Pulse Rate 71 10/08/18 12:04 Respiratory Rate 17 10/08/18 14:25 Blood Pressure 110/60 10/08/18 12:04 O2 Sat by Pulse Oximetry (%) 100 10/07/18 21:45 Constitutional: Yes: Calm Eyes: Yes: Conjunctiva Clear Cardiovascular: Yes: S1, S2 Respiratory: Yes: Mechanically Ventilated Gastrointestinal: Yes: Soft Genitourinary: Yes: Incontinence Musculoskeletal: Yes: Muscle Weakness Edema: No Neurological: Yes: Lethargy Labs: CBC, BMP 10/08/18 05:30 10/08/18 05:30 INR, PTT INR 1.31 (0.83-1.09) H 10/08/18 05:30 - ....Imaging Chest X-ray: Report Reviewed Assessment/Plan Current Medications Generic Name Dose Route Start Last Admin Trade Name Freq PRN Reason Stop Dose Admin Bisacodyl 10 mg 10/07/18 19:57 Dulcolax Suppository - RC DAILY PRN CONSTIPATION Carbidopa/Levodopa 2 each 10/02/18 18:00 10/07/18 23:23 Sinemet 25/100 - PO Not Given QID JOSE J Docusate Sodium 100 mg 10/07/18 22:00 10/08/18 07:09 Colace - PO Not Given TID JOSE J Nafcillin Sodium 2 gm/ 100 mls @ 100 mls/hr 10/03/18 15:30 10/08/18 12:02 Dextrose IVPB 100 mls/hr Q4H-IV JOSE J Administration Protocol Ertapenem 0.5 gm/ Sodium 50 mls @ 100 mls/hr 10/06/18 13:00 10/08/18 10:48 Chloride IVPB 100 mls/hr DAILY JOSE J Administration Sodium Chloride 1,000 mls @ 42 mls/hr 10/07/18 20:30 10/07/18 23:23 Normal Saline - IV Not Given ASDIR JOSE J Fentanyl 500 mcg/ Dextrose 100 mls @ 10 mls/hr 10/07/18 22:45 10/07/18 23:12 IVPB 25 mcg/hr TITR JOSE J 5 mls/hr Administration Protocol 50 MCG/HR Losartan Potassium 100 mg 10/03/18 19:15 10/08/18 10:47 Cozaar - PO Not Given DAILY JOSE J Morphine Sulfate 2 mg 10/07/18 20:33 Morphine Sulfate IVPUSH Q3H PRN PAIN LEVEL 6-10 Ondansetron HCl 4 mg 10/07/18 19:57 Zofran Injection IVPUSH Q6H PRN NAUSEA AND/OR VOMITING Pantoprazole Sodium 40 mg 10/04/18 10:00 10/08/18 10:00 Protonix Iv IVPUSH 40 mg DAILY JOSE J Administration Promethazine HCl 12.5 mg 10/07/18 20:23 Phenergan Injection - IVPUSH Q6H PRN NAUSEA-FOR RESCUE AFTER 15 MIN Microbiology 10/06/18 00:15 Blood - Peripheral Venous Blood Culture - Final Staphylococcus Aureus 10/05/18 17:15 Blood - Peripheral Venous Blood Culture - Final Staphylococcus Aureus 10/04/18 08:00 Blood - Peripheral Venous Blood Culture - Final Staphylococcus Latex Coag Pos 10/06/18 00:15 Blood - Peripheral Venous Blood Culture - Preliminary Staphylococcus Latex Coag Pos 10/05/18 17:20 Blood - Peripheral Venous Blood Culture - Preliminary Pending Organism Impression 1. ESRD 2. HTN 3. change in mental status 4. PNA 5. parkinsons 6. sepsis 7. clotted graft 8. fever 9. metastatic breast cancer 10. bacteremia Plan - s/p epidural drain - reviewed labs and volume status, will evaluate for HD tomorrow - shiley to be placed tomorrow for HD - cont to monitor and follow blood cultures - monitor hg, pt getting prbc transfusion - vent support
--- NOTE | 2018-10-08 16:15 | PN ---
Physical Exam: SUBJECTIVE: Patient seen and examined; intubated off sedation; not responding to sternal rub/ OBJECTIVE: Vital Signs Period Temp Pulse Resp BP Sys/Bentley Pulse Ox Last 24 Hr 97.5 F-101.0 F 57-82 12-24 81-163/41-77 100-100 GENERAL: The patient is intubated; off sedation LUNGS: clear anteriorly HEART: Regular rate and rhythm, S1, S2 without murmur, rub or gallop. ABDOMEN: Soft, nontender, nondistended, normoactive bowel sounds, no guarding, no rebound, no hepatosplenomegaly, no masses. EXTREMITIES: 2+ pulses, warm, well-perfused, no edema. moves b/l feet with tactlie senstation; NEUROLOGICAL: +babinski Laboratory Results - last 24 hr 10/07/18 10/07/18 10/07/18 18:30 21:15 21:15 WBC 19.7 H RBC 2.84 L Hgb 10.2 L Hct 29.2 L MCV 103.0 H MCH 35.9 H MCHC 34.8 RDW 16.5 H Plt Count 210 MPV 9.7 Absolute Neuts (auto) Neutrophils % Lymphocytes % Monocytes % Eosinophils % Basophils % Nucleated RBC % PT with INR INR Puncture Site ABG pH ABG pCO2 at Pt Temp ABG pO2 at Pt Temp ABG HCO3 ABG O2 Sat (Measured) ABG O2 Content ABG Base Excess Chuck Test Oxygen Flow Rate Vent Mode Vent Rate Mechanical Rate PEEP Pressure Support Vent Sodium 137 Potassium 4.7 Chloride 100 Carbon Dioxide 25 Anion Gap 12 BUN 69 H Creatinine 6.6 H Creat Clearance w eGFR 8.25 POC Glucometer Random Glucose 138 H Calcium 7.1 L Phosphorus Magnesium Total Bilirubin Direct Bilirubin AST ALT Alkaline Phosphatase Total Protein Albumin Blood Type A POSITIVE Antibody Screen Negative Crossmatch See Detail 10/08/18 10/08/18 10/08/18 05:30 05:30 05:30 WBC 18.4 H RBC 2.20 L Hgb 7.8 L Hct 22.7 L D MCV 103.3 H MCH 35.5 H MCHC 34.3 RDW 16.9 H Plt Count 171 MPV 9.9 Absolute Neuts (auto) 16.2 H Neutrophils % 88.0 H Lymphocytes % 6.1 L Monocytes % 4.6 Eosinophils % 1.0 D Basophils % 0.3 Nucleated RBC % 0 PT with INR INR Puncture Site ABG pH ABG pCO2 at Pt Temp ABG pO2 at Pt Temp ABG HCO3 ABG O2 Sat (Measured) ABG O2 Content ABG Base Excess Chuck Test Oxygen Flow Rate Vent Mode Vent Rate Mechanical Rate PEEP Pressure Support Vent Sodium 136 Potassium 4.6 Chloride 99 Carbon Dioxide 25 Anion Gap 12 BUN 74 H Creatinine 6.9 H Creat Clearance w eGFR 7.84 POC Glucometer Random Glucose 111 H Calcium 6.5 L* Phosphorus 8.4 H Magnesium 2.2 Total Bilirubin 6.8 H Direct Bilirubin 3.3 H AST 25 ALT < 6 L Alkaline Phosphatase 93 Total Protein 4.8 L Albumin 1.4 L Blood Type Antibody Screen Crossmatch 10/08/18 10/08/18 10/08/18 05:30 05:55 06:33 WBC RBC Hgb Hct MCV MCH MCHC RDW Plt Count MPV Absolute Neuts (auto) Neutrophils % Lymphocytes % Monocytes % Eosinophils % Basophils % Nucleated RBC % PT with INR 15.50 H INR 1.31 H Puncture Site Arterial line ABG pH 7.44 ABG pCO2 at Pt Temp 35.7 ABG pO2 at Pt Temp 350 H ABG HCO3 23.8 ABG O2 Sat (Measured) 99.2 H ABG O2 Content 11.4 L ABG Base Excess 0.3 Chuck Test Positive Oxygen Flow Rate 100% Vent Mode A/c Vent Rate 14 Mechanical Rate Yes PEEP 0.0 Pressure Support Vent 400 Sodium Potassium Chloride Carbon Dioxide Anion Gap BUN Creatinine Creat Clearance w eGFR POC Glucometer 92 Random Glucose Calcium Phosphorus Magnesium Total Bilirubin Direct Bilirubin AST ALT Alkaline Phosphatase Total Protein Albumin Blood Type Antibody Screen Crossmatch Active Medications Generic Name Dose Route Start Last Admin Trade Name Freq PRN Reason Stop Dose Admin Bisacodyl 10 mg 10/07/18 19:57 Dulcolax Suppository - RC DAILY PRN CONSTIPATION Carbidopa/Levodopa 2 each 10/02/18 18:00 10/07/18 23:23 Sinemet 25/100 - PO Not Given QID JOSE J Docusate Sodium 100 mg 10/07/18 22:00 10/08/18 07:09 Colace - PO Not Given TID JOSE J Nafcillin Sodium 2 gm/ 100 mls @ 100 mls/hr 10/03/18 15:30 10/08/18 12:02 Dextrose IVPB 100 mls/hr Q4H-IV JOSE J Administration Protocol Ertapenem 0.5 gm/ Sodium 50 mls @ 100 mls/hr 10/06/18 13:00 10/08/18 10:48 Chloride IVPB 100 mls/hr DAILY JOSE J Administration Sodium Chloride 1,000 mls @ 42 mls/hr 10/07/18 20:30 10/07/18 23:23 Normal Saline - IV Not Given ASDIR JOSE J Fentanyl 500 mcg/ Dextrose 100 mls @ 10 mls/hr 10/07/18 22:45 10/07/18 23:12 IVPB 25 mcg/hr TITR JOSE J 5 mls/hr Administration Protocol 50 MCG/HR Losartan Potassium 100 mg 10/03/18 19:15 10/08/18 10:47 Cozaar - PO Not Given DAILY JOSE J Morphine Sulfate 2 mg 10/07/18 20:33 Morphine Sulfate IVPUSH Q3H PRN PAIN LEVEL 6-10 Ondansetron HCl 4 mg 10/07/18 19:57 Zofran Injection IVPUSH Q6H PRN NAUSEA AND/OR VOMITING Pantoprazole Sodium 40 mg 10/04/18 10:00 10/08/18 10:00 Protonix Iv IVPUSH 40 mg DAILY JOSE J Administration Promethazine HCl 12.5 mg 10/07/18 20:23 Phenergan Injection - IVPUSH Q6H PRN NAUSEA-FOR RESCUE AFTER 15 MIN ASSESSMENT/PLAN: This is a 77 year old male with a history of breast CA s/p lumpectomy and radiation years ago, ESRD on HD who presented due 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 Persistently bacteremic. #bacteremia persistent; POD #1 drainage of epidural abscess -repeat blood cultures -staph; antibiotics IV naf/ertapenam #AV fistula malformation -duplex thrombus of AV fistula; complete obstruction -no audible thrill -vascular following #Hx of breast ca; -liver and lungs lesions suspicious for mets; will need tissue diagnosis #ESRD on HD -HD tomorrow -randall #macrocytic anemia:s/p 1 unit of PRBC -iron studies stores are low;replace; ferritin high; (most likely acute phase reactant ) -vit b 12 and folate normal -FISH; cytogenetics, flow cytometry; pending -monitor cbc; transfuse threshold <7 #thrombocytopenia: resolved #hx of breast CA: -need tissue diagnosis of lung/liver nodule'; -w/u mets -heme consult GIppl; protonix Visit type - Emergency Visit Emergency Visit: Yes ED Registration Date: 10/01/18 Care time: The patient presented to the Emergency Department on the above date and was hospitalized for further evaluation of their emergent condition. - New Patient This patient is new to me today: No - Critical Care Critical Care patient: Yes Total Critical Care Time (in minutes): 40 Critical Care Statement: The care of this patient involved high complexity decision making to prevent further life threatening deterioration of the patient 's condition and/or to evaluate & treat vital organ system(s) failure or risk of failure.
--- NOTE | 2018-10-08 16:55 | PN ---
Progress Note, Physician History of Present Illness: patient currently intubated and sedated patient was taken to the operating room and vertebral abscess was drained patient now in icu cx awaited - Current Medication List Current Medications: Active Medications Bisacodyl (Dulcolax Suppository -) 10 mg RC DAILY PRN PRN Reason: CONSTIPATION Carbidopa/Levodopa (Sinemet 25/100 -) 2 each PO QID [facility] Last Admin: 10/08/18 16:45 Dose: Not Given Docusate Sodium (Colace -) 100 mg PO TID [facility] Last Admin: 10/08/18 16:45 Dose: Not Given Nafcillin Sodium 2 gm/ (Dextrose) 100 mls @ 100 mls/hr IVPB Q4H-IV [facility]; Protocol Last Admin: 10/08/18 15:00 Dose: 100 mls/hr Ertapenem 0.5 gm/ Sodium (Chloride) 50 mls @ 100 mls/hr IVPB DAILY [facility] Last Admin: 10/08/18 10:48 Dose: 100 mls/hr Sodium Chloride (Normal Saline -) 1,000 mls @ 42 mls/hr IV ASDIR [facility] Last Admin: 10/07/18 23:23 Dose: Not Given Fentanyl 500 mcg/ Dextrose 100 mls @ 10 mls/hr IVPB TITR JOSE J; Protocol Last Admin: 10/07/18 23:12 Dose: 25 mcg/hr, 5 mls/hr Losartan Potassium (Cozaar -) 100 mg PO DAILY [facility] Last Admin: 10/08/18 10:47 Dose: Not Given Morphine Sulfate (Morphine Sulfate) 2 mg IVPUSH Q3H PRN PRN Reason: PAIN LEVEL 6-10 Ondansetron HCl (Zofran Injection) 4 mg IVPUSH Q6H PRN PRN Reason: NAUSEA AND/OR VOMITING Pantoprazole Sodium (Protonix Iv) 40 mg IVPUSH DAILY [facility] Last Admin: 10/08/18 10:00 Dose: 40 mg Promethazine HCl (Phenergan Injection -) 12.5 mg IVPUSH Q6H PRN PRN Reason: NAUSEA-FOR RESCUE AFTER 15 MIN - Objective Vital Signs: Vital Signs Temperature 98.1 F 10/08/18 09:12 Pulse Rate 72 10/08/18 16:00 Respiratory Rate 16 10/08/18 16:00 Blood Pressure 105/68 10/08/18 16:00 O2 Sat by Pulse Oximetry (%) 100 10/07/18 21:45 Constitutional: Yes: Other Cardiovascular: Yes: Regular Rate and Rhythm Respiratory: Yes: Intubated, Mechanically Ventilated Gastrointestinal: Yes: Normal Bowel Sounds, Soft Musculoskeletal: Yes: Other Extremities: Yes: Other Neurological: Yes: Other Labs: CBC, BMP 10/08/18 05:30 10/08/18 05:30 INR, PTT INR 1.31 (0.83-1.09) H 10/08/18 05:30 Assessment/Plan ESRD HTN change in mental status PNA parkinsons sepsis clotted graft fever metastatic breast cancer gm positive bacteremia leukocytosis epidural abscess plan continue following blood cx await for cx reports from the operating room continue abx monitor wbc rest continue as per icu cc 40 min
[2018-10-08] MEDS ORDERED: DEXTROSE 50%-WATER - 25 GM/50 ML VIAL IVPUSH ONE (17:45)
[2018-10-08] MEDS ORDERED: DEXTROSE 50%-WATER - 25 GM/50 ML VIAL ONE (17:45)
--- NOTE | 2018-10-08 17:57 | PN ---
Teaching Attending Note Name of Resident: Eduarda Ellison ATTENDING PHYSICIAN STATEMENT I saw and evaluated the patient. I reviewed the resident's note and discussed the case with the resident. I agree with the resident's findings and plan as documented with exceptions below. SUBJECTIVE: Patient seen and examined. off sedation, still unresponsive, on vent. Unable to do ROS. OBJECTIVE: Vital Signs Period Temp Pulse Resp BP Sys/Bentley Pulse Ox Last 24 Hr 97.4 F-101.0 F 57-82 12-24 81-163/41-77 100-100 Intake & Output 10/05/18 10/06/18 10/07/18 10/08/18 23:59 23:59 23:59 23:59 Intake Total 800 1125 1202 805 Output Total 40 25 Balance 800 1125 1162 780 General: intubated off sedation, unresponsive Chest: poor effort, no rales or wheezing appreciated but limited exam Abdomen: soft, ND, positive bowel sounds Extremities: no edema, withdraws to pain, moves in bed, some improvement in movement from yesterday, otherwise limited exam Home Medications Medication Instructions Recorded Amlodipine Besylate [Norvasc -] 10 mg PO ASDIR 09/05/18 Losartan Potassium 100 mg PO DAILY 09/05/18 Polyethylene Glycol 3350 [Miralax 17 gm PO DAILY bottle 09/09/18 119 gm Btl -] B Complex W-C No.20/Folic Acid 1 mg PO DAILY 10/01/18 [Nephrocaps Softgel] Carbidopa/Levodopa/Entacapone 1 each PO QID 10/01/18 [[id number] 200 mg] Heparin - 5,000 unit SQ BID 10/01/18 Active Medications Bisacodyl (Dulcolax Suppository -) 10 mg RC DAILY PRN PRN Reason: CONSTIPATION Carbidopa/Levodopa (Sinemet 25/100 -) 2 each PO QID JOSE J Last Admin: 10/08/18 16:45 Dose: Not Given Docusate Sodium (Colace -) 100 mg PO TID JOSE J Last Admin: 10/08/18 16:45 Dose: Not Given Nafcillin Sodium 2 gm/ (Dextrose) 100 mls @ 100 mls/hr IVPB Q4H-IV JOSE J; Protocol Last Admin: 10/08/18 15:00 Dose: 100 mls/hr Ertapenem 0.5 gm/ Sodium (Chloride) 50 mls @ 100 mls/hr IVPB DAILY [facility] Last Admin: 10/08/18 10:48 Dose: 100 mls/hr Sodium Chloride (Normal Saline -) 1,000 mls @ 42 mls/hr IV ASDIR [facility] Last Admin: 10/07/18 23:23 Dose: Not Given Fentanyl 500 mcg/ Dextrose 100 mls @ 10 mls/hr IVPB TITR [facility]; Protocol Last Admin: 10/07/18 23:12 Dose: 25 mcg/hr, 5 mls/hr Losartan Potassium (Cozaar -) 100 mg PO DAILY [facility] Last Admin: 10/08/18 10:47 Dose: Not Given Morphine Sulfate (Morphine Sulfate) 2 mg IVPUSH Q3H PRN PRN Reason: PAIN LEVEL 6-10 Ondansetron HCl (Zofran Injection) 4 mg IVPUSH Q6H PRN PRN Reason: NAUSEA AND/OR VOMITING Pantoprazole Sodium (Protonix Iv) 40 mg IVPUSH DAILY [facility] Last Admin: 10/08/18 10:00 Dose: 40 mg Promethazine HCl (Phenergan Injection -) 12.5 mg IVPUSH Q6H PRN PRN Reason: NAUSEA-FOR RESCUE AFTER 15 MIN Laboratory Results - last 24 hr 10/07/18 10/07/18 10/07/18 18:30 21:15 21:15 WBC 19.7 H RBC 2.84 L Hgb 10.2 L Hct 29.2 L MCV 103.0 H MCH 35.9 H MCHC 34.8 RDW 16.5 H Plt Count 210 MPV 9.7 Absolute Neuts (auto) Neutrophils % Lymphocytes % Monocytes % Eosinophils % Basophils % Nucleated RBC % PT with INR INR Puncture Site ABG pH ABG pCO2 at Pt Temp ABG pO2 at Pt Temp ABG HCO3 ABG O2 Sat (Measured) ABG O2 Content ABG Base Excess Chuck Test Oxygen Flow Rate Vent Mode Vent Rate Mechanical Rate PEEP Pressure Support Vent Sodium 137 Potassium 4.7 Chloride 100 Carbon Dioxide 25 Anion Gap 12 BUN 69 H Creatinine 6.6 H Creat Clearance w eGFR 8.25 POC Glucometer Random Glucose 138 H Calcium 7.1 L Phosphorus Magnesium Total Bilirubin Direct Bilirubin AST ALT Alkaline Phosphatase Total Protein Albumin Blood Type A POSITIVE Antibody Screen Negative Crossmatch See Detail 10/08/18 10/08/18 10/08/18 05:30 05:30 05:30 WBC 18.4 H RBC 2.20 L Hgb 7.8 L Hct 22.7 L D MCV 103.3 H MCH 35.5 H MCHC 34.3 RDW 16.9 H Plt Count 171 MPV 9.9 Absolute Neuts (auto) 16.2 H Neutrophils % 88.0 H Lymphocytes % 6.1 L Monocytes % 4.6 Eosinophils % 1.0 D Basophils % 0.3 Nucleated RBC % 0 PT with INR INR Puncture Site ABG pH ABG pCO2 at Pt Temp ABG pO2 at Pt Temp ABG HCO3 ABG O2 Sat (Measured) ABG O2 Content ABG Base Excess Chuck Test Oxygen Flow Rate Vent Mode Vent Rate Mechanical Rate PEEP Pressure Support Vent Sodium 136 Potassium 4.6 Chloride 99 Carbon Dioxide 25 Anion Gap 12 BUN 74 H Creatinine 6.9 H Creat Clearance w eGFR 7.84 POC Glucometer Random Glucose 111 H Calcium 6.5 L* Phosphorus 8.4 H Magnesium 2.2 Total Bilirubin 6.8 H Direct Bilirubin 3.3 H AST 25 ALT < 6 L Alkaline Phosphatase 93 Total Protein 4.8 L Albumin 1.4 L Blood Type Antibody Screen Crossmatch 10/08/18 10/08/18 10/08/18 05:30 05:55 06:33 WBC RBC Hgb Hct MCV MCH MCHC RDW Plt Count MPV Absolute Neuts (auto) Neutrophils % Lymphocytes % Monocytes % Eosinophils % Basophils % Nucleated RBC % PT with INR 15.50 H INR 1.31 H Puncture Site Arterial line ABG pH 7.44 ABG pCO2 at Pt Temp 35.7 ABG pO2 at Pt Temp 350 H ABG HCO3 23.8 ABG O2 Sat (Measured) 99.2 H ABG O2 Content 11.4 L ABG Base Excess 0.3 Chuck Test Positive Oxygen Flow Rate 100% Vent Mode A/c Vent Rate 14 Mechanical Rate Yes PEEP 0.0 Pressure Support Vent 400 Sodium Potassium Chloride Carbon Dioxide Anion Gap BUN Creatinine Creat Clearance w eGFR POC Glucometer 92 Random Glucose Calcium Phosphorus Magnesium Total Bilirubin Direct Bilirubin AST ALT Alkaline Phosphatase Total Protein Albumin Blood Type Antibody Screen Crossmatch 10/08/18 17:43 WBC RBC Hgb Hct MCV MCH MCHC RDW Plt Count MPV Absolute Neuts (auto) Neutrophils % Lymphocytes % Monocytes % Eosinophils % Basophils % Nucleated RBC % PT with INR INR Puncture Site ABG pH ABG pCO2 at Pt Temp ABG pO2 at Pt Temp ABG HCO3 ABG O2 Sat (Measured) ABG O2 Content ABG Base Excess Chuck Test Oxygen Flow Rate Vent Mode Vent Rate Mechanical Rate PEEP Pressure Support Vent Sodium Potassium Chloride Carbon Dioxide Anion Gap BUN Creatinine Creat Clearance w eGFR POC Glucometer 64 Random Glucose Calcium Phosphorus Magnesium Total Bilirubin Direct Bilirubin AST ALT Alkaline Phosphatase Total Protein Albumin Blood Type Antibody Screen Crossmatch ASSESSMENT AND PLAN: 77 yom with PMHx of ESRD on HD, parkinson's disease, dysphagia admitted with non functioning AV fistula, hyperkalemia. -MSSA bacteremia, -Epidural abscess s/p emergent drainage/hardware removal 10/07 -thrombosed AV graft -Acute blood loss anemia (suspect intra-operative blood loss) -ESRD with non functioning AV fistula -Hyperkalemia, from above -AMS, suspect toxic metabolic encephalopathy from above/infection -Hyperbilirubinemia, combined, ?nafcillin vs sepsis related, r/o obstructive process -Thrombocytopenia, suspect from sepsis, resolved -Breast ca s/p lumpectomy/radiation -Suspected lung/liver metastatic disease -HTN -Parkinson's disease -Dysphagia Plan: Persistent bacteremia MRI spine with epidural abscess. s/p emergent drainage 10/07. Neurosurgery input noted. Follow up wound cx. Transfuse 2 units PRBC. Nafcillin/Ertapenem per ID. Weaning trial. Repeat blood cx in AM. Arterial duplex with recannulated AV fistula, however a mass adjacent, ? hematoma vs thrombosed pseudoaneurysm, ?infection. Discuss with Dr. Kvein Hickey. However, unlikely a candidate for any intervention currently. If persistently bacteremic, will need to address JACOB and fistula based on clinical progression. Discussed with Dr. Manriquez, repeat Shiley and HD tomorrow. Bilirubin rising, Abdominal US. Discuss with ID if need to change Nafcillin. GI input. CT Chest/A/p, 2D echo results reviewed. Concerns for lung mets, heme/onc input noted. Will need tissue biopsy once active infection concerns resolved. Will likely need NG tube and feeds if mental status fails to improve. Sinemet/anti-HTN with apple sauce as tolerated DNR/DNI per NH rescords. rescinded for OR. Overall prognosis poor. Palliative care consult. DVTPPX heparin Total critical are time spent 36 min.
[2018-10-08 19:13] LABS: FREE KAPPA,SERUM 123.8 mg/L (3.3-19.4)
[2018-10-08] MEDS: SODIUM CHLORIDE 1,000 ML IV SCH (21:25)
[2018-10-08] MEDS: FENTANYL INJECTION 500 MCG in DEXTROSE 5%-WATER - 90 ML IVPB SCH (23:54)
[2018-10-09] MEDS: NAFCILLIN - 2 GM in DEXTROSE 5%-WATER - 100 ML IVPB SCH ×6 (01:33→23:00)
[2018-10-09] MEDS ORDERED: PT OWN MED DRAWER 7, Y5N ONE ×4 (06:02→23:05)
[2018-10-09] MEDS: DOCUSATE SODIUM 100 MG CAPSULE (FP) PO SCH ×3 (06:14→21:42)
[2018-10-09 06:25] LABS: BASO % 0.6 % (0-2.0); EOS % 1.3 % (0-4.5); HEMATOCRIT 30.5 % (35.4-49); HEMOGLOBIN 10.8 GM/dL (11.7-16.9); LYMPH % 6.4 % (8-40); MCH 34.5 pg (25.7-33.7); MCHC 35.6 g/dl (32.0-35.9); MEAN CELL VOLUME 96.8 fl (80-96); MEAN PLT VOLUME 9.7 fl (7.5-11.1); MONO % 4.1 % (3.8-10.2); NEUT % 87.6 % (42.8-82.8); PLATELET COUNT 164 K/MM3 (134-434); RBC 3.15 M/mm3 (4.00-5.60); RDW 19.3 % (11.9-15.9); WHITE BLOOD COUNT 18.8 K/mm3 (4.0-10.0)
[2018-10-09] MEDS ORDERED: DEXTROSE 50%-WATER - 25 GM/50 ML VIAL IVPUSH ONE (06:35)
[2018-10-09 07:00] LABS: ALBUMIN 1.5 g/dl (3.4-5.0); ALK PHOS 96 U/L (45-117); ANION GAP 13 MMOL/L (8-16); BILIRUBIN,TOTAL 7.8 mg/dL (0.2-1); BLOOD UREA NITROGEN 85 mg/dL (7-18); CHLORIDE 100 mmol/L (98-107); CO2 23 mmol/L (21-32); GLUCOSE,RANDOM 85 mg/dL (74-106); MAGNESIUM 2.3 mg/dL (1.8-2.4); POTASSIUM 4.7 mmol/L (3.5-5.1); SGOT/AST 33 U/L (15-37); SGPT/ALT < 6 U/L (13-61); SODIUM 135 mmol/L (136-145); TOT PROT 5.5 g/dl (6.4-8.2)
[2018-10-09 07:05] LABS: CREATININE 7.7 mg/dL (0.55-1.3)
[2018-10-09 07:06] LABS: CALCIUM 6.3 mg/dL (8.5-10.1)
[2018-10-09 07:07] LABS: PHOSPHOROUS > 9.0 mg/dL (2.5-4.9)
[2018-10-09] MEDS ORDERED: CALCIUM CHLORIDE 10% 1 GM/10 ML *VIAL IVPB ONE (07:35)
[2018-10-09] MEDS ORDERED: SEVELAMER CARBONATE 2.4 GM POWDER PACKET NGT ONE (07:37)
[2018-10-09] MEDS: DEXTROSE 5%-NORMAL SALINE 1,000 ML IV SCH (07:41)
--- NOTE | 2018-10-09 07:41 | PN ---
Physical Exam: SUBJECTIVE: Patient seen and examined. Off sedation since 6am yesterday. Pt noted to be hypoglycemic this am received 50%dextrose. NS now changed to D5NS. Pt maintained mAP overnight, received 2PRBCs yesterday. OBJECTIVE: Vital Signs Period Temp Pulse Resp BP Sys/Bentley Pulse Ox Last 24 Hr 97.4 F-98.7 F 57-84 14-24 81-139/41-72 100-100 Vital Signs Temp 98.2 F 10/09/18 06:00 Pulse 68 10/09/18 06:00 Resp 15 10/09/18 06:24 BP 104/51 L 10/09/18 06:00 Pulse Ox 100 10/08/18 21:00 Intake & Output 10/08/18 10/08/18 10/09/18 11:59 23:59 11:59 Intake Total 805 1220 394 Output Total 25 25 35 Balance 780 1195 359 Intake: IV 505 920 294 Normal Saline - 1,000 ml 420 420 294 @ 42 mls/hr IV ASDIR JOSE J Rx#:[id number] Sublimaze Injection - 500 85 Mcg In D5w - 90 ml @ 50 MCG/HR 10 mls/hr IVPB TITR JOSE J Rx#:[id number] saline lock # 2 500 IVPB 300 300 100 Output: Drainage 25 25 35 Lower Back 25 25 35 Urine 0 Void 0 Other: Voiding Method Incontinent Incontinent Bowel Movement No Yes No GENERAL: The patient is off sedation, obeying commands HEAD: Normal with no signs of trauma. EYES: Spontaneous eye opening ENT: ET tube- Settings RR-11, TV-=400 FiO2-40, PEEP- 5 NECK: supple. LUNGS: L breast with mara-areolar mass, Breath sounds equal, clear to auscultation bilaterally HEART: Regular rate and rhythm, S1, S2 ABDOMEN: Soft, nontender, nondistended, normoactive bowel sounds EXTREMITIES: 2+ pulses, warm, well-perfused, no edema. NEUROLOGICAL: Cranial nerves II through XII grossly intact. Obeys commands, moves all extremities CBC, BMP 10/09/18 05:30 10/09/18 05:30 Laboratory Results - last 24 hr 10/05/18 10/07/18 10/08/18 07:10 18:30 17:43 WBC RBC Hgb Hct MCV MCH MCHC RDW Plt Count MPV Absolute Neuts (auto) Neutrophils % Lymphocytes % Monocytes % Eosinophils % Basophils % Nucleated RBC % Sodium Potassium Chloride Carbon Dioxide Anion Gap BUN Creatinine Creat Clearance w eGFR POC Glucometer 64 Random Glucose Calcium Phosphorus Magnesium Total Bilirubin AST ALT Alkaline Phosphatase Total Protein Albumin Free [place] LC, Quant 123.8 H Free Lambda LC, Quant 129.7 H Free [place]/Lambda Ratio 0.95 Blood Type A POSITIVE Antibody Screen Negative Crossmatch See Detail 10/08/18 10/08/18 10/09/18 18:09 21:15 05:30 WBC 18.8 H RBC 3.15 L Hgb 10.8 L Hct 30.5 L D MCV 96.8 H D MCH 34.5 H MCHC 35.6 RDW 19.3 H Plt Count 164 MPV 9.7 Absolute Neuts (auto) 16.5 H Neutrophils % 87.6 H Lymphocytes % 6.4 L Monocytes % 4.1 Eosinophils % 1.3 Basophils % 0.6 Nucleated RBC % 0 Sodium Potassium Chloride Carbon Dioxide Anion Gap BUN Creatinine Creat Clearance w eGFR POC Glucometer 102 99 Random Glucose Calcium Phosphorus Magnesium Total Bilirubin AST ALT Alkaline Phosphatase Total Protein Albumin Free [place] LC, Quant Free Lambda LC, Quant Free [place]/Lambda Ratio Blood Type Antibody Screen Crossmatch 10/09/18 10/09/18 10/09/18 05:30 06:32 07:25 WBC RBC Hgb Hct MCV MCH MCHC RDW Plt Count MPV Absolute Neuts (auto) Neutrophils % Lymphocytes % Monocytes % Eosinophils % Basophils % Nucleated RBC % Sodium 135 L Potassium 4.7 Chloride 100 Carbon Dioxide 23 Anion Gap 13 BUN 85 H Creatinine 7.7 H* Creat Clearance w eGFR 6.91 POC Glucometer 57 129 Random Glucose 85 Calcium 6.3 L* Phosphorus > 9.0 H* Magnesium 2.3 Total Bilirubin 7.8 H AST 33 ALT < 6 L Alkaline Phosphatase 96 Total Protein 5.5 L Albumin 1.5 L Free [place] LC, Quant Free Lambda LC, Quant Free [place]/Lambda Ratio Blood Type Antibody Screen Crossmatch Active Medications Generic Name Dose Route Start Last Admin Trade Name Freq PRN Reason Stop Dose Admin Bisacodyl 10 mg 10/07/18 19:57 Dulcolax Suppository - RC DAILY PRN CONSTIPATION Calcium Chloride 1 gm 10/09/18 07:35 Calcium Chloride 10% - IVPB 10/09/18 07:36 ONCE ONE Carbidopa/Levodopa 2 each 10/02/18 18:00 10/08/18 21:25 Sinemet 25/100 - PO Not Given QID JOSE J Docusate Sodium 100 mg 10/07/18 22:00 10/09/18 06:14 Colace - PO Not Given TID JOSE J Nafcillin Sodium 2 gm/ 100 mls @ 100 mls/hr 10/03/18 15:30 10/09/18 06:40 Dextrose IVPB 100 mls/hr Q4H-IV JOSE J Administration Protocol Ertapenem 0.5 gm/ Sodium 50 mls @ 100 mls/hr 10/06/18 13:00 10/08/18 10:48 Chloride IVPB 100 mls/hr DAILY JOSE J Administration Fentanyl 500 mcg/ Dextrose 100 mls @ 10 mls/hr 10/07/18 22:45 10/08/18 23:54 IVPB Not Given TITR JOSE J Protocol 50 MCG/HR Dextrose/Sodium Chloride 1,000 mls @ 42 mls/hr 10/09/18 07:45 D5-Ns - IV ASDIR JOSE J Losartan Potassium 100 mg 10/03/18 19:15 10/08/18 10:47 Cozaar - PO Not Given DAILY JOSE J Morphine Sulfate 2 mg 10/07/18 20:33 Morphine Sulfate IVPUSH Q3H PRN PAIN LEVEL 6-10 Ondansetron HCl 4 mg 10/07/18 19:57 Zofran Injection IVPUSH Q6H PRN NAUSEA AND/OR VOMITING Pantoprazole Sodium 40 mg 10/04/18 10:00 10/08/18 10:00 Protonix Iv IVPUSH 40 mg DAILY JOSE J Administration Promethazine HCl 12.5 mg 10/07/18 20:23 Phenergan Injection - IVPUSH Q6H PRN NAUSEA-FOR RESCUE AFTER 15 MIN Sevelamer Carbonate 2.4 gm 10/09/18 07:37 Renvela Powder Packet - NGT 10/09/18 07:38 ONCE ONE IMAGING: MRI cervical spine: No evidence of disc herniation, central spinal canal stenosis. Signal intensity of the spinal cord. T2 vertebral body. Approximately 4mm, T1 signal void lesion, increased increased signal intensity on the T2, STIR images is seen. Approximately 5.9 mm lesion of similar signal intensity is seen in the T9 vertebral body. In view of masslike opacity in the right upper lobe, the findings are concerning pathological lesions. MRI lumbar spine: L2-L3. Right foraminal disc extrusion with 15 mm cephalad extension of the disc material in the right lateral lateral recess of L2 vertebral body. 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 The thecal sac is compressed. Stenosis of the right neural foramen with almost complete effacement of the right perirenal fat. Clinically correlate with radiculopathy in distribution of the right L2 nerve. Facet joint arthropathy with thickening omentum flavum. L3-L4. Moderate facet joint arthropathy. Left facet joint effusion. Left posterior para facetal soft tissue edema/possibly fluid collections. Findings concerning for acute left facet joint synovitis with paraspinal inflammatory changes. Central spinal canal stenosis. Thickened ligamentum flavum left greater than the right. No compression of L3 nerves traversing through the neural foramina. Prominent left lateral marginal osteophytes. Increased signal intensity is seen in the right posterior para facetal soft tissues. L4-L5. Limited evaluation of the intraspinal contents, or neural foramina due to the magnetic susceptibility artifact from metallic hardware. Chest CT: Multiple lung nodules, metastatic disease not excluded. Atelectasis/ infiltration at both bases with trace effusions. Renal cyst and nephrolithiasis as discussed above. There is no evidence of hydronephrosis. The kidneys appear atrophic unchanged. Enlarged prostate gland. Thickening of the gastric wall, underlying gastritis not excluded. Correlate clinically and with endoscopy as clinically warranted. No bowel obstruction seen. Abdomen/Pelvis CT: Bilateral renal atrophy. Moderate to marked diffuse pancreatic atrophy. Mild/mild to moderate concentric subcutaneous soft tissue stranding suggestive of edema along the abdomen and pelvis. Mild right posterior basilar opacity is seen probably representing atelectasis, less likely a small infiltrate. Prostate enlargement. ASSESSMENT/PLAN: Patient is a 77 yo M with PMHx of ESRD MWF, parkinson's disease, dysphagia admitted with non functioning AV fistula, hyperkalemia was found to have MSSA bacteremia with thrombosed AV fistula and an epidural abscess, now s/p epidural abscess drainage NEURO Off sedation, intubated Mental status improving, obeying commands Will attempt extubation today Hx of Parkinsons Carbidopa/levodopa- on hold while intubated, no OGT currently ID # MSSA BACTEREMIA LIKELY SECONDARY TO EPIDURAL ABSCESS S/P DEBRIDEMENT---- POD 2 s/p Partial L L3 and L4 laminetomies, drainage/debridement of epidural abscess, removal of prior L4-5 instrumentation B; microdissection; dain 1cc; R L3-4 posterolateral bone fusion EBL 25 cc DC drain 10/09/18 if output is <50 per neurosurgery Intubated A/C settings @ 11/400/400/5 IV Nafcillin and Ertapenam IV NS @ 42 cc/hr IV Morphine 2mg Q3H PRN IV Zofran PRN Bcx- drawn 10/09/18- pending Per ID requesting daily bcx #EPIDURAL ABSCESS Nafcillin day 7 Ertapenem day 4 ID on board PULMONARY Pt tolerating CPAP CXR- 10/09/18- no new changes (my read) CXR 10/08/18: new atelectasis or infiltrate at left base. Intubated , extubation trial today CARDIAC #HYPOTENSION- improved s/p 500ml bolus NS, and 2PRBC -MAP maintained above 65 overnight -Dialysis held yesterday due to hypotension -Defer JACOB for now per cardio RENAL MWF- last dialysis Sunday # ESRD WITH RUE THROMBOSED AV FISTULA -Primary team in touch with vascular -Temporary catheter for dialysis today High risk for seeing the graft so not a candidate for clot removal/ declotting. Last Shiley removed 10/05 in setting of bacteremia Duplex RUE 10/07/18: since prior study 10/03/18, a thrombosed AV dialysis fistula has been recanalized flow is noted throughout the feeding artery, fistula and draining vein. 3.2 cm mass adjacent to the fistula. this could represent a hematoma or possibly a thrombosed pseudoaneurysm. this mass was noted on the prior study, but appears to be increased in size. HEM/ONC # MACROCYTIC ANEMIA Post op anemia, H/H 10.2/29.2 MCV 103 >> 7.8/22.7 MCV 103 Now s/p 2PRBCs- H/h-10.8/30.5 2U PRBC 10/08/18 Drainage 35 this am # HX OF BREAST CA L breast with areolar masses CT shows CHARLES cavitary lung lesion Heme/onc consulted. Once stable, recommended for a tissue biopsy FEN IV D5NS @ 42 ml/hr Hypocalcemia- corrected- 8.3 NPO PROPHYLAXIS For DVT: SCDs, no chemical prophylaxis For GI: On IV Protonix 40mg daily #CODE STATUS: DNR/DNI pre surgery. Full code for surgery. D/W Daughter Alba who gave consent for central line, and agrees that DNI will be reversed Pt without HCP- Son Shon was not reached this am (daughter said he usually gives consent) DISPO: ICU For likely extubation today Dialysis today- Consent for central line got over phone from daughter Visit type - Emergency Visit Emergency Visit: Yes ED Registration Date: 10/01/18 Care time: The patient presented to the Emergency Department on the above date and was hospitalized for further evaluation of their emergent condition. - New Patient This patient is new to me today: No - Critical Care Critical Care patient: Yes Total Critical Care Time (in minutes): 40 Critical Care Statement: The care of this patient involved high complexity decision making to prevent further life threatening deterioration of the patient 's condition and/or to evaluate & treat vital organ system(s) failure or risk of failure. - Discharge Referral Referred to [facility] Med [facility].: No
--- NOTE | 2018-10-09 09:04 | PN ---
Progress Note (short form) - Note Progress Note: NEUROSURGERY POD #2 S/p drainage of epidural abscess and removal of old implant Intubated PE: Tmax 101, now 98.2, BP stable Drain output 50/35 cc Still sedated somewhat Following simple commands HEENT- NC/AT; Neck- supple; Cor- RR; Lungs- CTA, decreased at bases; Abd- benign ; Ext- no sign of DVT, R UE AVF CN- grossly nonfocal; Motor- starting to move B LE at least 3/5 WBC 18.8, Hgb 10.8 L3-4 epidural abscess with LE deficits, gram stain (staph aureus), final ID and sensitivity pending Cont iv abx ID f/u Findings d/w and outpatient PMD yesterday Care dw/ ICU team Wean vent HD today after access placement DNR D/C drain
[2018-10-09] MEDS ORDERED: EPOETIN ALFA 10,000 UNIT/1 ML VIAL IVPUSH ONE (09:10)
[2018-10-09] MEDS: PANTOPRAZOLE SODIUM 40 MG VIAL IVPUSH SCH (09:30)
[2018-10-09] MEDS: ERTAPENEM SODIUM 0.5 GM in SODIUM CHLORIDE 50 ML IVPB SCH (10:29)
--- NOTE | 2018-10-09 10:53 | CON.GI ---
Consult Consult Specialty:: Gastroenterology Reason for Consultation:: Elevated bilirubin - History of Present Illness History of Present Illness: 77yo male h/o ESRD (on HD MWF), HTN, Breast CA with possible recurrence, Parkinsons disease presents from [facility] for malfunctioning AV fistula and elevated potassium levels with fevers and altered mental status s/p intubation found to have MSSA bacteremia and epidural abscess s/p drainage, laminectomy and debridement on 10/07/18 asked to evaluate for elevated bilirubin. Pt remains intubated in ICU, not able to obtain history, though responsive to verbal stimuli. Pending line placement for HD today and possible extubation per MICU team. Denies abdominal pain. US yesterday revealing distended GB with wall thickening and sludge wtih CBD dilation to 8mm, no stones seen. CT on 10/03/18 without obvious GB or biliary abnormalities. - Past Medical History Cardio/Vascular: Yes: HTN Renal/: Yes: Renal Failure, Hemodialysis - Alcohol/Substance Use Hx Alcohol Use: No - Smoking History Smoking history: Unknown if ever smoked Have you smoked in the past 12 months: No Home Medications - Allergies Allergies/Adverse Reactions: Allergies Allergy/AdvReac Type Severity Reaction Status Date / Time No Known Allergies Allergy Verified 09/05/18 16:44 - Home Medications Home Medications: Ambulatory Orders Amlodipine Besylate [Norvasc -] 10 mg PO ASDIR 09/05/18 Losartan Potassium 100 mg PO DAILY 09/05/18 Polyethylene Glycol 3350 [Miralax 119 gm Btl -] 17 gm PO DAILY bottle 09/09/18 B Complex W-C No.20/Folic Acid [Nephrocaps Softgel] 1 mg PO DAILY 10/01/18 Carbidopa/Levodopa/Entacapone [Zjoytzbup-Vurapovk-Wojk 200 mg] 1 each PO QID 07/10 Heparin - 5,000 unit SQ BID 10/01/18 Review of Systems Unable to obtain ROS, reason: pt intubated Physical Exam-GI Vital Signs: Vital Signs Temperature 98.2 F 10/09/18 06:00 Pulse Rate 67 10/09/18 08:34 Respiratory Rate 11 10/09/18 08:34 Blood Pressure 104/51 L 10/09/18 06:00 O2 Sat by Pulse Oximetry (%) 97 10/09/18 08:34 Constitutional: Yes: No Distress, Calm Cardiovascular: Yes: WNL, Regular Rate and Rhythm Respiratory: Yes: WNL, Regular, CTA Bilaterally Gastrointestinal Inspection: Yes: WNL ...Auscultate: Yes: Normoactive Bowel Sounds ...Palpate: Yes: Soft (Abd soft, nondistended, no tenderness elicited on palpation) Labs: CBC, BMP 10/09/18 05:30 10/09/18 05:30 INR, PTT INR 1.31 (0.83-1.09) H 10/08/18 05:30 Imaging - Results Cat Scan: Report Reviewed, Image Reviewed Ultrasound: Report Reviewed, Image Reviewed Problem List - Problems (1) Hyperbilirubinemia Assessment/Plan: 77yo male h/o ESRD (on HD MWF), HTN, Breast CA with possible recurrence, Parkinsons disease presents from [facility] with malfunctioning AV fistula and elevated potassium levels with fevers and altered mental status s /p intubation found to have MSSA bacteremia and epidural abscess s/p drainage, laminectomy and debridement on 10/07/18 asked to evaluate for elevated bilirubin. Initial normal bili with alk phos elevation now normalized with isolated hyperbilirubinemia with mixed direct/indirect component. Transaminases normal. US revealing GB distension, possible thickening with mild CBD dilation though no stones seen. Etiology likely multifactorial in setting of sepsis (staph bacteremia, epidural abscess), possible congestive hepatopathy, and drug induced liver injury ( possibly in setting of nafcillin coinciding with rise in bili), low suspicion for cholecystitis or obstructive process and with benign abdominal exam. -Recommend continue to closely monitor wcc and LFT trend -Obtain MRCP if feasible when clinically stable and no C/I -Follow up repeat blood cultures -While likely multifactorial, if continued bili uptrend would d/w ID regarding alternative antibiotic regimen -Avoid other nonessential hepatotoxic medications -Though normal transaminases at this time, would check hepatitis serologies for completion Discussed with ICU team. Case also d/w Dr. Steinberg Code(s): E80.6 - OTHER DISORDERS OF BILIRUBIN METABOLISM
[2018-10-09] MEDS ORDERED: PROPOFOL 200 MG/20 ML VIAL IVPUSH ONE ×2 (11:30→11:50)
[2018-10-09] MEDS ORDERED: PROPOFOL 20 ML ONE (11:46)
[2018-10-09] MEDS ORDERED: SODIUM CHLORIDE 250 ML IV PRN (11:49)
[2018-10-09] MEDS: ALBUMIN HUMAN 25% 12.5 GM/50 ML VIAL IVPB SCH ×4 (12:00→13:30)
--- NOTE | 2018-10-09 12:08 | PN ---
Teaching Attending Note Name of Resident: Araseli Hastings ATTENDING PHYSICIAN STATEMENT I saw and evaluated the patient. I reviewed the resident's note and discussed the case with the resident. I agree with the resident's findings and plan as documented. SUBJECTIVE: Pt seen and examined in the ICU. Remains intubated, arousable off sedation. No further fevers. Epidural drain removed this AM by neurosurgery. OBJECTIVE: Vital Signs Period Temp Pulse Resp BP Sys/Bentley Pulse Ox Last 24 Hr 97.4 F-98.7 F 66-84 11-24 91-139/51-72 97-100 Intake & Output 10/06/18 10/07/18 10/08/18 10/09/18 23:59 23:59 23:59 23:59 Intake Total 1125 1202 2725 394 Output Total 40 50 35 Balance 1125 1162 2675 359 Gen: intubated, arousable Heart: RRR Lung: decreased breath sounds at the bases Abd: soft, nontender Ext: no edema CBC, BMP 10/09/18 05:30 10/09/18 05:30 Active Medications Albumin Human (Albumin Human 25%) 12.5 gm IVPB Q30M [facility] [place] Stop: 10/09/18 13:31 Bisacodyl (Dulcolax Suppository -) 10 mg RC DAILY PRN PRN Reason: CONSTIPATION Carbidopa/Levodopa (Sinemet 25/100 -) 2 each PO QID [facility] [place] Last Admin: 10/08/18 21:25 Dose: Not Given Docusate Sodium (Colace -) 100 mg PO TID [facility] [place] Last Admin: 10/09/18 06:14 Dose: Not Given Nafcillin Sodium 2 gm/ (Dextrose) 100 mls @ 100 mls/hr IVPB Q4H-IV [facility] [place]; Protocol Last Admin: 10/09/18 09:26 Dose: 100 mls/hr Ertapenem 0.5 gm/ Sodium (Chloride) 50 mls @ 100 mls/hr IVPB DAILY [facility] [place] Last Admin: 10/09/18 10:29 Dose: 100 mls/hr Fentanyl 500 mcg/ Dextrose 100 mls @ 10 mls/hr IVPB TITR JOSE J; Protocol Last Admin: 10/08/18 23:54 Dose: Not Given Dextrose/Sodium Chloride (D5-Ns -) 1,000 mls @ 42 mls/hr IV ASDIR [facility] [place] Last Admin: 10/09/18 07:41 Dose: 42 mls/hr Sodium Chloride (Normal Saline -) 250 mls @ 3,000 mls/hr IV PRN PRN PRN Reason: Hypotension during Dialysis Stop: 10/10/18 11:48 Losartan Potassium (Cozaar -) 100 mg PO DAILY [facility] Last Admin: 10/08/18 10:47 Dose: Not Given Morphine Sulfate (Morphine Sulfate) 2 mg IVPUSH Q3H PRN PRN Reason: PAIN LEVEL 6-10 Ondansetron HCl (Zofran Injection) 4 mg IVPUSH Q6H PRN PRN Reason: NAUSEA AND/OR VOMITING Pantoprazole Sodium (Protonix Iv) 40 mg IVPUSH DAILY [facility] [place] Last Admin: 10/09/18 09:30 Dose: 40 mg Promethazine HCl (Phenergan Injection -) 12.5 mg IVPUSH Q6H PRN PRN Reason: NAUSEA-FOR RESCUE AFTER 15 MIN Propofol (Diprivan -) 5 mcg IVPUSH ONCE ONE Stop: 10/09/18 11:51 ASSESSMENT AND PLAN: Persistent MSSA Bacteremia Epidural Abscess s/p Drainage Sepsis Acute Respiratory Failure ESRD on HD Parkinsons Disease h/o Breast Ca with suspected recurrence Anemia HTN - continue antibiotics - f/u OR cultures - monitor H/H - transfuse as needed - HD per renal, will place HD catheter today - hold all sedation to assess mental status - spontaneous breathing trials as tolerated when mental status improved - hope to extubate today - DVT prophylaxis - ICU monitoring critical care time spent in reviewing chart, evaluating patient and formulating plan 35 min
[2018-10-09 12:15] LABS: BILIRUBIN,DIRECT 3.5 mg/dL (0.0-0.2)
--- NOTE | 2018-10-09 12:43 | PN ---
Progress Note, Physician History of Present Illness: Pt seen and examined at bedside. He remains in the ICU. He remains intubated. - Current Medication List Current Medications: Active Medications Albumin Human (Albumin Human 25%) 12.5 gm IVPB Q30M [facility] Stop: 10/09/18 13:31 Bisacodyl (Dulcolax Suppository -) 10 mg RC DAILY PRN PRN Reason: CONSTIPATION Carbidopa/Levodopa (Sinemet 25/100 -) 2 each PO QID [facility] Last Admin: 10/08/18 21:25 Dose: Not Given Docusate Sodium (Colace -) 100 mg PO TID [facility] Last Admin: 10/09/18 06:14 Dose: Not Given Nafcillin Sodium 2 gm/ (Dextrose) 100 mls @ 100 mls/hr IVPB Q4H-IV [facility]; Protocol Last Admin: 10/09/18 09:26 Dose: 100 mls/hr Ertapenem 0.5 gm/ Sodium (Chloride) 50 mls @ 100 mls/hr IVPB DAILY [facility] Last Admin: 10/09/18 10:29 Dose: 100 mls/hr Fentanyl 500 mcg/ Dextrose 100 mls @ 10 mls/hr IVPB TITR JOSE J; Protocol Last Admin: 10/08/18 23:54 Dose: Not Given Dextrose/Sodium Chloride (D5-Ns -) 1,000 mls @ 42 mls/hr IV ASDIR [facility] Last Admin: 10/09/18 07:41 Dose: 42 mls/hr Sodium Chloride (Normal Saline -) 250 mls @ 3,000 mls/hr IV PRN PRN PRN Reason: Hypotension during Dialysis Stop: 10/10/18 11:48 Losartan Potassium (Cozaar -) 100 mg PO DAILY [facility] Last Admin: 10/08/18 10:47 Dose: Not Given Morphine Sulfate (Morphine Sulfate) 2 mg IVPUSH Q3H PRN PRN Reason: PAIN LEVEL 6-10 Ondansetron HCl (Zofran Injection) 4 mg IVPUSH Q6H PRN PRN Reason: NAUSEA AND/OR VOMITING Pantoprazole Sodium (Protonix Iv) 40 mg IVPUSH DAILY [facility] Last Admin: 10/09/18 09:30 Dose: 40 mg Promethazine HCl (Phenergan Injection -) 12.5 mg IVPUSH Q6H PRN PRN Reason: NAUSEA-FOR RESCUE AFTER 15 MIN Propofol (Diprivan -) 5 mcg IVPUSH ONCE ONE Stop: 10/09/18 11:51 - Objective Vital Signs: Vital Signs Temperature 98.4 F 10/09/18 10:00 Pulse Rate 70 10/09/18 10:00 Respiratory Rate 24 H 10/09/18 10:59 Blood Pressure 91/58 L 10/09/18 10:00 O2 Sat by Pulse Oximetry (%) 97 10/09/18 08:34 Constitutional: Yes: Calm Eyes: Yes: Conjunctiva Clear Cardiovascular: Yes: S1, S2 Respiratory: Yes: Mechanically Ventilated Gastrointestinal: Yes: Soft Genitourinary: Yes: Incontinence Musculoskeletal: Yes: Muscle Weakness Edema: Yes Edema: LLE: Trace, RLE: Trace Neurological: Yes: Lethargy Labs: CBC, BMP 10/09/18 05:30 10/09/18 05:30 INR, PTT INR 1.31 (0.83-1.09) H 10/08/18 05:30 - ....Imaging Chest X-ray: Report Reviewed Assessment/Plan Current Medications Generic Name Dose Route Start Last Admin Trade Name Freq PRN Reason Stop Dose Admin Albumin Human 12.5 gm 10/09/18 12:00 Albumin Human 25% IVPB 10/09/18 13:31 Q30M JOSE J Bisacodyl 10 mg 10/07/18 19:57 Dulcolax Suppository - RC DAILY PRN CONSTIPATION Carbidopa/Levodopa 2 each 10/02/18 18:00 10/08/18 21:25 Sinemet 25/100 - PO Not Given QID JOSE J Docusate Sodium 100 mg 10/07/18 22:00 10/09/18 06:14 Colace - PO Not Given TID JOSE J Nafcillin Sodium 2 gm/ 100 mls @ 100 mls/hr 10/03/18 15:30 10/09/18 09:26 Dextrose IVPB 100 mls/hr Q4H-IV JOSE J Administration Protocol Ertapenem 0.5 gm/ Sodium 50 mls @ 100 mls/hr 10/06/18 13:00 10/09/18 10:29 Chloride IVPB 100 mls/hr DAILY JOSE J Administration Fentanyl 500 mcg/ Dextrose 100 mls @ 10 mls/hr 10/07/18 22:45 10/08/18 23:54 IVPB Not Given TITR JOSE J Protocol 50 MCG/HR Dextrose/Sodium Chloride 1,000 mls @ 42 mls/hr 10/09/18 07:45 10/09/18 07:41 D5-Ns - IV 42 mls/hr ASDIR JOSE J Administration Sodium Chloride 250 mls @ 3,000 mls/hr 10/09/18 11:49 Normal Saline - IV 10/10/18 11:48 PRN PRN Hypotension during Dialysis Losartan Potassium 100 mg 10/03/18 19:15 10/08/18 10:47 Cozaar - PO Not Given DAILY JOSEJ Morphine Sulfate 2 mg 10/07/18 20:33 Morphine Sulfate IVPUSH Q3H PRN PAIN LEVEL 6-10 Ondansetron HCl 4 mg 10/07/18 19:57 Zofran Injection IVPUSH Q6H PRN NAUSEA AND/OR VOMITING Pantoprazole Sodium 40 mg 10/04/18 10:00 10/09/18 09:30 Protonix Iv IVPUSH 40 mg DAILY JOSE J Administration Promethazine HCl 12.5 mg 10/07/18 20:23 Phenergan Injection - IVPUSH Q6H PRN NAUSEA-FOR RESCUE AFTER 15 MIN Propofol 5 mcg 10/09/18 11:50 Diprivan - IVPUSH 10/09/18 11:51 ONCE ONE Microbiology Impression 1. ESRD 2. HTN 3. change in mental status 4. PNA 5. parkinsons 6. sepsis 7. clotted graft 8. fever 9. metastatic breast cancer 10. bacteremia Plan - follow blood cultures - pt getting shiley for HD - HD today - abx per ID - monitor hg - vent support - discussed with ICU team
[2018-10-09] MEDS: LOSARTAN POTASSIUM 50 MG TABLET (FP) PO SCH (13:28)
[2018-10-09] MEDS: CARBIDOPA/LEVODOPA 25/100 TABLET (FP) PO SCH ×4 (13:28→21:42)
--- NOTE | 2018-10-09 13:42 | PROC ---
Central Line Insertion Indication: Other (Dialysis) Risks and Benefits Explained: Yes Consent on Chart: Yes Central Line: Dialysis Cath, Tri Lumen (Temporary line for dialysis with clotted AV fistula) Anesthesia: other (propofol- 50mg iv push) Sterile Technique: Yes Ultrasound Guided Assistance: Yes Position: Right Femoral Post Insertion: Yes: Other (Good return of blood) Sterile Dressing Applied: Yes
--- NOTE | 2018-10-09 15:20 | PN ---
Progress Note, Physician History of Present Illness: continues to be intubated arousable plan for hd continues to be bactermic - Current Medication List Current Medications: Active Medications Bisacodyl (Dulcolax Suppository -) 10 mg RC DAILY PRN PRN Reason: CONSTIPATION Carbidopa/Levodopa (Sinemet 25/100 -) 2 each PO QID [facility] Last Admin: 10/09/18 13:28 Dose: Not Given Docusate Sodium (Colace -) 100 mg PO TID [facility] Last Admin: 10/09/18 06:14 Dose: Not Given Nafcillin Sodium 2 gm/ (Dextrose) 100 mls @ 100 mls/hr IVPB Q4H-IV [facility]; Protocol Last Admin: 10/09/18 09:26 Dose: 100 mls/hr Ertapenem 0.5 gm/ Sodium (Chloride) 50 mls @ 100 mls/hr IVPB DAILY [facility] Last Admin: 10/09/18 10:29 Dose: 100 mls/hr Fentanyl 500 mcg/ Dextrose 100 mls @ 10 mls/hr IVPB TITR [facility]; Protocol Last Admin: 10/08/18 23:54 Dose: Not Given Dextrose/Sodium Chloride (D5-Ns -) 1,000 mls @ 42 mls/hr IV ASDIR [facility] Last Admin: 10/09/18 07:41 Dose: 42 mls/hr Sodium Chloride (Normal Saline -) 250 mls @ 3,000 mls/hr IV PRN PRN PRN Reason: Hypotension during Dialysis Stop: 10/10/18 11:48 Losartan Potassium (Cozaar -) 100 mg PO DAILY [facility] Last Admin: 10/09/18 13:28 Dose: Not Given Morphine Sulfate (Morphine Sulfate) 2 mg IVPUSH Q3H PRN PRN Reason: PAIN LEVEL 6-10 Ondansetron HCl (Zofran Injection) 4 mg IVPUSH Q6H PRN PRN Reason: NAUSEA AND/OR VOMITING Pantoprazole Sodium (Protonix Iv) 40 mg IVPUSH DAILY [facility] Last Admin: 10/09/18 09:30 Dose: 40 mg Promethazine HCl (Phenergan Injection -) 12.5 mg IVPUSH Q6H PRN PRN Reason: NAUSEA-FOR RESCUE AFTER 15 MIN - Objective Vital Signs: Vital Signs Temperature 98.4 F 10/09/18 10:00 Pulse Rate 81 10/09/18 15:10 Respiratory Rate 16 10/09/18 15:10 Blood Pressure 117/68 10/09/18 15:10 O2 Sat by Pulse Oximetry (%) 97 10/09/18 08:34 Constitutional: Yes: No Distress, Calm Cardiovascular: Yes: S1, S2 Respiratory: Yes: Intubated, Mechanically Ventilated Gastrointestinal: Yes: Soft, Hypoactive Bowel Sounds Musculoskeletal: Yes: WNL Extremities: Yes: Other Neurological: Yes: Other Psychiatric: Yes: Other Labs: CBC, BMP 10/09/18 05:30 10/09/18 05:30 INR, PTT INR 1.31 (0.83-1.09) H 10/08/18 05:30 - ....Imaging Chest X-ray: Report Reviewed, Image Reviewed Assessment/Plan This is a 77 year old male with a history of breast CA s/p lumpectomy and radiation years ago, ESRD on HD who presented due 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 Persistently bacteremic. ESRD HTN change in mental status PNA parkinsons sepsis clotted graft fever metastatic breast cancer gm positive bacteremia leukocytosis plan continue abx continue cx every day untill he is negative continue monitoring vanc levels patient prognosis is not good monitor fevers nutrition rest as per the team and icu cc 40 min
--- NOTE | 2018-10-09 16:00 | PATH ---
Surgical Pathology Report Patient Name: EMRE BENAVIDES [facility]. Rec. #: [id number] /Age/Gender: 1940 (Age: 77) / M Account: [id number] Location: [facility] CLINICAL ENGINEERING DIRECTOR Taken: 10/03/2018 Received: 10/04/2018 Reported: 10/09/2018 Physicians: Delmy Collins M.D. Specimen(s) Received 4 GREEN TOP TUBES Clinical History History of breast cancer. Bone lesions to rule out myeloma Final Diagnosis COMPREHENSIVE FLOW PANEL performed and interpreted at [place], [place] shows the following: INTERPRETATION: In the samples analyzed, there is no evidence of B or T-cell proliferative disorders, increased blasts, or clonal plasma cells. COMMENT: Correlation with complete bone marrow evaluation (including flow cytometry immunophenotyping and cytogenetic studies) is essential in order to establish or rule out a diagnosis of plasma cell neoplasm. MULTIPLE MYELOMA FISH PANEL performed and interpreted at [place], [place] shows the following: INTERPRETATION: No evidence of a deletion of RB1 (13q14). No evidence of a deletion of the p53 (17p13) locus. No evidence of duplication of 1q21 is present. No CCND1/IGH t (11; 14) translocation is detected. No FGFR3/IGH t (4; 14) translocation is detected. No IGH/MAF t (14; 16) translocation is detected. See [facility] reports ([id number] and [id number]) for additional details. Electronically Signed Audrey Kiser M.D. Addendum Reported: 10/10/2018 Addendum Diagnosis CYTOGENETIC KARYOTYPE ANALYSIS performed and interpreted at [facility] shows the following: RESULTS: Tissue Culture Failure INTERPRETATION: This peripheral blood specimen did not produce any analyzable metaphase cells and, therefore, chromosome analysis is not possible. A bone marrow aspirate, when clinically appropriate, is recommended. See [facility] report for additional details ([id number]). Audrey Kiser M.D. Gross Description Received are 4 green top tubes of peripheral blood which are sent to [facility]. DL/10/04/2018 saudi/10/04/2018
--- NOTE | 2018-10-09 17:55 | PN ---
Teaching Attending Note Name of Resident: Eduarda Ellison ATTENDING PHYSICIAN STATEMENT I saw and evaluated the patient. I reviewed the resident's note and discussed the case with the resident. I agree with the resident's findings and plan as documented. SUBJECTIVE: unable to obtain, intubated OBJECTIVE: Last Vital Signs Temp Pulse Resp BP Pulse Ox 36.9 C 81 25 H 117/68 97 10/09/18 10:00 10/09/18 15:10 10/09/18 16:05 10/09/18 15:10 10/09/18 08:34 Gen: nad, intubated Pulm: ctab w/o w/r/r but mechanically intubated CV: rrr w/o m/r/g Abd: hypoactive bowel sounds, s/nt/nd Ext: trace BLE edema CBC, BMP 10/09/18 05:30 10/09/18 05:30 ASSESSMENT AND PLAN: (1) Acute metabolic encephalopathy Assessment/Plan: -currently intubated but off sedation -minimally follows commands -suspect uremia confounding this -possible extubation today -HD today -monitor for improvement Code(s): G93.41 - METABOLIC ENCEPHALOPATHY (2) 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 Assessment/Plan: -multiple blood cultures positive -s/p laminectomy, debridement, and removal of hardware -Dr Osuna following and case discussed -continue nafcillin and ertapenem -repeat blood cultures sent today Code(s): A41.9 - SEPSIS, UNSPECIFIED ORGANISM (3) ESRD (end stage renal disease) on dialysis Assessment/Plan: -case d/w nephrology -HD today Code(s): N18.6 - END STAGE RENAL DISEASE; Z99.2 - DEPENDENCE ON RENAL DIALYSIS (4) Thrombocytopenia Assessment/Plan: -secondary to sepsis -resolved Code(s): D69.6 - THROMBOCYTOPENIA, UNSPECIFIED (5) Hyponatremia Assessment/Plan: -stable Code(s): E87.1 - HYPO-OSMOLALITY AND HYPONATREMIA (6) HTN (hypertension) Assessment/Plan: -currently normotensive Code(s): I10 - ESSENTIAL (PRIMARY) HYPERTENSION Qualifiers: Hypertension type: essential hypertension Qualified Code(s): I10 - Essential (primary) hypertension (7) Parkinson disease Assessment/Plan: -holding carbidopa/levodopa/entacapone while altered and npo Code(s): G20 - PARKINSON'S DISEASE (8) Dialysis AV fistula malfunction Assessment/Plan: -per vascular surgery Code(s): T82.590A - [facility] COMPL OF SURGICALLY CREATED ARTERIOVENOUS FISTULA, INIT Qualifiers: Encounter type: initial encounter Qualified Code(s): T82.590A - Other mechanical complication of surgically created arteriovenous fistula, initial encounter (9) Acute hepatic failure -suspect multifactorial but sepsis major contributor -GI consulted and note reviewed -agree with GI that antibiotics may need to be changed as high doses of nafcillin can cause hepatic dysfunction -monitor for improvement -MRCP when stable 42 minutes in critical care time spent with this patient Problem List - Problems (1) Acute metabolic encephalopathy Code(s): G93.41 - METABOLIC ENCEPHALOPATHY (2) Sepsis Code(s): A41.9 - SEPSIS, UNSPECIFIED ORGANISM (3) ESRD (end stage renal disease) on dialysis Code(s): N18.6 - END STAGE RENAL DISEASE; Z99.2 - DEPENDENCE ON RENAL DIALYSIS (4) Thrombocytopenia Code(s): D69.6 - THROMBOCYTOPENIA, UNSPECIFIED (5) Hyponatremia Code(s): E87.1 - HYPO-OSMOLALITY AND HYPONATREMIA (6) HTN (hypertension) Code(s): I10 - ESSENTIAL (PRIMARY) HYPERTENSION Qualifiers: Hypertension type: essential hypertension Qualified Code(s): I10 - Essential (primary) hypertension (7) Parkinson disease Code(s): G20 - PARKINSON'S DISEASE (8) Dialysis AV fistula malfunction Code(s): T82.590A - [facility] COMPL OF SURGICALLY CREATED ARTERIOVENOUS FISTULA, INIT Qualifiers: Encounter type: initial encounter Qualified Code(s): T82.590A - Other mechanical complication of surgically created arteriovenous fistula, initial encounter
--- NOTE | 2018-10-09 18:16 | PN ---
Physical Exam: SUBJECTIVE: Patient seen and examined; s/p 2U PRBC; drain taken out today; afebrile; OBJECTIVE: Vital Signs Period Temp Pulse Resp BP Sys/Bentley Pulse Ox Last 24 Hr 98.2 F-99 F 62-87 11-25 87-139/43-103 97-100 GENERAL: The patient is intubated ;not sedated; more arousable to day; follows some commands; yellow LUNGS: Breath sounds equal, clear to auscultation bilaterally, no wheezes, no crackles, no accessory muscle use. HEART: Regular rate and rhythm, S1, S2 without murmur, rub or gallop. ABDOMEN: Soft, nontender, nondistended, normoactive bowel sounds, no guarding, no rebound, no hepatosplenomegaly, no masses. EXTREMITIES: 2+ pulses, warm, well-perfused, no edema. NEUROLOGICAL: moves extremities with command Laboratory Results - last 24 hr 10/05/18 10/08/18 10/09/18 07:10 21:15 05:30 WBC 18.8 H RBC 3.15 L Hgb 10.8 L Hct 30.5 L D MCV 96.8 H D MCH 34.5 H MCHC 35.6 RDW 19.3 H Plt Count 164 MPV 9.7 Absolute Neuts (auto) 16.5 H Neutrophils % 87.6 H Lymphocytes % 6.4 L Monocytes % 4.1 Eosinophils % 1.3 Basophils % 0.6 Nucleated RBC % 0 Sodium Potassium Chloride Carbon Dioxide Anion Gap BUN Creatinine Creat Clearance w eGFR POC Glucometer 99 Random Glucose Calcium Phosphorus Magnesium Total Bilirubin Direct Bilirubin AST ALT Alkaline Phosphatase Total Protein Albumin Free [place] LC, Quant 123.8 H Free Lambda LC, Quant 129.7 H Free [place]/Lambda Ratio 0.95 10/09/18 10/09/18 10/09/18 05:30 06:32 07:25 WBC RBC Hgb Hct MCV MCH MCHC RDW Plt Count MPV Absolute Neuts (auto) Neutrophils % Lymphocytes % Monocytes % Eosinophils % Basophils % Nucleated RBC % Sodium 135 L Potassium 4.7 Chloride 100 Carbon Dioxide 23 Anion Gap 13 BUN 85 H Creatinine 7.7 H* Creat Clearance w eGFR 6.91 POC Glucometer 57 129 Random Glucose 85 Calcium 6.3 L* Phosphorus > 9.0 H* Magnesium 2.3 Total Bilirubin 7.8 H Direct Bilirubin 3.5 H AST 33 ALT < 6 L Alkaline Phosphatase 96 Total Protein 5.5 L Albumin 1.5 L Free [place] LC, Quant Free Lambda LC, Quant Free [place]/Lambda Ratio 10/09/18 10/09/18 13:30 17:37 WBC RBC Hgb Hct MCV MCH MCHC RDW Plt Count MPV Absolute Neuts (auto) Neutrophils % Lymphocytes % Monocytes % Eosinophils % Basophils % Nucleated RBC % Sodium Potassium Chloride Carbon Dioxide Anion Gap BUN Creatinine Creat Clearance w eGFR POC Glucometer 127 103 Random Glucose Calcium Phosphorus Magnesium Total Bilirubin Direct Bilirubin AST ALT Alkaline Phosphatase Total Protein Albumin Free [place] LC, Quant Free Lambda LC, Quant Free [place]/Lambda Ratio Active Medications Generic Name Dose Route Start Last Admin Trade Name Freq PRN Reason Stop Dose Admin Bisacodyl 10 mg 10/07/18 19:57 Dulcolax Suppository - RC DAILY PRN CONSTIPATION Carbidopa/Levodopa 2 each 10/02/18 18:00 10/09/18 16:47 Sinemet 25/100 - PO Not Given QID JOSE J Docusate Sodium 100 mg 10/07/18 22:00 10/09/18 16:47 Colace - PO Not Given TID JOSE J Nafcillin Sodium 2 gm/ 100 mls @ 100 mls/hr 10/03/18 15:30 10/09/18 17:29 Dextrose IVPB 100 mls/hr Q4H-IV JOSE J Administration Protocol Ertapenem 0.5 gm/ Sodium 50 mls @ 100 mls/hr 10/06/18 13:00 10/09/18 10:29 Chloride IVPB 100 mls/hr DAILY JOSE J Administration Fentanyl 500 mcg/ Dextrose 100 mls @ 10 mls/hr 10/07/18 22:45 10/08/18 23:54 IVPB Not Given TITR JOSE J Protocol 50 MCG/HR Dextrose/Sodium Chloride 1,000 mls @ 42 mls/hr 10/09/18 07:45 10/09/18 07:41 D5-Ns - IV 42 mls/hr ASDIR JOSE J Administration Sodium Chloride 250 mls @ 3,000 mls/hr 10/09/18 11:49 Normal Saline - IV 10/10/18 11:48 PRN PRN Hypotension during Dialysis Losartan Potassium 100 mg 10/03/18 19:15 10/09/18 13:28 Cozaar - PO Not Given DAILY JOSE J Morphine Sulfate 2 mg 10/07/18 20:33 Morphine Sulfate IVPUSH Q3H PRN PAIN LEVEL 6-10 Ondansetron HCl 4 mg 10/07/18 19:57 Zofran Injection IVPUSH Q6H PRN NAUSEA AND/OR VOMITING Pantoprazole Sodium 40 mg 10/04/18 10:00 10/09/18 09:30 Protonix Iv IVPUSH 40 mg DAILY JOSE J Administration Promethazine HCl 12.5 mg 10/07/18 20:23 Phenergan Injection - IVPUSH Q6H PRN NAUSEA-FOR RESCUE AFTER 15 MIN ASSESSMENT/PLAN: This is a 77 year old male with a history of breast CA s/p lumpectomy and radiation years ago, ESRD on HD who presented due 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 Persistently bacteremic. #bacteremia persistent; POD #2 drainage of epidural abscess -repeat blood cultures pending -staph; antibiotics IV naf/ertapenam #hypoerbilirubinemia; multifactorial; -possible from hypotension; meds -GI eval -mrcp when able #AV fistula malformation -duplex thrombus of AV fistula; complete obstruction; repeat US shows recannulation with mass vs hematoma #Hx of breast ca; -liver and lungs lesions suspicious for mets; will need tissue diagnosis #ESRD on HD -HD tomorrow -randall #macrocytic anemia:s/p 2 unit of PRBC -iron studies stores are low;replace; ferritin high; (most likely acute phase reactant ) -vit b 12 and folate normal -FISH; cytogenetics, flow cytometry; pending -monitor cbc; transfuse threshold <7 #thrombocytopenia: resolved #hx of breast CA: -need tissue diagnosis of lung/liver nodule'; -w/u mets -heme consult GIppl; protonix Visit type - Emergency Visit Emergency Visit: Yes ED Registration Date: 10/01/18 Care time: The patient presented to the Emergency Department on the above date and was hospitalized for further evaluation of their emergent condition. - New Patient This patient is new to me today: No - Critical Care Critical Care patient: Yes Total Critical Care Time (in minutes): 45 Critical Care Statement: The care of this patient involved high complexity decision making to prevent further life threatening deterioration of the patient 's condition and/or to evaluate & treat vital organ system(s) failure or risk of failure.
--- NOTE | 2018-10-09 19:13 | PN ---
Progress Note, Physician History of Present Illness: Maintained on mechanical ventilation. - Current Medication List Current Medications: Active Medications Bisacodyl (Dulcolax Suppository -) 10 mg RC DAILY PRN PRN Reason: CONSTIPATION Carbidopa/Levodopa (Sinemet 25/100 -) 2 each PO QID [facility] Last Admin: 10/09/18 18:51 Dose: Not Given Docusate Sodium (Colace -) 100 mg PO TID [facility] Last Admin: 10/09/18 16:47 Dose: Not Given Nafcillin Sodium 2 gm/ (Dextrose) 100 mls @ 100 mls/hr IVPB Q4H-IV [facility]; Protocol Last Admin: 10/09/18 17:29 Dose: 100 mls/hr Ertapenem 0.5 gm/ Sodium (Chloride) 50 mls @ 100 mls/hr IVPB DAILY [facility] Last Admin: 10/09/18 10:29 Dose: 100 mls/hr Fentanyl 500 mcg/ Dextrose 100 mls @ 10 mls/hr IVPB TITR [facility]; Protocol Last Admin: 10/08/18 23:54 Dose: Not Given Dextrose/Sodium Chloride (D5-Ns -) 1,000 mls @ 42 mls/hr IV ASDIR [facility] Last Admin: 10/09/18 07:41 Dose: 42 mls/hr Sodium Chloride (Normal Saline -) 250 mls @ 3,000 mls/hr IV PRN PRN PRN Reason: Hypotension during Dialysis Stop: 10/10/18 11:48 Losartan Potassium (Cozaar -) 100 mg PO DAILY [facility] Last Admin: 10/09/18 13:28 Dose: Not Given Morphine Sulfate (Morphine Sulfate) 2 mg IVPUSH Q3H PRN PRN Reason: PAIN LEVEL 6-10 Ondansetron HCl (Zofran Injection) 4 mg IVPUSH Q6H PRN PRN Reason: NAUSEA AND/OR VOMITING Pantoprazole Sodium (Protonix Iv) 40 mg IVPUSH DAILY [facility] Last Admin: 10/09/18 09:30 Dose: 40 mg Promethazine HCl (Phenergan Injection -) 12.5 mg IVPUSH Q6H PRN PRN Reason: NAUSEA-FOR RESCUE AFTER 15 MIN - Objective Vital Signs: Vital Signs Temperature 98.8 F 10/09/18 16:00 Pulse Rate 74 10/09/18 18:00 Respiratory Rate 19 10/09/18 18:56 Blood Pressure 102/62 10/09/18 18:00 O2 Sat by Pulse Oximetry (%) 97 10/09/18 08:34 Constitutional: Yes: No Distress, Calm Neck: Yes: Supple Cardiovascular: Yes: Regular Rate and Rhythm Respiratory: Yes: Intubated, Mechanically Ventilated, Rhonchi Gastrointestinal: Yes: Soft, Hypoactive Bowel Sounds Edema: No Labs: CBC, BMP 10/09/18 05:30 10/09/18 05:30 INR, PTT INR 1.31 (0.83-1.09) H 10/08/18 05:30 - ....Imaging Chest X-ray: Report Reviewed (Left base ATX) Problem List - Problems (1) Dialysis AV fistula malfunction Code(s): T82.590A - [facility] COMPL OF SURGICALLY CREATED ARTERIOVENOUS FISTULA, INIT Qualifiers: Encounter type: initial encounter Qualified Code(s): T82.590A - Other mechanical complication of surgically created arteriovenous fistula, initial encounter (2) Epidural abscess Code(s): G06.2 - EXTRADURAL AND SUBDURAL ABSCESS, UNSPECIFIED (3) HTN (hypertension) Code(s): I10 - ESSENTIAL (PRIMARY) HYPERTENSION Qualifiers: Hypertension type: essential hypertension Qualified Code(s): I10 - Essential (primary) hypertension (4) Hyperbilirubinemia Code(s): E80.6 - OTHER DISORDERS OF BILIRUBIN METABOLISM (5) Parkinson disease Code(s): G20 - PARKINSON'S DISEASE (6) Sepsis Code(s): A41.9 - SEPSIS, UNSPECIFIED ORGANISM Qualifiers: Sepsis type: methicillin susceptible Staphylococcus aureus Qualified Code(s ): A41.01 - Sepsis due to Methicillin susceptible Staphylococcus aureus (7) ESRD (end stage renal disease) on dialysis Code(s): N18.6 - END STAGE RENAL DISEASE; Z99.2 - DEPENDENCE ON RENAL DIALYSIS Assessment/Plan 1. Persistent MSSA Bacteremia/Sepsis 2. Epidural Abscess s/p Drainage POD#2 3. Acute Respiratory Failure 4. HTN 5. ESRD on HD with AVF thrombus 6. Parkinson's disease 7. h/o Breast Ca with suspected lung and liver mets 8. Anemia of CKD 9. Hyperbilirubinemia PLAN: 1. Wean vent and SBT as tolerated 2. Neurosurgery input noted, drain d/danya, antibiotics course per C&S, change Nafcillin due to abnl LFTs 3. Transfuse to maintain Hgb>8.0 4. HD per renal, will place HD catheter today 5. MRCP when stable 6. DVT prophylaxis
[2018-10-09] MEDS ORDERED: PROPOFOL 1,000,000 MCG/100 ML VIAL IVPB SCH (22:15)
--- NOTE | 2018-10-09 22:19 | PN ---
Progress Note (short form) - Note Progress Note: This evening, patient is awake, opened his eyes, followed commands: Able to move both upper extremities, no movement in the lower extremities. Asked pt to open and close eyes when asked questions, and he did. Mentation improving. Bitting the tube.
[2018-10-09] MEDS: FENTANYL INJECTION 500 MCG in DEXTROSE 5%-WATER - 90 ML IVPB SCH (23:00)
[2018-10-10] MEDS: NAFCILLIN - 2 GM in DEXTROSE 5%-WATER - 100 ML IVPB SCH ×6 (03:00→22:01)
[2018-10-10] MEDS ORDERED: PT OWN MED DRAWER 7, Y5N ONE ×3 (04:26→18:44)
[2018-10-10] MEDS: DOCUSATE SODIUM 100 MG CAPSULE (FP) PO SCH ×3 (05:46→22:01)
[2018-10-10 07:11] LABS: BASO % 0.7 % (0-2.0); EOS % 1.5 % (0-4.5); HEMATOCRIT 27.7 % (35.4-49); HEMOGLOBIN 9.9 GM/dL (11.7-16.9); LYMPH % 5.8 % (8-40); MCH 34.8 pg (25.7-33.7); MCHC 35.6 g/dl (32.0-35.9); MEAN CELL VOLUME 97.6 fl (80-96); MEAN PLT VOLUME 9.4 fl (7.5-11.1); MONO % 5.9 % (3.8-10.2); NEUT % 86.1 % (42.8-82.8); PLATELET COUNT 150 K/MM3 (134-434); RBC 2.84 M/mm3 (4.00-5.60); RDW 18.3 % (11.9-15.9); WHITE BLOOD COUNT 12.4 K/mm3 (4.0-10.0)
[2018-10-10 07:31] LABS: ALBUMIN 1.6 g/dl (3.4-5.0); ALK PHOS 81 U/L (45-117); ANION GAP 9 MMOL/L (8-16); BILIRUBIN,TOTAL 7.8 mg/dL (0.2-1); BLOOD UREA NITROGEN 41 mg/dL (7-18); CHLORIDE 101 mmol/L (98-107); CO2 29 mmol/L (21-32); CREATININE 4.9 mg/dL (0.55-1.3); GLUCOSE,RANDOM 109 mg/dL (74-106); MAGNESIUM 2.1 mg/dL (1.8-2.4); POTASSIUM 3.5 mmol/L (3.5-5.1); SGOT/AST 27 U/L (15-37); SGPT/ALT < 6 U/L (13-61); SODIUM 139 mmol/L (136-145); TOT PROT 5.3 g/dl (6.4-8.2)
--- NOTE | 2018-10-10 07:33 | PN ---
Progress Note (short form) - Note Progress Note: NEUROSURGERY POD #3 S/p drainage of epidural abscess and removal of old posterior implant Intubated PE: Tmax 100.3, now 99.3, BP stable Drain out Following simple commands HEENT- NC/AT; Neck- supple; Cor- RR; Lungs- CTA, decreased at bases; Abd- benign ; Ext- no sign of DVT, R UE AVF CN- grossly nonfocal; Motor- starting to move B LE at least 4-/5 L3-4 epidural abscess with LE deficits, gram stain (staph aureus), final ID and sensitivity pending Cont iv abx ID f/u Findings d/w and outpatient PMD yesterday Care dw/ ICU team Wean vent per ICU team DNR
--- NOTE | 2018-10-10 07:33 | PN ---
Physical Exam: SUBJECTIVE: Pt has been awake and alert, following commands overnight. Sedation was discontinued at 0400 today. Pt was seen and examined today, awake and alert, following commands. OBJECTIVE: Vital Signs Period Temp Pulse Resp BP Sys/Bentley Pulse Ox Last 24 Hr 98.4 F-100.3 F 62-87 11-25 87-158/43-103 97-100 GENERAL: The patient is awake, alert, and fully oriented, in no acute distress. HEAD: Normal with no signs of trauma. EYES: PERRL, extraocular movements intact, sclera anicteric, conjunctiva clear. No ptosis. ENT: Ears normal, nares patent, oropharynx clear without exudates, moist mucous membranes. NECK: Trachea midline, full range of motion, supple. LUNGS: Breath sounds equal, clear to auscultation bilaterally, no wheezes, no crackles, no accessory muscle use. HEART: Regular rate and rhythm, S1, S2 without murmur, rub or gallop. ABDOMEN: Soft, nontender, nondistended, normoactive bowel sounds, no guarding, no rebound, no hepatosplenomegaly, no masses. EXTREMITIES: 2+ pulses, warm, well-perfused, no edema. NEUROLOGICAL: Cranial nerves II through XII grossly intact. moving all fours. PSYCH: Normal mood, normal affect. SKIN: Warm, dry, normal turgor, no rashes or lesions noted Laboratory Results - last 24 hr 10/09/18 10/09/18 10/09/18 05:30 13:30 17:37 Sodium 135 L Potassium 4.7 Chloride 100 Carbon Dioxide 23 Anion Gap 13 BUN 85 H Creatinine 7.7 H* Creat Clearance w eGFR 6.91 POC Glucometer 127 103 Random Glucose 85 Calcium 6.3 L* Phosphorus > 9.0 H* Magnesium 2.3 Total Bilirubin 7.8 H Direct Bilirubin 3.5 H AST 33 ALT < 6 L Alkaline Phosphatase 96 Total Protein 5.5 L Albumin 1.5 L 10/10/18 06:47 Sodium Potassium Chloride Carbon Dioxide Anion Gap BUN Creatinine Creat Clearance w eGFR POC Glucometer 89 Random Glucose Calcium Phosphorus Magnesium Total Bilirubin Direct Bilirubin AST ALT Alkaline Phosphatase Total Protein Albumin Active Medications Generic Name Dose Route Start Last Admin Trade Name Freq PRN Reason Stop Dose Admin Bisacodyl 10 mg 10/07/18 19:57 Dulcolax Suppository - RC DAILY PRN CONSTIPATION Carbidopa/Levodopa 2 each 10/02/18 18:00 10/09/18 21:42 Sinemet 25/100 - PO Not Given QID [facility] Docusate Sodium 100 mg 10/07/18 22:00 10/10/18 05:46 Colace - PO Not Given TID JOSE J Nafcillin Sodium 2 gm/ 100 mls @ 100 mls/hr 10/03/18 15:30 10/10/18 03:00 Dextrose IVPB 100 mls/hr Q4H-IV JOSE J Administration Protocol Ertapenem 0.5 gm/ Sodium 50 mls @ 100 mls/hr 10/06/18 13:00 10/09/18 10:29 Chloride IVPB 100 mls/hr DAILY JOSE J Administration Fentanyl 500 mcg/ Dextrose 100 mls @ 10 mls/hr 10/07/18 22:45 10/09/18 23:00 IVPB Not Given TITR JOSE J Protocol 50 MCG/HR Dextrose/Sodium Chloride 1,000 mls @ 42 mls/hr 10/09/18 07:45 10/09/18 07:41 D5-Ns - IV 42 mls/hr ASDIR JOSE J Administration Sodium Chloride 250 mls @ 3,000 mls/hr 10/09/18 11:49 Normal Saline - IV 10/10/18 11:48 PRN PRN Hypotension during Dialysis Propofol 1,000,000 mcg in 100 mls @ 0.932 mls/hr 10/09/18 22:15 10/09/18 22: 59 Diprivan - IVPB 2.5 mcg/kg/min TITR JOSE J 0.932 mls/hr Administration Protocol 2.5 MCG/KG/MIN Losartan Potassium 100 mg 10/03/18 19:15 10/09/18 13:28 Cozaar - PO Not Given DAILY [facility] Morphine Sulfate 2 mg 10/07/18 20:33 10/09/18 20:53 Morphine Sulfate IVPUSH 2 mg Q3H PRN Administration PAIN LEVEL 6-10 Ondansetron HCl 4 mg 10/07/18 19:57 Zofran Injection IVPUSH Q6H PRN NAUSEA AND/OR VOMITING Pantoprazole Sodium 40 mg 10/04/18 10:00 10/09/18 09:30 Protonix Iv IVPUSH 40 mg DAILY JOSE J Administration Promethazine HCl 12.5 mg 10/07/18 20:23 Phenergan Injection - IVPUSH Q6H PRN NAUSEA-FOR RESCUE AFTER 15 MIN IMAGING: MRI cervical spine: No evidence of disc herniation, central spinal canal stenosis. Signal intensity of the spinal cord. T2 vertebral body. Approximately 4mm, T1 signal void lesion, increased increased signal intensity on the T2, STIR images is seen. Approximately 5.9 mm lesion of similar signal intensity is seen in the T9 vertebral body. In view of masslike opacity in the right upper lobe, the findings are concerning pathological lesions. MRI lumbar spine: L2-L3. Right foraminal disc extrusion with 15 mm cephalad extension of the disc material in the right lateral lateral recess of L2 vertebral body. 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 The thecal sac is compressed. Stenosis of the right neural foramen with almost complete effacement of the right perirenal fat. Clinically correlate with radiculopathy in distribution of the right L2 nerve. Facet joint arthropathy with thickening omentum flavum. L3-L4. Moderate facet joint arthropathy. Left facet joint effusion. Left posterior para facetal soft tissue edema/possibly fluid collections. Findings concerning for acute left facet joint synovitis with paraspinal inflammatory changes. Central spinal canal stenosis. Thickened ligamentum flavum left greater than the right. No compression of L3 nerves traversing through the neural foramina. Prominent left lateral marginal osteophytes. Increased signal intensity is seen in the right posterior para facetal soft tissues. L4-L5. Limited evaluation of the intraspinal contents, or neural foramina due to the magnetic susceptibility artifact from metallic hardware. Chest CT: Multiple lung nodules, metastatic disease not excluded. Atelectasis/ infiltration at both bases with trace effusions. Renal cyst and nephrolithiasis as discussed above. There is no evidence of hydronephrosis. The kidneys appear atrophic unchanged. Enlarged prostate gland. Thickening of the gastric wall, underlying gastritis not excluded. Correlate clinically and with endoscopy as clinically warranted. No bowel obstruction seen. Abdomen/Pelvis CT: Bilateral renal atrophy. Moderate to marked diffuse pancreatic atrophy. Mild/mild to moderate concentric subcutaneous soft tissue stranding suggestive of edema along the abdomen and pelvis. Mild right posterior basilar opacity is seen probably representing atelectasis, less likely a small infiltrate. Prostate enlargement. ASSESSMENT/PLAN: Patient is a 77 yo M with PMHx of ESRD MWF, parkinson's disease, dysphagia admitted with non functioning AV fistula, hyperkalemia was found to have MSSA bacteremia with thrombosed AV fistula and an epidural abscess, now s/p epidural abscess drainage. NEURO Off sedation, extubated and placed on Venti mask Mental status improving, obeying commands Hx of Parkinsons Carbidopa/levodopa - restart Speech and swallow tomorrow ID # MSSA BACTEREMIA LIKELY SECONDARY TO EPIDURAL ABSCESS S/P DEBRIDEMENT---- POD 3 s/p Partial L L3 and L4 laminetomies, drainage/debridement of epidural abscess, removal of prior L4-5 instrumentation B; microdissection; dain 1cc; R L3-4 posterolateral bone fusion IV Nafcillin and Ertapenam IV NS @ 42 cc/hr IV Morphine 2mg Q3H PRN IV Zofran PRN Per ID requesting daily bcx - ordered BC for today 10/10/18 #EPIDURAL ABSCESS Nafcillin day 8 Ertapenem day 5 ID on board PULMONARY Extubated and placed on Venti Mask CXR- 10/09/18- progressive atelectasis with fluid at the left base. CXR 10/08/18: new atelectasis or infiltrate at left base. CARDIAC #HYPOTENSION- improved s/p 500ml bolus NS, and 2PRBC -MAP maintained above 65 overnight -Defer JACOB for now per cardio RENAL MWF- last dialysis 10/09/18 # ESRD WITH RUE THROMBOSED AV FISTULA -Primary team in touch with vascular High risk for seeing the graft so not a candidate for clot removal/ declotting. Last Shiley removed 10/05 in setting of bacteremia Duplex RUE 10/07/18: since prior study 10/03/18, a thrombosed AV dialysis fistula has been recanalized flow is noted throughout the feeding artery, fistula and draining vein. 3.2 cm mass adjacent to the fistula. this could represent a hematoma or possibly a thrombosed pseudoaneurysm. this mass was noted on the prior study, but appears to be increased in size. HEM/ONC # MACROCYTIC ANEMIA Post op anemia, H/H 10.2/29.2 MCV 103 >> 7.8/22.7 MCV 103 S/p 2PRBCs- H/h-10.8/30.5 Today - 9.9/27.7 - Continue to trend 2U PRBC 03/19/19 # HX OF BREAST CA L breast with areolar masses CT shows CHARLES cavitary lung lesion Heme/onc consulted. Once stable, recommended for a tissue biopsy FEN IV D5NS @ 42 ml/hr NPO PROPHYLAXIS For DVT: SCDs, no chemical prophylaxis For GI: Protonix 40mg PO daily #CODE STATUS: DNR/DNI pre surgery. Full code for surgery. D/W Daughter Alba who gave consent for central line, and agrees that DNI will be reversed Pt without HCP- Son Shon was not reached this am (daughter said he usually gives consent) DISPO: ICU Visit type - Emergency Visit Emergency Visit: Yes ED Registration Date: 10/01/18 Care time: The patient presented to the Emergency Department on the above date and was hospitalized for further evaluation of their emergent condition. - New Patient This patient is new to me today: Yes Date on this admission: 10/10/18 - Critical Care Critical Care patient: Yes Total Critical Care Time (in minutes): 35 Critical Care Statement: The care of this patient involved high complexity decision making to prevent further life threatening deterioration of the patient 's condition and/or to evaluate & treat vital organ system(s) failure or risk of failure. - Discharge Referral Referred to [facility] No
[2018-10-10 07:42] LABS: CALCIUM 6.7 mg/dL (8.5-10.1)
[2018-10-10] MEDS: LOSARTAN POTASSIUM 50 MG TABLET (FP) PO SCH (11:11)
[2018-10-10] MEDS: PANTOPRAZOLE SODIUM 40 MG VIAL IVPUSH SCH (11:12)
[2018-10-10] MEDS: CARBIDOPA/LEVODOPA 25/100 TABLET (FP) PO SCH ×4 (11:15→22:01)
[2018-10-10] MEDS: DEXTROSE 5%-NORMAL SALINE 1,000 ML IV SCH (12:30)
[2018-10-10 12:37] VITALS: BMI 22.5
--- NOTE | 2018-10-10 12:54 | PN ---
Teaching Attending Note Name of Resident: Angeles Zuñiga ATTENDING PHYSICIAN STATEMENT I saw and evaluated the patient. I reviewed the resident's note and discussed the case with the resident. I agree with the resident's findings and plan as documented. SUBJECTIVE: Pt seen and examined in the ICU. Dialyzed yesterday. Remained intubated overnight, more awake today and following commands, tolerated CPAP/PS with good RSBI and subsequently extubated during rounds. OBJECTIVE: Vital Signs Period Temp Pulse Resp BP Sys/Bentley Pulse Ox Last 24 Hr 98.8 F-100.3 F 68-87 6-25 96-158/51-103 99-100 Intake & Output 10/07/18 10/08/18 10/09/18 10/10/18 23:59 23:59 23:59 23:59 Intake Total 1202 2725 1044 820 Output Total 40 50 35 0 Balance 1162 2675 1009 820 Weight 67.54 kg Gen: extubated Heart: RRR Lung: decreased breath sounds at the bases Abd: soft, nontender Ext: no edema CBC, BMP 10/10/18 05:30 10/10/18 06:00 Active Medications Bisacodyl (Dulcolax Suppository -) 10 mg RC DAILY PRN PRN Reason: CONSTIPATION Carbidopa/Levodopa (Sinemet 25/100 -) 2 each PO QID [facility] Last Admin: 10/10/18 11:15 Dose: Not Given Docusate Sodium (Colace -) 100 mg PO TID [facility] Last Admin: 10/10/18 05:46 Dose: Not Given Nafcillin Sodium 2 gm/ (Dextrose) 100 mls @ 100 mls/hr IVPB Q4H-IV JOSE J; Protocol Last Admin: 10/10/18 11:11 Dose: 100 mls/hr Ertapenem 0.5 gm/ Sodium (Chloride) 50 mls @ 100 mls/hr IVPB DAILY JOSE J Last Admin: 10/09/18 10:29 Dose: 100 mls/hr Fentanyl 500 mcg/ Dextrose 100 mls @ 10 mls/hr IVPB TITR JOSE J; Protocol Last Admin: 10/09/18 23:00 Dose: Not Given Dextrose/Sodium Chloride (D5-Ns -) 1,000 mls @ 42 mls/hr IV ASDIR JOSE J Last Admin: 10/09/18 07:41 Dose: 42 mls/hr Losartan Potassium (Cozaar -) 100 mg PO DAILY [facility] Last Admin: 10/10/18 11:11 Dose: Not Given Morphine Sulfate (Morphine Sulfate) 2 mg IVPUSH Q3H PRN PRN Reason: PAIN LEVEL 6-10 Last Admin: 10/09/18 20:53 Dose: 2 mg Ondansetron HCl (Zofran Injection) 4 mg IVPUSH Q6H PRN PRN Reason: NAUSEA AND/OR VOMITING Pantoprazole Sodium (Protonix -) 40 mg PO DAILY [facility] Promethazine HCl (Phenergan Injection -) 12.5 mg IVPUSH Q6H PRN PRN Reason: NAUSEA-FOR RESCUE AFTER 15 MIN ASSESSMENT AND PLAN: Persistent MSSA Bacteremia Epidural Abscess s/p Drainage Sepsis Acute Respiratory Failure ESRD on HD Parkinsons Disease h/o Breast Ca with suspected recurrence Anemia HTN - continue antibiotics - f/u pending cultures - monitor H/H - transfuse as needed - HD per renal - pt extubated - O2 to keep SpO2 >90% - aspiration precautions - DVT prophylaxis - ICU monitoring critical care time spent in reviewing chart, evaluating patient and formulating plan 35 min
[2018-10-10] MEDS: ERTAPENEM SODIUM 0.5 GM in SODIUM CHLORIDE 50 ML IVPB SCH (12:55)
--- NOTE | 2018-10-10 13:55 | PN ---
Progress Note, Physician History of Present Illness: Extubated maintained on 40% VM. - Current Medication List Current Medications: Active Medications Bisacodyl (Dulcolax Suppository -) 10 mg RC DAILY PRN PRN Reason: CONSTIPATION Carbidopa/Levodopa (Sinemet 25/100 -) 2 each PO QID [facility] Last Admin: 10/10/18 11:15 Dose: Not Given Docusate Sodium (Colace -) 100 mg PO TID [facility] Last Admin: 10/10/18 05:46 Dose: Not Given Nafcillin Sodium 2 gm/ (Dextrose) 100 mls @ 100 mls/hr IVPB Q4H-IV [facility]; Protocol Last Admin: 10/10/18 11:11 Dose: 100 mls/hr Ertapenem 0.5 gm/ Sodium (Chloride) 50 mls @ 100 mls/hr IVPB DAILY [facility] Last Admin: 10/10/18 12:55 Dose: 100 mls/hr Fentanyl 500 mcg/ Dextrose 100 mls @ 10 mls/hr IVPB TITR [facility]; Protocol Last Admin: 10/09/18 23:00 Dose: Not Given Dextrose/Sodium Chloride (D5-Ns -) 1,000 mls @ 42 mls/hr IV ASDIR [facility] Last Admin: 10/09/18 07:41 Dose: 42 mls/hr Losartan Potassium (Cozaar -) 100 mg PO DAILY [facility] Last Admin: 10/10/18 11:11 Dose: Not Given Morphine Sulfate (Morphine Sulfate) 2 mg IVPUSH Q3H PRN PRN Reason: PAIN LEVEL 6-10 Last Admin: 10/09/18 20:53 Dose: 2 mg Ondansetron HCl (Zofran Injection) 4 mg IVPUSH Q6H PRN PRN Reason: NAUSEA AND/OR VOMITING Pantoprazole Sodium (Protonix -) 40 mg PO DAILY [facility] Promethazine HCl (Phenergan Injection -) 12.5 mg IVPUSH Q6H PRN PRN Reason: NAUSEA-FOR RESCUE AFTER 15 MIN - Objective Vital Signs: Vital Signs Temperature 98.6 F 10/10/18 08:00 Pulse Rate 76 10/10/18 13:18 Respiratory Rate 14 10/10/18 10:42 Blood Pressure 114/70 10/10/18 10:00 O2 Sat by Pulse Oximetry (%) 100 10/10/18 13:18 Constitutional: Yes: No Distress, Calm Neck: Yes: Supple Cardiovascular: Yes: Regular Rate and Rhythm Respiratory: Yes: Regular, Diminished, On Venti-Mask Gastrointestinal: Yes: Soft, Hypoactive Bowel Sounds Edema: No Labs: CBC, BMP 10/10/18 05:30 10/10/18 06:00 INR, PTT INR 1.31 (0.83-1.09) H 10/08/18 05:30 - ....Imaging Chest X-ray: Report Reviewed (NAD) Problem List - Problems (1) Dialysis AV fistula malfunction Code(s): T82.590A - [facility] COMPL OF SURGICALLY CREATED ARTERIOVENOUS FISTULA, INIT Qualifiers: Encounter type: initial encounter Qualified Code(s): T82.590A - Other mechanical complication of surgically created arteriovenous fistula, initial encounter (2) Epidural abscess Code(s): G06.2 - EXTRADURAL AND SUBDURAL ABSCESS, UNSPECIFIED (3) HTN (hypertension) Code(s): I10 - ESSENTIAL (PRIMARY) HYPERTENSION Qualifiers: Hypertension type: essential hypertension Qualified Code(s): I10 - Essential (primary) hypertension (4) Hyperbilirubinemia Code(s): E80.6 - OTHER DISORDERS OF BILIRUBIN METABOLISM (5) Parkinson disease Code(s): G20 - PARKINSON'S DISEASE (6) Sepsis Code(s): A41.9 - SEPSIS, UNSPECIFIED ORGANISM Qualifiers: Sepsis type: methicillin susceptible Staphylococcus aureus Qualified Code(s ): A41.01 - Sepsis due to Methicillin susceptible Staphylococcus aureus (7) ESRD (end stage renal disease) on dialysis Code(s): N18.6 - END STAGE RENAL DISEASE; Z99.2 - DEPENDENCE ON RENAL DIALYSIS Assessment/Plan 1. Persistent MSSA Bacteremia/Sepsis 2. Epidural Abscess s/p Drainage and removal of old posterior implant POD#3 3. s/p Acute Respiratory Failure 4. HTN 5. ESRD on HD with AVF thrombus 6. Parkinson's disease 7. h/o Breast Ca with suspected lung and liver mets 8. Anemia of CKD 9. Hyperbilirubinemia PLAN: 1. Wean FIO2 as tolerated 2. Neurosurgery input noted, drain d/danya, antibiotics course per C&S 3. Transfuse to maintain Hgb>8.0 4. HD per renal via HD catheter, resume losartan as hemodynamics tolerate 5. MRCP when stable 6. DVT prophylaxis
--- NOTE | 2018-10-10 14:58 | PN ---
Progress Note, Physician History of Present Illness: Pt seen and examined at bedside. He is extubated. He is awake but is confused. - Current Medication List Current Medications: Active Medications Bisacodyl (Dulcolax Suppository -) 10 mg RC DAILY PRN PRN Reason: CONSTIPATION Carbidopa/Levodopa (Sinemet 25/100 -) 2 each PO QID [facility] Last Admin: 10/10/18 11:15 Dose: Not Given Docusate Sodium (Colace -) 100 mg PO TID [facility] Last Admin: 10/10/18 05:46 Dose: Not Given Nafcillin Sodium 2 gm/ (Dextrose) 100 mls @ 100 mls/hr IVPB Q4H-IV [facility]; Protocol Last Admin: 10/10/18 11:11 Dose: 100 mls/hr Ertapenem 0.5 gm/ Sodium (Chloride) 50 mls @ 100 mls/hr IVPB DAILY [facility] Last Admin: 10/10/18 12:55 Dose: 100 mls/hr Fentanyl 500 mcg/ Dextrose 100 mls @ 10 mls/hr IVPB TITR [facility]; Protocol Last Admin: 10/09/18 23:00 Dose: Not Given Dextrose/Sodium Chloride (D5-Ns -) 1,000 mls @ 42 mls/hr IV ASDIR [facility] Last Admin: 10/09/18 07:41 Dose: 42 mls/hr Losartan Potassium (Cozaar -) 100 mg PO DAILY [facility] Last Admin: 10/10/18 11:11 Dose: Not Given Morphine Sulfate (Morphine Sulfate) 2 mg IVPUSH Q3H PRN PRN Reason: PAIN LEVEL 6-10 Last Admin: 10/09/18 20:53 Dose: 2 mg Ondansetron HCl (Zofran Injection) 4 mg IVPUSH Q6H PRN PRN Reason: NAUSEA AND/OR VOMITING Pantoprazole Sodium (Protonix -) 40 mg PO DAILY [facility] Promethazine HCl (Phenergan Injection -) 12.5 mg IVPUSH Q6H PRN PRN Reason: NAUSEA-FOR RESCUE AFTER 15 MIN - Objective Vital Signs: Vital Signs Temperature 98.6 F 10/10/18 08:00 Pulse Rate 76 10/10/18 13:18 Respiratory Rate 14 10/10/18 10:42 Blood Pressure 114/70 10/10/18 10:00 O2 Sat by Pulse Oximetry (%) 100 10/10/18 13:18 Constitutional: Yes: Calm Eyes: Yes: Conjunctiva Clear Cardiovascular: Yes: S1, S2 Respiratory: Yes: On Venti-Mask Gastrointestinal: Yes: Soft Genitourinary: Yes: Incontinence Musculoskeletal: Yes: Muscle Weakness Edema: No Neurological: Yes: Confusion Labs: CBC, BMP 10/10/18 05:30 10/10/18 06:00 INR, PTT INR 1.31 (0.83-1.09) H 10/08/18 05:30 Assessment/Plan Current Medications Generic Name Dose Route Start Last Admin Trade Name Freq PRN Reason Stop Dose Admin Bisacodyl 10 mg 10/07/18 19:57 Dulcolax Suppository - RC DAILY PRN CONSTIPATION Carbidopa/Levodopa 2 each 10/02/18 18:00 10/10/18 11:15 Sinemet 25/100 - PO Not Given QID JOSE J Docusate Sodium 100 mg 10/07/18 22:00 10/10/18 05:46 Colace - PO Not Given TID JOSE J Nafcillin Sodium 2 gm/ 100 mls @ 100 mls/hr 10/03/18 15:30 10/10/18 11:11 Dextrose IVPB 100 mls/hr Q4H-IV JOSE J Administration Protocol Ertapenem 0.5 gm/ Sodium 50 mls @ 100 mls/hr 10/06/18 13:00 10/10/18 12:55 Chloride IVPB 100 mls/hr DAILY JOSE J Administration Fentanyl 500 mcg/ Dextrose 100 mls @ 10 mls/hr 10/07/18 22:45 10/09/18 23:00 IVPB Not Given TITR JOSE J Protocol 50 MCG/HR Dextrose/Sodium Chloride 1,000 mls @ 42 mls/hr 10/09/18 07:45 10/09/18 07:41 D5-Ns - IV 42 mls/hr ASDIR JOSE J Administration Losartan Potassium 100 mg 10/03/18 19:15 10/10/18 11:11 Cozaar - PO Not Given DAILY JOSE J Morphine Sulfate 2 mg 10/07/18 20:33 10/09/18 20:53 Morphine Sulfate IVPUSH 2 mg Q3H PRN Administration PAIN LEVEL 6-10 Ondansetron HCl 4 mg 10/07/18 19:57 Zofran Injection IVPUSH Q6H PRN NAUSEA AND/OR VOMITING Pantoprazole Sodium 40 mg 10/11/18 10:00 Protonix - PO DAILY JOSE J Promethazine HCl 12.5 mg 10/07/18 20:23 Phenergan Injection - IVPUSH Q6H PRN NAUSEA-FOR RESCUE AFTER 15 MIN Microbiology 10/09/18 05:40 Blood - Peripheral Venous Blood Culture - Preliminary Pending Organism 10/09/18 05:30 Blood - Peripheral Venous Blood Culture - Preliminary NO GROWTH OBTAINED AFTER 24 HOURS, INCUBATION TO CONTINUE FOR 4 DAYS. Impression 1. ESRD 2. HTN 3. change in mental status 4. PNA 5. parkinsons 6. sepsis 7. clotted graft 8. fever 9. metastatic breast cancer 10. bacteremia Plan - HD tomorrow - follow cultures - vascular follow up - monitor mental status - abx per ID - monitor hg - discussed with ICU team
--- NOTE | 2018-10-10 16:39 | PN ---
Progress Note, Physician History of Present Illness: patient extubated more awake and alert - Current Medication List Current Medications: Active Medications Albumin Human (Albumin Human 25%) 12.5 gm IVPB Q30M [facility] Bisacodyl (Dulcolax Suppository -) 10 mg RC DAILY PRN PRN Reason: CONSTIPATION Carbidopa/Levodopa (Sinemet 25/100 -) 2 each PO QID [facility] Last Admin: 10/10/18 11:15 Dose: Not Given Docusate Sodium (Colace -) 100 mg PO TID [facility] Last Admin: 10/10/18 05:46 Dose: Not Given Epoetin Florencio (Epogen -) 10,000 unit IVPUSH ONCE ONE Stop: 10/11/18 14:59 Nafcillin Sodium 2 gm/ (Dextrose) 100 mls @ 100 mls/hr IVPB Q4H-IV [facility]; Protocol Last Admin: 10/10/18 11:11 Dose: 100 mls/hr Ertapenem 0.5 gm/ Sodium (Chloride) 50 mls @ 100 mls/hr IVPB DAILY [facility] Last Admin: 10/10/18 12:55 Dose: 100 mls/hr Fentanyl 500 mcg/ Dextrose 100 mls @ 10 mls/hr IVPB TITR [facility]; Protocol Last Admin: 10/09/18 23:00 Dose: Not Given Dextrose/Sodium Chloride (D5-Ns -) 1,000 mls @ 42 mls/hr IV ASDIR [facility] Last Admin: 10/09/18 07:41 Dose: 42 mls/hr Sodium Chloride (Normal Saline -) 250 mls @ 3,000 mls/hr IV PRN PRN PRN Reason: Hypotension during Dialysis Stop: 10/11/18 14:58 Losartan Potassium (Cozaar -) 100 mg PO DAILY [facility] Last Admin: 10/10/18 11:11 Dose: Not Given Morphine Sulfate (Morphine Sulfate) 2 mg IVPUSH Q3H PRN PRN Reason: PAIN LEVEL 6-10 Last Admin: 10/09/18 20:53 Dose: 2 mg Ondansetron HCl (Zofran Injection) 4 mg IVPUSH Q6H PRN PRN Reason: NAUSEA AND/OR VOMITING Pantoprazole Sodium (Protonix -) 40 mg PO DAILY [facility] Promethazine HCl (Phenergan Injection -) 12.5 mg IVPUSH Q6H PRN PRN Reason: NAUSEA-FOR RESCUE AFTER 15 MIN - Objective Vital Signs: Vital Signs Temperature 98.6 F 10/10/18 08:00 Pulse Rate 76 10/10/18 13:18 Respiratory Rate 14 10/10/18 10:42 Blood Pressure 114/70 10/10/18 10:00 O2 Sat by Pulse Oximetry (%) 100 10/10/18 13:18 Constitutional: Yes: Calm, Mild Distress Cardiovascular: Yes: Regular Rate and Rhythm Respiratory: Yes: Regular, CTA Bilaterally, On Nasal O2 Gastrointestinal: Yes: Soft, Hypoactive Bowel Sounds Musculoskeletal: Yes: Other Extremities: Yes: Other Wound/Incision: Yes: Dressing Dry and Intact Neurological: Yes: Alert Psychiatric: Yes: Alert Labs: CBC, BMP 10/10/18 05:30 10/10/18 06:00 INR, PTT INR 1.31 (0.83-1.09) H 10/08/18 05:30 Assessment/Plan ESRD HTN change in mental status PNA parkinsons sepsis clotted graft fever metastatic breast cancer gm positive bacteremia leukocytosis epidural abscess plan continue following blood cx cx report noted continue abx' close watch asp precautions rest as per icu cc 40 min
--- NOTE | 2018-10-10 19:03 | PN ---
Teaching Attending Note Name of Resident: Eduarda Ellison ATTENDING PHYSICIAN STATEMENT I saw and evaluated the patient. I reviewed the resident's note and discussed the case with the resident. I agree with the resident's findings and plan as documented. SUBJECTIVE: Unable to obtain, intubated OBJECTIVE: Gen: nad, intubated Pulm: ctab but intubated CV: rrr w/o m/r/g Abd: +bs, s/nt/nd Ext: no c/c/e ASSESSMENT AND PLAN: (1) Acute metabolic encephalopathy Assessment/Plan: -currently intubated -will assess when extubated Code(s): G93.41 - METABOLIC ENCEPHALOPATHY (2) 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 Assessment/Plan: -multiple blood cultures positive -s/p laminectomy, debridement, and removal of hardware -continue nafcillin and ertapenem -repeat blood cultures sent Code(s): A41.9 - SEPSIS, UNSPECIFIED ORGANISM (3) ESRD (end stage renal disease) on dialysis Assessment/Plan: -case d/w nephrology -HD today Code(s): N18.6 - END STAGE RENAL DISEASE; Z99.2 - DEPENDENCE ON RENAL DIALYSIS (4) Thrombocytopenia Assessment/Plan: -secondary to sepsis -resolved Code(s): D69.6 - THROMBOCYTOPENIA, UNSPECIFIED (5) Hyponatremia Assessment/Plan: -stable Code(s): E87.1 - HYPO-OSMOLALITY AND HYPONATREMIA (6) HTN (hypertension) Assessment/Plan: -currently normotensive Code(s): I10 - ESSENTIAL (PRIMARY) HYPERTENSION Qualifiers: Hypertension type: essential hypertension Qualified Code(s): I10 - Essential (primary) hypertension (7) Parkinson disease Assessment/Plan: -holding carbidopa/levodopa/entacapone while altered and npo Code(s): G20 - PARKINSON'S DISEASE (8) Dialysis AV fistula malfunction Assessment/Plan: -per vascular surgery Code(s): [facility]82.590A [facility] OF SURGICALLY CREATED ARTERIOVENOUS FISTULA, INIT Qualifiers: Encounter type: initial encounter Qualified Code(s): T82.590A - Other mechanical complication of surgically created arteriovenous fistula, initial encounter (9) Acute hepatic failure -GI following -bilirubin continues to elevate -monitor Problem List - Problems (1) Acute metabolic encephalopathy Code(s): G93.41 - METABOLIC ENCEPHALOPATHY (2) Sepsis Code(s): A41.9 - SEPSIS, UNSPECIFIED ORGANISM Qualifiers: Sepsis type: methicillin susceptible Staphylococcus aureus Qualified Code(s ): A41.01 - Sepsis due to Methicillin susceptible Staphylococcus aureus (3) ESRD (end stage renal disease) on dialysis Code(s): N18.6 - END STAGE RENAL DISEASE; Z99.2 - DEPENDENCE ON RENAL DIALYSIS (4) Thrombocytopenia Code(s): D69.6 - THROMBOCYTOPENIA, UNSPECIFIED (5) Hyponatremia Code(s): E87.1 - HYPO-OSMOLALITY AND HYPONATREMIA (6) HTN (hypertension) Code(s): I10 - ESSENTIAL (PRIMARY) HYPERTENSION Qualifiers: Hypertension type: essential hypertension Qualified Code(s): I10 - Essential (primary) hypertension (7) Parkinson disease Code(s): G20 - PARKINSON'S DISEASE (8) Dialysis AV fistula malfunction Code(s): T82.590A - [facility] COMPL OF SURGICALLY CREATED ARTERIOVENOUS FISTULA, INIT Qualifiers: Encounter type: initial encounter Qualified Code(s): T82.590A - Other mechanical complication of surgically created arteriovenous fistula, initial encounter
--- NOTE | 2018-10-10 20:02 | PN.GI ---
GI Progress Note Subjective: No acute events Patient extubated - Objective Vital Signs: Vital Signs Temperature 98.6 F 10/10/18 18:00 Pulse Rate 76 10/10/18 18:00 Respiratory Rate 14 10/10/18 10:42 Blood Pressure 123/70 10/10/18 18:00 O2 Sat by Pulse Oximetry (%) 100 10/10/18 13:18 Constitutional: Calm Cardiovascular: Yes: Regular Rate and Rhythm Respiratory: Yes: Diminished (at bases b/l, poor insp effort) Gastrointestinal Inspection: No: Distention ...Auscultate: Yes: Normoactive Bowel Sounds ...Palpate: No: Tenderness (No grimacing upon palpation) Edema: No (No LE edema) Neurological: Yes: Other (somnolent) Labs: CBC, BMP 10/10/18 05:30 10/10/18 06:00 INR, PTT INR 1.31 (0.83-1.09) H 10/08/18 05:30 Hepatic Panel Total Bilirubin 7.8 mg/dL (0.2-1) H 10/10/18 06:00 Direct Bilirubin 3.5 mg/dL (0.0-0.2) H 10/09/18 05:30 AST 27 U/L (15-37) 10/10/18 06:00 ALT < 6 U/L (13-61) L 10/10/18 06:00 Alkaline Phosphatase 81 U/L (45-117) 10/10/18 06:00 Albumin 1.6 g/dl (3.4-5.0) L 10/10/18 06:00 Problem List - Problems (1) Total bilirubin, elevated Assessment/Plan: Suspected hyperbilirubinemia of sepsis Check hepatic panell in AM (ordered) Monitor coags (ordered) Avoid hepatotoxic agents MRCP when patient clinically able and if no contraindications Code(s): R17 - UNSPECIFIED JAUNDICE
--- NOTE | 2018-10-10 21:35 | PN ---
Physical Exam: SUBJECTIVE: Patient seen and examined; Extubated!!; responds to commands; able to move b/l legs OBJECTIVE: Vital Signs Period Temp Pulse Resp BP Sys/Bentley Pulse Ox Last 24 Hr 98.4 F-100.3 F 68-86 6-20 110-128/51-75 95-100 GENERAL: The patient is awake, alert, and fully oriented,icteric LUNGS: Breath sounds equal, clear to auscultation bilaterally, no wheezes, no crackles, no accessory muscle use. HEART: Regular rate and rhythm, S1, S2 without murmur, rub or gallop. ABDOMEN: Soft, nontender, nondistended, normoactive bowel sounds, no guarding, no rebound, no hepatosplenomegaly, no masses. EXTREMITIES: 2+ pulses, warm, well-perfused, no edema. NEUROLOGICAL: lethargic Laboratory Results - last 24 hr 10/10/18 10/10/18 10/10/18 05:30 06:00 06:47 WBC 12.4 H RBC 2.84 L Hgb 9.9 L Hct 27.7 L MCV 97.6 H MCH 34.8 H MCHC 35.6 RDW 18.3 H Plt Count 150 MPV 9.4 Absolute Neuts (auto) 10.7 H Neutrophils % 86.1 H Lymphocytes % 5.8 L Monocytes % 5.9 Eosinophils % 1.5 Basophils % 0.7 Nucleated RBC % 0 Sodium 139 Potassium 3.5 Chloride 101 Carbon Dioxide 29 Anion Gap 9 BUN 41 H Creatinine 4.9 H Creat Clearance w eGFR 11.64 POC Glucometer 89 Random Glucose 109 H Calcium 6.7 L* Phosphorus 6.0 H Magnesium 2.1 Total Bilirubin 7.8 H AST 27 ALT < 6 L Alkaline Phosphatase 81 Total Protein 5.3 L Albumin 1.6 L 10/10/18 18:15 WBC RBC Hgb Hct MCV MCH MCHC RDW Plt Count MPV Absolute Neuts (auto) Neutrophils % Lymphocytes % Monocytes % Eosinophils % Basophils % Nucleated RBC % Sodium Potassium Chloride Carbon Dioxide Anion Gap BUN Creatinine Creat Clearance w eGFR POC Glucometer 60 Random Glucose Calcium Phosphorus Magnesium Total Bilirubin AST ALT Alkaline Phosphatase Total Protein Albumin Active Medications Generic Name Dose Route Start Last Admin Trade Name Freq PRN Reason Stop Dose Admin Albumin Human 12.5 gm 10/11/18 15:00 Albumin Human 25% IVPB Q30M JOSE J Bisacodyl 10 mg 03/18/19 19:57 Dulcolax Suppository - RC DAILY PRN CONSTIPATION Carbidopa/Levodopa 2 each 10/02/18 18:00 10/10/18 18:42 Sinemet 25/100 - PO 2 each QID JOSE J Administration Docusate Sodium 100 mg 10/07/18 22:00 10/10/18 17:44 Colace - PO Not Given TID JOSE J Epoetin Florencio 10,000 unit 10/11/18 14:58 Epogen - IVPUSH 10/11/18 14:59 ONCE ONE Nafcillin Sodium 2 gm/ 100 mls @ 100 mls/hr 10/03/18 15:30 10/10/18 18:42 Dextrose IVPB 100 mls/hr Q4H-IV JOSE J Administration Protocol Ertapenem 0.5 gm/ Sodium 50 mls @ 100 mls/hr 10/06/18 13:00 10/10/18 12:55 Chloride IVPB 100 mls/hr DAILY JOSE J Administration Dextrose/Sodium Chloride 1,000 mls @ 42 mls/hr 10/09/18 07:45 10/10/18 12:30 D5-Ns - IV 42 mls/hr ASDIR JOSE J Administration Sodium Chloride 250 mls @ 3,000 mls/hr 10/10/18 14:58 Normal Saline - IV 10/11/18 14:58 PRN PRN Hypotension during Dialysis Losartan Potassium 100 mg 10/03/18 19:15 10/10/18 11:11 Cozaar - PO Not Given DAILY [facility] Morphine Sulfate 2 mg 10/07/18 20:33 10/09/18 20:53 Morphine Sulfate IVPUSH 2 mg Q3H PRN Administration PAIN LEVEL 6-10 Ondansetron HCl 4 mg 10/07/18 19:57 Zofran Injection IVPUSH Q6H PRN NAUSEA AND/OR VOMITING Pantoprazole Sodium 40 mg 10/11/18 10:00 Protonix - PO DAILY [facility] Promethazine HCl 12.5 mg 10/07/18 20:23 Phenergan Injection - IVPUSH Q6H PRN NAUSEA-FOR RESCUE AFTER 15 MIN ASSESSMENT/PLAN: This is a 77 year old male with a history of breast CA s/p lumpectomy and radiation years ago, ESRD on HD who presented due 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 Persistently bacteremic. #bacteremia persistent; POD #3 drainage of epidural abscess -repeat blood cultures negative; will repeat -staph; antibiotics IV naf/ertapenam; cont #hypoerbilirubinemia; multifactorial; -possible from hypotension; meds -GI eval -mrcp when able #AV fistula malformation -duplex thrombus of AV fistula; complete obstruction; repeat US shows recannulation with mass vs hematoma -vascular consulted #Hx of breast ca; -liver and lungs lesions suspicious for mets; will need tissue diagnosis #ESRD on HD -HD as per renal #macrocytic anemia:s/p 2 unit of PRBC -iron studies stores are low;replace; ferritin high; (most likely acute phase reactant ) -vit b 12 and folate normal -FISH; cytogenetics, flow cytometry; pending -monitor cbc; transfuse threshold <7 #thrombocytopenia: resolved #hx of breast CA: -need tissue diagnosis of lung/liver nodule'; -w/u mets -heme consult GIppl; protonix Disop: ICU Visit type - Emergency Visit Emergency Visit: Yes ED Registration Date: 10/01/18 Care time: The patient presented to the Emergency Department on the above date and was hospitalized for further evaluation of their emergent condition. - New Patient This patient is new to me today: No - Critical Care Critical Care patient: Yes Total Critical Care Time (in minutes): 45 Critical Care Statement: The care of this patient involved high complexity decision making to prevent further life threatening deterioration of the patient 's condition and/or to evaluate & treat vital organ system(s) failure or risk of failure.
[2018-10-11] MEDS: NAFCILLIN - 2 GM in DEXTROSE 5%-WATER - 100 ML IVPB SCH ×6 (03:00→21:33)
[2018-10-11] MEDS ORDERED: PT OWN MED DRAWER 7, Y5N ONE ×5 (03:56→21:29)
[2018-10-11] MEDS: DOCUSATE SODIUM 100 MG CAPSULE (FP) PO SCH ×3 (06:06→21:18)
[2018-10-11 06:18] LABS: EOS % 1.4 % (0-4.5); HEMATOCRIT 31.1 % (35.4-49); HEMOGLOBIN 10.9 GM/dL (11.7-16.9); LYMPH % 8.7 % (8-40); MCH 34.3 pg (25.7-33.7); MCHC 34.9 g/dl (32.0-35.9); MEAN CELL VOLUME 98.1 fl (80-96); MEAN PLT VOLUME 9.6 fl (7.5-11.1); MONO % 5.1 % (3.8-10.2); NEUT % 83.8 % (42.8-82.8); PLATELET COUNT 175 K/MM3 (134-434); RBC 3.17 M/mm3 (4.00-5.60); RDW 17.8 % (11.9-15.9); WHITE BLOOD COUNT 14.5 K/mm3 (4.0-10.0)
[2018-10-11 06:28] LABS: INR 1.19 (0.83-1.09); PROTHROMBIN TIME (PATIENT) 14.1 SEC (9.7-13.0)
[2018-10-11 07:37] LABS: ALBUMIN 1.4 g/dl (3.4-5.0); ALK PHOS 84 U/L (45-117); BILIRUBIN,DIRECT 4.8 mg/dL (0.0-0.2); BILIRUBIN,TOTAL 9.6 mg/dL (0.2-1); SGOT/AST 27 U/L (15-37); SGPT/ALT < 6 U/L (13-61); TOT PROT 5.5 g/dl (6.4-8.2)
[2018-10-11] MEDS: DEXTROSE 5%-NORMAL SALINE 1,000 ML IV SCH ×2 (07:45→15:22)
[2018-10-11 07:46] LABS: ALBUMIN 1.4 g/dl (3.4-5.0); ALK PHOS 85 U/L (45-117); ANION GAP 12 MMOL/L (8-16); BILIRUBIN,TOTAL 9.6 mg/dL (0.2-1); BLOOD UREA NITROGEN 55 mg/dL (7-18); CALCIUM 7.2 mg/dL (8.5-10.1); CHLORIDE 99 mmol/L (98-107); CO2 26 mmol/L (21-32); CREATININE 5.9 mg/dL (0.55-1.3); GLUCOSE,RANDOM 98 mg/dL (74-106); MAGNESIUM 2.4 mg/dL (1.8-2.4); PHOSPHOROUS 8.2 mg/dL (2.5-4.9); POTASSIUM 3.8 mmol/L (3.5-5.1); SGOT/AST 27 U/L (15-37); SGPT/ALT < 6 U/L (13-61); SODIUM 137 mmol/L (136-145); TOT PROT 5.5 g/dl (6.4-8.2)
--- NOTE | 2018-10-11 08:23 | PN ---
Progress Note (short form) - Note Progress Note: NEUROSURGERY POD #4 S/p drainage of epidural abscess and removal of old posterior implant Extubated PE: Tmax 99, BP stable Drain out Following simple commands HEENT- NC/AT; Neck- supple; Cor- RR; Lungs- CTA, decreased at bases; Abd- benign ; Ext- no sign of DVT, R UE AVF CN- grossly nonfocal; Motor- starting to move B LE at least 4/5 L3-4 epidural abscess with LE deficits, gram stain (staph aureus), final ID and sensitivity pending Intra-op cx- MSSA Neurologically improved Care dw/ ICU team Complete iv abx course, currently ertapenem and nafcillin OOB, PT DNR
--- NOTE | 2018-10-11 08:39 | PN ---
Physical Exam: SUBJECTIVE: Patient seen and examined today. Pt was awake but confused/lethargic , unable to provide history. OBJECTIVE: Vital Signs Period Temp Pulse Resp BP Sys/Bentley Pulse Ox Last 24 Hr 98.4 F-99.0 F 71-76 12-18 100-128/52-76 95-100 GENERAL: The patient is awake in no acute distress. HEAD: Normal with no signs of trauma. EYES: PERRL, extraocular movements intact, sclera anicteric, conjunctiva clear. No ptosis. ENT: Ears normal, nares patent, oropharynx clear without exudates, moist mucous membranes. NECK: Trachea midline, full range of motion, supple. LUNGS: Breath sounds equal, bibasilar crackles. HEART: Regular rate and rhythm, S1, S2 without murmur, rub or gallop. ABDOMEN: Soft, nontender, nondistended, normoactive bowel sounds, no guarding, no rebound, no hepatosplenomegaly, no masses. EXTREMITIES: 2+ pulses, warm, well-perfused, no edema. NEUROLOGICAL: Cranial nerves II through XII grossly intact. PSYCH: Normal mood, oriented to person, confused, lethargic. SKIN: Warm, dry, normal turgor, no rashes or lesions noted Laboratory Results - last 24 hr 10/10/18 10/10/18 10/11/18 18:15 23:20 04:14 WBC RBC Hgb Hct MCV MCH MCHC RDW Plt Count MPV Absolute Neuts (auto) Neutrophils % Lymphocytes % Monocytes % Eosinophils % Basophils % Nucleated RBC % PT with INR INR Sodium Potassium Chloride Carbon Dioxide Anion Gap BUN Creatinine Creat Clearance w eGFR POC Glucometer 60 103 78 Random Glucose Calcium Phosphorus Magnesium Total Bilirubin Direct Bilirubin AST ALT Alkaline Phosphatase Total Protein Albumin 10/11/18 10/11/18 10/11/18 05:30 05:30 05:30 WBC 14.5 H RBC 3.17 L Hgb 10.9 L Hct 31.1 L MCV 98.1 H MCH 34.3 H MCHC 34.9 RDW 17.8 H Plt Count 175 MPV 9.6 Absolute Neuts (auto) 12.2 H Neutrophils % 83.8 H Lymphocytes % 8.7 D Monocytes % 5.1 Eosinophils % 1.4 Basophils % 1.0 Nucleated RBC % 0 PT with INR INR Sodium 137 Potassium 3.8 Chloride 99 Carbon Dioxide 26 Anion Gap 12 BUN 55 H Creatinine 5.9 H Creat Clearance w eGFR 9.39 POC Glucometer Random Glucose 98 Calcium 7.2 L Phosphorus 8.2 H Magnesium 2.4 Total Bilirubin 9.6 H 9.6 H Direct Bilirubin 4.8 H AST 27 27 ALT < 6 L < 6 L Alkaline Phosphatase 85 84 Total Protein 5.5 L 5.5 L Albumin 1.4 L 1.4 L 10/11/18 10/11/18 05:30 05:55 WBC RBC Hgb Hct MCV MCH MCHC RDW Plt Count MPV Absolute Neuts (auto) Neutrophils % Lymphocytes % Monocytes % Eosinophils % Basophils % Nucleated RBC % PT with INR 14.10 H INR 1.19 H Sodium Potassium Chloride Carbon Dioxide Anion Gap BUN Creatinine Creat Clearance w eGFR POC Glucometer 84 Random Glucose Calcium Phosphorus Magnesium Total Bilirubin Direct Bilirubin AST ALT Alkaline Phosphatase Total Protein Albumin Active Medications Generic Name Dose Route Start Last Admin Trade Name Freq PRN Reason Stop Dose Admin Albumin Human 12.5 gm 10/11/18 15:00 Albumin Human 25% IVPB Q30M [facility] Bisacodyl 10 mg 10/07/18 19:57 Dulcolax Suppository - RC DAILY PRN CONSTIPATION Carbidopa/Levodopa 2 each 10/02/18 18:00 10/10/18 22:01 Sinemet 25/100 - PO Not Given QID [facility] Docusate Sodium 100 mg 10/07/18 22:00 10/11/18 06:06 Colace - PO Not Given TID JOSE J Epoetin Florencio 10,000 unit 10/11/18 14:58 Epogen - IVPUSH 10/11/18 14:59 ONCE ONE Nafcillin Sodium 2 gm/ 100 mls @ 100 mls/hr 10/03/18 15:30 10/11/18 06:07 Dextrose IVPB 100 mls/hr Q4H-IV JOSE J Administration Protocol Ertapenem 0.5 gm/ Sodium 50 mls @ 100 mls/hr 10/06/18 13:00 10/10/18 12:55 Chloride IVPB 100 mls/hr DAILY JOSE J Administration Dextrose/Sodium Chloride 1,000 mls @ 42 mls/hr 10/09/18 07:45 10/10/18 12:30 D5-Ns - IV 42 mls/hr ASDIR JOSE J Administration Sodium Chloride 250 mls @ 3,000 mls/hr 10/10/18 14:58 Normal Saline - IV 10/11/18 14:58 PRN PRN Hypotension during Dialysis Losartan Potassium 100 mg 10/03/18 19:15 10/10/18 11:11 Cozaar - PO Not Given DAILY [facility] Morphine Sulfate 2 mg 10/07/18 20:33 10/09/18 20:53 Morphine Sulfate IVPUSH 2 mg Q3H PRN Administration PAIN LEVEL 6-10 Ondansetron HCl 4 mg 10/07/18 19:57 Zofran Injection IVPUSH Q6H PRN NAUSEA AND/OR VOMITING Pantoprazole Sodium 40 mg 10/11/18 10:00 Protonix - PO DAILY JOSE J Promethazine HCl 12.5 mg 10/07/18 20:23 Phenergan Injection - IVPUSH Q6H PRN NAUSEA-FOR RESCUE AFTER 15 MIN IMAGING: MRI cervical spine: No evidence of disc herniation, central spinal canal stenosis. Signal intensity of the spinal cord. T2 vertebral body. Approximately 4mm, T1 signal void lesion, increased increased signal intensity on the T2, STIR images is seen. Approximately 5.9 mm lesion of similar signal intensity is seen in the T9 vertebral body. In view of masslike opacity in the right upper lobe, the findings are concerning pathological lesions. MRI lumbar spine: L2-L3. Right foraminal disc extrusion with 15 mm cephalad extension of the disc material in the right lateral lateral recess of L2 vertebral body. 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 The thecal sac is compressed. Stenosis of the right neural foramen with almost complete effacement of the right perirenal fat. Clinically correlate with radiculopathy in distribution of the right L2 nerve. Facet joint arthropathy with thickening omentum flavum. L3-L4. Moderate facet joint arthropathy. Left facet joint effusion. Left posterior para facetal soft tissue edema/possibly fluid collections. Findings concerning for acute left facet joint synovitis with paraspinal inflammatory changes. Central spinal canal stenosis. Thickened ligamentum flavum left greater than the right. No compression of L3 nerves traversing through the neural foramina. Prominent left lateral marginal osteophytes. Increased signal intensity is seen in the right posterior para facetal soft tissues. L4-L5. Limited evaluation of the intraspinal contents, or neural foramina due to the magnetic susceptibility artifact from metallic hardware. Chest CT: Multiple lung nodules, metastatic disease not excluded. Atelectasis/ infiltration at both bases with trace effusions. Renal cyst and nephrolithiasis as discussed above. There is no evidence of hydronephrosis. The kidneys appear atrophic unchanged. Enlarged prostate gland. Thickening of the gastric wall, underlying gastritis not excluded. Correlate clinically and with endoscopy as clinically warranted. No bowel obstruction seen. Abdomen/Pelvis CT: Bilateral renal atrophy. Moderate to marked diffuse pancreatic atrophy. Mild/mild to moderate concentric subcutaneous soft tissue stranding suggestive of edema along the abdomen and pelvis. Mild right posterior basilar opacity is seen probably representing atelectasis, less likely a small infiltrate. Prostate enlargement. ASSESSMENT/PLAN: Patient is a 77 yo M with PMHx of ESRD MWF, parkinson's disease, dysphagia admitted with non functioning AV fistula, hyperkalemia was found to have MSSA bacteremia with thrombosed AV fistula and an epidural abscess, now s/p epidural abscess drainage. NEURO Off sedation Mental status stable, intermittently obeying commands, still confused Hx of Parkinsons Carbidopa/levodopa - restart Failed speech/swallow today - NG to be placed ID # MSSA BACTEREMIA LIKELY SECONDARY TO EPIDURAL ABSCESS S/P DEBRIDEMENT---- POD 3 s/p Partial L L3 and L4 laminetomies, drainage/debridement of epidural abscess, removal of prior L4-5 instrumentation B; microdissection; dain 1cc; R L3-4 posterolateral bone fusion IV Nafcillin and Ertapenam IV NS @ 42 cc/hr IV Morphine 2mg Q3H PRN IV Zofran PRN Per ID requesting daily bcx #EPIDURAL ABSCESS Nafcillin day 9 Ertapenem day 6 ID on board PULMONARY Extubated and weaned off venti mask to 3L Nasal Cannula CXR- 10/09/18- progressive atelectasis with fluid at the left base. CXR 10/08/18: new atelectasis or infiltrate at left base. CARDIAC #HYPOTENSION- improved s/p 500ml bolus NS, and 2PRBC -MAP maintained above 65 overnight -Defer JACOB for now per cardio -Soft BP today, 500cc bolus ordered -Will not pull of fluid during dialysis today per nephro RENAL MWF- last dialysis 10/09/18 -Dialysis for today # ESRD WITH RUE THROMBOSED AV FISTULA -Primary team in touch with vascular High risk for seeing the graft so not a candidate for clot removal/ declotting. Last Shiley removed 10/05 in setting of bacteremia Duplex RUE 10/07/18: since prior study 10/03/18, a thrombosed AV dialysis fistula has been recanalized flow is noted throughout the feeding artery, fistula and draining vein. 3.2 cm mass adjacent to the fistula. this could represent a hematoma or possibly a thrombosed pseudoaneurysm. this mass was noted on the prior study, but appears to be increased in size. GI #Hyperbilirubinemia Total bili = 9.6 Direct bili = 4.8 MRCP when stable per GI GI on board HEM/ONC # MACROCYTIC ANEMIA Post op anemia, H/H 10.2/29.2 MCV 103 >> 7.8/22.7 MCV 103 S/p 2PRBCs- H/h-10.8/30.5 H/H: 9.9/27.7>>10.9/31.1 - Repeat in AM 2U PRBC 10/08/18 #HX OF BREAST CA L breast with areolar masses CT shows CHARLES cavitary lung lesion Heme/onc consulted. Once stable, recommended for a tissue biopsy FEN IV D5NS @ 42 ml/hr NPO NG tube placed today 10/11/18 PROPHYLAXIS For DVT: SCDs, no chemical prophylaxis For GI: Protonix 40mg PO daily #CODE STATUS: DNR/DNI pre surgery. Full code for surgery. D/W Daughter Alba who gave consent for central line, and agrees that DNI will be reversed Pt without HCP- Son Shon was not reached this am (daughter said he usually gives consent) DISPO: ICU Visit type - Emergency Visit Emergency Visit: Yes ED Registration Date: 10/01/18 Care time: The patient presented to the Emergency Department on the above date and was hospitalized for further evaluation of their emergent condition. - New Patient This patient is new to me today: No - Critical Care Critical Care patient: Yes Total Critical Care Time (in minutes): 35 Critical Care Statement: The care of this patient involved high complexity decision making to prevent further life threatening deterioration of the patient 's condition and/or to evaluate & treat vital organ system(s) failure or risk of failure. - Discharge Referral Referred to [facility] No
[2018-10-11] MEDS ORDERED: PANTOPRAZOLE 40 MG TABLET (FP) PO SCH (10:00)
[2018-10-11] MEDS: LOSARTAN POTASSIUM 50 MG TABLET (FP) PO SCH (10:15)
[2018-10-11] MEDS: CARBIDOPA/LEVODOPA 25/100 TABLET (FP) PO SCH ×4 (10:15→21:18)
[2018-10-11] MEDS: ERTAPENEM SODIUM 0.5 GM in SODIUM CHLORIDE 50 ML IVPB SCH (10:18)
--- NOTE | 2018-10-11 10:33 | PN ---
Progress Note, Physician History of Present Illness: Extubated maintained on NC. Lethargic yet arousable. - Current Medication List Current Medications: Active Medications Albumin Human (Albumin Human 25%) 12.5 gm IVPB Q30M [facility] Bisacodyl (Dulcolax Suppository -) 10 mg RC DAILY PRN PRN Reason: CONSTIPATION Carbidopa/Levodopa (Sinemet 25/100 -) 2 each PO QID [facility] Last Admin: 10/11/18 10:15 Dose: Not Given Docusate Sodium (Colace -) 100 mg PO TID [facility] Last Admin: 10/11/18 06:06 Dose: Not Given Epoetin Florencio (Epogen -) 10,000 unit IVPUSH ONCE ONE Stop: 10/11/18 14:59 Nafcillin Sodium 2 gm/ (Dextrose) 100 mls @ 100 mls/hr IVPB Q4H-IV [facility]; Protocol Last Admin: 10/11/18 10:18 Dose: 100 mls/hr Ertapenem 0.5 gm/ Sodium (Chloride) 50 mls @ 100 mls/hr IVPB DAILY [facility] Last Admin: 10/11/18 10:18 Dose: 100 mls/hr Dextrose/Sodium Chloride (D5-Ns -) 1,000 mls @ 42 mls/hr IV ASDIR [facility] Last Admin: 10/11/18 07:45 Dose: Not Given Sodium Chloride (Normal Saline -) 250 mls @ 3,000 mls/hr IV PRN PRN PRN Reason: Hypotension during Dialysis Stop: 10/11/18 14:58 Losartan Potassium (Cozaar -) 100 mg PO DAILY [facility] Last Admin: 10/11/18 10:15 Dose: Not Given Morphine Sulfate (Morphine Sulfate) 2 mg IVPUSH Q3H PRN PRN Reason: PAIN LEVEL 6-10 Last Admin: 10/09/18 20:53 Dose: 2 mg Ondansetron HCl (Zofran Injection) 4 mg IVPUSH Q6H PRN PRN Reason: NAUSEA AND/OR VOMITING Pantoprazole Sodium (Protonix -) 40 mg PO DAILY [facility] Last Admin: 10/11/18 10:15 Dose: Not Given Promethazine HCl (Phenergan Injection -) 12.5 mg IVPUSH Q6H PRN PRN Reason: NAUSEA-FOR RESCUE AFTER 15 MIN - Objective Vital Signs: Vital Signs Temperature 98.2 F 03/22/19 10:00 Pulse Rate 71 10/11/18 10:00 Respiratory Rate 13 10/11/18 10:00 Blood Pressure 107/50 L 10/11/18 10:00 O2 Sat by Pulse Oximetry (%) 97 10/11/18 08:00 Constitutional: Yes: No Distress, Calm, Thin Neck: Yes: Supple Cardiovascular: Yes: Regular Rate and Rhythm Respiratory: Yes: Regular, Diminished, On Nasal O2 Gastrointestinal: Yes: Soft, Hypoactive Bowel Sounds Edema: No Labs: CBC, BMP 10/11/18 05:30 10/11/18 05:30 INR, PTT INR 1.19 (0.83-1.09) H 10/11/18 05:30 Problem List - Problems (1) Dialysis AV fistula malfunction Code(s): T82.590A - MECH COMPL OF SURGICALLY CREATED ARTERIOVENOUS FISTULA, INIT Qualifiers: Encounter type: initial encounter Qualified Code(s): T82.590A - Other mechanical complication of surgically created arteriovenous fistula, initial encounter (2) Epidural abscess Code(s): G06.2 - EXTRADURAL AND SUBDURAL ABSCESS, UNSPECIFIED (3) HTN (hypertension) Code(s): I10 - ESSENTIAL (PRIMARY) HYPERTENSION Qualifiers: Hypertension type: essential hypertension Qualified Code(s): I10 - Essential (primary) hypertension (4) Hyperbilirubinemia Code(s): E80.6 - OTHER DISORDERS OF BILIRUBIN METABOLISM (5) Parkinson disease Code(s): G20 - PARKINSON'S DISEASE (6) Sepsis Code(s): A41.9 - SEPSIS, UNSPECIFIED ORGANISM Qualifiers: Sepsis type: methicillin susceptible Staphylococcus aureus Qualified Code(s ): A41.01 - Sepsis due to Methicillin susceptible Staphylococcus aureus (7) ESRD (end stage renal disease) on dialysis Code(s): N18.6 - END STAGE RENAL DISEASE; Z99.2 - DEPENDENCE ON RENAL DIALYSIS Assessment/Plan 1. Persistent MSSA Bacteremia/Sepsis 2. Epidural Abscess s/p Drainage and removal of old posterior implant POD#4 3. s/p Acute Respiratory Failure 4. HTN 5. ESRD on HD with AVF thrombus 6. Parkinson's disease 7. h/o Breast Ca with suspected lung and liver mets 8. Anemia of CKD 9. Hyperbilirubinemia of sepsis suspected PLAN: 1. Wean FIO2 as tolerated 2. Neurosurgery input noted, drain d/danya, antibiotics course per C&S, document clearance 3. Transfuse to maintain Hgb>8.0 4. HD per renal via HD catheter, resume losartan as hemodynamics tolerate 5. MRCP when stable 6. DVT prophylaxis
--- NOTE | 2018-10-11 10:55 | PN ---
Progress Note, COOKING CHEF - Note Progress Note: Asked to reevaluate pt's swallow function. Seen last week with suspected aspiration. Placed on Dys puree/nectar thick liquid. Was pending MBS Sunday when pt was noted to be lethargic. MSSA BACTEREMIA LIKELY SECONDARY TO EPIDURAL ABSCESS S/P DEBRIDEMENT s/p Partial L L3 and L4 laminetomies, drainage/debridement of epidural abscess, removal of prior L4-5 instrumentation B; microdissection; dain 1cc; R L3-4 posterolateral bone fusion now s/p epidural abscess drainage. Extubated yesterday and placed on Venti Mask CXR- 10/09/18- progressive atelectasis with fluid at the left base. CXR 10/08/18: new atelectasis or infiltrate at left base. Lethargic, hypotensive. IMP- Risk of aspiration secondary to suspected aspiration last week,dysphonia at baseline, s/p intubation, lethargic Consider- NGT and MBS next week when medically stable and alert.
[2018-10-11] MEDS ORDERED: SODIUM CHLORIDE 500 ML IV STA (11:58)
--- NOTE | 2018-10-11 12:18 | PN ---
Progress Note (short form) - Note Progress Note: Patient seen and examined Somewhat lethargic, hypotensive States some chest pain Denies back pains Last Vital Signs Temp Pulse Resp BP Pulse Ox 98.2 F 71 12 90/49 L 97 10/11/18 10:00 10/11/18 11:00 10/11/18 11:00 10/11/18 11:00 10/11/18 08:00 HEENT: KHURRAM, EOM Intact Oropharynx: dry mucous membranes with caked secretions Breasts:\left nipple - nodularity ? local recurrence Cor: RSR, No murmurs, No gallops Lungs: diminished breath sounds Abd: Soft, Normal bowel sounds, No organomegaly Ext:No significant edema Skin: No rashes, Integument intact CBC, BMP 10/11/18 05:30 10/11/18 05:30 Current Medications Generic Name Dose Route Start Last Admin Trade Name Freq PRN Reason Stop Dose Admin Albumin Human 12.5 gm 10/11/18 15:00 Albumin Human 25% IVPB Q30M [facility] Bisacodyl 10 mg 10/07/18 19:57 Dulcolax Suppository - RC DAILY PRN CONSTIPATION Carbidopa/Levodopa 2 each 10/02/18 18:00 10/11/18 10:15 Sinemet 25/100 - PO Not Given QID [facility] Docusate Sodium 100 mg 10/07/18 22:00 10/11/18 06:06 Colace - PO Not Given TID [facility] Epoetin Florencio 10,000 unit 10/11/18 14:58 Epogen - IVPUSH 10/11/18 14:59 ONCE ONE Nafcillin Sodium 2 gm/ 100 mls @ 100 mls/hr 10/03/18 15:30 10/11/18 10:18 Dextrose IVPB 100 mls/hr Q4H-IV [facility] Administration Protocol Ertapenem 0.5 gm/ Sodium 50 mls @ 100 mls/hr 10/06/18 13:00 10/11/18 10:18 Chloride IVPB 100 mls/hr DAILY [facility] Administration Dextrose/Sodium Chloride 1,000 mls @ 42 mls/hr 10/09/18 07:45 10/11/18 07:45 D5-Ns - IV Not Given ASDIR [facility] Sodium Chloride 250 mls @ 3,000 mls/hr 10/10/18 14:58 Normal Saline - IV 10/11/18 14:58 PRN PRN Hypotension during Dialysis Sodium Chloride 500 mls @ 500 mls/hr 10/11/18 11:58 10/11/18 12:08 Normal Saline - IV 10/11/18 12:57 500 mls/hr ASDIR STA Administration Losartan Potassium 100 mg 10/03/18 19:15 10/11/18 10:15 Cozaar - PO Not Given DAILY [facility] Morphine Sulfate 2 mg 10/07/18 20:33 10/09/18 20:53 Morphine Sulfate IVPUSH 2 mg Q3H PRN Administration PAIN LEVEL 6-10 Ondansetron HCl 4 mg 10/07/18 19:57 Zofran Injection IVPUSH Q6H PRN NAUSEA AND/OR VOMITING Pantoprazole Sodium 40 mg 10/11/18 10:00 10/11/18 10:15 Protonix - PO Not Given DAILY [facility] Promethazine HCl 12.5 mg 10/07/18 20:23 Phenergan Injection - IVPUSH Q6H PRN NAUSEA-FOR RESCUE AFTER 15 MIN Impression: Epidural abscess- s/p drainage ESRD/H.D MSSA bacteremia Breast ca ? mets to bone , lung and ? local recurrence Parkinson's Plan Continued critical care monitoring In future - address ? of treatments for breast ca.
--- NOTE | 2018-10-11 12:24 | PN ---
Teaching Attending Note Name of Resident: Angeles Zuñiga ATTENDING PHYSICIAN STATEMENT I saw and evaluated the patient. I reviewed the resident's note and discussed the case with the resident. I agree with the resident's findings and plan as documented. SUBJECTIVE: Patient seen and examined in the ICU. Remains extubated. Lethargic but arousable. Able to follow commands. OBJECTIVE: Intake & Output 10/08/18 10/09/18 10/10/18 10/11/18 23:59 23:59 23:59 23:59 Intake Total 2725 1044 2104 954 Output Total 50 35 0 Balance 2675 1009 2104 954 Weight 148 lb 14.4 oz 148 lb 14.4 oz Last Vital Signs Temp Pulse Resp BP Pulse Ox 98.1 F 71 13 95/50 L 97 10/11/18 12:00 10/11/18 12:00 10/11/18 12:00 10/11/18 12:00 10/11/18 08:00 Active Medications Albumin Human (Albumin Human 25%) 12.5 gm IVPB Q30M [facility] Bisacodyl (Dulcolax Suppository -) 10 mg RC DAILY PRN PRN Reason: CONSTIPATION Carbidopa/Levodopa (Sinemet 25/100 -) 2 each PO QID [facility] Last Admin: 10/11/18 10:15 Dose: Not Given Docusate Sodium (Colace -) 100 mg PO TID [facility] Last Admin: 10/11/18 06:06 Dose: Not Given Epoetin Florencio (Epogen -) 10,000 unit IVPUSH ONCE ONE Stop: 10/11/18 14:59 Nafcillin Sodium 2 gm/ (Dextrose) 100 mls @ 100 mls/hr IVPB Q4H-IV [facility]; Protocol Last Admin: 10/11/18 10:18 Dose: 100 mls/hr Ertapenem 0.5 gm/ Sodium (Chloride) 50 mls @ 100 mls/hr IVPB DAILY [facility] Last Admin: 10/11/18 10:18 Dose: 100 mls/hr Dextrose/Sodium Chloride (D5-Ns -) 1,000 mls @ 42 mls/hr IV ASDIR [facility] Last Admin: 10/11/18 07:45 Dose: Not Given Sodium Chloride (Normal Saline -) 250 mls @ 3,000 mls/hr IV PRN PRN PRN Reason: Hypotension during Dialysis Stop: 10/11/18 14:58 Sodium Chloride (Normal Saline -) 500 mls @ 500 mls/hr IV ASDIR STA Stop: 10/11/18 12:57 Last Admin: 10/11/18 12:08 Dose: 500 mls/hr Losartan Potassium (Cozaar -) 100 mg PO DAILY [facility] Last Admin: 10/11/18 10:15 Dose: Not Given Morphine Sulfate (Morphine Sulfate) 2 mg IVPUSH Q3H PRN PRN Reason: PAIN LEVEL 6-10 Last Admin: 10/09/18 20:53 Dose: 2 mg Ondansetron HCl (Zofran Injection) 4 mg IVPUSH Q6H PRN PRN Reason: NAUSEA AND/OR VOMITING Pantoprazole Sodium (Protonix -) 40 mg PO DAILY [facility] Last Admin: 10/11/18 10:15 Dose: Not Given Promethazine HCl (Phenergan Injection -) 12.5 mg IVPUSH Q6H PRN PRN Reason: NAUSEA-FOR RESCUE AFTER 15 MIN Gen: extubated, lethargic but able to follow commands Heart: RRR Lung: decreased breath sounds at the bases Abd: soft, nontender Ext: no edema Laboratory Results - last 24 hr 10/07/18 10/10/18 10/10/18 18:30 18:15 23:20 WBC RBC Hgb Hct MCV MCH MCHC RDW Plt Count MPV Absolute Neuts (auto) Neutrophils % Lymphocytes % Monocytes % Eosinophils % Basophils % Nucleated RBC % PT with INR INR Sodium Potassium Chloride Carbon Dioxide Anion Gap BUN Creatinine Creat Clearance w eGFR POC Glucometer 60 103 Random Glucose Calcium Phosphorus Magnesium Total Bilirubin Direct Bilirubin AST ALT Alkaline Phosphatase Total Protein Albumin Blood Type A POSITIVE Antibody Screen Negative Crossmatch See Detail 10/11/18 10/11/18 10/11/18 04:14 05:30 05:30 WBC 14.5 H RBC 3.17 L Hgb 10.9 L Hct 31.1 L MCV 98.1 H MCH 34.3 H MCHC 34.9 RDW 17.8 H Plt Count 175 MPV 9.6 Absolute Neuts (auto) 12.2 H Neutrophils % 83.8 H Lymphocytes % 8.7 D Monocytes % 5.1 Eosinophils % 1.4 Basophils % 1.0 Nucleated RBC % 0 PT with INR INR Sodium 137 Potassium 3.8 Chloride 99 Carbon Dioxide 26 Anion Gap 12 BUN 55 H Creatinine 5.9 H Creat Clearance w eGFR 9.39 POC Glucometer 78 Random Glucose 98 Calcium 7.2 L Phosphorus 8.2 H Magnesium 2.4 Total Bilirubin 9.6 H Direct Bilirubin AST 27 ALT < 6 L Alkaline Phosphatase 85 Total Protein 5.5 L Albumin 1.4 L Blood Type Antibody Screen Crossmatch 10/11/18 10/11/18 10/11/18 05:30 05:30 05:55 WBC RBC Hgb Hct MCV MCH MCHC RDW Plt Count MPV Absolute Neuts (auto) Neutrophils % Lymphocytes % Monocytes % Eosinophils % Basophils % Nucleated RBC % PT with INR 14.10 H INR 1.19 H Sodium Potassium Chloride Carbon Dioxide Anion Gap BUN Creatinine Creat Clearance w eGFR POC Glucometer 84 Random Glucose Calcium Phosphorus Magnesium Total Bilirubin 9.6 H Direct Bilirubin 4.8 H AST 27 ALT < 6 L Alkaline Phosphatase 84 Total Protein 5.5 L Albumin 1.4 L Blood Type Antibody Screen Crossmatch 10/11/18 11:05 WBC RBC Hgb Hct MCV MCH MCHC RDW Plt Count MPV Absolute Neuts (auto) Neutrophils % Lymphocytes % Monocytes % Eosinophils % Basophils % Nucleated RBC % PT with INR INR Sodium Potassium Chloride Carbon Dioxide Anion Gap BUN Creatinine Creat Clearance w eGFR POC Glucometer 70 Random Glucose Calcium Phosphorus Magnesium Total Bilirubin Direct Bilirubin AST ALT Alkaline Phosphatase Total Protein Albumin Blood Type Antibody Screen Crossmatch ASSESSMENT AND PLAN: Persistent MSSA Bacteremia Epidural Abscess s/p Drainage Sepsis Acute Respiratory Failure ESRD on HD Parkinsons Disease h/o Breast Ca with suspected recurrence Anemia HTN - continue antibiotics - monitor H/H - transfuse as needed - HD per renal - O2 to keep SpO2 >90% - aspiration precautions - DVT prophylaxis - Cardiac Telemetry monitoring if stable after HD Dr Nye
[2018-10-11] MEDS ORDERED: DEXTROSE 50%-WATER - 25 GM/50 ML VIAL IVPUSH ONE (13:08)
--- NOTE | 2018-10-11 13:56 | PN ---
Progress Note, Physician History of Present Illness: Pt seen and examined at bedside. He remains in the ICU. He was hypotensive and required a bolus. He is due for HD today. - Current Medication List Current Medications: Active Medications Albumin Human (Albumin Human 25%) 12.5 gm IVPB Q30M [facility] Bisacodyl (Dulcolax Suppository -) 10 mg RC DAILY PRN PRN Reason: CONSTIPATION Carbidopa/Levodopa (Sinemet 25/100 -) 2 each PO QID [facility] Last Admin: 10/11/18 13:24 Dose: Not Given Dextrose (D50w (Vial) -) 25 gm IVPUSH NOW ONE Stop: 10/11/18 13:09 Docusate Sodium (Colace -) 100 mg PO TID [facility] Last Admin: 10/11/18 13:24 Dose: Not Given Epoetin Florencio (Epogen -) 10,000 unit IVPUSH ONCE ONE Stop: 10/11/18 14:59 Nafcillin Sodium 2 gm/ (Dextrose) 100 mls @ 100 mls/hr IVPB Q4H-IV [facility]; Protocol Last Admin: 10/11/18 13:28 Dose: 100 mls/hr Ertapenem 0.5 gm/ Sodium (Chloride) 50 mls @ 100 mls/hr IVPB DAILY [facility] Last Admin: 10/11/18 10:18 Dose: 100 mls/hr Dextrose/Sodium Chloride (D5-Ns -) 1,000 mls @ 42 mls/hr IV ASDIR [facility] Last Admin: 10/11/18 07:45 Dose: Not Given Sodium Chloride (Normal Saline -) 250 mls @ 3,000 mls/hr IV PRN PRN PRN Reason: Hypotension during Dialysis Stop: 10/11/18 14:58 Losartan Potassium (Cozaar -) 100 mg PO DAILY [facility] Last Admin: 10/11/18 10:15 Dose: Not Given Morphine Sulfate (Morphine Sulfate) 2 mg IVPUSH Q3H PRN PRN Reason: PAIN LEVEL 6-10 Last Admin: 10/09/18 20:53 Dose: 2 mg Ondansetron HCl (Zofran Injection) 4 mg IVPUSH Q6H PRN PRN Reason: NAUSEA AND/OR VOMITING Pantoprazole Sodium (Protonix -) 40 mg PO DAILY [facility] Last Admin: 10/11/18 10:15 Dose: Not Given Promethazine HCl (Phenergan Injection -) 12.5 mg IVPUSH Q6H PRN PRN Reason: NAUSEA-FOR RESCUE AFTER 15 MIN - Objective Vital Signs: Vital Signs Temperature 98.1 F 10/11/18 12:00 Pulse Rate 71 10/11/18 12:00 Respiratory Rate 13 10/11/18 12:00 Blood Pressure 95/50 L 10/11/18 12:00 O2 Sat by Pulse Oximetry (%) 97 10/11/18 08:00 Constitutional: Yes: Calm Eyes: Yes: Conjunctiva Clear HENT: Yes: Atraumatic Neck: Yes: Supple Cardiovascular: Yes: S1, S2 Respiratory: Yes: On Nasal O2 Gastrointestinal: Yes: Soft Genitourinary: Yes: Incontinence Musculoskeletal: Yes: Muscle Weakness Edema: Yes Edema: LLE: Trace, RLE: Trace Neurological: Yes: Other (awake and answers simple questions) Labs: CBC, BMP 10/11/18 05:30 10/11/18 05:30 INR, PTT INR 1.19 (0.83-1.09) H 10/11/18 05:30 Problem List - Problems (1) HTN (hypertension) Code(s): I10 - ESSENTIAL (PRIMARY) HYPERTENSION Qualifiers: Hypertension type: essential hypertension Qualified Code(s): I10 - Essential (primary) hypertension (2) ESRD (end stage renal disease) on dialysis Code(s): N18.6 - END STAGE RENAL DISEASE; Z99.2 - DEPENDENCE ON RENAL DIALYSIS Assessment/Plan Current Medications Generic Name Dose Route Start Last Admin Trade Name Freq PRN Reason Stop Dose Admin Albumin Human 12.5 gm 10/11/18 15:00 Albumin Human 25% IVPB Q30M [facility] Bisacodyl 10 mg 10/07/18 19:57 Dulcolax Suppository - RC DAILY PRN CONSTIPATION Carbidopa/Levodopa 2 each 10/02/18 18:00 10/11/18 13:24 Sinemet 25/100 - PO Not Given QID JO[facility] J Dextrose 25 gm 10/11/18 13:08 D50w (Vial) - IVPUSH 10/11/18 13:09 NOW ONE Docusate Sodium 100 mg 10/07/18 22:00 10/11/18 13:24 Colace - PO Not Given TID JOSE J Epoetin Florencio 10,000 unit 10/11/18 14:58 Epogen - IVPUSH 10/11/18 14:59 ONCE ONE Nafcillin Sodium 2 gm/ 100 mls @ 100 mls/hr 10/03/18 15:30 10/11/18 13:28 Dextrose IVPB 100 mls/hr Q4H-IV [facility] Administration Protocol Ertapenem 0.5 gm/ Sodium 50 mls @ 100 mls/hr 10/06/18 13:00 10/11/18 10:18 Chloride IVPB 100 mls/hr DAILY [facility] Administration Dextrose/Sodium Chloride 1,000 mls @ 42 mls/hr 10/09/18 07:45 10/11/18 07:45 D5-Ns - IV Not Given ASDIR [facility] Sodium Chloride 250 mls @ 3,000 mls/hr 10/10/18 14:58 Normal Saline - IV 10/11/18 14:58 PRN PRN Hypotension during Dialysis Losartan Potassium 100 mg 10/03/18 19:15 10/11/18 10:15 Cozaar - PO Not Given DAILY [facility] Morphine Sulfate 2 mg 10/07/18 20:33 10/09/18 20:53 Morphine Sulfate IVPUSH 2 mg Q3H PRN Administration PAIN LEVEL 6-10 Ondansetron HCl 4 mg 10/07/18 19:57 Zofran Injection IVPUSH Q6H PRN NAUSEA AND/OR VOMITING Pantoprazole Sodium 40 mg 10/11/18 10:00 10/11/18 10:15 Protonix - PO Not Given DAILY [facility] Promethazine HCl 12.5 mg 10/07/18 20:23 Phenergan Injection - IVPUSH Q6H PRN NAUSEA-FOR RESCUE AFTER 15 MIN Microbiology 10/10/18 12:30 Blood - Peripheral Venous Blood Culture - Preliminary NO GROWTH OBTAINED AFTER 24 HOURS, INCUBATION TO CONTINUE FOR 4 DAYS. 10/09/18 05:40 Blood - Peripheral Venous Blood Culture - Preliminary Staphylococcus Latex Coag Pos 10/09/18 05:30 Blood - Peripheral Venous Blood Culture - Preliminary NO GROWTH OBTAINED AFTER 48 HOURS, INCUBATION TO CONTINUE FOR 3 DAYS. Impression 1. ESRD 2. HTN 3. change in mental status 4. PNA 5. parkinsons 6. sepsis 7. clotted graft 8. fever 9. metastatic breast cancer 10. bacteremia Plan - HD today - d/c femoral catheter after HD - d/c fluids once started on feeds - monitor mental status - abx per ID - monitor hg - discussed with ICU team
[2018-10-11 14:52] LABS: IGA IMMUNOGLOBULIN 358; IGG IMMUNOGLOBULIN 853; IGM IMMUNOGLOBULIN 73
--- NOTE | 2018-10-11 14:55 | PN ---
Progress Note, Physician History of Present Illness: extubated but lethargic s/p epidural abscess drainage all cx reports noted still bacteremic plan for dialysis - Current Medication List Current Medications: Active Medications Albumin Human (Albumin Human 25%) 12.5 gm IVPB Q30M [facility] Bisacodyl (Dulcolax Suppository -) 10 mg RC DAILY PRN PRN Reason: CONSTIPATION Carbidopa/Levodopa (Sinemet 25/100 -) 2 each PO QID [facility] Last Admin: 10/11/18 13:24 Dose: Not Given Docusate Sodium (Colace -) 100 mg PO TID [facility] Last Admin: 10/11/18 13:24 Dose: Not Given Epoetin Florencio (Epogen -) 10,000 unit IVPUSH ONCE ONE Stop: 10/11/18 14:59 Nafcillin Sodium 2 gm/ (Dextrose) 100 mls @ 100 mls/hr IVPB Q4H-IV [facility]; Protocol Last Admin: 10/11/18 13:28 Dose: 100 mls/hr Ertapenem 0.5 gm/ Sodium (Chloride) 50 mls @ 100 mls/hr IVPB DAILY [facility] Last Admin: 10/11/18 10:18 Dose: 100 mls/hr Dextrose/Sodium Chloride (D5-Ns -) 1,000 mls @ 42 mls/hr IV ASDIR [facility] Last Admin: 10/11/18 07:45 Dose: Not Given Sodium Chloride (Normal Saline -) 250 mls @ 3,000 mls/hr IV PRN PRN PRN Reason: Hypotension during Dialysis Stop: 10/11/18 14:58 Losartan Potassium (Cozaar -) 100 mg PO DAILY [facility] Last Admin: 10/11/18 10:15 Dose: Not Given Morphine Sulfate (Morphine Sulfate) 2 mg IVPUSH Q3H PRN PRN Reason: PAIN LEVEL 6-10 Last Admin: 10/09/18 20:53 Dose: 2 mg Ondansetron HCl (Zofran Injection) 4 mg IVPUSH Q6H PRN PRN Reason: NAUSEA AND/OR VOMITING Pantoprazole Sodium (Protonix -) 40 mg PO DAILY [facility] Last Admin: 10/11/18 10:15 Dose: Not Given Promethazine HCl (Phenergan Injection -) 12.5 mg IVPUSH Q6H PRN PRN Reason: NAUSEA-FOR RESCUE AFTER 15 MIN - Objective Vital Signs: Vital Signs Temperature 98.3 F 10/11/18 14:00 Pulse Rate 77 10/11/18 14:00 Respiratory Rate 20 10/11/18 14:00 Blood Pressure 101/52 L 10/11/18 14:00 O2 Sat by Pulse Oximetry (%) 97 10/11/18 08:00 Constitutional: Yes: Other Cardiovascular: Yes: S1, S2 Respiratory: Yes: On Nasal O2, Poor Air Entry, Rhonchi Gastrointestinal: Yes: Hypoactive Bowel Sounds Musculoskeletal: Yes: Other Extremities: Yes: WNL Wound/Incision: Yes: Dressing Dry and Intact Neurological: Yes: Lethargy, Other Psychiatric: Yes: Other Labs: CBC, BMP 10/11/18 05:30 10/11/18 05:30 INR, PTT INR 1.19 (0.83-1.09) H 10/11/18 05:30 Assessment/Plan This is a 77 year old male with a history of breast CA s/p lumpectomy and radiation years ago, ESRD on HD who presented due 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 Persistently bacteremic. ESRD HTN change in mental status PNA parkinsons sepsis clotted graft fever metastatic breast cancer gm positive bacteremia leukocytosis plan continue abx continue cx every day untill he is negative continue monitoring vanc levels patient prognosis is not good monitor fevers nutrition rest as per the team and icu as per neurosurgery cc 40 min
[2018-10-11] MEDS ORDERED: SODIUM CHLORIDE 250 ML IV PRN (15:49)
[2018-10-11] MEDS ORDERED: EPOETIN ALFA 10,000 UNIT/1 ML VIAL IVPUSH ONE (16:00)
[2018-10-11] MEDS: ALBUMIN HUMAN 25% 12.5 GM/50 ML VIAL IVPB SCH ×4 (16:30→18:00)
--- NOTE | 2018-10-11 18:02 | PN ---
Physical Exam: SUBJECTIVE: Patient seen and examined; extubated; NGT in place OBJECTIVE: Vital Signs Period Temp Pulse Resp BP Sys/Bentley Pulse Ox Last 24 Hr 98.0 F-99.0 F 71-79 12-20 90-128/49-76 95-97 GENERAL: The patient is eye opening; confused LUNGS:decreased breath sounds HEART: Regular rate and rhythm, S1, S2 without murmur, rub or gallop. ABDOMEN: Soft, nontender, nondistended, normoactive bowel sounds, no guarding, no rebound, no hepatosplenomegaly, no masses. EXTREMITIES: 2+ pulses, warm, well-perfused, no edema. NEUROLOGICAL:more confused; but opens eyes; respond to some commands ; not moving legs today on command Laboratory Results - last 24 hr 10/04/18 10/07/18 10/10/18 06:30 18:30 18:15 WBC RBC Hgb Hct MCV MCH MCHC RDW Plt Count MPV Absolute Neuts (auto) Neutrophils % Lymphocytes % Monocytes % Eosinophils % Basophils % Nucleated RBC % PT with INR INR Sodium Potassium Chloride Carbon Dioxide Anion Gap BUN Creatinine Creat Clearance w eGFR POC Glucometer 60 Random Glucose Calcium Phosphorus Magnesium Total Bilirubin Direct Bilirubin AST ALT Alkaline Phosphatase Total Protein Albumin IgG 853 IgA 358 IgM 73 Blood Type A POSITIVE Antibody Screen Negative Crossmatch See Detail 10/10/18 10/11/18 10/11/18 23:20 04:14 05:30 WBC 14.5 H RBC 3.17 L Hgb 10.9 L Hct 31.1 L MCV 98.1 H MCH 34.3 H MCHC 34.9 RDW 17.8 H Plt Count 175 MPV 9.6 Absolute Neuts (auto) 12.2 H Neutrophils % 83.8 H Lymphocytes % 8.7 D Monocytes % 5.1 Eosinophils % 1.4 Basophils % 1.0 Nucleated RBC % 0 PT with INR INR Sodium Potassium Chloride Carbon Dioxide Anion Gap BUN Creatinine Creat Clearance w eGFR POC Glucometer 103 78 Random Glucose Calcium Phosphorus Magnesium Total Bilirubin Direct Bilirubin AST ALT Alkaline Phosphatase Total Protein Albumin IgG IgA IgM Blood Type Antibody Screen Crossmatch 10/11/18 10/11/18 10/11/18 05:30 05:30 05:30 WBC RBC Hgb Hct MCV MCH MCHC RDW Plt Count MPV Absolute Neuts (auto) Neutrophils % Lymphocytes % Monocytes % Eosinophils % Basophils % Nucleated RBC % PT with INR 14.10 H INR 1.19 H Sodium 137 Potassium 3.8 Chloride 99 Carbon Dioxide 26 Anion Gap 12 BUN 55 H Creatinine 5.9 H Creat Clearance w eGFR 9.39 POC Glucometer Random Glucose 98 Calcium 7.2 L Phosphorus 8.2 H Magnesium 2.4 Total Bilirubin 9.6 H 9.6 H Direct Bilirubin 4.8 H AST 27 27 ALT < 6 L < 6 L Alkaline Phosphatase 85 84 Total Protein 5.5 L 5.5 L Albumin 1.4 L 1.4 L IgG IgA IgM Blood Type Antibody Screen Crossmatch 10/11/18 10/11/18 10/11/18 05:55 11:05 13:02 WBC RBC Hgb Hct MCV MCH MCHC RDW Plt Count MPV Absolute Neuts (auto) Neutrophils % Lymphocytes % Monocytes % Eosinophils % Basophils % Nucleated RBC % PT with INR INR Sodium Potassium Chloride Carbon Dioxide Anion Gap BUN Creatinine Creat Clearance w eGFR POC Glucometer 84 70 53 Random Glucose Calcium Phosphorus Magnesium Total Bilirubin Direct Bilirubin AST ALT Alkaline Phosphatase Total Protein Albumin IgG IgA IgM Blood Type Antibody Screen Crossmatch 10/11/18 17:30 WBC RBC Hgb Hct MCV MCH MCHC RDW Plt Count MPV Absolute Neuts (auto) Neutrophils % Lymphocytes % Monocytes % Eosinophils % Basophils % Nucleated RBC % PT with INR INR Sodium Potassium Chloride Carbon Dioxide Anion Gap BUN Creatinine Creat Clearance w eGFR POC Glucometer 121 Random Glucose Calcium Phosphorus Magnesium Total Bilirubin Direct Bilirubin AST ALT Alkaline Phosphatase Total Protein Albumin IgG IgA IgM Blood Type Antibody Screen Crossmatch Active Medications Generic Name Dose Route Start Last Admin Trade Name Freq PRN Reason Stop Dose Admin Bisacodyl 10 mg 10/07/18 19:57 Dulcolax Suppository - RC DAILY PRN CONSTIPATION Carbidopa/Levodopa 2 each 10/02/18 18:00 10/11/18 17:53 Sinemet 25/100 - PO Not Given QID JOSE J Docusate Sodium 100 mg 10/07/18 22:00 10/11/18 13:24 Colace - PO Not Given TID JOSE J Nafcillin Sodium 2 gm/ 100 mls @ 100 mls/hr 10/03/18 15:30 10/11/18 17:53 Dextrose IVPB 100 mls/hr Q4H-IV JOSE J Administration Protocol Ertapenem 0.5 gm/ Sodium 50 mls @ 100 mls/hr 10/06/18 13:00 10/11/18 10:18 Chloride IVPB 100 mls/hr DAILY JOSE J Administration Dextrose/Sodium Chloride 1,000 mls @ 42 mls/hr 10/09/18 07:45 10/11/18 15:22 D5-Ns - IV 42 mls/hr ASDIR JOSE J Administration Sodium Chloride 250 mls @ 3,000 mls/hr 10/11/18 15:49 Normal Saline - IV 10/11/18 22:00 PRN PRN Hypotension during Dialysis Losartan Potassium 100 mg 10/03/18 19:15 10/11/18 10:15 Cozaar - PO Not Given DAILY JOSE J Morphine Sulfate 2 mg 10/07/18 20:33 10/09/18 20:53 Morphine Sulfate IVPUSH 2 mg Q3H PRN Administration PAIN LEVEL 6-10 Ondansetron HCl 4 mg 10/07/18 19:57 Zofran Injection IVPUSH Q6H PRN NAUSEA AND/OR VOMITING Pantoprazole Sodium 40 mg 10/11/18 10:00 10/11/18 10:15 Protonix - PO Not Given DAILY JOSE J Promethazine HCl 12.5 mg 10/07/18 20:23 Phenergan Injection - IVPUSH Q6H PRN NAUSEA-FOR RESCUE AFTER 15 MIN ASSESSMENT/PLAN: This is a 77 year old male with a history of breast CA s/p lumpectomy and radiation years ago, ESRD on HD who presented due 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 Persistently bacteremic. #bacteremia persistent; POD #4 drainage of epidural abscess -repeat blood cultures negative; then positive will repeat -staph; antibiotics IV naf/ertapenam; cont #hypoerbilirubinemia; multifactorial; -possible from hypotension; meds -GI eval -mrcp when able #AV fistula malformation -duplex thrombus of AV fistula; complete obstruction; repeat US shows recannulation with mass vs hematoma -vascular consulted #Hx of breast ca; -liver and lungs lesions suspicious for mets; will need tissue diagnosis #ESRD on HD -HD as per renal #macrocytic anemia:s/p 2 unit of PRBC -iron studies stores are low;replace; ferritin high; (most likely acute phase reactant ) -vit b 12 and folate normal -FISH; cytogenetics, flow cytometry; pending -monitor cbc; transfuse threshold <7 #thrombocytopenia: resolved #hx of breast CA: -need tissue diagnosis of lung/liver nodule'; -w/u mets -heme consult GIppl; protonix Visit type - Emergency Visit Emergency Visit: Yes ED Registration Date: 10/01/18 Care time: The patient presented to the Emergency Department on the above date and was hospitalized for further evaluation of their emergent condition. - New Patient This patient is new to me today: No - Critical Care Critical Care patient: Yes Total Critical Care Time (in minutes): 45 Critical Care Statement: The care of this patient involved high complexity decision making to prevent further life threatening deterioration of the patient 's condition and/or to evaluate & treat vital organ system(s) failure or risk of failure.
--- NOTE | 2018-10-11 18:16 | PN ---
Teaching Attending Note Name of Resident: Eduarda Ellison ATTENDING PHYSICIAN STATEMENT I saw and evaluated the patient. I reviewed the resident's note and discussed the case with the resident. I agree with the resident's findings and plan as documented. SUBJECTIVE: unable to obtain, does not respond to stimuli. RN and resident stated was answering questions earlier OBJECTIVE: Last Vital Signs Temp Pulse Resp BP Pulse Ox 36.8 C 77 15 113/80 97 10/11/18 18:00 10/11/18 18:00 10/11/18 18:00 10/11/18 18:00 10/11/18 08:00 Gen: lethargic but protecting airway Pulm: ctab w/o w/r/r, on venti-mask CV: rrr w/o m/r/g Abd: +bs, s/nt/nd Ext: no c/c/e CBC, BMP 10/11/18 05:30 10/11/18 05:30 ASSESSMENT AND PLAN: (1) Acute metabolic encephalopathy Assessment/Plan: -extubated but lethargic today -was more alert earlier, ? fatigue -continue to monitor for improvement Code(s): G93.41 - METABOLIC ENCEPHALOPATHY (2) 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 Assessment/Plan: -latest blood cultures NGTD -ID following -continue current antibiotics Code(s): A41.9 - SEPSIS, UNSPECIFIED ORGANISM (3) ESRD (end stage renal disease) on dialysis Assessment/Plan: -nephrology following -HD per nephrology Code(s): N18.6 - END STAGE RENAL DISEASE; Z99.2 - DEPENDENCE ON RENAL DIALYSIS (4) Thrombocytopenia Assessment/Plan: -secondary to sepsis -resolved Code(s): D69.6 - THROMBOCYTOPENIA, UNSPECIFIED (5) Hyponatremia Assessment/Plan: -stable Code(s): E87.1 - HYPO-OSMOLALITY AND HYPONATREMIA (6) HTN (hypertension) Assessment/Plan: -currently normotensive Code(s): I10 - ESSENTIAL (PRIMARY) HYPERTENSION Qualifiers: Hypertension type: essential hypertension Qualified Code(s): I10 - Essential (primary) hypertension (7) Parkinson disease Assessment/Plan: -holding carbidopa/levodopa/entacapone while altered and npo Code(s): G20 - PARKINSON'S DISEASE (8) Dialysis AV fistula malfunction Assessment/Plan: -per vascular surgery Code(s): T82.590A - [facility] COMPL OF SURGICALLY CREATED ARTERIOVENOUS FISTULA, INIT Qualifiers: Encounter type: initial encounter Qualified Code(s): T82.590A - Other mechanical complication of surgically created arteriovenous fistula, initial encounter (9) Acute hepatic failure -bilirubin stable today -MRCP when stable 33 minutes in critical care time spent with this patient Problem List - Problems (1) Acute metabolic encephalopathy Code(s): G93.41 - METABOLIC ENCEPHALOPATHY (2) Sepsis Code(s): A41.9 - SEPSIS, UNSPECIFIED ORGANISM Qualifiers: Sepsis type: methicillin susceptible Staphylococcus aureus Qualified Code(s ): A41.01 - Sepsis due to Methicillin susceptible Staphylococcus aureus (3) ESRD (end stage renal disease) on dialysis Code(s): N18.6 - END STAGE RENAL DISEASE; Z99.2 - DEPENDENCE ON RENAL DIALYSIS (4) Thrombocytopenia Code(s): D69.6 - THROMBOCYTOPENIA, UNSPECIFIED (5) Hyponatremia Code(s): E87.1 - HYPO-OSMOLALITY AND HYPONATREMIA (6) HTN (hypertension) Code(s): I10 - ESSENTIAL (PRIMARY) HYPERTENSION Qualifiers: Hypertension type: essential hypertension Qualified Code(s): I10 - Essential (primary) hypertension (7) Parkinson disease Code(s): G20 - PARKINSON'S DISEASE (8) Dialysis AV fistula malfunction Code(s): T82.590A - [facility] COMPL OF SURGICALLY CREATED ARTERIOVENOUS FISTULA, INIT Qualifiers: Encounter type: initial encounter Qualified Code(s): T82.590A - Other mechanical complication of surgically created arteriovenous fistula, initial encounter
[2018-10-12] MEDS ORDERED: ONDANSETRON 4 MG/2 ML VIAL IVPUSH PRN (01:02)
[2018-10-12] MEDS ORDERED: PROMETHAZINE HCL 25 MG/1 ML VIAL IVPUSH PRN (01:02)
[2018-10-12] MEDS ORDERED: morphine SULFATE 4 MG/ML VIAL IVPUSH PRN (01:02)
[2018-10-12] MEDS ORDERED: BISACODYL 10 MG SUPP.RECT RC PRN (01:02)
[2018-10-12] MEDS: DEXTROSE 5%-NORMAL SALINE 1,000 ML IV SCH (03:49)
[2018-10-12] MEDS: NAFCILLIN - 2 GM in DEXTROSE 5%-WATER - 100 ML IVPB SCH ×6 (03:50→22:47)
[2018-10-12] MEDS: DOCUSATE SODIUM 100 MG CAPSULE (FP) PO SCH ×3 (07:48→22:48)
[2018-10-12 08:45] LABS: BASO % 0.3 % (0-2.0); EOS % 1.2 % (0-4.5); HEMATOCRIT 27.6 % (35.4-49); HEMOGLOBIN 9.2 GM/dL (11.7-16.9); LYMPH % 1.9 % (8-40); MCH 34.7 pg (25.7-33.7); MCHC 33.4 g/dl (32.0-35.9); MEAN CELL VOLUME 103.9 fl (80-96); MONO % 2.5 % (3.8-10.2); NEUT % 94.1 % (42.8-82.8); PLATELET COUNT 149 K/MM3 (134-434); RBC 2.66 M/mm3 (4.00-5.60); RDW 18.6 % (11.9-15.9); WHITE BLOOD COUNT 11.5 K/mm3 (4.0-10.0)
--- NOTE | 2018-10-12 09:33 | PN ---
Progress Note (short form) - Note Progress Note: Chief Complaint: Events noted, notes reviewed, lethargic in no distress History of Present Illness: Seen and examined on telemetry. Events noted, notes reviewed, lethargic in no distress Medications: Current Medications Bisacodyl (Dulcolax Suppository -) 10 mg RC DAILY PRN PRN Reason: CONSTIPATION Carbidopa/Levodopa (Sinemet 25/100 -) 2 each PO QID JOSE J Docusate Sodium (Colace -) 100 mg PO TID [facility] Last Admin: 10/12/18 07:48 Dose: Not Given Dextrose/Sodium Chloride (D5-Ns -) 1,000 mls @ 42 mls/hr IV ASDIR JOSE J Last Admin: 10/12/18 03:49 Dose: Not Given Ertapenem 0.5 gm/ Sodium (Chloride) 50 mls @ 100 mls/hr IVPB DAILY [facility] Nafcillin Sodium 2 gm/ (Dextrose) 100 mls @ 100 mls/hr IVPB Q4H-IV JOSE J; Protocol Last Admin: 10/12/18 07:48 Dose: Not Given Losartan Potassium (Cozaar -) 100 mg PO DAILY [facility] Morphine Sulfate (Morphine Sulfate) 2 mg IVPUSH Q3H PRN PRN Reason: PAIN LEVEL 6-10 Ondansetron HCl (Zofran Injection) 4 mg IVPUSH Q6H PRN PRN Reason: NAUSEA AND/OR VOMITING Pantoprazole Sodium (Protonix -) 40 mg PO DAILY [facility] Promethazine HCl (Phenergan Injection -) 12.5 mg IVPUSH Q6H PRN PRN Reason: NAUSEA-FOR RESCUE AFTER 15 MIN Review of Systems Unable to obtain Vital Signs: Last Vital Signs Temp Pulse Resp BP Pulse Ox 98.1 F 78 16 128/79 97 10/12/18 07:00 10/12/18 07:00 10/12/18 07:00 10/12/18 07:00 10/11/18 08:00 Intake & Output 10/09/18 10/10/18 10/11/18 10/12/18 23:59 23:59 23:59 23:59 Intake Total 1044 2104 2158 Output Total 35 0 0 1 Balance 1009 2104 2158 -1 Weight 148 lb 14.4 oz 148 lb 14.4 oz Neck: Supple Negative JVD no bruit appreciated Respiratory: Diminished Breath Sounds at the Bases Cardiovascular: S1 S2 Regular Rate and Rhythm Gastrointestinal: Soft Benign Normal Bowel Sounds Ext: Negative Edema Labs: CBC, BMP 10/12/18 08:10 10/12/18 08:10 Hepatic Panel Total Bilirubin 9.6 mg/dL (0.2-1) H 10/11/18 05:30 Direct Bilirubin 4.8 mg/dL (0.0-0.2) H 10/11/18 05:30 AST 27 U/L (15-37) 10/11/18 05:30 ALT < 6 U/L (13-61) L 10/11/18 05:30 Alkaline Phosphatase 84 U/L (45-117) 10/11/18 05:30 Albumin 1.4 g/dl (3.4-5.0) L 10/11/18 05:30 INR, PTT INR 1.19 (0.83-1.09) H 10/11/18 05:30 Assessment/Plan ASSESSMENT: 1. Persistent MSSA Bacteremia/sepsis syndrome 2. Epidural Abscess post Drainage and removal of old posterior implant POD#5 3. Post Acute Respiratory Failure 4. HTN 5. ESRD on HD/AVF thrombus 6. Parkinson's disease 7. history of Breast Ca with suspected lung and liver metastasis 8. Anemia PLAN: 1. Continue Cozaar, hemodynamics permitting 2. Antibiotics as per th eprimary team 3. Monitor CBC and transfuse to maintain Hgb equal or >8.0 Sravani Torres M.D.
--- NOTE | 2018-10-12 09:40 | PN ---
Progress Note (short form) - Note Progress Note: PULMONARY REMAINS EXTUBATED APPEARS CHRONICALLY ILL/DNR/DNI Afebrile/128/79 Gen: lethargic but able to follow commands Heart: RRR Lung: decreased breath sounds at the bases Abd: soft, nontender Ext: no edema Labs/med/notes/images reviewed Persistent MSSA Bacteremia Epidural Abscess s/p Drainage Sepsis Acute Respiratory Failure ESRD on HD Parkinsons Disease h/o Breast Ca with suspected recurrence Anemia HTN - continue antibiotics - monitor H/H - transfuse as needed - HD per renal - O2 to keep SpO2 >90% - aspiration precautions - DVT prophylaxis - Continue cardiac Telemetry monitoring Luis GARBER MD
--- NOTE | 2018-10-12 09:47 | PN ---
Progress Note (short form) - Note Progress Note: NEUROSURGERY On telemetry POD #5 S/p drainage of epidural abscess and removal of old posterior implant AF, VSS Drowsy, mubmling, but following simple commands HEENT- NC/AT; Neck- supple; Cor- RR; Lungs- CTA, decreased at bases; Abd- benign ; Ext- no sign of DVT, R UE AVF CN- grossly nonfocal; Motor- starting to move B LE at least 4/5 L3-4 epidural abscess with LE deficits, gram stain (staph aureus), final ID and sensitivity pending Intra-op cx- MSSA Last two blood cultures negative to date Neurologically improved Complete iv abx course, currently ertapenem and nafcillin Nutritional support OOB, PT DNR
[2018-10-12 10:31] LABS: ANISOCYTOSIS 1+; MACROCYTOSIS 0; PLATELET ESTIMATE NORMAL
[2018-10-12] MEDS ORDERED: PT OWN MED DRAWER 7, Y5N ONE ×5 (10:40→22:46)
[2018-10-12] MEDS: PANTOPRAZOLE 40 MG TABLET (FP) PO SCH (10:47)
[2018-10-12] MEDS: LOSARTAN POTASSIUM 50 MG TABLET (FP) PO SCH (10:47)
[2018-10-12] MEDS: CARBIDOPA/LEVODOPA 25/100 TABLET (FP) PO SCH ×4 (10:47→22:48)
[2018-10-12] MEDS: ERTAPENEM SODIUM 0.5 GM in SODIUM CHLORIDE 50 ML IVPB SCH (11:48)
[2018-10-12 11:49] LABS: ALBUMIN 1.6 g/dl (3.4-5.0); ALK PHOS 84 U/L (45-117); ANION GAP 10 MMOL/L (8-16); BILIRUBIN,TOTAL 9.8 mg/dL (0.2-1); BLOOD UREA NITROGEN 33 mg/dL (7-18); CALCIUM 8.2 mg/dL (8.5-10.1); CHLORIDE 103 mmol/L (98-107); CO2 26 mmol/L (21-32); CREATININE 4.5 mg/dL (0.55-1.3); GLUCOSE,RANDOM 99 mg/dL (74-106); SGOT/AST 29 U/L (15-37); SGPT/ALT < 6 U/L (13-61); SODIUM 139 mmol/L (136-145); TOT PROT 5.6 g/dl (6.4-8.2)
[2018-10-12 11:57] LABS: POTASSIUM 3.6 mmol/L (3.5-5.1)
--- NOTE | 2018-10-12 15:27 | PN ---
Progress Note, Physician History of Present Illness: Pt seen and examined at bedside. He is awake but appears fatigued. - Current Medication List Current Medications: Active Medications Bisacodyl (Dulcolax Suppository -) 10 mg RC DAILY PRN PRN Reason: CONSTIPATION Carbidopa/Levodopa (Sinemet 25/100 -) 2 each PO QID [facility] Last Admin: 10/12/18 10:47 Dose: Not Given Docusate Sodium (Colace -) 100 mg PO TID [facility] Last Admin: 10/12/18 07:48 Dose: Not Given Dextrose/Sodium Chloride (D5-Ns -) 1,000 mls @ 42 mls/hr IV ASDIR [facility] Last Admin: 10/12/18 03:49 Dose: Not Given Ertapenem 0.5 gm/ Sodium (Chloride) 50 mls @ 100 mls/hr IVPB DAILY [facility] Last Admin: 10/12/18 11:48 Dose: 100 mls/hr Nafcillin Sodium 2 gm/ (Dextrose) 100 mls @ 100 mls/hr IVPB Q4H-IV JOSE J; Protocol Last Admin: 10/12/18 10:48 Dose: 100 mls/hr Losartan Potassium (Cozaar -) 100 mg PO DAILY [facility] Last Admin: 10/12/18 10:47 Dose: Not Given Morphine Sulfate (Morphine Sulfate) 2 mg IVPUSH Q3H PRN PRN Reason: PAIN LEVEL 6-10 Ondansetron HCl (Zofran Injection) 4 mg IVPUSH Q6H PRN PRN Reason: NAUSEA AND/OR VOMITING Pantoprazole Sodium (Protonix -) 40 mg PO DAILY [facility] Last Admin: 10/12/18 10:47 Dose: Not Given Promethazine HCl (Phenergan Injection -) 12.5 mg IVPUSH Q6H PRN PRN Reason: NAUSEA-FOR RESCUE AFTER 15 MIN - Objective Vital Signs: Vital Signs Temperature 97.6 F 10/12/18 10:00 Pulse Rate 84 10/12/18 10:00 Respiratory Rate 16 10/12/18 10:00 Blood Pressure 132/58 L 10/12/18 10:00 O2 Sat by Pulse Oximetry (%) 98 10/12/18 10:00 Constitutional: Yes: Calm Eyes: Yes: Conjunctiva Clear HENT: Yes: Atraumatic Cardiovascular: Yes: S1, S2 Respiratory: Yes: On Nasal O2 Gastrointestinal: Yes: Soft Genitourinary: Yes: Incontinence Musculoskeletal: Yes: Muscle Weakness Edema: LUE: Trace, RUE: Trace Neurological: Yes: Oriented Labs: CBC, BMP 10/12/18 08:10 10/12/18 11:00 INR, PTT INR 1.19 (0.83-1.09) H 10/11/18 05:30 Problem List - Problems (1) HTN (hypertension) Code(s): I10 - ESSENTIAL (PRIMARY) HYPERTENSION Qualifiers: Hypertension type: essential hypertension Qualified Code(s): I10 - Essential (primary) hypertension (2) ESRD (end stage renal disease) on dialysis Code(s): N18.6 - END STAGE RENAL DISEASE; Z99.2 - DEPENDENCE ON RENAL DIALYSIS Assessment/Plan Current Medications Generic Name Dose Route Start Last Admin Trade Name Freq PRN Reason Stop Dose Admin Bisacodyl 10 mg 10/12/18 01:02 Dulcolax Suppository - RC DAILY PRN CONSTIPATION Carbidopa/Levodopa 2 each 10/12/18 10:00 10/12/18 10:47 Sinemet 25/100 - PO Not Given QID JOSE J Docusate Sodium 100 mg 10/12/18 06:00 10/12/18 07:48 Colace - PO Not Given TID JOSE J Dextrose/Sodium Chloride 1,000 mls @ 42 mls/hr 10/12/18 01:02 10/12/18 03:49 D5-Ns - IV Not Given ASDIR JOSE J Ertapenem 0.5 gm/ Sodium 50 mls @ 100 mls/hr 10/12/18 10:00 10/12/18 11:48 Chloride IVPB 100 mls/hr DAILY JOSE J Administration Nafcillin Sodium 2 gm/ 100 mls @ 100 mls/hr 10/12/18 02:00 10/12/18 10:48 Dextrose IVPB 100 mls/hr Q4H-IV JOSE J Administration Protocol Losartan Potassium 100 mg 10/12/18 10:00 10/12/18 10:47 Cozaar - PO Not Given DAILY JOSE J Morphine Sulfate 2 mg 10/12/18 01:02 Morphine Sulfate IVPUSH Q3H PRN PAIN LEVEL 6-10 Ondansetron HCl 4 mg 10/12/18 01:02 Zofran Injection IVPUSH Q6H PRN NAUSEA AND/OR VOMITING Pantoprazole Sodium 40 mg 10/12/18 10:00 10/12/18 10:47 Protonix - PO Not Given DAILY JOSE J Promethazine HCl 12.5 mg 10/12/18 01:02 Phenergan Injection - IVPUSH Q6H PRN NAUSEA-FOR RESCUE AFTER 15 MIN Impression 1. ESRD 2. HTN 3. change in mental status 4. PNA 5. parkinsons 6. sepsis 7. clotted graft 8. fever 9. metastatic breast cancer 10. bacteremia Plan - last HD was done yesterday - will need access next week - mental status is improving - bili is elevated - discussed with medical team - abx per ID - monitor hg
--- NOTE | 2018-10-12 16:15 | PN ---
Progress Note, Physician History of Present Illness: awake tired calm post op from vertebral abscess - Current Medication List Current Medications: Active Medications Bisacodyl (Dulcolax Suppository -) 10 mg RC DAILY PRN PRN Reason: CONSTIPATION Carbidopa/Levodopa (Sinemet 25/100 -) 2 each PO QID [facility] Last Admin: 10/12/18 15:57 Dose: Not Given Docusate Sodium (Colace -) 100 mg PO TID [facility] Last Admin: 10/12/18 15:57 Dose: Not Given Dextrose/Sodium Chloride (D5-Ns -) 1,000 mls @ 42 mls/hr IV ASDIR [facility] Last Admin: 10/12/18 03:49 Dose: Not Given Ertapenem 0.5 gm/ Sodium (Chloride) 50 mls @ 100 mls/hr IVPB DAILY [facility] Last Admin: 10/12/18 11:48 Dose: 100 mls/hr Nafcillin Sodium 2 gm/ (Dextrose) 100 mls @ 100 mls/hr IVPB Q4H-IV [facility]; Protocol Last Admin: 10/12/18 15:57 Dose: 100 mls/hr Losartan Potassium (Cozaar -) 100 mg PO DAILY [facility] Last Admin: 10/12/18 10:47 Dose: Not Given Morphine Sulfate (Morphine Sulfate) 2 mg IVPUSH Q3H PRN PRN Reason: PAIN LEVEL 6-10 Ondansetron HCl (Zofran Injection) 4 mg IVPUSH Q6H PRN PRN Reason: NAUSEA AND/OR VOMITING Pantoprazole Sodium (Protonix -) 40 mg PO DAILY [facility] Last Admin: 10/12/18 10:47 Dose: Not Given Promethazine HCl (Phenergan Injection -) 12.5 mg IVPUSH Q6H PRN PRN Reason: NAUSEA-FOR RESCUE AFTER 15 MIN - Objective Vital Signs: Vital Signs Temperature 98.5 F 10/12/18 15:44 Pulse Rate 88 10/12/18 15:44 Respiratory Rate 18 10/12/18 15:44 Blood Pressure 112/60 10/12/18 15:44 O2 Sat by Pulse Oximetry (%) 98 10/12/18 10:00 Constitutional: Yes: Calm Cardiovascular: Yes: Regular Rate and Rhythm Respiratory: Yes: Regular, On Nasal O2 Gastrointestinal: Yes: Normal Bowel Sounds, Soft Musculoskeletal: Yes: WNL Extremities: Yes: WNL Wound/Incision: Yes: Dressing Dry and Intact Neurological: Yes: Alert, Other Psychiatric: Yes: Other Labs: CBC, BMP 10/12/18 08:10 10/12/18 11:00 INR, PTT INR 1.19 (0.83-1.09) H 10/11/18 05:30 Assessment/Plan This is a 77 year old male with a history of breast CA s/p lumpectomy and radiation years ago, ESRD on HD who presented due 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 Persistently bacteremic. ESRD HTN change in mental status PNA parkinsons sepsis clotted graft fever metastatic breast cancer gm positive bacteremia leukocytosis plan continue abx wound cx have been negative contue nafcillin and ertapenam patient prognosis is not good monitor fevers nutrition rest as per the team and icu as per neurosurgery
[2018-10-13] MEDS: DOCUSATE SODIUM 100 MG CAPSULE (FP) PO SCH ×4 (00:52→22:56)
[2018-10-13] MEDS ORDERED: PT OWN MED DRAWER 7, Y5N ONE ×5 (02:06→19:51)
[2018-10-13] MEDS: NAFCILLIN - 2 GM in DEXTROSE 5%-WATER - 100 ML IVPB SCH ×6 (02:09→22:56)
[2018-10-13 07:25] LABS: HBSAG SCREEN Negative (Negative); HEP B CORE AB, TOT Negative (Negative)
--- NOTE | 2018-10-13 08:29 | PN ---
Progress Note (short form) - Note Progress Note: NEUROSURGERY On telemetry POD #6 S/p drainage of epidural abscess and removal of old posterior implant Tmax 98.7, AF, VSS Drowsy HEENT- NC/AT; Neck- supple; Cor- RR; Lungs- CTA, decreased at bases; Abd- benign ; Ext- no sign of DVT, R UE AVF CN- grossly nonfocal; Motor- starting to move B LE at least 4-/5 L3-4 epidural abscess with LE deficits, gram stain (staph aureus), final ID and sensitivity pending Intra-op cx- MSSA Last two blood cultures negative to date 3 and 3-23 Wound care Complete iv abx course, currently ertapenem and nafcillin Nutritional support OOB, PT DNR
[2018-10-13 09:35] LABS: BASO % 4.2 % (0-2.0); EOS % 2.3 % (0-4.5); HEMATOCRIT 30.2 % (35.4-49); HEMOGLOBIN 10.4 GM/dL (11.7-16.9); LYMPH % 6.2 % (8-40); MCH 34.2 pg (25.7-33.7); MCHC 34.5 g/dl (32.0-35.9); MEAN PLT VOLUME 9.7 fl (7.5-11.1); MONO % 4.6 % (3.8-10.2); NEUT % 82.7 % (42.8-82.8); PLATELET COUNT 175 K/MM3 (134-434); RBC 3.05 M/mm3 (4.00-5.60); RDW 17.4 % (11.9-15.9); WHITE BLOOD COUNT 10.8 K/mm3 (4.0-10.0)
[2018-10-13 09:54] LABS: INR 1.28 (0.83-1.09); PROTHROMBIN TIME (PATIENT) 15.2 SEC (9.7-13.0)
[2018-10-13 10:11] LABS: ALBUMIN 1.4 g/dl (3.4-5.0); ALK PHOS 97 U/L (45-117); ANION GAP 11 MMOL/L (8-16); BILIRUBIN,DIRECT 5.2 mg/dL (0.0-0.2); BILIRUBIN,TOTAL 10.2 mg/dL (0.2-1); BLOOD UREA NITROGEN 37 mg/dL (7-18); CALCIUM 7.8 mg/dL (8.5-10.1); CHLORIDE 102 mmol/L (98-107); CO2 27 mmol/L (21-32); CREATININE 5.8 mg/dL (0.55-1.3); GLUCOSE,RANDOM 151 mg/dL (74-106); PHOSPHOROUS 6.4 mg/dL (2.5-4.9); POTASSIUM 3.5 mmol/L (3.5-5.1); SGOT/AST 27 U/L (15-37); SGPT/ALT < 6 U/L (13-61); SODIUM 140 mmol/L (136-145); TOT PROT 5.3 g/dl (6.4-8.2)
--- NOTE | 2018-10-13 10:46 | PN ---
Progress Note (short form) - Note Progress Note: Chief Complaint: Events noted, notes reviewed, lethargic in no distress, overall no change in status History of Present Illness: Seen and examined on telemetry. Events noted, notes reviewed, lethargic in no distress, overall no change in status Medications: Current Medications Bisacodyl (Dulcolax Suppository -) 10 mg RC DAILY PRN PRN Reason: CONSTIPATION Carbidopa/Levodopa (Sinemet 25/100 -) 2 each PO QID [facility] Last Admin: 10/12/18 22:48 Dose: 2 each Docusate Sodium (Colace -) 100 mg PO TID [facility] Last Admin: 10/13/18 05:01 Dose: Not Given Dextrose/Sodium Chloride (D5-Ns -) 1,000 mls @ 42 mls/hr IV ASDIR [facility] Last Admin: 10/12/18 03:49 Dose: Not Given Ertapenem 0.5 gm/ Sodium (Chloride) 50 mls @ 100 mls/hr IVPB DAILY [facility] Last Admin: 10/12/18 11:48 Dose: 100 mls/hr Nafcillin Sodium 2 gm/ (Dextrose) 100 mls @ 100 mls/hr IVPB Q4H-IV JOSE [facility]; Protocol Last Admin: 10/13/18 05:11 Dose: 100 mls/hr Losartan Potassium (Cozaar -) 100 mg PO DAILY [facility] Last Admin: 10/12/18 10:47 Dose: Not Given Morphine Sulfate (Morphine Sulfate) 2 mg IVPUSH Q3H PRN PRN Reason: PAIN LEVEL 6-10 Ondansetron HCl (Zofran Injection) 4 mg IVPUSH Q6H PRN PRN Reason: NAUSEA AND/OR VOMITING Pantoprazole Sodium (Protonix -) 40 mg PO DAILY [facility] Last Admin: 10/12/18 10:47 Dose: Not Given Promethazine HCl (Phenergan Injection -) 12.5 mg IVPUSH Q6H PRN PRN Reason: NAUSEA-FOR RESCUE AFTER 15 MIN Review of Systems Unable to obtain Vital Signs: Last Vital Signs Temp Pulse Resp BP Pulse Ox 98.6 F 81 18 129/57 L 97 10/13/18 06:00 10/13/18 06:00 10/13/18 06:00 10/13/18 06:00 10/12/18 21:00 Intake & Output 10/10/18 10/11/18 10/12/18 10/13/18 23:59 23:59 23:59 23:59 Intake Total 2103 2157 Output Total 0 0 5 Balance 2103 2157 -5 Weight 148 lb 14.4 oz 148 lb 14.4 oz Neck: Supple Negative JVD no bruit appreciated Respiratory: Diminished Breath Sounds at the Bases Cardiovascular: S1 S2 Regular Rate and Rhythm Gastrointestinal: Soft Benign Normal Bowel Sounds Ext: Negative Edema Labs: ABG Results ABG pH 7.44 (7.35-7.45) 10/08/18 05:55 ABG pCO2 at Pt Temp 35.7 mmHg (35-45) 10/08/18 05:55 ABG pO2 at Pt Temp 350 mmHg (80-105) H 10/08/18 05:55 ABG HCO3 23.8 mmol/L (22-27) 10/08/18 05:55 ABG O2 Sat (Measured) 99.2 % (95-98) H 10/08/18 05:55 ABG O2 Content 11.4 % vol (15-22) L 10/08/18 05:55 ABG Base Excess 0.3 meq/l (-2-2) 10/08/18 05:55 CBC, BMP 10/13/18 09:15 10/13/18 09:15 Hepatic Panel Total Bilirubin 10.2 mg/dL (0.2-1) H 10/13/18 09:15 Direct Bilirubin 5.2 mg/dL (0.0-0.2) H 10/13/18 09:15 AST 27 U/L (15-37) 10/13/18 09:15 ALT < 6 U/L (13-61) L 10/13/18 09:15 Alkaline Phosphatase 97 U/L (45-117) 10/13/18 09:15 Albumin 1.4 g/dl (3.4-5.0) L 10/13/18 09:15 INR, PTT INR 1.28 (0.83-1.09) H 10/13/18 09:15 Assessment/Plan ASSESSMENT: 1. Persistent MSSA Bacteremia/sepsis syndrome 2. Epidural Abscess post Drainage and removal of old posterior implant POD#6 3. Post Acute Respiratory Failure 4. HTN 5. ESRD on HD/AVF thrombus 6. Parkinson's disease 7. History of Breast carcinoma with suspected lung and liver metastasis 8. Anemia PLAN: 1. Continue Cozaar, hemodynamics permitting 2. Antibiotics as per the primary team 3. Monitor CBC and transfuse to maintain Hgb equal or >8.0 Sravani Torres M.D.
[2018-10-13] MEDS: ERTAPENEM SODIUM 0.5 GM in SODIUM CHLORIDE 50 ML IVPB SCH (12:31)
--- NOTE | 2018-10-13 12:57 | PN ---
Progress Note (short form) - Note Progress Note: PULMONARY REMAINS EXTUBATED APPEARS CHRONICALLY ILL/DNR/DNI NGT IN PLACE Afebrile/VSS Gen: lethargic but able to follow commands Heart: RRR Lung: decreased breath sounds at the bases Abd: soft, nontender Ext: no edema Labs/med/notes/images reviewed Persistent MSSA Bacteremia Epidural Abscess s/p Drainage Sepsis Acute Respiratory Failure ESRD on HD Parkinsons Disease h/o Breast Ca with suspected recurrence Anemia HTN - continue antibiotics - monitor H/H - transfuse as needed - HD per renal - O2 to keep SpO2 >90% - aspiration precautions - DVT prophylaxis - Continue cardiac Telemetry monitoring Luis GARBER MD
[2018-10-13] MEDS: DEXTROSE 5%-NORMAL SALINE 1,000 ML IV SCH (13:30)
[2018-10-13] MEDS: PANTOPRAZOLE 40 MG TABLET (FP) PO SCH (13:31)
[2018-10-13] MEDS: CARBIDOPA/LEVODOPA 25/100 TABLET (FP) PO SCH ×4 (13:32→23:22)
[2018-10-13] MEDS: LOSARTAN POTASSIUM 50 MG TABLET (FP) PO SCH (13:33)
--- NOTE | 2018-10-13 13:57 | PN ---
Progress Note, Physician History of Present Illness: still continues to be lethargic opens his eyes - Current Medication List Current Medications: Active Medications Bisacodyl (Dulcolax Suppository -) 10 mg RC DAILY PRN PRN Reason: CONSTIPATION Carbidopa/Levodopa (Sinemet 25/100 -) 2 each PO QID [facility] Last Admin: 10/13/18 13:32 Dose: 2 each Docusate Sodium (Colace -) 100 mg PO TID [facility] Last Admin: 10/13/18 05:01 Dose: Not Given Dextrose/Sodium Chloride (D5-Ns -) 1,000 mls @ 42 mls/hr IV ASDIR [facility] Last Admin: 10/13/18 13:30 Dose: Not Given Ertapenem 0.5 gm/ Sodium (Chloride) 50 mls @ 100 mls/hr IVPB DAILY [facility] Last Admin: 10/13/18 12:31 Dose: 100 mls/hr Nafcillin Sodium 2 gm/ (Dextrose) 100 mls @ 100 mls/hr IVPB Q4H-IV [facility]; Protocol Last Admin: 10/13/18 11:00 Dose: 100 mls/hr Losartan Potassium (Cozaar -) 100 mg PO DAILY [facility] Last Admin: 10/13/18 13:33 Dose: Not Given Morphine Sulfate (Morphine Sulfate) 2 mg IVPUSH Q3H PRN PRN Reason: PAIN LEVEL 6-10 Ondansetron HCl (Zofran Injection) 4 mg IVPUSH Q6H PRN PRN Reason: NAUSEA AND/OR VOMITING Pantoprazole Sodium (Protonix -) 40 mg PO DAILY [facility] Last Admin: 10/13/18 13:31 Dose: 40 mg Promethazine HCl (Phenergan Injection -) 12.5 mg IVPUSH Q6H PRN PRN Reason: NAUSEA-FOR RESCUE AFTER 15 MIN - Objective Vital Signs: Vital Signs Temperature 98.6 F 10/13/18 06:00 Pulse Rate 81 10/13/18 06:00 Respiratory Rate 18 10/13/18 06:00 Blood Pressure 129/57 L 10/13/18 06:00 O2 Sat by Pulse Oximetry (%) 97 10/12/18 21:00 Constitutional: Yes: Other Cardiovascular: Yes: Regular Rate and Rhythm Respiratory: Yes: On Nasal O2, Poor Air Entry Gastrointestinal: Yes: Normal Bowel Sounds, Soft Musculoskeletal: Yes: WNL Extremities: Yes: WNL Neurological: Yes: Lethargy, Other Psychiatric: Yes: Other Labs: CBC, BMP 10/13/18 09:15 10/13/18 09:15 INR, PTT INR 1.28 (0.83-1.09) H 10/13/18 09:15 Assessment/Plan This is a 77 year old male with a history of breast CA s/p lumpectomy and radiation years ago, ESRD on HD who presented due 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 Persistently bacteremic. ESRD HTN change in mental status PNA parkinsons sepsis clotted graft fever metastatic breast cancer gm positive bacteremia leukocytosis plan continue abx wound cx have been negative contue nafcillin and ertapenam will need it for couple of weeks patient prognosis is not good monitor fevers nutrition rest as per the team as per neurosurgery
--- NOTE | 2018-10-13 16:00 | PN ---
Progress Note, Physician History of Present Illness: Pt seen and examined at bedside. He is now on tube feeds. - Current Medication List Current Medications: Active Medications Bisacodyl (Dulcolax Suppository -) 10 mg RC DAILY PRN PRN Reason: CONSTIPATION Carbidopa/Levodopa (Sinemet 25/100 -) 2 each PO QID [facility] Last Admin: 10/13/18 13:32 Dose: 2 each Docusate Sodium (Colace -) 100 mg PO TID [facility] Last Admin: 10/13/18 05:01 Dose: Not Given Dextrose/Sodium Chloride (D5-Ns -) 1,000 mls @ 42 mls/hr IV ASDIR [facility] Last Admin: 10/13/18 13:30 Dose: Not Given Ertapenem 0.5 gm/ Sodium (Chloride) 50 mls @ 100 mls/hr IVPB DAILY [facility] Last Admin: 10/13/18 12:31 Dose: 100 mls/hr Nafcillin Sodium 2 gm/ (Dextrose) 100 mls @ 100 mls/hr IVPB Q4H-IV [facility]; Protocol Last Admin: 10/13/18 11:00 Dose: 100 mls/hr Losartan Potassium (Cozaar -) 100 mg PO DAILY [facility] Last Admin: 10/13/18 13:33 Dose: Not Given Morphine Sulfate (Morphine Sulfate) 2 mg IVPUSH Q3H PRN PRN Reason: PAIN LEVEL 6-10 Ondansetron HCl (Zofran Injection) 4 mg IVPUSH Q6H PRN PRN Reason: NAUSEA AND/OR VOMITING Pantoprazole Sodium (Protonix -) 40 mg PO DAILY [facility] Last Admin: 10/13/18 13:31 Dose: 40 mg Promethazine HCl (Phenergan Injection -) 12.5 mg IVPUSH Q6H PRN PRN Reason: NAUSEA-FOR RESCUE AFTER 15 MIN - Objective Vital Signs: Vital Signs Temperature 98.6 F 10/13/18 06:00 Pulse Rate 81 10/13/18 06:00 Respiratory Rate 18 10/13/18 06:00 Blood Pressure 129/57 L 10/13/18 06:00 O2 Sat by Pulse Oximetry (%) 97 10/12/18 21:00 Constitutional: Yes: Calm Eyes: Yes: Conjunctiva Clear HENT: Yes: Atraumatic Cardiovascular: Yes: S1, S2 Respiratory: Yes: On Nasal O2 Gastrointestinal: Yes: Soft Genitourinary: Yes: Incontinence Musculoskeletal: Yes: Muscle Weakness Edema: No Neurological: Yes: Confusion Labs: CBC, BMP 10/13/18 09:15 10/13/18 09:15 INR, PTT INR 1.28 (0.83-1.09) H 10/13/18 09:15 Problem List - Problems (1) HTN (hypertension) Code(s): I10 - ESSENTIAL (PRIMARY) HYPERTENSION Qualifiers: Hypertension type: essential hypertension Qualified Code(s): I10 - Essential (primary) hypertension (2) ESRD (end stage renal disease) on dialysis Code(s): N18.6 - END STAGE RENAL DISEASE; Z99.2 - DEPENDENCE ON RENAL DIALYSIS Assessment/Plan Current Medications Generic Name Dose Route Start Last Admin Trade Name Freq PRN Reason Stop Dose Admin Bisacodyl 10 mg 10/12/18 01:02 Dulcolax Suppository - RC DAILY PRN CONSTIPATION Carbidopa/Levodopa 2 each 10/12/18 10:00 10/13/18 13:32 Sinemet 25/100 - PO 2 each QID JOSE J Administration Docusate Sodium 100 mg 10/12/18 06:00 10/13/18 05:01 Colace - PO Not Given TID JOSE J Dextrose/Sodium Chloride 1,000 mls @ 42 mls/hr 10/12/18 01:02 10/13/18 13:30 D5-Ns - IV Not Given ASDIR [facility]SE [facility] Ertapenem 0.5 gm/ Sodium 50 mls @ 100 mls/hr 10/12/18 10:00 10/13/18 12:31 Chloride IVPB 100 mls/hr DAILY JOSE J Administration Nafcillin Sodium 2 gm/ 100 mls @ 100 mls/hr 10/12/18 02:00 10/13/18 11:00 Dextrose IVPB 100 mls/hr Q4H-IV JOSE J Administration Protocol Losartan Potassium 100 mg 10/12/18 10:00 10/13/18 13:33 Cozaar - PO Not Given DAILY JOSE [facility] Morphine Sulfate 2 mg 10/12/18 01:02 Morphine Sulfate IVPUSH Q3H PRN PAIN LEVEL 6-10 Ondansetron HCl 4 mg 10/12/18 01:02 Zofran Injection IVPUSH Q6H PRN NAUSEA AND/OR VOMITING Pantoprazole Sodium 40 mg 10/12/18 10:00 10/13/18 13:31 Protonix - PO 40 mg DAILY [facility]SE [facility] Administration Promethazine HCl 12.5 mg 10/12/18 01:02 Phenergan Injection - IVPUSH Q6H PRN NAUSEA-FOR RESCUE AFTER 15 MIN Impression 1. ESRD 2. HTN 3. change in mental status 4. PNA 5. parkinsons 6. sepsis 7. clotted graft 8. fever 9. metastatic breast cancer 10. bacteremia Plan - d/c fluids as he is getting feeds - will evaluate for HD tomorrow - no change in mental status, he is awake but very weak - abx per ID - monitor hg
--- NOTE | 2018-10-13 16:14 | PN ---
Progress Note, Physician Chief Complaint: Unable to obtain. Patient opens eye slightly today but otherwise does not respond. - Current Medication List Current Medications: Active Medications Bisacodyl (Dulcolax Suppository -) 10 mg RC DAILY PRN PRN Reason: CONSTIPATION Carbidopa/Levodopa (Sinemet 25/100 -) 2 each PO QID [facility] Last Admin: 10/13/18 13:32 Dose: 2 each Docusate Sodium (Colace -) 100 mg PO TID [facility] Last Admin: 10/13/18 05:01 Dose: Not Given Ertapenem 0.5 gm/ Sodium (Chloride) 50 mls @ 100 mls/hr IVPB DAILY [facility] Last Admin: 10/13/18 12:31 Dose: 100 mls/hr Nafcillin Sodium 2 gm/ (Dextrose) 100 mls @ 100 mls/hr IVPB Q4H-IV [facility]; Protocol Last Admin: 10/13/18 11:00 Dose: 100 mls/hr Losartan Potassium (Cozaar -) 100 mg PO DAILY [facility] Last Admin: 10/13/18 13:33 Dose: Not Given Morphine Sulfate (Morphine Sulfate) 2 mg IVPUSH Q3H PRN PRN Reason: PAIN LEVEL 6-10 Ondansetron HCl (Zofran Injection) 4 mg IVPUSH Q6H PRN PRN Reason: NAUSEA AND/OR VOMITING Pantoprazole Sodium (Protonix -) 40 mg PO DAILY [facility] Last Admin: 10/13/18 13:31 Dose: 40 mg Promethazine HCl (Phenergan Injection -) 12.5 mg IVPUSH Q6H PRN PRN Reason: NAUSEA-FOR RESCUE AFTER 15 MIN - Objective Vital Signs: Vital Signs Temperature 37.0 C 10/13/18 06:00 Pulse Rate 81 10/13/18 06:00 Respiratory Rate 18 10/13/18 06:00 Blood Pressure 129/57 L 10/13/18 06:00 O2 Sat by Pulse Oximetry (%) 97 10/12/18 21:00 Constitutional: Yes: Other (lethargic) Cardiovascular: Yes: Regular Rate and Rhythm. No: Gallop, Murmur, Rub Respiratory: Yes: Regular, CTA Bilaterally. No: Rales, Rhonchi, Wheezes Gastrointestinal: Yes: Normal Bowel Sounds, Soft, Other (NGT in place). No: Distention, Tenderness Extremities: Yes: WNL Edema: No Labs: CBC, BMP 10/13/18 09:15 10/13/18 09:15 INR, PTT INR 1.28 (0.83-1.09) H 10/13/18 09:15 Problem List - Problems (1) Acute metabolic encephalopathy Code(s): G93.41 - METABOLIC ENCEPHALOPATHY (2) Sepsis Code(s): A41.9 - SEPSIS, UNSPECIFIED ORGANISM Qualifiers: Sepsis type: methicillin susceptible Staphylococcus aureus Qualified Code(s ): A41.01 - Sepsis due to Methicillin susceptible Staphylococcus aureus (3) ESRD (end stage renal disease) on dialysis Code(s): N18.6 - END STAGE RENAL DISEASE; Z99.2 - DEPENDENCE ON RENAL DIALYSIS (4) Thrombocytopenia Code(s): D69.6 - THROMBOCYTOPENIA, UNSPECIFIED (5) Hyponatremia Code(s): E87.1 - HYPO-OSMOLALITY AND HYPONATREMIA (6) HTN (hypertension) Code(s): I10 - ESSENTIAL (PRIMARY) HYPERTENSION Qualifiers: Hypertension type: essential hypertension Qualified Code(s): I10 - Essential (primary) hypertension (7) Parkinson disease Code(s): G20 - PARKINSON'S DISEASE (8) Dialysis AV fistula malfunction Code(s): T82.590A - [facility] COMPL OF SURGICALLY CREATED ARTERIOVENOUS FISTULA, INIT Qualifiers: Encounter type: initial encounter Qualified Code(s): T82.590A - Other mechanical complication of surgically created arteriovenous fistula, initial encounter Assessment/Plan (1) Acute metabolic encephalopathy Assessment/Plan: -unclear if at new baseline -slightly more interactive with me today -continue to monitor for improvement -will need to discuss GOC with family Code(s): G93.41 - METABOLIC ENCEPHALOPATHY (2) 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 Assessment/Plan: -last 2 sets BC negative so far -ID following -continue nafcillin and vancomycin per Dr Torres Code(s): A41.9 - SEPSIS, UNSPECIFIED ORGANISM (3) ESRD (end stage renal disease) on dialysis Assessment/Plan: -nephrology following -HD per nephrology Code(s): N18.6 - END STAGE RENAL DISEASE; Z99.2 - DEPENDENCE ON RENAL DIALYSIS (4) Thrombocytopenia Assessment/Plan: -secondary to sepsis -resolved Code(s): D69.6 - THROMBOCYTOPENIA, UNSPECIFIED (5) Hyponatremia Assessment/Plan: -stable Code(s): E87.1 - HYPO-OSMOLALITY AND HYPONATREMIA (6) HTN (hypertension) Assessment/Plan: -currently normotensive Code(s): I10 - ESSENTIAL (PRIMARY) HYPERTENSION Qualifiers: Hypertension type: essential hypertension Qualified Code(s): I10 - Essential (primary) hypertension (7) Parkinson disease Assessment/Plan: -NGT placed -sinemet restarted Code(s): G20 - PARKINSON'S DISEASE (8) Dialysis AV fistula malfunction Assessment/Plan: -per vascular surgery Code(s): T82.590A - [facility] COMPL OF SURGICALLY CREATED ARTERIOVENOUS FISTULA, INIT Qualifiers: Encounter type: initial encounter Qualified Code(s): T82.590A - Other mechanical complication of surgically created arteriovenous fistula, initial encounter (9) Acute hepatic failure -bilirubin continues to increase -continue to monitor -considering MRCP, however will discuss GOC as above
[2018-10-13 23:26] VITALS: BP 112/55; PULSE 78; TEMP 98.4
--- NOTE | 2018-10-13 23:37 | PN ---
Progress Note (short form) - Note Progress Note: Paged by nurse for bleeding AVF site. Pt. hemodynamically stable and at baseline per RN. No comments in notes read regarding A/V Fistula procedure or dressing management. Therefore it was decided to reinforce dressing and sign out to the day-team to address. No significant blood loss noted.
[2018-10-14 03:18] LABS: HEMATOCRIT 23.4 % (35.4-49); MCH 35.1 pg (25.7-33.7); MCHC 34.3 g/dl (32.0-35.9); MEAN CELL VOLUME 102.3 fl (80-96); MEAN PLT VOLUME 9.5 fl (7.5-11.1); PLATELET COUNT 133 K/MM3 (134-434); RBC 2.29 M/mm3 (4.00-5.60); RDW 17.6 % (11.9-15.9); WHITE BLOOD COUNT 11.8 K/mm3 (4.0-10.0)
--- NOTE | 2018-10-14 03:43 | PN ---
Progress Note (short form) - Note Progress Note: Patient was transferred from ICU to [address] [place] [address] on 10/12/18. Rapid response was called in [address] [place] [address] at 2:27 AM today on 10/14/18. Hospitalist team were present at bed side. As per the nurse, patient had soakage of blood over the bandage in the Right UE at AV fistula site. When the bandage was opened , there was continuous oozing of blood from the fistula site. Anesthesia was called at 2:29 AM. ICU resident was paged at 2:35 AM. Torniquet was placed and pressure applied. There was massive blood loss around 2L of blood. Right femoral line was placed at bed side by the attending. 1 bag of bolus normal saline and a unit of PRBC was given through pressure bag. Tried calling son and daughter multiple times, left voice messages, didn't get any call back. At that time, vitals: BP couldn't be obtained, Pulse 66-68 bpm, RR- 5-8 breaths/ min, Spo2- undetectable. In order to volume resuscitate and stabilize the patient, he was brought down to ICU. Within minutes, patient went into bradycardia and then asystole. Confirmed in the chart patient was DNR/DNI. Time of - 3:33 AM. 3:33 AM: Both son and daughter called again, multiple attempts were made, awaiting call back. 4:17 AM: Call placed to [facility] to get any new contact info. Call placed to Ms. Janine Ramirez () @ [phone]. 4:31 AM Son returned the call, Informed Mr. Rahul Ramirez. Family on their way to the hospital.
[2018-10-14 03:58] LABS: ALK PHOS 76 U/L (45-117); ANION GAP 12 MMOL/L (8-16); BILIRUBIN,TOTAL 7.9 mg/dL (0.2-1); BLOOD UREA NITROGEN 43 mg/dL (7-18); CHLORIDE 104 mmol/L (98-107); CO2 23 mmol/L (21-32); CREATININE 6.3 mg/dL (0.55-1.3); GLUCOSE,RANDOM 203 mg/dL (74-106); MAGNESIUM 2.3 mg/dL (1.8-2.4); PHOSPHOROUS 8.6 mg/dL (2.5-4.9); POTASSIUM 5.4 mmol/L (3.5-5.1); SGOT/AST 20 U/L (15-37); SGPT/ALT < 6 U/L (13-61); SODIUM 140 mmol/L (136-145)
--- NOTE | 2018-10-14 07:30 | PN ---
Progress Note (short form) - Note Progress Note: Rapid Response called in [address] [place] [address] 2:27 AM today on 10/14/18. Hospitalist team were present at bed side. Blood soaked bandages were found around the UE around the site where the Pt. had an AV-Fistula. Dr. Mendoza was called and advised to wrap site and to apply pressure. Tourniquet and pressure were applied. BP unable to be obtained, pulse 66-68 bpm, RR- 5-8 breaths/min, Spo2- undetectable , decision was made to place central line to obtain greater access for volume resuscitation. I unit pRBC and 1 unit NS delivered through pressure bag. Decision was made to transfer to ICU for better monitoring and management. Pt. was confirmed to be DNR/DNI. Multiple attempts were made to contact Pt.'s family. <Elías Victoria - Last Filed: 10/14/18 07:22> - Note Progress Note: Patient is seen and examined; please refer to jose bazan for further historical information. Chart reviewed. At ~230 rapid response called; came to room to see patient lying in a massive amount of blood with some clots already having formed. He was pale and agonally breathing. Saw fistula with large amount of blood coming from it. Appplied immediate pressure and tied off proximal end with tourniquet. Resident called vascular who recommended LAWSON wrap. Anesthesia called to bedside for assistance. DNR/I verified. Started on mass transfusion protocol and emergency R-femoral CVC placed. LUE found to have infiltrated with saline infusion. Aggressively hydrated then via CVC with multiple liters NS delivered with pressure bag. Taken to ICU and continued to treat. Multiple attempts to reach family by our team were unsuccessful. At 333 patient was noted to be pulseless and marianela down to asystole on the monitor. <Sergei Workman - Last Filed: 10/14/18 19:29>
[2018-10-14] MEDS ORDERED: SODIUM CHLORIDE 250 ML IV PRN (07:35)
[2018-10-14] MEDS ORDERED: EPOETIN ALFA 10,000 UNIT/1 ML VIAL IVPUSH ONE (07:36)
--- NOTE | 2018-10-14 19:21 | DS ---
Physical Exam: SUBJECTIVE: OBJECTIVE: Vital Signs Period Temp Pulse Resp BP Sys/Bentley Pulse Ox Last 24 Hr 98.4 F 78 16-16 112/55 97 LABS Laboratory Results - last 24 hr 10/13/18 10/14/18 10/14/18 21:48 03:11 03:11 WBC 11.8 H RBC 2.29 L Hgb 8.0 L Hct 23.4 L D MCV 102.3 H MCH 35.1 H MCHC 34.3 RDW 17.6 H Plt Count 133 L D MPV 9.5 Sodium 140 Potassium 5.4 H Chloride 104 Carbon Dioxide 23 Anion Gap 12 BUN 43 H Creatinine 6.3 H Creat Clearance w eGFR 8.71 POC Glucometer 173 Random Glucose 203 H Calcium 7.0 L Phosphorus 8.6 H Magnesium 2.3 Total Bilirubin 7.9 H AST 20 ALT < 6 L Alkaline Phosphatase 76 Total Protein 4.0 L Albumin 1.0 L Blood Type Antibody Screen Crossmatch 10/14/18 03:11 WBC RBC Hgb Hct MCV MCH MCHC RDW Plt Count MPV Sodium Potassium Chloride Carbon Dioxide Anion Gap BUN Creatinine Creat Clearance w eGFR POC Glucometer Random Glucose Calcium Phosphorus Magnesium Total Bilirubin AST ALT Alkaline Phosphatase Total Protein Albumin Blood Type A POSITIVE Antibody Screen Negative Crossmatch See Detail HOSPITAL COURSE: Date of Admission:10/01/18 Date of Discharge: 10/14/18 This is a 77 year old male with a history of breast CA s/p lumpectomy and radiation years ago, ESRD on HD who presented due 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 Persistently bacteremic. S/P epidural abscess drain. Overnight patient bled fron AV fistula site. Did not respond to PRBC or IVF, bleeding could not be stopped. #bacteremia persistent; drainage of epidural abscess -repeat blood cultures negative; then positive will repeat -staph; antibiotics IV naf/ertapenam; cont #hypoerbilirubinemia; multifactorial; -possible from hypotension; meds -GI eval -mrcp when able #AV fistula malformation -duplex thrombus of AV fistula; complete obstruction; repeat US shows recannulation with mass vs hematoma -vascular consulted #Hx of breast ca; -liver and lungs lesions suspicious for mets; will need tissue diagnosis #ESRD on HD -HD as per renal #macrocytic anemia:sg #thrombocytopenia: resolved #hx of breast CA: -need tissue diagnosis of lung/liver nodule'; -w/u mets -heme consult Minutes to complete discharge: 45 Discharge Summary Reason For Visit: FEVER Condition: Fair - Instructions Referrals: Kamila Tucker MD [Primary Care Provider] - Disposition: - Home Medications Comprehensive Discharge Medication List: Ambulatory Orders Amlodipine Besylate [Norvasc -] 10 mg PO ASDIR 09/05/18 Losartan Potassium 100 mg PO DAILY 09/05/18 Polyethylene Glycol 3350 [Miralax 119 gm Btl -] 17 gm PO DAILY bottle 09/09/18 B Complex W-C No.20/Folic Acid [Nephrocaps Softgel] 1 mg PO DAILY 10/01/18 Carbidopa/Levodopa/Entacapone [Ffvtwcoja-Snptilek-Pglh 200 mg] 1 each PO QID 07/10 Heparin - 5,000 unit SQ BID 10/01/18 This patient is new to me today: No Emergency Visit: Yes ED Registration Date: 10/01/18 Care time: The patient presented to the Emergency Department on the above date and was hospitalized for further evaluation of their emergent condition. Critical Care patient: Yes Total Critical Care Time (in minutes): 45 Critical Care Statement: The care of this patient involved high complexity decision making to prevent further life threatening deterioration of the patient 's condition and/or to evaluate & treat vital organ system(s) failure or risk of failure. - Discharge Referral Referred to [facility] No
== END 2018-10-14 03:33 | disposition expired | DRG 853 ==
LOC: JER 12:29 → JERBED 15:41 → J6S 18:56 → JICU 10-07 22:31 → J4S 10-12 01:01 → JICU 10-14 03:30 → J4S 10-14 04:03
PROVIDERS: ADMIT Internal Medicine; ATTEND Internal Medicine
PROC: 06HM33Z Insertion of Infusion Device into Right Femoral Vein, Percutaneous Approach (ICD-10-PCS; 2018-10-03)
PROC: B54BZZA Ultrasonography of Right Lower Extremity Veins, Guidance (ICD-10-PCS; 2018-10-03)
PROC: 5A1D70Z Performance of Urinary Filtration, Intermittent, Less than 6 Hours Per Day (ICD-10-PCS; 2018-10-03)
PROC: 0QB00ZZ Excision of Lumbar Vertebra, Open Approach (ICD-10-PCS; 2018-10-07)
PROC: 0SP00AZ Removal of Interbody Fusion Device from Lumbar Vertebral Joint, Open Approach (ICD-10-PCS; 2018-10-07)
PROC: 009U0ZZ Drainage of Spinal Canal, Open Approach (ICD-10-PCS; 2018-10-07)
PROC: 5A1945Z Respiratory Ventilation, 24-96 Consecutive Hours (ICD-10-PCS; 2018-10-07)
PROC: 0SG00AJ Fusion of Lumbar Vertebral Joint with Interbody Fusion Device, Posterior Approach, Anterior Column, Open Approach (ICD-10-PCS; principal; 2018-10-07 18:00)
PROC: 30233N1 Transfusion of Nonautologous Red Blood Cells into Peripheral Vein, Percutaneous Approach (ICD-10-PCS; 2018-10-08)
PROC: 06HM33Z Insertion of Infusion Device into Right Femoral Vein, Percutaneous Approach (ICD-10-PCS; 2018-10-09)
PROC: B54BZZA Ultrasonography of Right Lower Extremity Veins, Guidance (ICD-10-PCS; 2018-10-09)
DX: A41.01 Sepsis due to Methicillin susceptible Staphylococcus aureus (principal); N18.6 End stage renal disease; G93.41 Metabolic encephalopathy; G06.2 Extradural and subdural abscess, unspecified; K72.00 Acute and subacute hepatic failure without coma; J95.821 Acute postprocedural respiratory failure; I12.0 Hypertensive chronic kidney disease with stage 5 chronic kidney disease or end stage renal disease; T82.590A Other mechanical complication of surgically created arteriovenous fistula, initial encounter; E87.1 Hypo-osmolality and hyponatremia; T82.868A Thrombosis due to vascular prosthetic devices, implants and grafts, initial encounter; D62 Acute posthemorrhagic anemia; T82.838A Hemorrhage due to vascular prosthetic devices, implants and grafts, initial encounter; Z99.2 Dependence on renal dialysis; G20 Parkinson's disease; C50.929 Malignant neoplasm of unspecified site of unspecified male breast; Y83.8 Other surgical procedures as the cause of abnormal reaction of the patient, or of later complication, without mention of misadventure at the time of the procedure; E87.5 Hyperkalemia; D69.6 Thrombocytopenia, unspecified; R13.10 Dysphagia, unspecified; Z85.3 Personal history of malignant neoplasm of breast; G96.19 Other disorders of meninges, not elsewhere classified; E83.51 Hypocalcemia; E80.6 Other disorders of bilirubin metabolism; R91.1 Solitary pulmonary nodule; D63.1 Anemia in chronic kidney disease
CPT/HCPCS: 36415; 36430; 36511; 36600; 70450-TC; 71045-TC-FY; 71250-TC; 72100-TC-FY; 72141-TC; 72146-TC; 72148-TC; 74176-TC; 76705-TC; 80048; 80053; 80076; 82105; 82140; 82248; 82550; 82607; 82728; 82746; 82784; 82803; 82962; 82977; 83010; 83540; 83550; 83605; 83615; 83735; 83883; 84100; 84439; 84443; 84480; 84484; 85025; 85027; 85044; 85610; 85730; 86022; 86704; 86706; 86708; 86803; 86850; 86900; 86901; 86922; 87040; 87070; 87075; 87186; 87205; 87340; 87804; 87880; 88300-TC; 93005; 93010; 93306-TC; 93931; 94002; 94760; 99282-25; G0480; J0131; J0885; J1644; J7030; P9038; P9047; P9058